=== PATIENT | female | born 1980 | race African-American/Black ===

== ENCOUNTER 2019-11-28 18:19 | Emergency (ER) | payer OTHER, SELFPAY ==
--- NOTE | ~2019-11-28 | XR_ITS ---
EXAMINATION: XR knee RT 3V EXAM DATE: 11/28/2019 18:47 INDICATION: No known recent injury provided at this time. Pain of the right knee. TECHNIQUE: Three projections of the right knee. There is no prior study for comparison. FINDINGS: No evidence osteochondral defect or joint body in the right knee joint. There are no acut e fractures or dislocations identified. There is no subcutaneous gas. There is mild to moderate siz ed joint effusion. There are no radiopaque foreign bodies. There is mild medial tibiofemoral matthew rtment primary osteoarthritis. IMPRESSION: 1. Mild osteoarthritis. 2. Mild to moderate joint effusion. Reviewed, dictated and finalized at location A. NAUTICAL ENGINEERING TECHNOLOGIST
[2019-11-28 18:31] VITALS: BP 138/62; PULSE 78; RESP 19; TEMP 36.2; O2SAT 100
[2019-11-28 21:12] LABS: Basophils Percent Auto 0.4 % (0.2-1.2); Eosinophils Absolute Auto 0.3 K/mm3 (0-0.3); Eosinophils Percent Auto 3.6 % (0-4.4); Hematocrit 38.1 % (37.0-47.0); Hemoglobin 12.5 g/dL (12.0-15.0); Immature Granulocyte Absolute 0.03 K/mm3 (0.00-0.031); Immature Granulocyte Percent A 0.4 % (0-0.5); Lymphocytes Percent Auto 39.8 % (18.3-44.2); Mean Corpuscular HGB Conc 32.8 g/dl (32-36); Mean Corpuscular Hemoglobin 31.3 pg (26-34); Mean Corpuscular Volume 95.3 fl (80-100); Mean Platelet Volume 9.8 fl (7.4-10.4); Monocytes Absolute Auto 0.6 K/mm3 (0.1-0.6); Monocytes Percent Auto 6.8 % (2.6-8.5); Neutrophils Absolute Auto 3.9 K/mm3 (1.3-6.7); Platelet Count Result 282 k/mm3 (150-375)
[2019-11-28 21:24] LABS: Blood Urea Nitrogen 10 mg/dL (7-17); Calcium 8.9 mg/dL (8.4-10.2); Carbon Dioxide 26 mmol/L (22-30); Chloride 103 mmol/L (98-107); Estimated Glomerular Filt Rate > 60; Glucose 115 mg/dL (65-105); Potassium 3.6 mmol/L (3.4-5.0); Prothrombin Time 12.4 Seconds (11.1-14.7); Sodium 138 mmol/L (137-145)
[2019-11-28 21:25] LABS: Partial Thromboplastin Time 28.4 SECONDS (22.3-36.8)
[2019-11-28 21:28] LABS: D Dimer 0.38 ug/mL (<0.48)
--- NOTE | 2019-11-28 22:00 | ED.EXTPRO ---
HPI - Extremity Problem General Chief complaint: Extremity Problem,Nontraumatic Stated complaint: R leg pain Time Seen by Provider: 11/28/19 20:34 Source: patient Mode of arrival: ambulatory Limitations: no limitations History of Present Illness HPI Narrative: A 39 y/o female, with a PMHx of arthritis, presents to the ED with c/o RLE pain for 3 weeks. Patient states she has known right knee osteoarthritis, and she has been having swelling to right knee up into her thigh. Pt states that she recently started to experience shooting pain that starts in her knee up to her thigh and she has pain in the back of her leg that is worse when stretching it out. Pt feels like she pulled her hamstring and thinks that she may have overextened her muscles when stretching. Pt notes that she has gained 15 pounds since the beginning of the year. Pt has been taking Ibuprofen and muscle relaxers for her arthritis. Pt has not seen her PCP, Dr. Castillo, in 4 years because ?she keeps cancelling my appointments. She reports smoking and a PMHx of a HTN, , and tubal ligation, but denies CP, SOB, numbness/tingling, and denies PMHx of blood clots. Onset (ago): week(s) (3) Location: right and lower extremity Related Data Allergies Allergy/AdvReac Type Severity Reaction Status Date / Time No Known Allergies Allergy Unverified 05/20/17 11:14 Review of Systems Review of Systems: All systems reviewed & are unremarkable except as noted in HPI and below Constitutional: Comments: Reports: weight gain Cardiovascular: Cardiovascular: Denies chest pain Respiratory: Respiratory: Denies dyspnea Musculoskeletal: Comments: Reports: RLE pain and edema Neurologic: Denies numbness Comments: Denies: tingling PMFSH Past Medical History Medical History (Updated 11/29/19 @ 00:00 by Benjamin Lopez) Arthritis Asthma Diabetes HTN (hypertension) Surgical History Surgical History (Updated 11/28/19 @ 22:08 by Johanna Hall) H/O tubal ligation Social History Social History (Updated 11/28/19 @ 22:08 by Johanna Hall) Smoking status: Current every day smoker Gender identity (if verbalized by the patient): Female Comments PCP: Dr. Castillo Exam Narrative: Exam Narrative: GENERAL: Well-appearing, well-nourished, and in no acute distress. HEAD: Normocephalic, atraumatic EYES: PERRLA and EOMI, conjunctiva clear without discharge THROAT:Mucous membranes moist, NECK: Supple, without lymphadenopathy or mass RESPIRATORY: No respiratory distress, Airway patent, Respirations non-labored, Clear to auscultation without rales, rhonchi or wheeze HEART: Regular rate and rhythm. No murmur heard. Normal peripheral pulses. ABDOMEN: Soft, nontender, nondistended, normal active bowel sounds. No masses. No rebound or guarding, No organomegaly. SKIN: Warm, dry, normal color without rash NEURO: Alert and oriented x3. CN 2-12 grossly intact. No focal deficits. PSYCH: Normal mood and affect. Extrem: General: full ROM Right upper extremity: edema (bilateral lower extremity ankle edema) Right lower extremity: knee Details: swelling (right knee swelling anteriorly and suprapatella, no erythema or increased warmth) Psych: Appearance: grossly normal Mental Status: mental status grossly normal Affect: normal affect Thought content: Yes Normal thought content present Course Course Emergency Course: Patient presented with right knee swelling for three weeks. She has been found to have right knee effusion as cause of her pain and swelling. She has wells score of -1 with negative d dimer so no doppler needed to rule out DVt. I have discussed this patient. I offered arthrocentesis to pull fluid for therapy. Patient has declined Vital Signs Vital signs: Vital Signs Temperature 97.1 F L 11/28/19 18:31 Pulse Rate 78 11/28/19 18:31 Respiratory Rate 19 11/28/19 18:31 Blood Pressure 138/62 11/28/19 18:31 Pulse Oximetry 100 11/28/19 18:31 Temperature 97.
== END 2019-11-28 22:09 | disposition home or self-care (01) ==
PROVIDERS: Emergency Provider General Practice
DX: M19.90 Unspecified osteoarthritis, unspecified site (principal); J45.909 Unspecified asthma, uncomplicated; E11.9 Type 2 diabetes mellitus without complications; I10 Essential (primary) hypertension; F17.200 Nicotine dependence, unspecified, uncomplicated; M25.461 Effusion, right knee; M17.11 Unilateral primary osteoarthritis, right knee
CPT/HCPCS: 36415; 73562; 80048; 85025; 85380; 85610; 85730; 99283

== ENCOUNTER 2024-02-07 11:59 | Outpatient (CLI) | payer OTHER, SELFPAY ==
[2024-02-07 12:45] LABS: Hematocrit 41.2 % (37.0-47.0); Hemoglobin 12.8 g/dL (12.0-15.0); Mean Corpuscular HGB Conc 31.1 g/dl (32-36); Mean Corpuscular Hemoglobin 29.6 pg (26-34); Mean Corpuscular Volume 95.4 fl (80-100); Mean Platelet Volume 10.1 fl (7.4-10.4); Platelet Count Result 385 k/mm3 (150-375); Red Blood Count 4.32 M/mm3 (4.2-5.4); Red Cell Distribution Width 13.6 % (11.5-14.5); White Blood Count 7.3 K/mm3 (4.5-10.0)
[2024-02-07 13:11] LABS: Hemoglobin A1C 5.5 % (<5.7)
[2024-02-07 13:43] LABS: HIV 1/2 Ab P24 Ag Result Negative (Negative)
[2024-02-07 13:53] LABS: Hepatitis B Surface Antigen Negative (Negative)
[2024-02-07 14:10] LABS: Hepatitis C Virus Antibody Negative (Negative)
[2024-02-07 15:48] LABS: Rapid Plasma Reagin Non-Reactive (NonReactive)
== END 2024-02-07 12:00 | disposition home or self-care (01) ==
LOC: ANHLAB 12:01
PROVIDERS: Visit Provider Obstetrics & Gynecology
DX: N93.9 Abnormal uterine and vaginal bleeding, unspecified (principal); R53.83 Other fatigue; Z20.2 Contact with and (suspected) exposure to infections with a predominantly sexual mode of transmission
CPT/HCPCS: 36415; 83036; 85027; 86592; 86703; 86803; 87340; G0432

== ENCOUNTER 2024-02-14 07:36 | Outpatient (CLI) | payer OTHER, SELFPAY ==
--- NOTE | ~2024-02-14 | MM_ITS ---
EXAMINATION: MM screening son BI w ha HISTORY: Screening TECHNIQUE: Craniocaudal and mediolateral oblique 3-D tomosynthesis images were obtained and synthetic 2-D images were generated. CAD analysis was submitted and interpreted. COMPARISON: No prior mammogram is available for comparison at this institution. BREAST PARENCHYMAL COMPOSITION: There are scattered areas of fibroglandular density. FINDINGS: There is no evidence of suspicious mass, calcification, or architectural distortion to sugg est malignancy in either breast. There has been no suspicious interval change. IMPRESSION: 1. No mammographic evidence of malignancy. 2. Recommend routine screening mammography in one year. BI-RADS Category 1: Negative Reviewed, dictated and finalized at location A.
== END 2024-02-14 07:37 | disposition home or self-care (01) ==
LOC: ANHIMG 07:42
PROVIDERS: Visit Provider Obstetrics & Gynecology
DX: Z12.31 Encounter for screening mammogram for malignant neoplasm of breast (principal)
CPT/HCPCS: 77063; 77067

== ENCOUNTER 2024-02-24 07:26 | Outpatient (CLI) | payer OTHER, SELFPAY ==
--- NOTE | ~2024-02-24 | US_ITS ---
EXAMINATION: US pelvic complete w TV DATE: 02/24/2024 08:36 INDICATION: Benign neoplasm of connective and other soft tissue. TECHNIQUE: Multiple transabdominal and transvaginal sonographic images of the pelvis were obtained. COMPARISON: None. FINDINGS: TRANSABDOMINAL ULTRASOUND: The uterus measures 10.4 x 6.1 x 7.3 cm. There is no free fluid in the pelvis. TRANSVAGINAL ULTRASOUND: The endometrial complex measures 4 mm in thickness. There is a 3.6 cm submucosal fibroid. There is a 1.6 cm subserosal fibroid. The right ovary measures 4.2 x 2.3 x 2.5 cm. The left ovary measures 3.1 x 1.7 x 2.6 cm. There is normal vascular flow in the ovaries. IMPRESSION: 1. Uterine fibroids. Reviewed, dictated and finalized at location E. IMPRESSION: 1. Uterine fibroids.
== END 2024-02-24 07:27 | disposition home or self-care (01) ==
PROVIDERS: Visit Provider Obstetrics & Gynecology
DX: D25.0 Submucous leiomyoma of uterus (principal); D25.2 Subserosal leiomyoma of uterus
CPT/HCPCS: 76830; 76856

== ENCOUNTER 2024-05-28 09:27 | Outpatient (CLI) | payer OTHER, SELFPAY ==
--- NOTE | 2024-05-28 09:50 | ECG_ITS ---
Test Date: 2024-05-28 09:58:00 Measurements Intervals [place] Rate: 85 P: 65 NC: 194 QRS: 45 QRSD: 73 T: 52 QT: 353 QTc: 421 Interpretive Statements SINUS RHYTHM POSSIBLE RIGHT ATRIAL ENLARGEMENT POSSIBLE LEFT ATRIAL ENLARGEMENT BORDERLINE ECG No previous ECG available for comparison Electronically Signed On 05-28-2024 10:41:23 CDT by Nicolás Chaudhari D.O.
== END 2024-05-28 09:28 | disposition home or self-care (01) ==
PROVIDERS: Visit Provider Obstetrics & Gynecology
DX: Z01.818 Encounter for other preprocedural examination (principal); F17.210 Nicotine dependence, cigarettes, uncomplicated; N92.6 Irregular menstruation, unspecified
CPT/HCPCS: 36415; 86850; 86900; 86901; 93005

== ENCOUNTER 2024-05-31 00:27 | Day surgery (SDC) | payer OTHER, SELFPAY ==
--- NOTE | 2024-05-24 15:43 | SUR.PREOP ---
Report to the Outpatient Waiting Room, entrance under the green pavilion located off [facility], at time ___0600____ on date ___05/31/24____. Planned Procedure Time: ____729____.? Time changes happen often and if your time is changed the preop area will call you the afternoon before. - You and your visitor will be asked to self-screen and do not enter if you have any COVID symptoms. Please call surgeon if you need to reschedule. - A mask is optional within the hospital at this time. Patients may have clear liquids (water, carbonated beverages, clear teas, apple juice) until 3 hours prior to surgery with a maximum of 20 ounces. (NOTHING AFTER 0430) - No food from midnight until time of surgery and no smoking - Infants may have breast milk until 4 hours before surgery, infant formula 6 hours prior to surgery. - Children will be allowed to drink immediately following surgery.? If applicable, please bring a bottle or sippy cup to assist with drinking. Juice, water, soda, and popsicles are readily available.? For infants on formula, please bring formula the day of surgery.? Pacifiers are allowed. Take only the following medications with a SIP of water on the morning of surgery: ___ANY ANTIBIOTIC THAT YOU ARE STILL ON, BACLOFEN, TYLENOL, & BRING YOUR ALBUTEROL INHALER WITH YOU THE MORNING OF SURGERY___ DO NOT STOP ANY OF YOUR OTHER PRESCRIPTION MEDICATIONS PRIOR TO SURGERY EXCEPT THE FOLLOWING Medications to discontinue per physician INSTRUCTED TO STOP TAKING IBUPROFEN 05/16/[address] LOMAS Please no make-up, nail taiwanese, hairspray, perfume, deodorant, or body powder the day of surgery.? No jewelry (including any body piercings) or valuables the day of surgery, leave them at home.? Please take a shower or bath the night before, or the morning of, surgery with an antibacterial soap.? Wear comfortable, loose fitting clothing.? Children are encouraged to wear pajamas. - Jewelry must be removed prior to entering the operating room.? Rings and piercings that are not removed may be cut off. - The hospital will not accept responsibility for valuables.? - Please leave all valuables, including medications, at home the day of surgery. If you are going home after surgery, a licensed cpr ambulance driver must drive you home.? - NO public transportation without another adult if you receive anesthesia. - We recommend that an adult stay with you for 24 hours following discharge. - We also recommend that you do not drive, make important decision, drink alcoholic beverages, or take any drugs that were not prescribed by your health care provider for at least 24 hours after your discharge time. For Pediatric surgeries, we recommend two adults accompany the child home. Follow any additional instructions given to you from your surgeon. Telephone instructions given to BLAS DEAR and asked if any additional questions and then verbalized understanding. Patient advised to call surgeon office or pre surgery nurse liaison [phone] if any additional questions.
[2024-05-24 15:57] VITALS: BMI 37.0
--- NOTE | 2024-05-30 11:02 | WPDANESEPPF ---
Anes - Initial Pre Proc Eval Procedure: Operation Date: 05/31/24 07:30 Proposed Procedures p Robotic Assisted Vaginal Hysterectomy with Bilateral Salingectomy - Sonny Beltran MD Date/Time: 05/30/24 11:02 Surgeon: Sonny Beltran MD Pre Op Diagnosis: Menorrhagia, Fibroids Patient Data Age: 44 Gender: F Height: 1.65 m Weight: 101 kg Allergies Allergy/AdvReac Type Severity Reaction Status Date / Time No Known Allergies Allergy Unverified 05/24/24 15:29 Home Medications Medication Instructions Recorded Confirmed Type albuterol sulfate 90 mcg/actuation 1 inh inhalation Q4H 02/07/24 05/24/24 History aerosol inhaler baclofen 10 mg tablet 10 mg PO DAILY 02/07/24 05/24/24 History ibuprofen 800 mg tablet 800 mg PO TID 02/07/24 05/24/24 History doxycycline hyclate 100 mg capsule 100 mg PO Q12H #14 caps 03/05/24 05/24/24 Rx metronidazole 500 mg tablet 500 mg PO Q12H #14 tabs 03/05/24 05/24/24 Rx norethindrone acetate 5 mg tablet 5 mg PO DAILY #30 tabs 03/05/24 05/24/24 Rx acetaminophen 500 mg tablet 1,000 mg PO Q6-8H PRN Pain 05/24/24 05/24/24 History Patient hx anesthesia problems: none Family hx anesthesia problems: none Results Review: All pre-operative results and documents have been reviewed as part of the pre-operative evaluation. [facility] Past Medical History Medical History (Updated 05/31/24 @ 07:07 by Jr Pineda DO) Arthritis Asthma Diabetes denies HTN (hypertension) denies Surgical History Surgical History H/O tubal ligation Social History Social History Smoking packs per day: 1 Smoking cigarettes per day: 20.0 Years smoked: 23 Smoking pack-years: 23.00 Smoking status: Current every day smoker Tobacco type: cigarettes Living arrangements: with family Gender identity (if verbalized by the patient): Female Spiritual care concerns: No Anes - Eval Final PreProcedure Day of Procedure 05/30/24 11:02 Patient weight: obese Heart: regular rate and rhythm Lungs: clear to auscultation Airway: Mallampati scale class II Neurological: alert and oriented Last oral intake: >/= 8 hours ASA classification: III Emergent: no Anesthetic plan: proceed Anesthesia type and monitoring: general ETT and standard monitoring Results Review: All pre-operative results and documents have been reviewed as part of the pre-operative evaluation. Informed Consent: The patient's anesthetic plan and its attendant risks and benefits were discussed with the patient/family/POA. Questions were solicited and answers provided to the satisfaction of the patient/family/POA.
[2024-05-31] VITALS (14 sets, daily range): BP systolic 103–139; BP diastolic 68–99; PULSE 73–105; RESP 15–27; TEMP 36.1–37.2; O2SAT 93–100
[2024-05-31] MEDS: KETOROLAC 15 MG/ML VIAL (*BKC) IV PUSH (07:00)
[2024-05-31] MEDS: LACTATED RINGERS 1,000 ML 30 ML IV CONT ×2 (07:00→09:42)
[2024-05-31] MEDS: ACETAMINOPHEN 500 MG TABLET 1000 MG PO (07:00)
--- NOTE | 2024-05-31 07:33 | WPDHPUPDATE1 ---
History and Physical Update Update Date/Time: 05/31/24 07:33 History and Physical has been reviewed, including an updated exam of the patient. There are NO changes in the patient's condition. Risks, benefits, and alternatives have been discussed and questions answered. Patient agrees to proceed with procedure.
[2024-05-31] MEDS: ceFAZolin 2 GM/D5W 50 ML 2 GM/50 ML BAG IVPB (07:40)
[2024-05-31] MEDS: BUPivacaine HCL 0.5% 10 ML AMP 20 ML INFILTRATE (08:28)
--- NOTE | 2024-05-31 09:32 | PM.OP ---
Procedure Note - Brief Procedure Note - Brief Date of procedure: 05/31/24 Menorrhagia, Fibroids Post-op diagnosis: Same (3. right dermoid cyst) Procedure performed: Robotic assisted laparoscopic vaginal hysterectomy with bilateral salpingectomy and removal of right ovary with dermoid cyst Surgeon: Sonny Beltran MD Anesthesia: GETA Estimated blood loss (mL): 20 IV fluids (mL): 1,200 Drains: No Packing: No Pathology: Yes (uterus with ceriv and fallopian tube segments and right ovary cyst w hair on outside) Complications: No immediate complications Condition: Stable Disposition: PACU
[2024-05-31] MEDS: fentaNYL CITRATE INJ (*CRX) 100 MCG/2 ML VIAL 25 MCG IV PUSH ×2 (10:52→11:05)
--- NOTE | 2024-05-31 11:02 | W.PM.PROC2 ---
Procedure Note - Detailed Date of Procedure 05/31/24 Pre-op Diagnosis Menorrhagia, Fibroids Post-op Diagnosis Same (3. Right dermoid cyst) Procedure Performed robotic assisted laparoscopic vaginal hysterectomy with bilateral salpingectomy and left oophorectomy with removal of dermoid. Surgeon Sonny Beltran MD Day Treatment Clinician/Art Therapist Ji Anesthesia General Indications Heavy bleeding and fibroid uterus she desires definitive treatment. Findings Fibroid uterus intramural and subserosal. Normal left ovary normal-appearing segments of fallopian tubes the right ovary had an approximately 3 cm cyst and there was hair on the outside of the cyst consistent with dermoid. Description of Procedure After informed consent was obtained she was taken to the operating room and general endotracheal anesthesia was administered. She was placed in low lithotomy position. An exam under anesthesia was performed. Uterus mildly enlarged retroverted, no adnexal masses palpated. She was and prepped and draped in sterile fashion. Hernandez catheter placed in bladder. Attention was turned to the vagina speculum was inserted. Single-tooth tenaculum placed on anterior lip of the cervix the uterus sounded to 9cm. The cervix was dilated to a 8 Ramesh dilator. A size 8 uterine manipulator was inserted and secured. A size 3.0 colp cup was secured in the vagina. Then attention was turned to the abdomen with new sterile gloves. .5% marcaine injected subcutaneously. An incision was made horizontal 2 cm above the umbilicus. A Veress needle was inserted. Confirmation into the abdomen obtained with normal free flow of fluid and normal peritoneal pressures. A Pneumoperitoneum of 15 mm per mercury was obtained. No abdominal or pelvic adhesions noted. A small incision was made approximately 6 cm lateral to the port on the left side of the port. A size 8mm robotic port was inserted under laparoscopic visualization into the abdomen on the left side. Attention was then turned to the right side of the abdomen and Marcaine was used subcutaneously and incision was made an 8 mm robotic port was inserted under laparoscopic visualization and superior and medial to this Marcaine was injected subcutaneously and an visitor service assistant port was inserted under laparoscopic visualization. She was placed in steep Trendelenburg position. The robotic arms were attached. Attention was turned to the right round ligament which was ligated with the vessel sealer the anterior leaf of the broad ligament was dissected anteriorly. The right side of the bladder was dissected from the lower uterine segment and upper cervix. The right fallopian tube and ovarian ligament was ligated with the vessel sealer. The a posterior leaf of the broad ligament was further dissected. The ascending uterine vessels on the right were cauterized. The uterine vessels were ligated. Attention was turned to the left round ligament which was ligated and the anterior leaf of the broad ligament was dissected anteriorly. The rest of the vesicouterine peritoneum was dissected off of the uterus 2 below where the colp cup was palpated. Once the bladder was dissected below the colp cup then the posterior leaf of the broad ligament was further dissected. the left fallopian tube was ligated from the broad ligament. The ovarian ligament was ligated. The ascending uterine vessels were ligated with the vessel sealer. The u terine arteries were ligated. The cardinal ligaments were ligated. This was done on both sides. An incision was made anterior colpotomy incision was made and this was carried around until the cervix was removed from the vagina. The uterus and cervix were removed through the vagina. there was noted to be hair at the exterior of the right ovarian cyst. This was consistent with a dermoid cyst and therefore the right infundibulopelvic ligament was ligated and the right ovary was removed. The ovary was grabbed through the vaginal opening.
--- NOTE | 2024-05-31 11:46 | PM.DS ---
DS: Admitting Diagnosis Discharge Date June 01, 2024 Admitting Diagnosis 1. Fibroid uterus 2. Menorrhagia 3. Ovarian cyst DS: Discharge Diagnosis Discharge Diagnosis (1) Ovarian cyst: Code(s): N83.209 - Unspecified ovarian cyst, unspecified side Status: Acute (2) Fibroid uterus: Code(s): D25.9 - Leiomyoma of uterus, unspecified Status: Acute (3) Dysmenorrhea: Code(s): N94.6 - Dysmenorrhea, unspecified Status: Acute (4) Menorrhagia: Code(s): N92.0 - Excessive and frequent menstruation with regular cycle Status: Acute DS: Summary Hospital Course Reason for hospitalization: hysterectomy Hospital Course: she was admitted on 05/31/2024 for planned robotic assisted hysterectomy with the with bilateral salpingectomy. She also had a right oophorectomy due to right ovarian cyst. She did well during surgery postoperatively she did well. She was discharged home on postop day 1 she had adequate pain control was ambulating well tolerating regular diet. Time Spent with Patient Time attestation: Total time spent providing and/or coordinating discharge services: Exam Const: General: cooperative Orientation/consciousness: oriented to person, oriented to place and oriented to time HENMT: Face/Nose/Sinus: Normal external nose present Eyes: General: appearance normal, both eyes and all related structures Resp: Effort & Inspection: normal respiratory effort GI: Inspection: normal to inspection Other: Incisions intact. Skin: General skin exam: normal color Neuro: General: oriented to person, oriented to place and oriented to time Extrem: General: normal to inspection and no calf tenderness Psych: Appearance: grossly normal Mental Status: mental status grossly normal DS: Data Data Completed and Pending Pending studies at discharge: Pending at discharge 05/31/24 09:01 Surgical [PTH] Routine Discharge Plan Discharge Patient Disposition: Home, Self-Care Patient Instructions: Laparoscopic Hysterectomy (DC) Stand Alone Forms: General Discharge Instructions Follow-up/Referrals: Sonny Beltran MD [Physician] - Keep Reg. Scheduled Appt. Discharge Medications: New hydrocodone-acetaminophen 5-325 mg Tablet 1 tablet PO Q3H PRN (Reason: Pain Rated 5 Or Less) Qty: 25 0RF Held baclofen 10 mg tablet 10 mg PO DAILY Hold Instructions: Resume on 06/03/24. albuterol sulfate 90 mcg/actuation HFA aerosol inhaler 1 inh inhalation Q4H Hold Instructions: Resume on 06/01/24. acetaminophen 500 mg Tablet 1,000 mg PO Q6-8H PRN (Reason: Pain) Hold Instructions: Resume on 06/03/24. Discontinued doxycycline hyclate 100 mg capsule 100 mg PO Q12H Qty: 14 0RF metronidazole 500 mg tablet 500 mg PO Q12H Qty: 14 0RF norethindrone acetate 5 mg tablet 5 mg PO DAILY Qty: 30 0RF ibuprofen 800 mg tablet 800 mg PO TID
[2024-05-31] MEDS: DEXTROSE 5%/0.45% SOD CHL 1,000 ML 125 ML IV CONT (11:57)
[2024-05-31] MEDS: KETOROLAC 30 MG/ML VIAL (*BKC) IV PUSH (11:59)
--- NOTE | 2024-05-31 12:12 | PC.NURSE ---
This patient, Cesar Munoz Dear, was received from PACU on 05/31/24 at 1130. Patient/family oriented to unit policies and routines
--- NOTE | 2024-05-31 16:25 | PCRCNOTE ---
Window of time for administration has passed. See next scheduled administration.
[2024-05-31] MEDS: HYDROcodone/acetaminophen (*CRX) 5-325 MG TABLET 1 TAB PO ×2 (17:16→20:00)
[2024-05-31] MEDS: SIMETHICONE 80 MG TAB.CHEW PO (17:17)
[2024-05-31] MEDS: SENNA/DOCUSATE SODIUM TABLET 2 TAB PO (20:00)
[2024-06-01 04:40] VITALS: BP 109/67; PULSE 96; RESP 18; TEMP 37.1; O2SAT 98
[2024-06-01] MEDS: HYDROcodone/acetaminophen (*CRX) 5-325 MG TABLET 1 TAB PO ×2 (04:42→08:44)
--- NOTE | 2024-06-01 08:13 | WPDANESPN ---
Anes - Prog Note Post-Op Date/Time: 06/01/24 08:13 Cardiovascular status: normal Respiratory status: normal Airway patency: baseline Mental status: baseline Post-Op hydration status: normal Vital Signs: Last Vital Signs Temp 37.1 C 06/01/24 04:40 Pulse 96 06/01/24 04:40 Resp 18 06/01/24 04:40 BP 109/67 06/01/24 04:40 Pulse Ox 98 06/01/24 04:40 O2 Del Method Room Air 06/01/24 04:40 O2 Flow Rate 2 05/31/24 11:15 Pain Score (VAS): 3 I/O: Intake & Output 05/31/24 06/01/24 06/01/24 23:59 07:59 15:59 Intake Total 1340 550 Output Total 700 500 Balance 640 50 Post-procedural complaints: none Patient Feedback: Patient satisfied with anesthetic care.
[2024-06-01 08:30] VITALS: BP 121/79; PULSE 81; RESP 20; TEMP 36.8; O2SAT 100
[2024-06-01] MEDS: SIMETHICONE 80 MG TAB.CHEW PO (08:43)
[2024-06-01] MEDS: IBUPROFEN 600 MG TABLET PO (08:45)
== END 2024-06-01 11:20 | disposition home or self-care (01) ==
LOC: ANHSURGERY 11:48 → ANHOB2 19:36
PROVIDERS: Visit Provider Obstetrics & Gynecology
PROC: (CPT 58554; principal; 2024-05-31 07:30)
DX: N92.0 Excessive and frequent menstruation with regular cycle (principal); D27.0 Benign neoplasm of right ovary; N80.03 Adenomyosis of the uterus; N83.8 Other noninflammatory disorders of ovary, fallopian tube and broad ligament; N94.6 Dysmenorrhea, unspecified; J45.909 Unspecified asthma, uncomplicated; E11.9 Type 2 diabetes mellitus without complications; I10 Essential (primary) hypertension; F17.210 Nicotine dependence, cigarettes, uncomplicated; E66.9 Obesity, unspecified; Z68.36 Body mass index [BMI] 36.0-36.9, adult; Z79.51 Long term (current) use of inhaled steroids
CPT/HCPCS: 58554; S2900; 88307; 99199; A9270; J0330; J0690; J1100; J1885; J2250; J2405; J2704; J2765; J3010; J7030; J7120

== ENCOUNTER 2024-12-02 16:15 | Emergency (ER) | payer OTHER, SELFPAY ==
--- NOTE | ~2024-12-02 | CT_ITS ---
EXAMINATION: CT facial bones w con DATE: 12/02/2024 18:37 INDICATION: right facial swelling . TECHNIQUE: Computed tomography (CT) of the facial bones and maxillofacial region was performed withou t intravenous contrast. Automated exposure control and iterative reconstruction technique were employ ed. The dose-length product was 633.37 mGy-cm. COMPARISON: None. FINDINGS: Soft Tissues: No significant superficial soft tissue swelling. No abnormal enhancement. Facial bones: No acute fracture. No lytic or blastic process. Eyes: The globes are intact. The soft tissue planes of the orbits are maintained. Paranasal Sinuses: The visualized aerated spaces are clear. Foreign Bodies: No radiopaque foreign bodies. Other Findings: None. IMPRESSION: No evidence of acute facial bone fracture. No abnormal enhancing lesions detected. No CT finding to e xplain right facial swelling. Reviewed, dictated and finalized at location K. IMPRESSION: No evidence of acute facial bone fracture. No abnormal enhancing lesions detect ed. No CT finding to explain right facial swelling.
[2024-12-02 16:22] VITALS: BP 140/87; PULSE 86; RESP 18; TEMP 36.4; O2SAT 99
--- NOTE | 2024-12-02 17:33 | ED.DENTAL ---
HPI - Dental/Oral General Chief complaint: Dental/Oral <Sandeep Arauzver GLADYS, DO - Last Filed: 12/02/24 19:08> Stated complaint: Swelling/pain right side of face, unable to open m <Sandeep Arauzver III, DO - Last Filed: 12/02/24 19:08> Time Seen by Provider: 12/02/24 17:19 <Sandeep Arauzver III, DO - Last Filed: 12/02/24 19:08> History of Present Illness HPI Narrative: Pt presents with facial swelling to right face since 0300 this morning. Pt says pain is in front of her right ear and right face and pt not able to fully open mouth. <Sandeep Arauzver GLADYS, DO - Last Filed: 12/02/24 19:08> Related Data Home medications: Home Medications ?Medication ?Instructions ?Recorded ?Confirmed ?Last Taken ?Type albuterol sulfate 90 mcg/actuation 1 inh inhalation Q4H 02/07/24 08/28/24 Unknown History aerosol inhaler baclofen 10 mg tablet 10 mg PO DAILY 02/07/24 08/28/24 Unknown History <Sandeep Arauzver III, DO - Last Filed: 12/02/24 19:08> Allergies/adverse reactions: Allergies Allergy/AdvReac Type Severity Reaction Status Date / Time No Known Allergies Allergy Verified 12/02/24 16:16 <Sandeep Arauzver GLADYS, DO - Last Filed: 12/02/24 19:08> Review of Systems Review of Systems: All systems reviewed & are unremarkable except as noted in HPI and below <Sandeep Arauzver III, DO - Last Filed: 12/02/24 19:08> [facility] Past Medical History Medical History: Medical History Arthritis Asthma Diabetes denies HTN (hypertension) denies <Sandeep Elkin Hanson III, DO - Last Filed: 12/02/24 19:08> Surgical History Surgical History: Surgical History H/O tubal ligation H/O: hysterectomy <Sandeep Elkin Margie III, DO - Last Filed: 12/02/24 19:08> Social History Social History: Social History Smoking packs per day: 1 Smoking cigarettes per day: 20.0 Years smoked: 23 Smoking pack-years: 23.00 Smoking status: Current every day smoker Tobacco type: cigarettes Living arrangements: with family Gender identity (if verbalized by the patient): Female Spiritual care concerns: No <Sandeep Elkin Hanson III, DO - Last Filed: 12/02/24 19:08> Exam Const: General: healthy appearing and no acute distress <Sandeep Elkin Hanson III, DO - Last Filed: 12/02/24 19:08> Nutritional Appearance: well nourished <Sandeep Elkin Hanson III, DO - Last Filed: 12/02/24 19:08> Orientation/consciousness: patient oriented x3 <Sandeep Elkin Hanson III, DO - Last Filed: 12/02/24 19:08> Limitations: no limitations <Sandeep Elkin Hanson III, DO - Last Filed: 12/02/24 19:08> HENMT: Ears: external ears normal and TM's normal bilaterally <Sandeep Elkin Hanson III, DO - Last Filed: 12/02/24 19:08> Face and sinus: sinus tenderness (tender and swollen right face especially in front of right ear. ) <Sandeep Elkin Hanson III, DO - Last Filed: 12/02/24 19:08> Teeth and gingiva: abnormal tooth and associated gingiva <Sandeep Elkin Hanson III, DO - Last Filed: 12/02/24 19:08> Other: unable to fully open mouth <Sandeep Elkin Hanson III, DO - Last Filed: 12/02/24 19:08> Neck: Neck: normal visual inspection, no lymphadenopathy and no meningeal signs <Sandeep Elkin Hanson III, DO - Last Filed: 12/02/24 19:08> Resp: Effort & Inspection: normal respiratory effort <Sandeep Elkin Hanson III, DO - Last Filed: 12/02/24 19:08> Auscultation: clear to auscultation bilaterally <Sandeep Elkin Hanson III, DO - Last Filed: 12/02/24 19:08> Cardio: Rate: regular rate <Sandeep Elkin Hanson III, DO - Last Filed: 12/02/24 19:08> Rhythm: regular rhythm <Sandeep Elkin Hanson III, DO - Last Filed: 12/02/24 19:08> Course Vital Signs Vital signs: Vital Signs Temperature 97.6 F 12/02/24 16:22 Pulse Rate 86 12/02/24 16:22 Respiratory Rate 18 12/02/24 16:22 Blood Pressure 140/87 12/02/24 16:22 Pulse Oximetry 99 12/02/24 16:22 Temperature 97.6 F 12/02/24 16:22 Pulse Rate 86 12/02/24 16:22 Respiratory Rate 18 12/02/24 16:22 Blood Pressure 140/87 12/02/24 16:22 Pulse Oximetry 99 12/02/24 16:22 <Sandeep Elkin Hanson III, DO - Last Filed: 12/02/24 19:08> Vital Signs Temperature 97.6 F 12/02/24 16:22 Pulse Rate 86 12/02/24 16:22 Respiratory Rate 18 12/02/24 16:22 Blood Pressure 140/87 12/02/24 16:22 Pulse Oximetry 99 12/02/24 16:22 Temperature 97.6 F 12/02/24 16:22 Pulse Rate 86 12/02/24 16:22 Respiratory Rate 18 12/02/24 16:22 Blood Pressure 140/87 12/02/24 16:22 Pulse Oximetry 99 12/02/24 16:22 <Sunny Espinoza MD - Last Filed: 12/02/24 20:00> MDM - Dental/Oral MDM Narrative Medical decision making narrative: Pt presents with onset facial swelling and pain since 299. Pt not able to open mouth fully. will get labs and CT facial bones with contrast. will turn over to Dr Espinoza at [address] <Sandeep Elkin Hanson III, DO - Last Filed: 12/02/24 19:08> Pt presents with onset facial swelling and pain since 299 to. Pt not able to open mouth fully. will get labs and CT facial bones with contrast. will turn over to Dr Espinoza at [address]. Patient was signed out to me pending CT facial bones with IV contrast this CT scan was obtained the cement was interpreted by me revealing no acute findings. Cemented contacted the radiologist who read the report as there was no mention of the mastoid regions. I spoke with Dr. Jeong at 1950 and he informed me that he is able to see both of the patient's mastoids and in her ears and they are all clear. Patient was administered oral Sedgwick at this time 5/325 mg for pain and her 1st dose of antibiotic Augmentin emergency department. She was informed that she will be started on Augmentin to take for the next week until she follows up with a dentist within the next 2-5 days and patient is agreeable with this plan. Provided strict return precautions instructions written to the emergency department for new or worsening symptoms develop. Patient was discharged in stable condition. <Sunny Espinoza MD - Last Filed: 12/02/24 20:00> Lab Data Result diagrams: 12/02/24 17:42 12/02/24 17:42 <Sandeep Hanson III, DO - Last Filed: 12/02/24 19:08> Labs: Lab Results 12/02/24 Range/Units 17:42 WBC 8.1 (4.5-10.0) K/mm3 RBC 4.71 (4.2-5.4) M/mm3 Hgb 14.5 (12.0-15.0) g/dL Hct 44.1 (37.0-47.0) % MCV 93.6 (80-100) fl MCH 30.8 (26-34) pg MCHC 32.9 (32-36) g/dl RDW 13.2 (11.5-14.5) % Plt Count 304 (150-375) k/mm3 MPV 9.7 (7.4-10.4) fl Immature Gran % (Auto) 0.2 (0-0.5) % Neut % (Auto) 56.3 (45.5-73.1) % Lymph % (Auto) 30.3 (18.3-44.2) % [place] % (Auto) 10.9 H (2.6-8.5) % Eos % (Auto) 1.6 (0-4.4) % Baso % (Auto) 0.7 (0.2-1.2) % Lymph # (Auto) 2.44 (0.9-3.2) K/mm3 [place] # (Auto) 0.9 H (0.1-0.6) K/mm3 Eos # (Auto) 0.1 (0-0.3) K/mm3 Baso # (Auto) 0.1 (0.0-0.1) K/mm3 Abs Immat Gran (auto) 0.02 (0.00-0.031) K/mm3 Absolute Neuts (auto) 4.5 (1.3-6.7) K/mm3 Absolute Nucleated RBC 0.000 (0.0-0.012) K/mm3 Nucleated RBC % 0.0 (0.0-0.2) % Sodium 135 L (137-145) mmol/L Potassium 4.0 (3.4-5.0) mmol/L Chloride 102 (98-107) mmol/L Carbon Dioxide 26 (22-30) mmol/L Anion Gap 7 (4-12) mmol/L BUN 10 (7-17) mg/dL Creatinine 0.67 L (0.7-1.0) mg/dL Estim Creat Clear Calc 107 ml/min Estimated GFR > 60 (59 - ) Glucose 88 (65-110) mg/dL Calcium 9.5 (8.4-10.2) mg/dL Total Bilirubin 0.7 (0.2-1.3) mg/dL AST 22 (14-36) U/L ALT 18 (6-35) U/L Alkaline Phosphatase 78 (38-126) U/L Total Protein 8.0 (6.3-8.2) g/dL Albumin 4.2 (3.5-5.1) g/dL <Sandeep Hanson III, DO - Last Filed: 12/02/24 19:08> Lab Results 12/02/24 Range/Units 17:42 WBC 8.1 (4.5-10.0) K/mm3 RBC 4.71 (4.2-5.4) M/mm3 Hgb 14.5 (12.0-15.0) g/dL Hct 44.1 (37.0-47.0) % MCV 93.6 (80-100) fl MCH 30.8 (26-34) pg MCHC 32.9 (32-36) g/dl RDW 13.2 (11.5-14.5) % Plt Count 304 (150-375) k/mm3 MPV 9.7 (7.4-10.4) fl Immature Gran % (Auto) 0.2 (0-0.5) % Neut % (Auto) 56.3 (45.5-73.1) % Lymph % (Auto) 30.3 (18.3-44.2) % [place] % (Auto) 10.9 H (2.6-8.5) % Eos % (Auto) 1.6 (0-4.4) % Baso % (Auto) 0.7 (0.2-1.2) % Lymph # (Auto) 2.44 (0.9-3.2) K/mm3 [place] # (Auto) 0.9 H (0.1-0.6) K/mm3 Eos # (Auto) 0.1 (0-0.3) K/mm3 Baso # (Auto) 0.1 (0.0-0.1) K/mm3 Abs Immat Gran (auto) 0.02 (0.00-0.031) K/mm3 Absolute Neuts (auto) 4.5 (1.3-6.7) K/mm3 Absolute Nucleated RBC 0.000 (0.0-0.012) K/mm3 Nucleated RBC % 0.0 (0.0-0.2) % Sodium 135 L (137-145) mmol/L Potassium 4.0 (3.4-5.0) mmol/L Chloride 102 (98-107) mmol/L Carbon Dioxide 26 (22-30) mmol/L Anion Gap 7 (4-12) mmol/L BUN 10 (7-17) mg/dL Creatinine 0.67 L (0.7-1.0) mg/dL Estim Creat Clear Calc 107 ml/min Estimated GFR > 60 (59 - ) Glucose 88 (65-110) mg/dL Calcium 9.5 (8.4-10.2) mg/dL Total Bilirubin 0.7 (0.2-1.3) mg/dL AST 22 (14-36) U/L ALT 18 (6-35) U/L Alkaline Phosphatase 78 (38-126) U/L Total Protein 8.0 (6.3-8.2) g/dL Albumin 4.2 (3.5-5.1) g/dL <Sunny Espinoza MD - Last Filed: 12/02/24 20:00> Discharge Plan Discharge Clinical Impression: Pain, dental, Dental caries <Sandeep Arauzver GLADYS, DO - Last Filed: 12/02/24 19:08> Patient Disposition: Home, Self-Care <Sandeep Arauzver GLADYS, DO - Last Filed: 12/02/24 19:08> Condition: Improved <Sandeep Arauzver GLADYS, DO - Last Filed: 12/02/24 19:08> Instructions: Antibiotic Form, Temporomandibular Disorder (ED), Toothache (ED) <Sandeep Arauzver GLADYS, DO - Last Filed: 12/02/24 19:08> Additional Instructions: Please follow-up with one of the dentists provided with that today within the next 5 days. Take the prescribed antibiotic as instructed. Emergency department if any new or worsening symptoms develop. 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
[2024-12-02 17:51] LABS: Basophils Absolute Auto 0.1 K/mm3 (0.0-0.1); Basophils Percent Auto 0.7 % (0.2-1.2); Eosinophils Absolute Auto 0.1 K/mm3 (0-0.3); Eosinophils Percent Auto 1.6 % (0-4.4); Hematocrit 44.1 % (37.0-47.0); Hemoglobin 14.5 g/dL (12.0-15.0); Immature Granulocyte Absolute 0.02 K/mm3 (0.00-0.031); Immature Granulocyte Percent A 0.2 % (0-0.5); Lymphocytes Absolute Auto 2.44 K/mm3 (0.9-3.2); Lymphocytes Percent Auto 30.3 % (18.3-44.2); Mean Corpuscular HGB Conc 32.9 g/dl (32-36); Mean Corpuscular Hemoglobin 30.8 pg (26-34); Mean Corpuscular Volume 93.6 fl (80-100); Mean Platelet Volume 9.7 fl (7.4-10.4); Monocytes Absolute Auto 0.9 K/mm3 (0.1-0.6); Monocytes Percent Auto 10.9 % (2.6-8.5); Neutrophils Absolute Auto 4.5 K/mm3 (1.3-6.7); Neutrophils Percent Auto 56.3 % (45.5-73.1); Platelet Count Result 304 k/mm3 (150-375); Red Blood Count 4.71 M/mm3 (4.2-5.4); Red Cell Distribution Width 13.2 % (11.5-14.5); White Blood Count 8.1 K/mm3 (4.5-10.0)
[2024-12-02 18:03] LABS: Alanine Aminotransferase 18 U/L (6-35); Albumin Level 4.2 g/dL (3.5-5.1); Alkaline Phosphatase 78 U/L (38-126); Anion Gap 7 mmol/L (4-12); Aspartate Amino Transferase 22 U/L (14-36); Bilirubin,Total 0.7 mg/dL (0.2-1.3); Blood Urea Nitrogen 10 mg/dL (7-17); Calcium 9.5 mg/dL (8.4-10.2); Carbon Dioxide 26 mmol/L (22-30); Chloride 102 mmol/L (98-107); Estimated CRCL calculation 107 ml/min; Estimated Glomerular Filt Rate > 60; Glucose 88 mg/dL (65-110); Sodium 135 mmol/L (137-145)
[2024-12-02] MEDS: KETOROLAC 15 MG/ML VIAL (*BKC) IV PUSH (18:25)
--- OUTSIDE RECORDS SUMMARY | 2024-12-02 18:49 | XMS_ITS | Clinical Summary ---
Author Organization [facility] Address [address] [place], [place] [id number] Care Team Providers Care Resident Assistant Cna Name Role Phone Unavailable Primary Care Provider Unavailabl e Social History Tobacco Use Types Packs/Day Years Used Date Smoking Tobacco: Never Assessed Comments Unknown Sex and Gender Information Value Date Recorded Sex Assigned at Not on file Legal Sex Female 5:19 PM CDT Gender Identity Not on file Sexual Orientation Not on file Plan of Treatment Health Maintenance Due Date Last Done Comments Cervical Cancer Screening Pa p Smear (Age 30 to 64) Every 3 Years 1981 Annual Physical 1984 Hepatitis C 1999 DTaP, Tdap and Td Vaccines ( 1 - Tdap) 2000 Hepatitis B Vaccines (1 of 3 - 19+ 3-dose series) 2000 Cervical Cancer Screening Pa p with HPV Testing (Age 30 to 64) Every 5 Years 2011 Cervical Cancer Screening with HPV 2011 Mammogram Screening 2021 COVID-19 Vaccine (2023-2 5 season) 2024 Influenza Adult (#1) 2024 HPV Vaccines Aged Out No longer eligi ble based on patient's age to complete this topic Meningococcal B Vaccine Aged Out No l onger eligible based on patient's age to complete this topic Meningococcal Vaccine Aged Out No carolina conor eligible based on patient's age to complete this topic Pneumococcal Vaccine: Pediat rics (0 to 5 Years) and At-Risk Patients (6 to 64 Years) Aged Out No longer eligible b ased on patient's age to complete this topic RSV Immunizations Under 20 Months Aged Out No longer eligible based on patient's age to complete this topic
--- OUTSIDE RECORDS SUMMARY | 2024-12-02 18:49 | XMS_ITS | Clinical Summary ---
Author Organization [facility] Address [address] [place] [address] Care Team Providers Care Installation Specialist Name Role Phone Johanna Hernandez Primary Care Provider Allergies No known active allergies Medications albuterol HFA (PROVENTIL HFA,VENTOLIN HFA,PROAIR HFA) 90 mcg/actuation inhaler 1 puff Active baclofen (LIORESAL) 10 mg tablet Take 1 tablet by mouth daily Active Symbicort 160-4.5 mcg/actuation inhaler 2 puffs 07/27/2020 Active ibuprofen (ADVIL,MOTRIN) 800 mg tablet Take 1 tablet by mouth daily Active cyclobenzaprine (FLEXERIL) 10 mg tablet Take 1 tablet (10 mg total) by mouth 2 (two) times a day as needed for muscle spasms 20 tablet 05/19/2023 Active naproxen (NAPROSYN) 500 mg tablet Take 1 tablet (500 mg total) by mouth 2 (two) times a day as needed for pain Take with food 20 tablet 05/19/2023 Active Active Problems Problem Noted Date Diagnosed Date Tobacco abuse 09/08/2020 Chest pain 09/08/2020 Obesity (BMI 35.0-39.9 without comorbidity) 08/25 Social History Tobacco Use Types Packs/Day Years Used Date Smoking Tobacco: Every Day Cigarettes Smokeless Tobacco: Never Alcohol Use Standard Drinks/Week Comments Yes 0 (1 standard drink = 0.6 oz pur e alcohol) rarely Personal Safety Answer Date Recorded Getting School Help Needed Not on file 06/15 Comments No Sex and Gender Information Value Date Recorded Sex Assigned at Not on file 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 Gender Identity Not on file Sexual Orientation Not on file Obstetrics History Last Filed Vital Signs Vital Sign Reading Time Taken Comments Blood Pressure 142/73 05/19/2023 8:36 PM CDT Pulse 93 05/19/2023 8:36 PM CDT Temperature 36.3 C (97.3 F) 05/19/2023 8:36 PM CDT Respiratory Rate 20 05/19/2023 8:36 PM CDT Oxygen Saturation 100% 05/19/2023 8:36 PM CDT Inhaled Oxygen Concentration - - Weight 101.5 kg (223 lb 12.3 oz) 05/19/2023 8:36 PM CDT Height 165.1 cm (5' 5 ) 05/19/2023 8:36 PM CDT Body Mass Index 37.24 05/19/2023 8:36 PM CDT Plan of Treatment Health Maintenance Due Date Last Done Comments Breast Cancer Screening-Mammogram 1981 Cervical Cancer Screening 1981 Depression Screening 1981 Hepatitis C Screening 1981 DTaP/Tdap/Td Vaccine (1 - Tdap) 1992 Varicella Vaccines (1 of 2 - 13+ 2-dose series) 1994 Hepatitis B Screening 1999 Regular Well Visit/Exam 18-64 1999 Pneumococcal vaccine <65 (1 of 2 - PCV) 2000 Covid-19 Vaccine (4 - 2023-2 5 season) 2024 10/19/2021, 01/27/2021, 12/30/2020 Influenza Vaccine (#1) 2024 HPV Vaccines Aged Out No longer eligi ble based on patient's age to complete this topic Insurance [facility] Care Teams Installation Specialist Relationship Specialty Start Date End Date Johanna Hernandez PA PCP - General Product Specialist 05/19/23
--- OUTSIDE RECORDS SUMMARY | 2024-12-02 18:49 | XMS_ITS | Data Portability ---
Author Organization [facility] Address [address] [place] [address] Care Team Providers Care Manager Delivery Name Role Phone ABELINO GAMBLE Primary Care Provider HANNY Bran Primary Care Provider [phone] Assessment No assessment recorded. Plan of Treatment Reminders Order Date Submit Date Provider Last Modified By Organization Details Last Modified Time Details Appointments None recorded. Lab lipid panel, serum 2024 025 [facility], [address] [email or web address] [address], [place], [address], 5 08:28:11 CMP, serum or plasma 2024 025 [facility], [address] [facility], [address], [place], [address], 5 08:28:12 HbA1c (hemoglobi n A1c), blood 2024 025 [facility], [address] [email or web address] [address], [address], [place], [address], 5 06:37:32 vitamin D, 25-hydroxy , total, serum 2024 025 [facility], [address] [email or web address] [address], [address], [place], [address], 5 06:37:34 TSH, ultra-sens itive, serum 2024 025 CLAUDIA [facility], [address], [address], [place], [address], 5 06:37:30 HIV 1 + 2, meaningful use set 2024 025 CLAUDIA [facility], [address], [address], [place], [address], 5 06:37:36 chlamydia trachomati s + neisseria gonorrhoea e + trichomona s vaginalis rRNA panel, PETRONA+probe 2024 025 CLAUDIA JUDD, [address], [address], [place], [address], 5 06:37:28 RPR (rapid plasma reagin), serum 2024 025 CLAUDIA [facility], [address], [address], [place], [address], 5 06:37:33 iron + total iron-edgar ng capacity (TIBC), serum 2024 025 CLAUDIA [facility], [address], [address], [place], [address], 5 06:37:31 CBC w/ auto diff 2024 025 CLAUDIA JUD[facility], [address], [address], [place], [address], 5 08:28:14 iron + total iron-edgar ng capacity (TIBC), serum 2023 024 CLAUDIA JUDD, [address], [address], [place], [address], 4 10:14:09 CBC w/ auto diff 2023 024 CLAUDIA [facility]D, [address], [address], [place], [address], 4 07:13:54 vitamin D, 25-hydroxy , total, serum 2022 023 [facility]IA [facility], [address], [address], [place], [address], 3 08:27:04 iron + total iron-edgar ng capacity (TIBC), serum 2022 023 CLAUDIA JUDD, [address], [address], [place], [address], 3 08:27:03 CBC w/ auto diff 2022 023 CLAUDIA JUDD, [address], [address], [place], [address], 3 06:18:14 HbA1c (hemoglobi n A1c), blood 2022 023 CLAUDIA JUDD, [address], [address], [place], [address], 3 07:17:45 BMP, serum or plasma 2022 023 CLAUDIA JUDD, [address], [address], [place], [address], 3 06:18:47 lipid panel, serum 2022 023 CLAUDIA JUDD, [address], [address], [place], [address], 3 06:18:46 vitamin D, 25-hydroxy , total, serum 2022 023 [facility], [address] [place] [address], [address], [place], [address], 3 07:17:45 iron + total iron-edgar ng capacity (TIBC), serum 2022 023 [facility], [address] [place] [address], [address], [place], [address], 3 07:17:44 CBC w/ auto diff 2022 023 CLAUDIA L[facility], [address] [facility], [address], [place], [address], 3 06:18:48 Referral weight management referral 2024 025 [facility], [address] [place], [address], 5 12:42:58 Procedures colonoscop y procedure (PROC) - Is patient on blood thinners?: NPacemaker or defibrilla tor?: NPrep (Colonosco py Procedure) : PEG 3350, Go Lytely, Colyte or Gavalyte G, depending on insurance coverageIf patient has had coronary / vascular stent, provide date: NoIf patient has had heart attack or stroke, provide date: NoHas patient ever had problems with anesthesia or sedation?: NoHas patient had problems with opening mouth or breathing tubes?: NoDoes patient use a wheelchair ?: N 2022 023 [facility] [address] [place], [address], 3 10:35:25 Surgeries None recorded. Imaging None recorded. Medication Orders albuterol sulfate HFA 90 mcg/actuat ion aerosol inhaler 2024 025 [facility]61202, [address] [place] [address], [id number], 5 11:25:26 Symbicort 160 mcg-4.5 mcg/actuat ion HFA aerosol inhaler 2024 025 [facility] #40377, [address] [place] [address], [id number], 5 11:25:27 baclofen 10 mg tablet 2024 025 [facility] #09082, [address] [place] [address], [id number], 5 11:25:27 ibuprofen 800 mg tablet 2024 025 [facility] #89256, [address] [place] [address], [id number], 5 11:25:27 ferrous sulfate 325 mg (65 mg iron) tablet 2024 025 [facility] #79942, [address] [place] [address], [id number], 5 11:25:26 ibuprofen 800 mg tablet 2022 023 [facility] #29459, [address] [place] [address], [id number], 3 12:24:24 ibuprofen 800 mg tablet 2022 023 [facility] #39700, [address] [place] [address], [id number], 3 10:52:11 Dulcolax (bisacodyl ) 5 mg tablet,del ayed release 2022 023 [email or web address] [facility] #15036, [address], [place], [id number], 11:20:00 Miralax 17 gram/dose oral powder 2022 023 CLAUDIA [facility] #82429, [address], [place], [id number], 09:33:05 Patient TargetsNo targets recorded. Patient Instructions Encounter Date Encounter Id Patient Instructions Last Modified By Organization Details Last Modified Time 07/03/2023 [id number] RL About Your Colonoscopy 1 Day Prep [email or web address] Not available 07/03/2023 09:33:00 07/12/2023 [id number] A healthy lifestyle: care instructions Not available 07/12/2023 10:51:58 07/21/2023 [id number] A healthy lifestyle: care instructions Not available 07/21/2023 12:24:13 10/13/2023 [id number] A healthy lifestyle: care instructions Not available 10/13/2023 11:45:15 10/03/2024 [id number] Quitting Tobacco : Care Instructions Not available 10/03/2024 11:25:10 A healthy lifestyle: care instructions Not available 10/03/2024 11:25:10 Reason for Referral Weight Management Referral f or Body mass index 30+ - obesity Referring Physician: Hanny Hernandez, Family Medicine, Encounter Date: 10/03/2024 Results Created Date Observation Date Name Description Value Unit Range Abnormal Flag Note LastModifiedBy Organization Detail LastModifiedTime 06/07/2006/07/2023 LIPID PANEL cholesterol, total 167 mg/dL 100-19 9 Not Available [facility] [address] [place], [address], 06/08/2023 06:19:53 06/07/20 23 06/07/2023 LIPID PANEL triglyceride s 56 mg/dL 0-149 Not Available [facility] [address] [place], [address], 06/08/2023 06:19:53 06/07/20 23 06/07/2023 LIPID PANEL HDL cholesterol 59 mg/dL 40-999 Not Available [facility] [address] [place], [address], 06/08/2023 06:19:53 06/07/20 23 06/07/2023 LIPID PANEL VLDL cholesterol josie 11 mg/dL 5-40 Not Available [facility] [address] [place], [address], 06/08/2023 06:19:53 06/07/20 23 06/07/2023 LIPID PANEL LDL chol calc (nih) 105 mg/dL 0-99 above high normal Not Available [facility] [address] [place] [address], [address], 06/08/2023 06:19:53 06/07/20 23 06/07/2023 COMP. METAB OLIC PANEL (14) glucose 71 mg/dL 70-99 Not Available [facility] [address] [place], [address], 06/08/2023 06:19:54 06/07/20 23 06/07/2023 COMP. METAB OLIC PANEL (14) BUN 9 mg/dL 6-24 Not Available [facility] [address] [place], [address], 06/08/2023 06:19:54 06/07/20 23 06/07/2023 COMP. METAB OLIC PANEL (14) creatinine 0.66 mg/dL 0.76-1 .27 below low normal Not Available [facility] [address] [place] [address], [address], 06/08/2023 06:19:54 06/07/20 23 06/07/2023 COMP. METAB OLIC PANEL (14) BUN/creatini ne ratio 14 9-23 Not Available [facility] [address] [place] [address], [address], 06/08/2023 06:19:54 06/07/20 23 06/07/2023 COMP. METAB OLIC PANEL (14) sodium 140 mmol/ L 134-14 4 Not Available [facility] [address] [place] [address], [address], 06/08/2023 06:19:54 06/07/20 23 06/07/2023 COMP. METAB OLIC PANEL (14) potassium 4.7 mmol/ L 3.5-5. 2 Not Available [facility] [address] [place] [address], [address], 06/08/2023 06:19:54 06/07/20 23 06/07/2023 COMP. METAB OLIC PANEL (14) chloride 103 mmol/ L 96-106 Not Available [facility] [address] [place] [address], [address], 06/08/2023 06:19:54 06/07/20 23 06/07/2023 COMP. METAB OLIC PANEL (14) carbon dioxide, total 24 mmol/ L 20-29 Not Available [facility] [address] [place] [address], [address], 06/08/2023 06:19:54 06/07/20 23 06/07/2023 COMP. METAB OLIC PANEL (14) calcium 9.4 mg/dL 8.7-10 .2 Not Available [facility] [address] [place] [address], [address], 06/08/2023 06:19:54 06/07/20 23 06/07/2023 COMP. METAB OLIC PANEL (14) protein, total 7.7 g/dL 6.0-8. 5 Not Available [facility] [address] [place] [address], [address], 06/08/2023 06:19:54 06/07/20 23 06/07/2023 COMP. METAB OLIC PANEL (14) albumin 4.2 g/dL 3.9-4. 9 Not Available [facility] [address] [place], [address], 06/08/2023 06:19:54 06/07/20 23 06/07/2023 COMP. METAB OLIC PANEL (14) globulin, total 3.5 g/dL 1.5-4. 5 Not Available [facility] [address] [place], [address], 06/08/2023 06:19:54 06/07/20 23 06/07/2023 COMP. METAB OLIC PANEL (14) A/G ratio 1.0 1.2-2. 2 below low normal Not Available [facility] [address] [place], [address], 06/08/2023 06:19:54 06/07/20 23 06/07/2023 COMP. METAB OLIC PANEL (14) bilirubin, total 0.3 mg/dL 0.0-1. 2 Not Available [facility] [address] [place], [address], 06/08/2023 06:19:54 06/07/20 23 06/07/2023 COMP. METAB OLIC PANEL (14) alkaline phosphatase 77 IU/L 44-121 Not Available [facility] [address] [place], [address], 06/08/2023 06:19:54 06/07/20 23 06/07/2023 COMP. METAB OLIC PANEL (14) AST (SGOT) 17 IU/L 0-40 Not Available [facility] [address] [place], [address], 06/08/2023 06:19:54 06/07/20 23 06/07/2023 COMP. METAB OLIC PANEL (14) ALT (SGPT) 14 IU/L 0-32 Not Available [facility] [address] [place] [address], [address], 06/08/2023 06:19:54 06/07/2006/07/2023 CBC WITH DIFFE RENTI AL/PL ATELE T WBC 5.6 x10e3 /uL 3.4-10 .8 Not Available [facility] [address] [place], [address], 06/08/2023 06:19:55 06/07/2006/07/2023 CBC WITH DIFFE RENTI AL/PL ATELE T RBC 4.28 x10e6 /uL 3.77-5 .28 Not Available [facility] [address] [place], [address], 06/08/2023 06:19:55 06/07/2006/07/2023 CBC WITH DIFFE RENTI AL/PL ATELE T hemoglobin 11.8 g/dL 11.1-1 5.9 Not Available [facility] [address] [place], [address], 06/08/2023 06:19:55 06/07/2006/07/2023 CBC WITH DIFFE RENTI AL/PL ATELE T hematocrit 38.5 % 34.0-4 6.6 Not Available [facility] [address] [place], [address], 06/08/2023 06:19:55 06/07/2006/07/2023 CBC WITH DIFFE RENTI AL/PL ATELE T MCV 90 fL 79-97 Not Available [facility] [address] [place], [address], 06/08/2023 06:19:55 06/07/2006/07/2023 CBC WITH DIFFE RENTI AL/PL ATELE T MCH 27.6 pg 26.6-3 3.0 Not Available [facility] [address] [place], [address], 06/08/2023 06:19:55 06/07/2006/07/2023 CBC WITH DIFFE RENTI AL/PL ATELE T MCHC 30.6 g/dL 31.5-3 5.7 below low normal Not Available [facility] [address] [place], [address], 06/08/2023 06:19:55 06/07/2006/07/2023 CBC WITH DIFFE RENTI AL/PL ATELE T RDW 14.6 % 11.5-1 4.5 above high normal Not Available [facility] [address] [place], [address], 06/08/2023 06:19:55 06/07/2006/07/2023 CBC WITH DIFFE RENTI AL/PL ATELE T platelets 373 x10e3 /uL 150-45 0 Not Available [facility] [address] [place], [address], 06/08/2023 06:19:55 06/07/2006/07/2023 CBC WITH DIFFE RENTI AL/PL ATELE T neutrophils 57 % notest b. Not Available [facility] [address] [place], [address], 06/08/2023 06:19:55 06/07/2006/07/2023 CBC WITH DIFFE RENTI AL/PL ATELE T lymphs 29 % notest b. Not Available [facility] [address] [place], [address], 06/08/2023 06:19:55 06/07/2006/07/2023 CBC WITH DIFFE RENTI AL/PL ATELE T monocytes 11 % notest b. Not Available [facility] [address] [place], [address], 06/08/2023 06:19:55 06/07/2006/07/2023 CBC WITH DIFFE RENTI AL/PL ATELE T eos 1 % notest b. Not Available [facility] [address] [place], [address], 06/08/2023 06:19:55 06/07/2006/07/2023 CBC WITH DIFFE RENTI AL/PL ATELE T basos 1 % notest b. Not Available [facility] [address] [place] [address], [address], 06/08/2023 06:19:55 06/07/2006/07/2023 CBC WITH DIFFE RENTI AL/PL ATELE T neutrophils (absolute) 3.2 x10e3 /uL 1.4-7. 0 Not Available [facility] [address] [place] [address], [address], 06/08/2023 06:19:55 06/07/2006/07/2023 CBC WITH DIFFE RENTI AL/PL ATELE T lymphs (absolute) 1.6 x10e3 /uL 0.7-3. 1 Not Available [facility] [address] [place] [address], [address], 06/08/2023 06:19:55 06/07/2006/07/2023 CBC WITH DIFFE RENTI AL/PL ATELE T monocytes(ab solute) 0.6 x10e3 /uL 0.1-0. 9 Not Available [facility] [address] [place] [address], [address], 06/08/2023 06:19:55 06/07/2006/07/2023 CBC WITH DIFFE RENTI AL/PL ATELE T eos (absolute) 0.1 x10e3 /uL 0.0-0. 4 Not Available [facility] [address] [place] [address], [address], 06/08/2023 06:19:55 06/07/2006/07/2023 CBC WITH DIFFE RENTI AL/PL ATELE T baso (absolute) 0.0 x10e3 /uL 0.0-0. 2 Not Available [facility] [address] [place], [address], 06/08/2023 06:19:55 06/07/2006/07/2023 CBC WITH DIFFE RENTI AL/PL ATELE T immature granulocytes 0.4 % notest b. Not Available [facility] [address] [place], [address], 06/08/2023 06:19:55 06/07/2006/07/2023 CBC WITH DIFFE RENTI AL/PL ATELE T immature grans (abs) 0.0 x10e3 /uL 0.0-0. 1 Not Available [facility] [address] [place], [address], 06/08/2023 06:19:55 06/07/2006/07/2023 CBC WITH DIFFE RENTI AL/PL ATELE T NRBC 0 % 0-0 Not Available [facility] [address] [place], [address], 06/08/2023 06:19:55 06/07/2006/08/2023 TSH RFX ON ABNOR MAL TO FREE T4 TSH 1.030 uIU/m L 0.450- 4.500 Not Available [facility] ([facility]) [address] [place], [address], 06/08/2023 07:14:53 06/07/2006/08/2023 IRON AND TIBC iron bind.cap.(TI BC) 446 ug/dL 250-45 0 Not Available [facility] ([facility]) [address] [place], [address], 06/08/2023 07:14:54 06/07/2006/08/2023 IRON AND TIBC UIBC 419 ug/dL 131-42 5 Not Available [facility] ([facility]) [address] [place], [address], 06/08/2023 07:14:54 09/13/20 23 06/08/2023 IRON AND TIBC iron 27 ug/dL 27-159 Not Available [facility] ([facility]) [address], [place], [address], 06/08/2023 07:14:54 06/07/20 23 06/08/2023 IRON AND TIBC iron saturation 6 % 15-55 alert low Not Available [facility] ([facility]) [address], [place], [address], 06/08/2023 07:14:54 06/07/2006/08/2023 HEMOG LOBIN A1C hemoglobin A1C 5.8 % 4.8-5. 6 above high normal Predi abete s: 5.7 - 6.4 Diabe katja: >6.4 Glyce frederic contr ol for adult s with diabe katja: <7.0 Not Available [facility] ([facility]) [address], [place], [address], 06/08/2023 07:14:55 06/07/2006/08/2023 VITAM IN D, 25-HY DROXY vitamin D, 25-hydroxy 20.7 NG/mL 30.0-1 00.0 below low normal Vitam in D defic iency has been defin ed by the Insti tute of Medic ine and an Endoc rine Socie ty pract ice guide line as a level of serum 25-OH vitam in D less than 20 ng/mL (1,2) . The Endoc rine Socie ty went on to furth er defin e vitam in D insuf ficie ncy as a level betwe en 21 and 29 ng/mL (2). 1. IOM (Inst itute of Medic ine). 2009. Dieta ry refer ence terrance es for calci um and D. Rian haynes [place]: The [facility] Press . 2. Julio Cesar hendrix MF, Bingogo ey [place], Bisch off-F errar i ZARATE, et al. Evalu ation , treat ment, and preve ntion of vitam in D defic iency : an Endoc rine Socie ty clini josie pract ice guide line. JCEM. 2010; 96(7) :1911 -30. Not Available [facility] ([facility]) [address], [place], [address], 06/08/2023 07:14:55 07/12/2007/12/2023 LIPID PANEL cholesterol, total 125 mg/dL 100-19 9 Not Available [facility] [address] [place] [address], [address], 07/13/2023 06:18:46 07/12/2007/12/2023 LIPID PANEL triglyceride s 43 mg/dL 0-149 Not Available [facility] [address] [place] [address], [address], 07/13/2023 06:18:46 07/12/2007/12/2023 LIPID PANEL HDL cholesterol 44 mg/dL 40-999 Not Available [facility] [address] [place], [address], 07/13/2023 06:18:46 07/12/2007/12/2023 LIPID PANEL VLDL cholesterol josie 9 mg/dL 5-40 Not Available [facility] [address] [place], [address], 07/13/2023 06:18:46 07/12/2007/12/2023 LIPID PANEL LDL chol calc ([facility]) 76 mg/dL 0-99 Not Available [facility] [address] [place], [address], 07/13/2023 06:18:46 07/12/2007/12/2023 BASIC METAB OLIC PANEL (8) glucose 90 mg/dL 70-99 Not Available [facility] [address] [place], [address], 07/13/2023 06:18:47 07/12/2007/12/2023 BASIC METAB OLIC PANEL (8) BUN 10 mg/dL 6-24 Not Available [facility] [address] [place], [address], 07/13/2023 06:18:47 07/12/2007/12/2023 BASIC METAB OLIC PANEL (8) creatinine 0.68 mg/dL 0.76-1 .27 below low normal Not Available [facility] [address] [place], [address], 07/13/2023 06:18:47 07/12/2007/12/2023 BASIC METAB OLIC PANEL (8) BUN/creatini ne ratio 15 9-23 Not Available [facility] [address] [place], [address], 07/13/2023 06:18:47 07/12/2007/12/2023 BASIC METAB OLIC PANEL (8) sodium 137 mmol/ L 134-14 4 Not Available [facility] [address] [place], [address], 07/13/2023 06:18:47 07/12/2007/12/2023 BASIC METAB OLIC PANEL (8) potassium 4.9 mmol/ L 3.5-5. 2 Not Available [facility] [address] [place], [address], 07/13/2023 06:18:47 07/12/2007/12/2023 BASIC METAB OLIC PANEL (8) chloride 106 mmol/ L 96-106 Not Available [facility] [address] [place], [address], 07/13/2023 06:18:47 07/12/2007/12/2023 BASIC METAB OLIC PANEL (8) carbon dioxide, total 25 mmol/ L 20-29 Not Available [facility] [address] [place], [address], 07/13/2023 06:18:47 07/12/2007/12/2023 BASIC METAB OLIC PANEL (8) calcium 9.0 mg/dL 8.7-10 .2 Not Available [facility] [address] [place], [address], 07/13/2023 06:18:47 07/12/2007/12/2023 CBC WITH DIFFE RENTI AL/PL ATELE T WBC 7.7 x10e3 /uL 3.4-10 .8 Not Available [facility] [address] [place], [address], 07/13/2023 06:18:48 07/12/2007/12/2023 CBC WITH DIFFE RENTI AL/PL ATELE T RBC 4.49 x10e6 /uL 3.77-5 .28 Not Available [facility] [address] [place], [address], 07/13/2023 06:18:48 07/12/2007/12/2023 CBC WITH DIFFE RENTI AL/PL ATELE T hemoglobin 12.7 g/dL 11.1-1 5.9 Not Available [facility] [address] [place], [address], 07/13/2023 06:18:48 07/12/2007/12/2023 CBC WITH DIFFE RENTI AL/PL ATELE T hematocrit 41.0 % 34.0-4 6.6 Not Available [facility] [address] [place], [address], 07/13/2023 06:18:48 07/12/2007/12/2023 CBC WITH DIFFE RENTI AL/PL ATELE T MCV 91 fL 79-97 Not Available [facility] [address] [place], [address], 07/13/2023 06:18:48 07/12/2007/12/2023 CBC WITH DIFFE RENTI AL/PL ATELE T MCH 28.3 pg 26.6-3 3.0 Not Available [facility] [address] [place], [address], 07/13/2023 06:18:48 07/12/2007/12/2023 CBC WITH DIFFE RENTI AL/PL ATELE T MCHC 31.0 g/dL 31.5-3 5.7 below low normal Not Available [facility] [address] [place], [address], 07/13/2023 06:18:48 07/12/2007/12/2023 CBC WITH DIFFE RENTI AL/PL ATELE T RDW 16.7 % 11.5-1 4.5 above high normal Not Available [facility] [address] [place], [address], 07/13/2023 06:18:48 07/12/2007/12/2023 CBC WITH DIFFE RENTI AL/PL ATELE T platelets 298 x10e3 /uL 150-45 0 Not Available [facility] [address] [place], [address], 07/13/2023 06:18:48 07/12/20 23 07/12/2023 CBC WITH DIFFE RENTI AL/PL ATELE T neutrophils 53 % notest b. Not Available [facility] [address] [place], [address], 07/13/2023 06:18:48 07/12/2007/12/2023 CBC WITH DIFFE RENTI AL/PL ATELE T lymphs 34 % notest b. Not Available [facility] [address] [place], [address], 07/13/2023 06:18:48 07/12/2007/12/2023 CBC WITH DIFFE RENTI AL/PL ATELE T monocytes 10 % notest b. Not Available [facility] [address] [place], [address], 07/13/2023 06:18:48 07/12/20 23 07/12/2023 CBC WITH DIFFE RENTI AL/PL ATELE T eos 2 % notest b. Not Available [facility] [address] [place], [address], 07/13/2023 06:18:48 07/12/2007/12/2023 CBC WITH DIFFE RENTI AL/PL ATELE T basos 1 % notest b. Not Available [facility] [address] [place], [address], 07/13/2023 06:18:48 07/12/2007/12/2023 CBC WITH DIFFE RENTI AL/PL ATELE T neutrophils (absolute) 4.0 x10e3 /uL 1.4-7. 0 Not Available [facility] [address] [place], [address], 07/13/2023 06:18:48 07/12/2007/12/2023 CBC WITH DIFFE RENTI AL/PL ATELE T lymphs (absolute) 2.6 x10e3 /uL 0.7-3. 1 Not Available [facility] [address] [place], [address], 07/13/2023 06:18:48 07/12/2007/12/2023 CBC WITH DIFFE RENTI AL/PL ATELE T monocytes(ab solute) 0.8 x10e3 /uL 0.1-0. 9 Not Available [facility] [address] [place], [address], 07/13/2023 06:18:48 07/12/2007/12/2023 CBC WITH DIFFE RENTI AL/PL ATELE T eos (absolute) 0.1 x10e3 /uL 0.0-0. 4 Not Available [facility] [address] [place], [address], 07/13/2023 06:18:48 07/12/2007/12/2023 CBC WITH DIFFE RENTI AL/PL ATELE T baso (absolute) 0.1 x10e3 /uL 0.0-0. 2 Not Available [facility] [address] [place], [address], 07/13/2023 06:18:48 07/12/2007/12/2023 CBC WITH DIFFE RENTI AL/PL ATELE T immature granulocytes 0.3 % notest b. Not Available [facility] [address] [place], [address], 07/13/2023 06:18:48 07/12/2007/12/2023 CBC WITH DIFFE RENTI AL/PL ATELE T immature grans (abs) 0.0 x10e3 /uL 0.0-0. 1 Not Available [facility] [address] [place], [address], 07/13/2023 06:18:48 07/12/2007/12/2023 CBC WITH DIFFE RENTI AL/PL ATELE T NRBC 0 % 0-0 Not Available [facility] [address] [place], [address], 07/13/2023 06:18:48 07/12/2007/13/2023 IRON AND TIBC iron bind.cap.(TI BC) 333 ug/dL 250-45 0 Not Available [facility] ([facility]) [address], [place], [address], 07/13/2023 07:17:44 07/12/2007/13/2023 IRON AND TIBC UIBC 143 ug/dL 131-42 5 Not Available [facility] ([facility]) [address], [place], [address], 07/13/2023 07:17:44 07/12/2007/13/2023 IRON AND TIBC iron 190 ug/dL 27-159 above high normal Not Available [facility] ([facility]) [address], [place], [address], 07/13/2023 07:17:44 07/12/2007/13/2023 IRON AND TIBC iron saturation 57 % 15-55 above high normal Not Available [facility] ([facility]) [address], [place], [address], 07/13/2023 07:17:44 07/12/2007/13/2023 HEMOG LOBIN A1C hemoglobin A1C 5.6 % 4.8-5. 6 Predi abete s: 5.7 - 6.4 Diabe katja: >6.4 Glyce frederic contr ol for adult s with diabe katja: <7.0 Not Available [facility] ([facility]) [address], [place], [address], 07/13/2023 07:17:45 07/12/2007/13/2023 VITAM IN D, 25-HY DROXY vitamin D, 25-hydroxy 39.5 NG/mL 30.0-1 00.0 Vitam in D defic iency has been defin ed by the Insti tute of Medic ine and an Endoc rine Socie ty pract ice guide line as a level of serum 25-OH vitam in D less than 20 ng/mL (1,2) . The Endoc rine Socie ty went on to [facility] er defin e vitam in D insuf ficie ncy as a level betwe en 21 and 29 ng/mL (2). 1. IOM (Inst itute of Medic ine). 2010. Dieta ry refer ence intak es for calci um and D. Rian haynes [place]: The [facility] . 2. Julio Cesar hendrix MF, Joselin almaraz NC, Abby off-F crista i ZARATE, et al. Evalu ation , treat ment, and preve ntion of vitam in D defic iency : an Endoc rine Socie ty clini josie pract ice guide line. JCEM. 2010; 96(7) :1911 -30. Not Available [facility] ([facility]) [address], [place], [address], 07/13/2023 07:17:45 08/09/2008/10/2023 CBC WITH DIFFE RENTI AL/PL ATELE T WBC 7.9 x10e3 /uL 3.4-10 .8 Not Available [facility] ([facility]) [address], [place], [address], 08/10/2023 06:18:14 08/09/20 23 08/10/2023 CBC WITH DIFFE RENTI AL/PL ATELE T RBC 3.97 x10e6 /uL 3.77-5 .28 Not Available [facility] ([facility]) [address], [place], [address], 08/10/2023 06:18:14 08/09/2008/10/2023 CBC WITH DIFFE RENTI AL/PL ATELE T hemoglobin 11.4 g/dL 11.1-1 5.9 Not Available [facility] ([facility]) [address], [place], [address], 08/10/2023 06:18:14 08/09/2008/10/2023 CBC WITH DIFFE RENTI AL/PL ATELE T hematocrit 36.1 % 34.0-4 6.6 Not Available [facility] ([facility]) [address] [place], [address], 08/10/2023 06:18:14 08/09/2008/10/2023 CBC WITH DIFFE RENTI AL/PL ATELE T MCV 91 fL 79-97 Not Available [facility] ([facility]) [address] [place], [address], 08/10/2023 06:18:14 08/09/20 23 08/10/2023 CBC WITH DIFFE RENTI AL/PL ATELE T MCH 28.7 pg 26.6-3 3.0 Not Available [facility] ([facility]) [address], [place], [address], 08/10/2023 06:18:14 08/09/20 23 08/10/2023 CBC WITH DIFFE RENTI AL/PL ATELE T MCHC 31.6 g/dL 31.5-3 5.7 Not Available [facility] ([facility]) [address], [place], [address], 08/10/2023 06:18:14 08/09/20 23 08/10/2023 CBC WITH DIFFE RENTI AL/PL ATELE T RDW 14.7 % 11.7-1 5.4 Not Available [facility] ([facility]) [address], [place], [address], 08/10/2023 06:18:14 08/09/20 23 08/10/2023 CBC WITH DIFFE RENTI AL/PL ATELE T platelets 314 x10e3 /uL 150-45 0 Not Available [facility] ([facility]) [address], [place], [address], 08/10/2023 06:18:14 08/09/20 23 08/10/2023 CBC WITH DIFFE RENTI AL/PL ATELE T neutrophils 53 % notest ab. Not Available [facility] ([facility]) [address], [place], [address], 08/10/2023 06:18:14 08/09/20 23 08/10/2023 CBC WITH DIFFE RENTI AL/PL ATELE T lymphs 33 % notest ab. Not Available [facility] ([facility]) [address] [place], [address], 08/10/2023 06:18:14 08/09/20 23 08/10/2023 CBC WITH DIFFE RENTI AL/PL ATELE T monocytes 10 % notest ab. Not Available [facility] ([facility]) [address], [place], [address], 08/10/2023 06:18:14 08/09/20 23 08/10/2023 CBC WITH DIFFE RENTI AL/PL ATELE T eos 3 % notest ab. Not Available [facility] ([facility]) [address], [place], [address], 08/10/2023 06:18:14 08/09/20 23 08/10/2023 CBC WITH DIFFE RENTI AL/PL ATELE T basos 1 % notest ab. Not Available [facility] ([facility]) [address], [place], [address], 08/10/2023 06:18:14 08/09/20 23 08/10/2023 CBC WITH DIFFE RENTI AL/PL ATELE T neutrophils (absolute) 4.2 x10e3 /uL 1.4-7. 0 Not Available [facility] ([facility]) [address], [place], [address], 08/10/2023 06:18:14 08/09/20 23 08/10/2023 CBC WITH DIFFE RENTI AL/PL ATELE T lymphs (absolute) 2.6 x10e3 /uL 0.7-3. 1 Not Available [facility] ([facility]) [address], [place], [address], 08/10/2023 06:18:14 08/09/20 23 08/10/2023 CBC WITH DIFFE RENTI AL/PL ATELE T monocytes(ab solute) 0.8 x10e3 /uL 0.1-0. 9 Not Available [facility] ([facility]) [address], [place], [address], 08/10/2023 06:18:14 08/09/20 23 08/10/2023 CBC WITH DIFFE RENTI AL/PL ATELE T eos (absolute) 0.3 x10e3 /uL 0.0-0. 4 Not Available [facility] ([facility]) [address], [place], [address], 08/10/2023 06:18:14 08/09/20 23 08/10/2023 CBC WITH DIFFE RENTI AL/PL ATELE T baso (absolute) 0.0 x10e3 /uL 0.0-0. 2 Not Available [facility] ([facility]) [address], [place], [address], 08/10/2023 06:18:14 08/09/20 23 08/10/2023 CBC WITH DIFFE RENTI AL/PL ATELE T immature granulocytes 0 % notest ab. Not Available [facility] ([facility]) [address], [place], [address], 08/10/2023 06:18:14 08/09/20 23 08/10/2023 CBC WITH DIFFE RENTI AL/PL ATELE T immature grans (abs) 0.0 x10e3 /uL 0.0-0. 1 Not Available [facility] ([facility]) [address] [place], [address], 08/10/2023 06:18:14 08/09/20 23 08/10/2023 IRON AND TIBC iron bind.cap.(TI BC) 335 ug/dL 250-45 0 Not Available [facility] ([facility]) [address] [place], [address], 08/10/2023 08:27:03 08/09/20 23 08/10/2023 IRON AND TIBC UIBC 291 ug/dL 131-42 5 Not Available [facility] ([facility]) [address] [place], [address], 08/10/2023 08:27:03 08/09/20 23 08/10/2023 IRON AND TIBC iron 44 ug/dL 27-159 Not Available [facility] ([facility]) [address] [place], [address], 08/10/2023 08:27:03 08/09/20 23 08/10/2023 IRON AND TIBC iron saturation 13 % 15-55 below low normal Not Available [facility] ([facility]) [address], [place], [address], 08/10/2023 08:27:03 08/09/20 23 08/10/2023 VITAM IN D, 25-HY DROXY vitamin D, 25-hydroxy 38.3 NG/mL 30.0-1 00.0 Vitam in D defic iency has been defin ed by the Insti tute of Medic ine and an Endoc rine Socie ty pract ice guide line as a level of serum 25-OH vitam in D less than 20 ng/mL (1,2) . The Endoc rine Socie ty went on to furth er defin e vitam in D insuf ficie ncy as a level betwe en 21 and 29 ng/mL (2). 1. IOM (Inst itute of Medic ine). 2010. Dieta ry refer ence intak es for calci um and D. Rian haynes [place]: The [facility] . 2. Julio Cesar hendrix MF, Joselin almaraz [place], Abby off-F errar i ZARATE, et al. Evalu ation , treat ment, and preve ntion of vitam in D defic iency : an Endoc rine Socie ty clini josie pract ice guide line. JCEM. 2010; 96(7) :1911 -30. Not Available [facility] ([facility]) [address], [place], [address], 08/10/2023 08:27:04 11/21/19 24 11/22/2023 CBC WITH DIFFE RENTI AL/PL ATELE T WBC 6.5 x10e3 /uL 3.4-10 .8 Not Available [facility] ([facility]) [address], [place], [address], 11/22/2023 07:13:54 11/21/19 24 11/22/2023 CBC WITH DIFFE RENTI AL/PL ATELE T RBC 4.26 x10e6 /uL 3.77-5 .28 Not Available [facility] ([facility]) [address], [place], [address], 11/22/2023 07:13:54 11/21/19 24 11/22/2023 CBC WITH DIFFE RENTI AL/PL ATELE T hemoglobin 12.8 g/dL 11.1-1 5.9 Not Available [facility] ([facility]) [address] [place], [address], 11/22/2023 07:13:54 11/21/19 24 11/22/2023 CBC WITH DIFFE RENTI AL/PL ATELE T hematocrit 40.1 % 34.0-4 6.6 Not Available [facility] ([facility]) [address] [place], [address], 11/22/2023 07:13:54 11/21/19 24 11/22/2023 CBC WITH DIFFE RENTI AL/PL ATELE T MCV 94 fL 79-97 Not Available [facility] ([facility]) [address] [place], [address], 11/22/2023 07:13:54 11/21/19 24 11/22/2023 CBC WITH DIFFE RENTI AL/PL ATELE T MCH 30.0 pg 26.6-3 3.0 Not Available [facility] ([facility]) [address] [place], [address], 11/22/2023 07:13:54 11/21/19 24 11/22/2023 CBC WITH DIFFE RENTI AL/PL ATELE T MCHC 31.9 g/dL 31.5-3 5.7 Not Available [facility] ([facility]) [address] [place], [address], 11/22/2023 07:13:54 11/21/1918 1111/22/2023 CBC WITH DIFFE RENTI AL/PL ATELE T RDW 13.1 % 11.7-1 5.4 Not Available [facility] ([facility]) [address], [place], [address], 11/22/2023 07:13:54 11/21/19 24 11/22/2023 CBC WITH DIFFE RENTI AL/PL ATELE T platelets 335 x10e3 /uL 150-45 0 Not Available [facility] ([facility]) [address], [place], [address], 11/22/2023 07:13:54 11/21/19 24 11/22/2023 CBC WITH DIFFE RENTI AL/PL ATELE T neutrophils 60 % notest ab. Not Available [facility] ([facility]) [address], [place], [address], 11/22/2023 07:13:54 11/21/19 24 11/22/2023 CBC WITH DIFFE RENTI AL/PL ATELE T lymphs 24 % notest ab. Not Available [facility] ([facility]) [address], [place], [address], 11/22/2023 07:13:54 11/21/19 24 11/22/2023 CBC WITH DIFFE RENTI AL/PL ATELE T monocytes 11 % notest ab. Not Available [facility] ([facility]) [address], [place], [address], 11/22/2023 07:13:54 11/21/19 24 11/22/2023 CBC WITH DIFFE RENTI AL/PL ATELE T eos 4 % notest ab. Not Available [facility] ([facility]) [address], [place], [address], 11/22/2023 07:13:54 11/21/19 24 11/22/2023 CBC WITH DIFFE RENTI AL/PL ATELE T basos 1 % notest ab. Not Available [facility] ([facility]) [address], [place], [address], 11/22/2023 07:13:54 11/21/19 24 11/22/2023 CBC WITH DIFFE RENTI AL/PL ATELE T neutrophils (absolute) 3.9 x10e3 /uL 1.4-7. 0 Not Available [facility] ([facility]) [address], [place], [address], 11/22/2023 07:13:54 11/21/19 24 11/22/2023 CBC WITH DIFFE RENTI AL/PL ATELE T lymphs (absolute) 1.6 x10e3 /uL 0.7-3. 1 Not Available [facility] ([facility]) [address], [place], [address], 11/22/2023 07:13:54 11/21/19 24 11/22/2023 CBC WITH DIFFE RENTI AL/PL ATELE T monocytes(ab solute) 0.7 x10e3 /uL 0.1-0. 9 Not Available [facility] ([facility]) [address], [place], [address], 11/22/2023 07:13:54 11/21/19 24 11/22/2023 CBC WITH DIFFE RENTI AL/PL ATELE T eos (absolute) 0.2 x10e3 /uL 0.0-0. 4 Not Available [facility] ([facility]) [address], [place], [address], 11/22/2023 07:13:54 11/21/19 24 11/22/2023 CBC WITH DIFFE RENTI AL/PL ATELE T baso (absolute) 0.0 x10e3 /uL 0.0-0. 2 Not Available [facility] ([facility]) [address] [place], [address], 11/22/2023 07:13:54 11/21/19 24 11/22/2023 CBC WITH DIFFE RENTI AL/PL ATELE T immature granulocytes 0 % notest ab. Not Available [facility] ([facility]) [address] [place], [address], 11/22/2023 07:13:54 11/21/19 24 11/22/2023 CBC WITH DIFFE RENTI AL/PL ATELE T immature grans (abs) 0.0 x10e3 /uL 0.0-0. 1 Not Available [facility] ([facility]) [address], [place], [address], 11/22/2023 07:13:54 11/21/19 24 11/22/2023 IRON AND TIBC iron bind.cap.(TI BC) 360 ug/dL 250-45 0 Not Available [facility] ([facility]) [address] [place], [address], 11/22/2023 10:14:09 11/21/19 24 11/22/2023 IRON AND TIBC UIBC 321 ug/dL 131-42 5 Not Available [facility] ([facility]) [address] [place], [address], 11/22/2023 10:14:09 11/21/19 24 11/22/2023 IRON AND TIBC iron 39 ug/dL 27-159 Not Available [facility] ([facility]) [address] [place], [address], 11/22/2023 10:14:09 11/21/19 24 11/22/2023 IRON AND TIBC iron saturation 11 % 15-55 below low normal Not Available [facility] ([facility]) [address] [place], [address], 11/22/2023 10:14:09 10/24/19 25 10/25/2024 LIPID PANEL cholesterol, total 157 mg/dL 100-19 9 Not Available [facility] ([facility]) [address] [place], [address], 10/25/2024 08:28:11 10/24/19 25 10/25/2024 LIPID PANEL triglyceride s 61 mg/dL 0-149 Not Available [facility] ([facility]) [address] [place], [address], 10/25/2024 08:28:11 10/24/19 25 10/25/2024 LIPID PANEL HDL cholesterol 48 mg/dL >39 Not Available [facility] ([facility]) [address] [place], [address], 10/25/2024 08:28:11 10/24/19 25 10/25/2024 LIPID PANEL VLDL cholesterol josie 12 mg/dL 5-40 Not Available [facility] ([facility]) [address] [place], [address], 10/25/2024 08:28:11 10/24/19 25 10/25/2024 LIPID PANEL LDL chol calc ([facility]) 97 mg/dL 0-99 Not Available [facility] ([facility]) [address] [place], [address], 10/25/2024 08:28:11 10/24/19 25 10/25/2024 COMP. METAB OLIC PANEL (14) glucose 101 mg/dL 70-99 above high normal Not Available [facility] ([facility]) [address] [place], [address], 10/25/2024 08:28:12 10/24/19 25 10/25/2024 COMP. METAB OLIC PANEL (14) BUN 7 mg/dL 6-24 Not Available [facility] ([facility]) [address] [place], [address], 10/25/2024 08:28:12 10/24/19 25 10/25/2024 COMP. METAB OLIC PANEL (14) creatinine 0.75 mg/dL 0.57-1 .00 Not Available [facility] ([facility]) [address], [place], [address], 10/25/2024 08:28:12 10/24/19 25 10/25/2024 COMP. METAB OLIC PANEL (14) eGFR 101 mL/mi n/1.7 3 >59 Not Available [facility] ([facility]) [address], [place], [address], 10/25/2024 08:28:12 10/24/19 25 10/25/2024 COMP. METAB OLIC PANEL (14) BUN/creatini ne ratio 9 9-23 Not Available [facility] ([facility]) [address], [place], [address], 10/25/2024 08:28:12 10/24/19 25 10/25/2024 COMP. METAB OLIC PANEL (14) sodium 139 mmol/ L 134-14 4 Not Available [facility] ([facility]) [address], [place], [address], 10/25/2024 08:28:12 10/24/19 25 10/25/2024 COMP. METAB OLIC PANEL (14) potassium 4.1 mmol/ L 3.5-5. 2 Not Available [facility] ([facility]) [address] [place], [address], 10/25/2024 08:28:12 10/24/19 25 10/25/2024 COMP. METAB OLIC PANEL (14) chloride 105 mmol/ L 96-106 Not Available [facility] ([facility]) [address] [place], [address], 10/25/2024 08:28:12 10/24/19 25 10/25/2024 COMP. METAB OLIC PANEL (14) carbon dioxide, total 24 mmol/ L 20-29 Not Available [facility] ([facility]) [address] [place], [address], 10/25/2024 08:28:12 10/24/19 25 10/25/2024 COMP. METAB OLIC PANEL (14) calcium 9.1 mg/dL 8.7-10 .2 Not Available [facility] ([facility]) [address], [place], [address], 10/25/2024 08:28:12 10/24/19 25 10/25/2024 COMP. METAB OLIC PANEL (14) protein, total 6.0 g/dL 6.0-8. 5 Not Available [facility] ([facility]) [address] [place], [address], 10/25/2024 08:28:12 10/24/19 25 10/25/2024 COMP. METAB OLIC PANEL (14) albumin 3.6 g/dL 3.9-4. 9 below low normal Not Available [facility] ([facility]) [address] [place], [address], 10/25/2024 08:28:12 10/24/19 25 10/25/2024 COMP. METAB OLIC PANEL (14) globulin, total 2.4 g/dL 1.5-4. 5 Not Available [facility] ([facility]) [address] [place], [address], 10/25/2024 08:28:12 10/24/19 25 10/25/2024 COMP. METAB OLIC PANEL (14) bilirubin, total 0.3 mg/dL 0.0-1. 2 Not Available [facility] ([facility]) [address] [place], [address], 10/25/2024 08:28:12 10/24/19 25 10/25/2024 COMP. METAB OLIC PANEL (14) alkaline phosphatase 69 IU/L 44-121 Not Available [facility] ([facility]) [address] [place], [address], 10/25/2024 08:28:12 10/24/19 25 10/25/2024 COMP. METAB OLIC PANEL (14) AST (SGOT) 16 IU/L 0-40 Not Available [facility] ([facility]) [address] [place], [address], 10/25/2024 08:28:12 10/24/19 25 10/25/2024 COMP. METAB OLIC PANEL (14) ALT (SGPT) 13 IU/L 0-32 Not Available [facility] ([facility]) [address] [place], [address], 10/25/2024 08:28:12 10/24/19 25 10/25/2024 CBC WITH DIFFE RENTI AL/PL ATELE T WBC 8.5 x10e3 /uL 3.4-10 .8 Not Available [facility] ([facility]) [address] [place], [address], 10/25/2024 08:28:13 10/24/19 25 10/25/2024 CBC WITH DIFFE RENTI AL/PL ATELE T RBC 4.48 x10e6 /uL 3.77-5 .28 Not Available [facility] ([facility]) [address] [place], [address], 10/25/2024 08:28:13 10/24/19 25 10/25/2024 CBC WITH DIFFE RENTI AL/PL ATELE T hemoglobin 13.7 g/dL 11.1-1 5.9 Not Available [facility] ([facility]) [address] [place], [address], 10/25/2024 08:28:13 10/24/19 25 10/25/2024 CBC WITH DIFFE RENTI AL/PL ATELE T hematocrit 41.8 % 34.0-4 6.6 Not Available [facility] ([facility]) [address] [place], [address], 10/25/2024 08:28:13 10/24/19 25 10/25/2024 CBC WITH DIFFE RENTI AL/PL ATELE T MCV 93 fL 79-97 Not Available [facility] ([facility]) [address], [place], [address], 10/25/2024 08:28:13 10/24/19 25 10/25/2024 CBC WITH DIFFE RENTI AL/PL ATELE T MCH 30.6 pg 26.6-3 3.0 Not Available [facility] ([facility]) [address], [place], [address], 10/25/2024 08:28:13 10/24/19 25 10/25/2024 CBC WITH DIFFE RENTI AL/PL ATELE T MCHC 32.8 g/dL 31.5-3 5.7 Not Available [facility] ([facility]) [address], [place], [address], 10/25/2024 08:28:13 10/24/19 25 10/25/2024 CBC WITH DIFFE RENTI AL/PL ATELE T RDW 12.7 % 11.7-1 5.4 Not Available [facility] ([facility]) [address], [place], [address], 10/25/2024 08:28:13 10/24/19 25 10/25/2024 CBC WITH DIFFE RENTI AL/PL ATELE T platelets 331 x10e3 /uL 150-45 0 Not Available [facility] ([facility]) [address], [place], [address], 10/25/2024 08:28:13 10/24/19 25 10/25/2024 CBC WITH DIFFE RENTI AL/PL ATELE T neutrophils 54 % notest ab. Not Available [facility] ([facility]) [address], [place], [address], 10/25/2024 08:28:13 10/24/19 25 10/25/2024 CBC WITH DIFFE RENTI AL/PL ATELE T lymphs 34 % notest ab. Not Available [facility] ([facility]) [address], [place], [address], 10/25/2024 08:28:13 10/24/19 25 10/25/2024 CBC WITH DIFFE RENTI AL/PL ATELE T monocytes 10 % notest ab. Not Available [facility] ([facility]) [address], [place], [address], 10/25/2024 08:28:13 10/24/19 25 10/25/2024 CBC WITH DIFFE RENTI AL/PL ATELE T eos 1 % notest ab. Not Available [facility] ([facility]) [address], [place], [address], 10/25/2024 08:28:13 10/24/1910/25/2024 CBC WITH DIFFE RENTI AL/PL ATELE T basos 1 % notest ab. Not Available [facility] ([facility]) [address], [place], [address], 10/25/2024 08:28:13 10/24/19 25 10/25/2024 CBC WITH DIFFE RENTI AL/PL ATELE T neutrophils (absolute) 4.6 x10e3 /uL 1.4-7. 0 Not Available [facility] ([facility]) [address], [place], [address], 10/25/2024 08:28:13 10/24/19 25 10/25/2024 CBC WITH DIFFE RENTI AL/PL ATELE T lymphs (absolute) 2.9 x10e3 /uL 0.7-3. 1 Not Available [facility] ([facility]) [address], [place], [address], 10/25/2024 08:28:13 10/24/19 25 10/25/2024 CBC WITH DIFFE RENTI AL/PL ATELE T monocytes(ab solute) 0.9 x10e3 /uL 0.1-0. 9 Not Available [facility] ([facility]) [address], [place], [address], 10/25/2024 08:28:13 10/24/19 25 10/25/2024 CBC WITH DIFFE RENTI AL/PL ATELE T eos (absolute) 0.1 x10e3 /uL 0.0-0. 4 Not Available [facility] ([facility]) [address], [place], [address], 10/25/2024 08:28:13 10/24/19 25 10/25/2024 CBC WITH DIFFE RENTI AL/PL ATELE T baso (absolute) 0.0 x10e3 /uL 0.0-0. 2 Not Available [facility] ([facility]) [address], [place], [address], 10/25/2024 08:28:13 10/24/19 25 10/25/2024 CBC WITH DIFFE RENTI AL/PL ATELE T immature granulocytes 0 % notest ab. Not Available [facility] ([facility]) [address], [place], [address], 10/25/2024 08:28:13 10/24/19 25 10/25/2024 CBC WITH DIFFE RENTI AL/PL ATELE T immature grans (abs) 0.0 x10e3 /uL 0.0-0. 1 Not Available [facility] ([facility]) [address], [place], [address], 10/25/2024 08:28:13 10/24/19 25 10/26/2024 CT, NG, TRICH VAG BY PETRONA chlamydia by PETRONA NEGATI VE negati ve Not Available [facility] ([facility]) [address], [place], [address], 10/26/2024 06:37:28 10/24/19 25 10/26/2024 CT, NG, TRICH VAG BY PETRONA gonococcus by PETRONA NEGATI VE negati ve Not Available [facility] ([facility]) [address] [place], [address], 10/26/2024 06:37:28 10/24/19 25 10/26/2024 CT, NG, TRICH VAG BY PETRONA trich vag by PETRONA NEGATI VE negati ve Not Available [facility] ([facility]) [address] [place], [address], 10/26/2024 06:37:28 10/24/19 25 10/25/2024 TSH RFX ON ABNOR MAL TO FREE T4 TSH 1.670 uIU/m L 0.450- 4.500 Not Available [facility] ([facility]) [address] [place], [address], 10/26/2024 06:37:30 10/24/19 25 10/25/2024 IRON AND TIBC iron bind.cap.(TI BC) 339 ug/dL 250-45 0 Not Available [facility] ([facility]) [address] [place], [address], 10/26/2024 06:37:31 10/24/19 25 10/25/2024 IRON AND TIBC UIBC 289 ug/dL 131-42 5 Not Available [facility] ([facility]) [address] [place], [address], 10/26/2024 06:37:31 10/24/19 25 10/25/2024 IRON AND TIBC iron 50 ug/dL 27-159 Not Available [facility] ([facility]) [address] [place], [address], 10/26/2024 06:37:31 10/24/19 25 10/25/2024 IRON AND TIBC iron saturation 15 % 15-55 Not Available [facility] ([facility]) [address] [place], [address], 10/26/2024 06:37:31 10/24/19 25 10/25/2024 HEMOG LOBIN A1C hemoglobin A1C 6.1 % 4.8-5. 6 above high normal Predi abete s: 5.7 - 6.4 Diabe katja: >6.4 Glyce frederic contr ol for adult s with diabe katja: <7.0 Not Available [facility] ([facility]) [address], [place], [address], 10/26/2024 06:37:32 10/24/19 25 10/25/2024 RPR, RFX QN RPR/C ONFIR M TP RPR NON REACTI VE nonrea ctive Not Available [facility] ([facility]) [address], [place], [address], 10/26/2024 06:37:33 10/24/19 25 10/25/2024 VITAM IN D, 25-HY DROXY vitamin D, 25-hydroxy 17.5 NG/mL 30.0-1 00.0 below low normal Vitam in D defic iency has been defin ed by the [facility] and [facility] pract ice guide line as a level of serum 25-OH vitam in D less than 20 ng/mL (1,2) . The Endoc rine Socie ty went on to [facility] er defin e vitam in D insuf ficie ncy as a level betwe en 21 and 29 ng/mL (2). 1. IOM (Inst itute of Medic ine). 2009. Dieta ry refer ence intak es for calci um and D. Rian haynes [place]: The [facility]io nal [facility] . 2. Julio Cesar hendrix [place], Joselin almaraz [place], Abby off-F crista i ZARATE, et al. Evalu ation , treat ment, and preve ntion of vitam in D defic iency : an Endoc rine Socie ty clini josie pract ice guide line. JCEM. 2010; 96(7) :1911 -30. Not Available [facility] ([facility]) [address], [place], [address], 10/26/2024 06:37:34 10/24/19 25 10/25/2024 HIV AB/P2 4 AG WITH REFLE X HIV Ab/P24 Ag screen NON REACTI VE nonrea ctive HIV-1 /HIV- 2 antib odies and HIV-1 p24 antig en were NOT detec memo. There is no labor atory evide nce of HIV infec tion. HIV Negat paige Not Available [facility] ([facility]) [address], [place], [address], 10/26/2024 06:37:35 06/06/2006/01/2023 [facility] [address] [place] [address] Ultras ound Report Proced ure(s) : US pelvic comple te Patien t: Prasanna Hidalgo handra Date of Servic e: : 1979 MR#: [id number] Age/Se x: 43 / F Acct:T [id number] ADM Date:[address]: Juan Alberto Domínguez Orderi ng Physic xochitl: Juan Alberto Domínguez Access ion Number (s): [id number] cc: Juan Alberto Domínguez ; Hanny Hernandez EXAMIN ATION: PELVIC ULTRAS OUND ACCESS ION: [id number], [id number] EXAM DATE: 06/01/20 23 12:44 PM REASON FOR EXAM: Vagina l bleedi ng, pelvic pain, leiomy douglas COMPAR ROSALINA: None TECHNI QUE: Sonogr aphic graysc sarina imagin g of the pelvis in multip le projec tions. Dopple r used to assess vascul ature. FINDIN GS: Uterus : 6.7 x 6.6 x 10.2 cm. Endome trial stripe 10 mm thickn ess. Anteri or intram ural fibroi ds measur e 1.7 x 1.1 cm and 1.8 x 1.2 cm. Pickle Pumper ior intram ural fibroi d measur es 3.9 x 3.5 cm. Right ovary: 4.9 x 3.2 x 3.0 cm. Normal flow and morpho logy. Left ovary: 3.7 x 2.1 x 1.9 cm. Normal flow and morpho logy. 008 US/US pelvic comple te IMPRES MARY: 1. Multip le intram ural fibroi ds. No suspic ious lesion . 2. Ovarie s unrema rkable . No suspic ious adnexa l collec tion or signif icant free fluid. Electr onical ly Signed By: Yusuf James MD on 06/01/20 3:13 PM Dictat ed By: Yusuf James M.D. Signed By: [id number] DD/DT: 1502 TD/TT: Transc riptio nist: [email or web address] [facility] ([facility]) [address] [place], [address], 06/08/2023 09:52:29 06/07/2006/01/2023 US, pelvi s, compl ete No observ ation record ed. [facility] [address] [place], [address], 06/07/2023 15:13:26 07/17/2007/17/2023 MAMMO , scree declan, tomos ynthe sis, bilat eral [facility] [address] [facility] [place] [address] Mammog vlad Report Proced ure(s) : MM tomosy nthesi s screen ing BI Patien t: Prasanna Hidalgo handra Date of Servic e: : 1979 MR#: [id number] Age/Se x: 43 / F Acct:T [id number] ADM Date:1 3 Result s: 2 Benign Findin gs Follow Up: 1 Year Follow -up Densit y: [address]: Hanny Hernandez Orderi ng Physic xochitl: Hanny Hernandez Access ion Number (s): [id number] cc: Hanny Hernandez Examin ation: Digita l bilate ral screen ing breast 3D tomogr aphy Access ion: [id number] Exam Date/T apolinar: 2022 10:42 AM Reason For Exam: No curren t compla ints Compar rosalina: 021 Techni que: 3D tomogr aphic views both breast s. Tissue densit y: The breast tissue contai ns scatte red fibrog landul ar densit ies. Findin gs:No suspic ious microc alcifi cation , alesia ectura l distor tion, or mass. No signif icant interv al change . ===== 004 MM/MM tomosy nthesi s screen ing BI IMPRES MARY: ===== 1. Benign mammog kavon. Assess ment: ACR BI-RAD S Catego ry 2 - Benign . Recomm endati on: 1: Routin e screen ing mammog kavon bilate ral . Commen ts: Electr onical ly Signed By: Yusuf James MD on 2022 2:28 PM Dictat ed By: Yusuf James M.D. Signed By: 1427 DD/DT: 1426 TD/TT: Transc riptio nist: [email or web address] [facility] (Rad) [address] [place], [address], 11/03/2023 12:09:31 Result Notes None recorded. Problems Name Problem SNOMED Code Status Onset Date Resolution Date Notes Provider Name and Address Organization Details Recorded Time Lightheaded ness 310121808 Active 2021 Hanny Hernandez PA-C Attn: Blanca alcazar,[address] [facility], [place], [address], [facility] 16:30:41 Neuropathy 879435217 Active 2021 Hanny Hernandez PA-C Attn: Blanca g,[address] [facility], [place], [address], [facility] 16:32:31 Chest discomfort 158775953 Active 2021 Hanny Hernandez PA-C Attn: Accountin g,[address] [facility], [place], [place], [address] [place] [address] 2, [place] [facility] 2 16:35:11 Pain of bilateral knee joints 0558080978947 04 Active 2021 Hanny Hernandez PA-C Attn: Accountin g,[address] [facility], [place], [place], [address] [place] [address] 2, [place] [facility] 2 16:44:09 Constipatio n 64940005 Active 2021 Hanny Hernandez PA-C Attn: Accountin g,[address] [facility], [place], [place], [address] [place] [address] 2, [place] - [facility] 2 16:47:50 Anxiety 39713335 Active 2021 Hanny Hernandez PA-C Attn: Accountin g,[address] [facility], [place], [place], [address] [place] [address] 2, [place] [facility] 2 16:49:18 Posterior rhinorrhea 26210263 Active 2021 Hanny Hernandez PA-C Attn: Accountin g,[address] [facility], [place], [place], [address] [place] [address] 2, [place] [facility] 2 16:59:09 Iron deficiency anemia 41643359 Active 2022 Hanny Hernandez PA-C Attn: Accountin g,[address] [facility], [place], [place], [address] [place] [address] 2, [place] [facility] 3 12:04:09 Hyperglycem ia 48224584 Active 2022 Hanny Hernandez PA-C Attn: Accountin g,[address] [place], [place], [address] [place] [address] 2, [place] [facility] 3 12:08:13 Vitamin D deficiency 77036009 Active 2022 Hanny Hernandez PA-C Attn: Accountin g,[address] [place], [place], [address] [place] [address] 2, [place] [facility] 3 12:08:16 Loss of hair 299348236 Active 2022 Hanny Hernandez PA-C Attn: Accountin g,[address] [facility], [place], [address], [place] [facility] 3 12:08:18 Chronic rhinitis 30303654 Active 2022 Hanny Hernandez PA-C Attn: Accountin g,[address] [facility], [place], [address], [place] [facility] 3 12:08:20 Skin lesion 29332152 Active Radha Miranda [place], [place] [facility] 5 16:51:48 Bacterial vaginosis 511519261 Active Corey Millan MD Attn: Accountin g,[address] [facility], [place], [address], [place] [facility] 6 11:57:42 Screening finding 172060110 Active Nay [place] [facility] 11:03:32 Asthma 262168863 Active [place] [facility] 11:03:32 Smoker 01682026 Active [place] [facility] 11:03:32 Rhinitis 13711677 Active [place]ay [place] [facility] 11:03:32 Obesity 509119894 Active [place] [facility] 11:03:32 Numbness 19321069 Active [place] [facility] 11:03:32 Joint crepitus 5571822 Active [place] [facility] 11:03:32 Backache 391579612 Active [place] [facility] 11:03:32 Multiple bruising 692879889 Active Radha [place] [facility] 11:37:26 Vaginitis 26588342 Active Radha [place] [facility] 14:41:11 Infection by Trichomonas 86953176 Active Radha Miranda null, [facility] 6 10:23:53 Vaginal discharge 410444126 Active Radha Miranda null, [facility] 5 16:51:48 Problem Notes None recorded. Procedures Surgical History Date Name Laterality Status Provider Name and Address Organization Details Recorded Time Date of Last Pap Smear completed Rohit Gamino MA [facility] 01/14/2016 15:49:17 Tubal Ligation completed Kaylan Blas MA [facility] 08/10/2018 11:01:39 Imaging Results Imaging Date Name Status LastModified by Organiz ation Details LastModified Time 06/01/2023 pelcm completed [email or web address] [facility] ([facility]) [address] [place], [address], 06/08/2023 09:52:29 06/01/2023 US, pelvis, complete completed eclardy [facility] Him Department [address] [place], [address], 06/07/2023 15:13:26 07/17/2023 MAMMO, screening, tomosynthesis, bilateral completed [email or web address] [facility] ([facility]) [address] [place], [address], 11/03/2023 12:09:31 Procedure Notes None recorded. Medical Equipment None Reported. Allergies No known drug allergies Medications Name Sig Start Date Stop Date Status Note LastModified by Organization Details LastModified Time cyclobenz aprine 10 mg tablet active Not Available Not Available No t Available amoxicill in 500 mg capsule 08/24 completed Not Available Not Available Not Available Mapap Extra Strength 500 mg tablet 08/10 completed Not Available Not Available Not Available bupropion HCl SR 150 mg tablet,12 hr sustained -release TAKE 1 TABLET BY MOUTH TWICE DAILY WITH MEALS 05/15 completed Not Available Not Available Not Available doxycycli ne hyclate 100 mg capsule TAKE 1 CAPSULE BY MOUTH EVERY 12 HOURS 10/03 completed Not Available Not Available Not Available clindamyc in HCl 300 mg capsule TAKE ONE CAPSULE BY MOUTH EVERY 8 HOURS FOR 10 DAYS 05/15 completed Not Available Not Available Not Available cetirizin e 10 mg tablet TAKE 1 TABLET BY MOUTH EVERY DAY 05/15 completed Not Available Not Available Not Available ibuprofen 800 mg tablet Three x a day prn pain 2024 active Not Available Not Available Not Avai lable fluconazo le 150 mg tablet TAKE 1 TABLET BY MOUTH NEEDED FOR 1 DAY 10/26 completed Not Available Not Available Not Available hydrocodo ne 5 mg-acetam inophen 325 mg tablet TAKE 1 TABLET BY MOUTH EVERY 3 HOURS NEEDED FOR PAIN RATED 5 OR LESS active Not Available Not Available No t Available metronida zole 0.75 % (37.5 mg/5 gram) vaginal gel INSERT ONE APPLICAT ORFUL VAGINALL Y AT BEDTIME FOR 5 DAYS 10/26 completed Not Available Not Available Not Available Tubersol 5 tub. unit/0.1 mL intraderm al injection solution Inject 0.1 mL by intrader mal route. 08/12 completed Not Available Not Available Not Available ceftriaxo ne 250 mg solution for injection Take 250 mg by injectio n route for 1 day. 08/24 completed Tolerate d well. No adverse reaction s after 15 minute observat ion. Not Available Not Available Not Available metronida zole 500 mg tablet TAKE 1 TABLET BY MOUTH EVERY 12 HOURS active Not Available Not Available No t Available sulfameth oxazole 800 mg-trimet hoprim 160 mg tablet Take 1 tablet twice a day by oral route. 08/24 completed Not Available Not Available Not Available tramadol 50 mg tablet active Not Available Not Available Not Available prednisol one acetate 1 % eye drops,zan pension SHAKE LIQUID AND INSTILL 1 DROP IN BOTH EYES TWICE DAILY 10/26 completed Not Available Not Available Not Available phenazopy ridine 100 mg tablet TAKE 1 TABLET BY MOUTH THREE TIMES DAILY FOR 2 DAYS 05/15 completed Not Available Not Available Not Available baclofen 10 mg tablet TAKE 1 TABLET BY MOUTH THREE TIMES DAILY NEEDED 2024 active Not Available Not Available Not Avai lable doxycycli ne monohydra te 100 mg capsule Take 1 capsule twice a day by oral route. 08/24 completed Not Available Not Available Not Available cephalexi n 500 mg capsule 08/24 completed Not Available Not Available Not Available ferrous sulfate 325 mg (65 mg iron) tablet Take 1 tablet every day by oral route with meals. 2024 active Not Available Not Available Not Avai lable Qvar 40 mcg/actua tion Metered Aerosol oral inhaler Inhale 2 puffs twice a day by inhalati on route. 08/24 completed Not Available Not Available Not Available gabapenti n 300 mg capsule TAKE 1 CAPSULE BY MOUTH TWICE DAILY 05/15 completed Not Available Not Available Not Available monteluka st 10 mg tablet TAKE 1 TABLET BY MOUTH EVERY DAY AT BEDTIME 10/26 completed Not Available Not Available Not Available bisacodyl 5 mg tablet,de layed release At 2:00 PM the day before the colonosc opy, take all 4 tablets of Dulcolax by mouth at one time with 8 ounces of water 10/03 completed Not Available Not Available Not Available ergocalci ferol (vitamin D2) 1,250 mcg (50,000 unit) capsule TAKE 1 CAPSULE BY MOUTH EVERY WEEK active Not Available Not Available No t Available polyethyl flor glycol 3350 17 gram/dose oral powder MIX CONTENTS WITH 64 OUNCES YELLOW/G REEN GATORADE THEN TAKE BY MOUTH DIRECTED STARTING AT 5PM THE NIGHT BEFORE COLONOSC OPY active Not Available Not Available No t Available estradiol 0.01% (0.1 mg/gram) vaginal cream USE 1 GRAM VAGINALL Y 3 TIMES A WEEK active Not Available Not Available No t Available albuterol sulfate HFA 90 mcg/actua tion aerosol inhaler Inhale 2 puffs every 4-6 hours by inhalati on route as needed. 2024 active Not Available Not Available Not Avai lable fluticaso ne propionat e 50 mcg/actua tion nasal spray,zan pension SHAKE LIQUID AND USE 2 SPRAYS IN EACH NOSTRIL EVERY DAY active Not Available Not Available No t Available doxycycli ne hyclate 100 mg tablet Take 1 tablet twice a day by oral route for 14 days. 08/24 completed Not Available Not Available Not Available loratadin e 10 mg tablet TAKE 1 TABLET BY MOUTH EVERY DAY NEEDED 08/12 completed Not Available Not Available Not Available naproxen 500 mg tablet Take 1 tablet twice a day by oral route as needed. 12/28 completed Not Available Not Available Not Available diazepam 5 mg tablet TAKE ONE TABLET BY MOUTH 30 MINUTES PRIOR TO MIRENA INSERTIO N active Not Available Not Available No t Available amoxicill in 875 mg-potass ium clavulana te 125 mg tablet 08/10 completed Not Available Not Available Not Available tobramyci n 0.3 %-dexamet hasone 0.1 % eye drops,zan pension INSTILL 1 DROP INTO RIGHT EYE FOUR TIMES DAILY FOR 5 DAYS 10/26 completed Not Available Not Available Not Available azithromy james 500 mg tablet Take 2 tablets as needed by oral route for 1 day. 08/24 completed Not Available Not Available Not Available nitrofura ntoin monohydra te/macroc rystals 100 mg capsule TAKE 1 CAPSULE BY MOUTH TWICE DAILY FOR 5 DAYS 05/15 completed Not Available Not Available Not Available Symbicort 160 mcg-4.5 mcg/actua tion HFA aerosol inhaler Inhale 2 puffs twice a day by inhalati on route. 2024 active Not Available Not Available Not Avai lable budesonid e-formote rol HFA 80 mcg-4.5 mcg/actua tion aerosol inhaler 05/15 completed Not Available Not Available Not Available diclofena c 1 % topical gel 10/26 completed Not Available Not Available Not Available ProChambe r active Not Available Not Available Not Available Chantix Starting Month Box 0.5 mg (11)-1 mg (42) tablets in dose pack TAKE DIRECTED 10/26 completed Not Available Not Available Not Available Aerochamb er Plus Flow-Vu,L arge Mask 10/26 completed Not Available Not Available Not Available Aerospan 80 mcg/actua tion HFA aerosol inhaler Inhale 2 puffs twice a day by inhalati on route. 12/23 completed Not Available Not Available Not Available ID NOW COVID-19 Test Kit TEST DIRECTED TODAY 10/26 completed Not Available Not Available Not Available COVID-19 test specimen collectio n TEST DIRECTED TODAY 10/26 completed Not Available Not Available Not Available Vitals Date Recorded Body height Body mass index (BMI) Body weight Body temperature Heart rate Systolic blood pressure Diastolic blood pressure Provider Name and Address Organization Details Last Updated DateTime 3 167.64 cm 35.8 kg/m2 157664. 15 g 97.6 [degF] 88 /min 115 mm[Hg] 60 mm[Hg] Caroline Curran [facility] 3 09:31:03 Date Recorded Body height Body mass index (BMI) Body weight Oxygen saturation Oxygen saturation in Arterial blood by Pulse oximetry Heart rate Body temperature Systolic blood pressure Diastolic blood pressure Provider Name and Address Organization Details Last Updated DateTime 3 167.64 cm 36 kg/m2 411218. 15 g 98 % 98 % 76 /min 97.3 [degF] 121 mm[Hg] 73 mm[Hg] Sobia Hudson MA [facility] 3 10:23:54 Date Recorded Body height Provider Name an d Address Organization Details Last Updated DateTime 10/13/2023 167.64 cm Cindy Sims MA [facility] 10/13 10:22:59 Date Recorded Body height Body mass index (BMI) Body weight Oxygen saturation Oxygen saturation in Arterial blood by Pulse oximetry Heart rate Respiratory rate Body temperature Systolic blood pressure Diastolic blood pressure Provider Name and Address Organization Details Last Updated DateTime 5 167.64 cm 35.8 kg/m2 746524. 51 g 98 % 98 % 74 /min 18 /min 98 [degF] 124 mm[Hg] 74 mm[Hg] Cindy Sims MA [facility] 5 10:18:08 Social History Question Answer Notes LastModified by Organizat ion Details LastModified Time Tobacco Smoking Status Current Every Day Smoker Isidra Samuel MA null, [place] - [facility] 07/20/2015 09:49:22 Do You Have An Advance Directive? No Information n ot available 12/23/2021 What Is Your Level Of Alcohol Consumption? None Information not available 08/10/2018 What Is Your Level Of Caffeine Consumption? Heavy Information not available 08/10/2018 Can Child Swim? Yes Informati on not available 08/10/2018 How Much Tobacco Do You Chew? None Information not available 08/10/2018 In The 14 Days Before Symptom Onset, Have You Had Close Contact With A Laboratory-confirm ed COVID-19 While That Case Was Ill? No Information n ot available 04/28/2022 In The 14 Days Before Symptom Onset, Have You Had Close Contact With A Person Who Is Under Investigation For COVID-19 While That Person Was Ill? No Information not available 04/28/2022 Have You Been To An Area Known To Be High Risk For COVID-19? No Information not available 04/28/2022 Are You Currently Employed? Yes Information not available 08/10/2018 What Type Of Diet Are You Following? REGULAR Information n ot available 08/10/2018 Which Illicit Or Recreational Drugs Have You Used? No Information not available 08/10/2018 Education 2 Year College Information not available 08/10/2018 What Is The Highest Grade Or Level Of School You Have Completed Or The Highest Degree You Have Received? 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 No Information not available 08/10/2018 Hard Of Hearing Or Deaf In One Or Both Ears? No Information not available 08/10/2018 Legally Blind In One Or Both Eyes? No Information no t available 08/10/2018 Live Alone Or With Others? With Others Information not available 08/10/2018 Do You Have A Medical Power Of Admiralty Lawyer? No Information not available 12/23/2021 What Was The Date Of Your Most Recent Tobacco Screening? 10/03/2024 Information not available 10/03/2024 How Many Children Do You Have? 3 Information not available 08/10/2018 Do You Use Protection During Sex? Always Information not available 08/10/2018 Seat Belts Used Routinely Yes Information not available 08/10/2018 Are You Sexually Active? No Information not available 08/10/2018 Smoke Alarm In Home Yes Information not available 08/10/2018 At What Age Did You Start Smoking Tobacco? 24 Information not available 08/10/2018 Are You Passively Exposed To Smoke? Yes Information no t available 08/10/2018 How Much Tobacco Do You Smoke? 1 PPD [email or web address] Information not available 09/27/2019 General Stress Level Low Information not available 08/10/2018 Do You Use Sunscreen Routinely? Yes Information not available 08/10/2018 Has Tobacco Cessation Counseling Been Provided? Yes Information not available 10/03/2024 On What Date Was Tobacco Cessation Counseling Provided? 10/03/2024 Information not available 10/03/2024 How Many Years Have You Smoked Tobacco? 15 [email or web address] Information not available 07/20/2015 Sex: Female Functional Status Question Answer Note LastModified by Organizat ion Details LastModified Time Are you able to care for yourself? Yes Information not available 08/10/2018 What is your exercise level? Occasional Information not available 08/10/2018 Mental Status None recorded. Family History Relationship Description Onset Age of this Age Resolved Age Notes LastModified by Organization Details LastModified Time Mother Hypertensive disorder [email or web address] Not available 2014 09:49:22 Father Diabetes mellitus [email or web address] Not available 2014 09:49:22 Maternal Grandmother Hypertensive disorder [email or web address] Not available 2014 09:49:22 Maternal Grandmother Diabetes mellitus [email or web address] Not available 2014 09:49:22 Maternal Grandmother Hypercholest erolemia tbraggs Not available 2014 09:49:22 Medical History Condition Response Heart Problems N Other N Breast Cancer N Thyroid Problems N Kidney or Bladder Problems N GI Problems N Lung Disease N Depression N Acne N Eating Disorder N Breast Problem N Anemia N Anesthesia Complications N Headaches/Migraines N Anxiety Disorder N Diabetes N Ovarian Cancer N Blood Transfusions N Arthritis N Polyps N Infertility N Acid Reflux (GERD) N Cancer N Stroke N Abuse/Domestic Violence N Asthma Y Endometriosis N High Cholesterol N Hepatitis N Heart Disease N Fibromyalgia N Pre-Eclampsia N Hypertension N Osteoporosis N Kidney Disease N Gynecological History Statement/Question Response Flow Heavy On BCP's at Conception? N STIs/STDs N HPV Vaccine N Duration of Flow (days) 7 Most Recent Mammogram Age at Menarche 12 Current Control Method Tubal Ligat ion Age at First Child 13 If Post Menopausal, Age at Menopause Frequency of Cycle (Q days) 29 Sexually Active? Y Menses Monthly Y Date of Last Pap Smear 07/20/2015 Sexual Problems? N LMP Approximate Desired Control Method Sterilizati on Obstetrics History GPAL:G 5 P 3 0 2 3 Type Value Multiple Births 0 Full Term 3 Induced 1 Spontaneous 1 Premature 0 Living 3 Ectopics 0 Total 5 Past Encounters Encounter ID Performer Location Encounter Start Date Encounter Closed Date Diagnosis/Indication Diagnosis SNOMED-CT Code Diagnosis ICD10 Code Diagnosis Note [id number] [facility] ([facility]) [address] [place] [address] 10/17/2014 14:07:20 10/17/2014 15:12:46 Vaginal discharge 913565864 [id number] [facility] ([facility]) [address] [place] [address] 01/09/2015 16:03:39 01/09/2015 17:40:43 Vaginal discharge 185777887 Skin lesion 93437990 Bacterial vaginosis 147195520 [id number] [facility] ([facility]) [address] [place] [address] 07/06/2015 09:34:09 07/06/2015 13:48:34 Bacterial vaginosis 671574797 N76.0 High risk sexual behavior 945717613 Z72.51 [id number] [facility] ([facility]) [address] [place] [address] 07/20/2015 09:37:32 07/20/2015 10:25:52 Gynecologic examination 00775386 Z01.419 High risk sexual behavior 915194445 Z72.51 [id number] [facility] (Adult/Fa m Med) [address] [place] [address] 08/03/2015 09:35:39 08/03/2015 15:46:01 Screening finding 734500230 Z13.9 Asthma 261017542 J45.90 9 Smoker 65476567 F17.200 Rhinitis 86508129 J31.0 Obesity 153340261 E66.9 Numbness 87252946 R20.0 Joint crepitus 5485437 M 24.80 Backache 053695748 M54.9 [id number] [facility] ([facility]) [address] [place] [address] 01/15/2016 09:52:52 01/15/2016 11:53:58 High risk sexual behavior 506148474 Z72.51 Multiple bruising 381274 006 T14.8 Vaginitis 07368180 N76.0 [id number] [facility] ([facility]) [address] [place] [address] 01/21/2016 09:46:44 01/21/2016 10:24:50 Infection by Trichomonas 71525475 A59.9 [id number] [facility] ([facility]) [address] [place] [address] 02/25/2016 13:32:07 02/25/2016 16:16:18 Vaginitis 74325281 N76.0 [id number] Corey Millan MD [facility] ([facility]) [address] [place] [address] 04/21/2016 11:31:44 04/21/2016 14:05:50 Bacterial vaginosis 270913170 N76.0 [id number] [facility] (Adult/Fa m Med) [address] [place] [address] 08/03/2016 11:01:26 08/08/2016 10:40:50 Joint crepitus 7032773 M24.80 Knee pain 14103384 M25.5 61 [id number] [facility] (Adult/Fa m Med) [address] [place] [address] 09/02/2016 10:34:04 09/02/2016 17:43:24 Osteoarthritis of knee 793041639 M17.11 Asthma 295148026 J45.90 9 Joint crepitus 6005461 M 24.961 [id number] [facility] [facility] ([facility]) [address] [place] [address] 10/18/2016 13:59:35 10/18/2016 16:08:11 High risk sexual behavior 118404448 Z72.51 Female pel steve inflammatory disease 417304278 N73.9 [id number] Radha Miranda [facility] ([facility]) [address] [place] [address] 10/21/2016 10:09:03 10/21/2016 13:25:02 Acute pelvic inflammatory disease 304000033 N73.9 [id number] Radha Miranda [facility] ([facility]) [address] [place] [address] 11/03/2016 10:25:56 11/03/2016 13:32:55 [id number] [facility] (Adult/Fa m Med) [address] [place] [address] 04/27/2017 10:02:10 04/28/2017 10:18:52 Asthma 583633135 J45.909 Backache 328496257 M54.9 Joint crepitus 6449192 M 24.811 Obesity 202139442 E66.9 Numbness 56558252 R20.0 Rhinitis 15744366 J00 Smoker 43635583 F17.200 Atypical chest pain 1025 15987 R07.89 [id number] [facility] (Adult/Fa m Med) [address] [place] [address] 05/23/2017 09:47:26 06/02/2017 13:33:23 Chronic back pain 701721818 M54.9 Osteoarthr itis of knee 617950560 M17.11 R>L Smoker 72511691 F17.200 Asthma 214197541 J45.90 9 Backache 110724183 M54.9 [id number] Radha Miranda [facility] ([facility] [employer] [facility]) [address] [place] [address] 05/25/2017 15:58:03 05/30/2017 16:02:21 Bacterial vaginosis 519435627 N76.0 [id number] Radha Miranda [facility] ([facility] [employer] [facility]) [address] [place] [address] 08/11/2017 09:34:33 08/11/2017 14:34:20 High risk sexual behavior 844338731 Z72.51 [id number] Nay Castillo [facility] (Adult/Fa m Med) [address] [place] [address] 08/24/2017 09:57:53 08/30/2017 15:29:58 Asthma 581759974 J45.909 Backache 813999031 M54.9 Rhinitis 41818404 J00 [id number] ABELINO Gamble NP [facility] [address] [place] [address] 08/10/2018 10:46:03 08/10/2018 12:09:38 Backache 152369771 M54.9 -Renew ibuprofen and baclofen Asthma 434681607 J45.90 9 -Renew singulair- Renew Aerochambe r Paresthesi a of upper limb 46944422 R20.2 -Obtain labs Body mass index 30+ - obesity 473444500 Z68.33 -Obtain labs Near syncope 620904006 R 55 -Will obtain labs-Recen t vision exam normal -Consider holter monitor if labs normal [id number] Nik Gallagher MD [address] [address] 09/27/2019 18:30:31 09/30/2019 11:54:07 Tuberculosis screening 591177442 Z11.7 [id number] Radha Miranda [facility] ([facility] [facility]) [address] [place] [address] 03/16/2020 10:19:07 03/16/2020 12:30:26 Gynecologic examination 26352030 Z01.419 Venereal d isease screening 780708124 Z11.3 Knee pain 90952376 M25.5 69 [id number] Radha Miranda [facility] ([facility] [facility]) [address] [place] [address] 04/08/2020 15:16:14 04/08/2020 16:25:07 Venereal disease screening 885697206 Z11.3 [id number] Radha Miranda [facility] ([facility] [employer] [facility]) [address] [place] [address] 08/12/2020 15:26:39 08/12/2020 17:47:52 Venereal disease screening 512627459 Z11.3 Obesity 462385642 E66.9 Chest pain 23950555 R07. 9 Photosensitivity 4439503 6 L56.8 Backache 521919315 M54.9 Arthritis 1980985 M19.90 [id number] Lolita Gu MD [facility] [address] [place] [address] 09/01/2020 15:50:13 09/02/2020 16:20:51 Photophobia 355648512 H53.149 Bilateral vitreous floaters 5956640609 48915 H43.190 [id number] Radha Portillos [facility] ([facility]) [address] [place] [address] 12/08/2020 16:05:08 12/09/2020 16:50:04 Venereal disease screening 807746586 Z11.3 [id number] Radha Portillos [facility] ([facility] [employer]) [address] [place] [address] 01/15/2021 14:54:13 01/18/2021 12:07:29 Nicotine dependence 69128707 F17.200 Venereal d isease screening 469709858 Z11.3 Vaginitis 97027542 N76.0 [id number] Sami colvin [facility] ([facility] [employer] [facility]) [address] [place] [address] 06/21/2021 13:42:49 06/24/2021 14:27:26 Chest pain 03124373 R07.9 Suspect Costochond ritis. MSK pain acutely TTP over sterno-cos maged margin and along clavicle. Bilateral pectoralis major strain also possible. 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 Discussed NSIADS, avoiding aggravatin g activities , and use of either heat or ice for symptom relief. Education on stretches provided. Screening mammography 24 289280 Z12.31 [id number] Radha Miranda [facility] ([facility] [facility]) [address] [place] [address] 08/17/2021 09:27:33 08/17/2021 12:58:51 Obesity 947180293 E66.9 High risk sexual behavior 880282123 Z72.51 [id number] [facility] [address] [place] [address] 10/26/2021 15:45:12 10/27/2021 10:11:07 Lightheadedness 559381412 R42 several year historyeve ry day smoker Adult heal th examination 339124474 Z00.00 routine labs Chest discomfort 7343582 09 R07.89 several monthsinte rmittentcu rrently stablewill order ekg and cxrtobacco cessation Neuropathy 321865232 G62 .9 several month history of hands and feet Blurring o f visual image 251611576 H53.8 referral to opthalmolo gist Tobacco user 289598568 Z 72.0 smoking cessation Pain of bi lateral knee joints 7220588759 37853 M25.561 Constipation 93122423 K5 9.00 Anxiety 63659897 F41.9 Obesity 054283775 E66.9 Posterior rhinorrhea 758 62747 R09.82 [id number] Faizan Alvarado MD [facility] [address] [address] 12/23/2021 09:38:02 12/24/2021 12:25:40 Pain of bilateral knee joints 0151770158 06494 M25.561 M25.562 Osteoarthr itis of knee 305657407 M17.11 M17.12 ?cortisone Chondromal acia of bilateral patellas 7109729113 6499426 M22.41 M22.42 Obesity 213726401 E66.9 [id number] [facility] [address] [place] [address] 12/22/2021 15:25:00 12/24/2021 17:33:53 Iron deficiency anemia 03673638 D50.9 reviewed low iron,will start patient on daily supplement repeat iron in 1month Lightheadedness 74551708 8 R42 improved since last visitwill monitorrev iewed us Chest discomfort 9876701 09 R07.89 resolved Neuropathy 215771556 G62 .9 several month history of hands and feetreview ed low iron, will start on iron supplement reviewed elevated hgba1c, diet and exercise [id number] Hanny Hernandez PA-C [facility] (Peds) [address] [place] [address] 01/28/2022 09:54:07 02/10/2022 10:36:00 Iron deficiency anemia 64735459 D50.9 reviewed normal iron, will stop iron for now, repeat iron in 1month Neuropathy 512454226 G62 .9 resolvedwi ll monitor [id number] Hanny Hernandez PA-C [facility] (Peds) [address] [place] [address] 03/10/2022 10:23:55 03/10/2022 12:10:08 Iron deficiency anemia 87864528 D50.9 reviewed normal iron, will stop iron for now, repeat iron in 1month Neuropathy 090744924 G62 .9 resolvedwi ll monitor [id number] Faizan Alvarado MD [facility] [address] [place] [address] 04/28/2022 10:21:18 04/28/2022 12:30:02 Pain of bilateral knee joints 2781506817 66743 M25.561 M25.562 Osteoarthr itis of knee 141116048 M17.11 M17.12 ?cortisone Chondromal acia of bilateral patellas 7043145615 0791380 M22.41 M22.42 Obesity 291779548 E66.9 [id number] Hanny Hernandez PA-C [facility] (Adult Med) [address] [place] [address] 05/03/2022 11:36:07 05/04/2022 07:52:10 Iron deficiency anemia 51656961 D50.9 reviewed normal iron, will stop iron for nowcontinu e iron rich foods Neuropathy 631899036 G62 .9 resolvedwi ll monitor [id number] Jake James MD [facility] [address] [place] [address] 02/28/2023 10:55:43 03/06/2023 15:16:42 Chronic rhinitis 14505180 J31.0 over-the-c ounter antihistam jorge Asymmetric al sensorineural hearing loss 613075529 H90.5 follow-up after audiogram [id number] JUAN ALBERTO DOMÍNGUEZ DO [facility] ([facility] [facility]) [address] [place] [address] 05/15/2023 09:51:28 05/22/2023 12:03:14 Screening mammography 35116646 Z12.31 Last mammogram 06/2021 WNL. No red flag s/s. [facility] ion care management 914751768 Z30.9 Pt would like control. Periods currently regular every 30 days with 7 days of moderate bleeding. No passing of clots or cramping. Discussed the different options for control and each options efficacy, risks, benefits, and side effects. Pt decided mirena is best for her.- Pt very nervous about procedure for mirena insertion. Will send prescripti on for valium and pt instructed to have someone drive her to and from appointmen t- Take ibuprofen and valium prior to coming to appointmen t- Follow up for mirena insertion scheduled for 2 weeks Smoker 98748169 F17.200 Obesity 066120344 E66.9 [id number] Hanny Hernandez PA-C [facility] (Peds) [address] [place] [address] 06/07/2023 09:44:56 06/08/2023 12:05:40 Body mass index 30+ - obesity 580027774 Z68.30 Obesity 128790849 E66.9 Adult heal th examination 444284255 Z00.00 routine labs Asthma 986009699 J45.90 9 refill allbuterol and symbicort Chronic rhinitis 5260251 6 J31.0 refill flonase Screening for malignant neoplasm of colon 034242210 Z12.11 Loss of hair 656912290 L 65.9 labs orderedref erral to derm [id number] Hanny Hernandez PA-C [facility] (Peds) [address] [place] [address] 06/14/2023 11:26:32 06/21/2023 15:06:21 Body mass index 30+ - obesity 806859763 Z68.30 Obesity 306156486 E66.9 Asthma 871940946 J45.90 9 refill allbuterol and symbicort Chronic rhinitis 3294415 6 J31.0 refill flonase Loss of hair 924143288 L 65.9 referral already placed for dermwill send iron and vitamin dfollow up in 1month or sooner if problems arise Iron defic iency anemia 44860904 D50.9 reviewed low ironwill restart iron supplement repeat in 1month Vitamin D deficiency 347 95381 E55.9 vit d sent to pharmacy Hyperglycemia 83685614 R 73.9 diet and exercisere peat labs in 3months [id number] ALEXANDER PALACIO [facility] [address] [place] [address] 07/03/2023 09:14:30 07/04/2023 07:26:29 Screening for malignant neoplasm of colon 551901760 Z12.11 First colonoscop y. No FH of colon cancer.CBC and CMP in chart 06/07/23 [id number] Hanny Hernandez PA-C [facility] (Peds) [address] [place] [address] 07/12/2023 09:48:19 07/19/2023 12:32:54 Body mass index 30+ - obesity 110966105 Z68.30 Obesity 334712385 E66.9 Asthma 890848608 J45.90 9 refill allbuterol and symbicort Chronic rhinitis 2408075 6 J31.0 refill flonase Loss of hair 659574538 L 65.9 referral already placed for dermwill send iron and vitamin dfollow up in 1month or sooner if problems arise Iron defic iency anemia 97309612 D50.9 reviewed low ironwill restart iron supplement repeat in 1month Vitamin D deficiency 347 03824 E55.9 vit d sent to pharmacy Hyperglycemia 22713987 R 73.9 diet and exercisere peat labs in 3months Osteoarthr itis of knee 732923550 M17.9 [id number] Hanny Hernandez PA-C [facility] (Peds) [address] [place] [address] 07/21/2023 10:20:23 07/25/2023 10:29:10 Asthma 024005469 J45.909 refill allbuterol and symbicort Body mass index 30+ - obesity 077046381 Z68.30 Obesity 273383059 E66.9 Chronic rhinitis 9115441 6 J31.0 refill flonase Loss of hair 085008727 L 65.9 referral already placed for derm Iron defic iency anemia 43255779 D50.9 reviewed high irond/c supplement repeat labs in 1month Vitamin D deficiency 347 82280 E55.9 Osteoarthr itis of knee 064602589 M17.9 [id number] Hanny Hernandez PA-C [facility] (Peds) [address] [place] [address] 10/13/2023 10:20:16 10/17/2023 13:26:30 Body mass index 30+ - obesity 510355979 Z68.30 Obesity 795595579 E66.9 Asthma 078826702 J45.90 9 refill allbuterol and symbicort Chronic rhinitis 5673691 6 J31.0 refill flonase Loss of hair 303373709 L 65.9 referral already placed for derm Iron defic iency anemia 04502369 D50.9 reviewed high irond/c supplement repeat labs in 1month [id number] Hanyn Hernandez PA-C [facility] (Adult Med) [address] [place] [address] 10/03/2024 09:59:02 10/07/2024 08:50:50 Iron deficiency anemia 76505581 D50.9 patient not taking any ironwill order labsfollow up in 1 week Body mass index 30+ - obesity 395769763 Z68.30 referral to weight management patient does not want to be on glp1s or metformin Obesity 847230559 E66.9 Smoker 51515963 F17.200 Asthma 148139728 J45.90 9 refill allbuterol and symbicort Adult heal th examination 465406157 Z00.00 routine labs Backache 238955630 M54.9 chronic back painwill order ibuprofen and baclofen which has helpedwill discuss pt at follow updiscusse d weight loss Health Concerns Section Related Observation LastModified by Organization Detai ls LastModified Time None Recorded Concern Status LastModified by Organization Details LastModified Time None Recorded Advance Directives Directive N: Payers Encounter Date Sequence Insurance Name Policy Number Policy Alexandra Covered Member ID Alexandra Member ID Guarantor Name 07/03/2023 1 [facility] ON OR AFTER 03/25/21 (MEDICAID REPLACEMENT - HMO) Cesar Dear [id number] Cesar Alvarado Dear 07/12/2023 1 [facility] ON OR AFTER 03/25/21 (MEDICAID REPLACEMENT - HMO) Cesar Dear [id number] Cesar Alvarado Dear 07/21/2023 1 [facility] ON OR AFTER 03/25/21 (MEDICAID REPLACEMENT - HMO) Cesar Dear [id number] Cesar Alvarado Dear 10/13/2023 1 [facility] ON OR AFTER 03/25/21 (MEDICAID REPLACEMENT - HMO) Cesar Dear [id number] Cesar Alvarado Dear 10/03/2024 1 [facility] ON OR AFTER 03/25/21 (MEDICAID REPLACEMENT - HMO) Cesar Dear [id number] Cesar Alvarado Dear Notes Date Note Type Note Provider Name and Address Organization Details Recorded Time 07/03/2023 text/html Patient with PMH x of anxiety, asthma, chronic rhinitis, constipation, hyperglycemia, iron deficiency anemia, hair loss, neuropathy, obesity, and Vit D deficiency presents today for screening colonoscopy. No prior colonoscopy. No FH of colon cancer. Mom and brother have had multiple colonoscopies. No FH of other cancers. Patient smokes 1 PPD and does not drink alcohol. Past surgical history includes tubal ligation and right foot surgery. ALEXANDER PALACIO [address], [place], [address], [facility] 07/03/2023 09:41:39 07/12/2023 text/html KneeReported bypatient.Quality:ach ing; throbbing Severity:mild Timing:gradual Context:overuse Alleviating Factors:rest; elevation; NSAIDs Associated Symptoms:no weakness; no numbness; no tingling; no redness; no warmth; no ecchymosis; no catching/locking; no buckling; no grinding; no instability; no radiation down leg; no drainage; no fever; no chills; no weight loss; no change in bowel/bladder habits;swelling;poppi ng/clicking follow up fron last visit Hanny Hernandez PA-C Attn: [address] [place], [address], [facility] 07/12/2023 13:06:33 07/21/2023 text/html KneeReported bypatient.Quality:ach ing; throbbing Severity:mild Timing:gradual Context:overuse Alleviating Factors:rest; elevation; NSAIDs Associated Symptoms:no weakness; no numbness; no tingling; no redness; no warmth; no ecchymosis; no catching/locking; no buckling; no grinding; no instability; no radiation down leg; no drainage; no fever; no chills; no weight loss; no change in bowel/bladder habits;swelling;poppi ng/clicking follow up fron last visit Hanny Hernandez PA-C Attn: Accounting[address] [place], [address], [facility] 07/21/2023 12:24:47 10/13/2023 text/html follow up fron l ast visitnot taking iron Hanny Hernandez PA-C Attn: [address] [place], [address], [facility] 10/13/2023 11:47:19 10/03/2024 text/html AnemiaReported bypatient.Timing:bett er Associated Symptoms:no shortness of breath; no chest pain; no abdominal pain; no nausea; no vomiting; no melena; no blood in stool; no weakness; no fatigue; no palpitations; no excessive sweating; normal nails; tolerant of cold; no nonfood cravings; no behavior problems; no symptoms of peripheral neuropathy; normal balance; no jaundice; no pallor; no weight lossNotes:not taking ironAsthma F/UReported bypatient.Severity:ab le to sleep during episode; does not interfere with daily activities Context:improving Associated Symptoms:no fever; no fatigue; no irritability; no cough; normal appetite; no changes in productivity; no shortness of breathBack PainReported bypatient.Location:pa in is not radiating Quality:sharp;tinglin g Severity:same Duration:chronic Onset/Timing:recurren t episode Context:overuse Alleviating Factors:rest; relieved by changing position Aggravating Factors:movement/posi tioning;twisting;flex ing back;extending back Associated Symptoms:no fever; no weak limbs; no numbness of the legs/feet; no tingling; no incontinence; no shortness of breathMedicare Annual Wellness VisitReported bypatient.Diet and Nutrition:healthy diet Fracture Risk:no history of fractures; no recent explained fracture; no sudden unexplained fractures; no previous musculoskeletal injuries Physical Activity:exercises on a regular basis; recent increase in physical activity; good physical condition Depression Risk:never feels sad, empty, or tearful; no loss of interest in activities; no significant changes in weight; no sleep disturbances or insomnia; no agitation; no loss of energy; no feelings of worthlessness or guilt; no thoughts of suicide; no history of depression; no history of mood disorders Orientation:no disorientation to time; no disorientation to date; no disorientation to place Concentration and Memory:no decreased concentrating ability; no memory lapses or loss; does not forget words Speech/Motor difficulties:no speech difficulties; no difficulty expressing formulated concepts; no difficulty with fine manipulative tasks; no difficulty writing/copying; no slowed reaction time; does not knock things over when trying to pick them up Hearing:no loss of hearing Vision:no vision problems Activities of Daily Living:able to bathe with limited or no assistance; able to contol urination and bowels; able to dress with limited or no assistance; able to feed self with limited or no assistance; able to get out of chair or bed with limited or no assistance; able to groom with limited or no assistance; able to toilet with limited or no assistance Instrumental Activities of Daily Living:able to do house work with limited or no assistance; able to grocery shop with limited or no assistance; able to manage medications with limited or no assistance; able to manage money with limited or no assistance; able to prepare meals with limited or no assistance; able to use the phone with limited or no assistance Falls Risk Assessment:no frequent falls while walking; no fall in the past year; no fall since last visit; no dizziness/vertigo Home Safety:no unsafe walt hazzards; no unsafe stairs; no unsafe gas appliances; working smoke/CO detectors; wears protective head gear for biking/high velocity; use of seatbelts; practicing 'safer sex'; no vision or hearing loss while driving; no fire arms; has hand bars in the bathroom/shower; good lighting in the home Hanny Hernandez PA-C Attn: [address]ing[address] [place], [address], [facility] 10/03/2024 11:25:42 OBGyn Episode No OBEpisode recorded.
--- OUTSIDE RECORDS SUMMARY | 2024-12-02 18:49 | XMS_ITS | Referral Summary ---
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
--- OUTSIDE RECORDS SUMMARY | 2024-12-02 19:23 | XMS_ITS | Clinical Summary ---
Author Organization 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
--- OUTSIDE RECORDS SUMMARY | 2024-12-02 19:23 | XMS_ITS | Clinical Summary ---
Author Organization [facility] Address [address] [place], [place] [id number] Care Team Providers Care Senior It Auditor Name Role Phone Unavailable Primary Care Provider [...]
--- OUTSIDE RECORDS SUMMARY | 2024-12-02 19:23 | XMS_ITS | Referral Summary ---
Author Organization [facility] at 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
[2024-12-02] MEDS: AMOXICILLIN/CLAVULANATE K 875-125 MG TAB 1 TABLET PO (20:01)
[2024-12-02] MEDS: HYDROcodone/acetaminophen (*CRX) 5-325 MG TABLET 1 TAB PO (20:01)
[2024-12-02 20:11] VITALS: BP 148/72; PULSE 83; RESP 16; O2SAT 100
== END 2024-12-02 20:12 | disposition home or self-care (01) ==
PROVIDERS: Emergency Medicine; Emergency Provider Emergency Medicine
DX: K02.9 Dental caries, unspecified (principal); J45.909 Unspecified asthma, uncomplicated; M19.90 Unspecified osteoarthritis, unspecified site; Z90.710 Acquired absence of both cervix and uterus; F17.210 Nicotine dependence, cigarettes, uncomplicated
CPT/HCPCS: 36415; 70487; 80053; 85025; 96374; 99284; A9270; J1885; Q9967

== ENCOUNTER 2025-02-03 21:09 | Emergency (ER) | payer OTHER, SELFPAY ==
[2025-02-03] VITALS (10 sets, daily range): BP systolic 138; BP diastolic 86; PULSE 80–97; RESP 13–28; TEMP 36.5; O2SAT 97–99
--- NOTE | ~2025-02-03 | CT_ITS ---
EXAMINATION: CT abdomen pelvis w con DATE: 02/03/2025 22:35 INDICATION: Diffuse abdominal pain/bloating TECHNIQUE: Computed tomography (CT) of the abdomen and pelvis was performed with 100 mL Omnipaque-350 intravenous contrast. Automated exposure control and iterative reconstruction technique were employe d. The dose-length product was 1208.68 mGy-cm. COMPARISON: None. FINDINGS: Lower thorax: Bibasilar scar/atelectasis. Small uncomplicated fat-containing right posterior diaphrag matic hernia. Liver: Normal. Biliary/Gallbladder: Gallbladder is normal. No bile duct dilation. Pancreas: Prominent pancreatic head and uncinate process, with mild surrounding inflammatory change/f luid Spleen: Normal. Adrenals:No mass. Kidneys: No suspicious mass, obstructing stone, or hydronephrosis. Subcentimeter left renal hypodensi ties, too small to characterize but most likely represent cysts. GI tract: Mild distal esophageal and gastric wall edema. No small or large bowel dilation. Normal sabrina endix. Diverticulosis without diverticulitis. Mesentery/Peritoneum: No ascites, mass, or free air. Retroperitoneum: No mass. Mild atherosclerotic calcifications of intra-abdominal arterial vessels. Pelvis: Normal urinary bladder. Surgically absent uterus. Bilateral ovaries not confidently identifie d. Soft Tissues: Soft tissues and body wall unremarkable. Bones: No acute osseous finding. IMPRESSION: Esophagitis/gastritis. CT findings suggestive of acute interstitial proctitis involving the pancreatic head and uncinate pro cess, correlate with pancreatic labs. Reviewed, dictated and finalized at location K. IMPRESSION: Esophagitis/gastritis. CT findings suggestive of acute interstitial proctitis involving the pancreatic head and uncinate process, correlate with pancreatic labs.
--- NOTE | ~2025-02-03 | XR_ITS ---
EXAMINATION: XR chest 1V portable Exam Date/Time: 02/03/2025 21:40 CDT HISTORY: epigastric pain Comparison: 05/15/2018. RESULT: Lines, tubes, and devices: None. Lungs and pleura: Somewhat streaky bibasilar subsegmental opacities. Minimal right costophrenic angl e blunting. Cardiomediastinal silhouette: Stable. Other: No acute osseous or upper abdominal finding. IMPRESSION: Subsegmental bibasilar atelectasis/consolidation. Possible trace right pleural effusion. Reviewed, dictated and finalized at location K.
--- OUTSIDE RECORDS SUMMARY | 2025-02-03 21:12 | XMS_ITS | Referral Summary ---
Author Organization [facility] (formerly [facility]) at the [facility] Office Center Address [address] [place] [address] Care Team Providers Care Manager Studio Name Role Phone Johanna Hernandez Primary Care Provider [phone] Encounters Date Type Department Care Team Description 01/30/2025 7:10 AM CDT - 01/30/2025 11:59 PM CDT Hospital Encounter [facility] Ul[facility]ound [address] [place] [id number] Epigastric pain Discharge Disposition: Discharge to home or self care 01/30/2025 12:40 PM CDT Lab [facility] [address] [place] [id number] 01/29/2025 4:01 PM CDT - 01/29/2025 8:44 PM CDT Emergency [facility] Emergency Department [address] [place] [id number] Gabbie Calles MD Epigastric pain (Primary Dx) Discharge Disposition: Discharge to home or self care from Last 3 Months Allergies No known active allergies Medications albuterol HFA (PROVENTIL HFA,VENTOLIN HFA,PROAIR HFA) 90 mcg/actuation inhaler 1 puff Active baclofen (LIORESAL) 10 mg tablet Take 1 tablet by mouth daily Active Symbicort 160-4.5 mcg/actuation inhaler 2 puffs 07/27/20 20 Active ibuprofen (ADVIL,MOTRIN) 800 mg tablet Take 1 tablet by mouth daily Active cyclobenzaprine (FLEXERIL) 10 mg tablet Take 1 tablet (10 mg total) by mouth 2 (two) times a day as needed for muscle spasms 20 tablet 05/19/20 23 Active naproxen (NAPROSYN) 500 mg tablet Take 1 tablet (500 mg total) by mouth 2 (two) times a day as needed for pain Take with food 20 tablet 05/19/20 23 Active famotidine (PEPCID) 40 mg tablet Take 1 tablet (40 mg total) by mouth nightly P.o. Q.h.s. for 2 weeks then before bed p.r.n. heartburn or indigestion 30 tablet 01/30/20 25 Active ondansetron ODT (ZOFRAN-ODT) 4 mg disintegrating tablet Take 1 tablet (4 mg total) by mouth every 8 (eight) hours as needed for nausea or vomiting 20 tablet 01/30/20 25 Active Active Problems Problem Noted Date Diagnosed Date Tobacco abuse 09/08/2020 Chest pain 09/08/2020 Obesity (BMI 35.0-39.9 without comorbidity) 08/25 Social History Tobacco Use Types Packs/Day Years Used Date Smoking Tobacco: Every Day Cigarettes Smokeless Tobacco: Never Alcohol Use Standard Drinks/Week Comments Yes 0 (1 standard drink = 0.6 oz pur e alcohol) rarely Personal Safety Answer Date Recorded Have you ever been in or are you currently in a harmful physical or emotional relationship or is someone making you feel afraid or unsafe? 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 Gender Identity Female 02/03/2025 8:25 AM CDT Sexual Orientation Straight 02/03/2025 8: 25 AM CDT Last Filed Vital Signs Vital Sign Reading Time Taken Comments Blood Pressure 122/86 01/29/2025 8:41 PM CDT Pulse 85 01/29/2025 8:41 PM CDT Temperature 36.9 C (98.5 F) 01/29/2025 8:41 PM CDT Respiratory Rate 16 01/29/2025 8:41 PM CDT Oxygen Saturation 99% 01/29/2025 8:41 PM CDT Inhaled Oxygen Concentration - - Weight 101.7 kg (224 lb 3.3 oz) 01/29/2025 3:21 PM CDT Height 165.1 cm (5' 5 ) 05/19/2023 8:36 PM CDT Body Mass Index 37.31 05/19/2023 8:36 PM CDT Plan of Treatment Not on file Procedures Procedure Name Priority Date/Time Associated Diagnosis Comments US RUQ Schedule ASHANTI, Read ASHANTI (Appt Today, Awaiting Results) 01/30/2025 1:17 PM CDT Epigastric pain CT ABDOMEN PELVIS W CONTRAST ED 01/29/2025 6:59 PM CDT CRP (ACUTE PHASE) STAT 01/29/2025 4:4 2 PM CDT EGFR STAT 01/29/2025 4:42 PM CDT TROPONIN T HIGH-SENSITIVITY SERIES (BASELINE, 2HR, 4HR, 6HR) STAT 01/29/2025 4:42 PM CDT LIPASE STAT 01/29/2025 4:42 PM CDT COMPREHENSIVE METABOLIC PANEL STAT 01/29/2025 4:42 PM CDT POCT HCG, URINE Routine 01/29/2025 3:44 PM CDT URINALYSIS AND REFLEX TO MICROSCOPIC AND CULTURE STAT 01/29/2025 3:42 PM CDT ECG 12-LEAD STAT 01/29/2025 3:36 PM CDT DIFFERENTIAL AUTO STAT 01/29/2025 3:2 9 PM CDT CBC WITH AUTO DIFFERENTIAL STAT 01/29/2025 3:29 PM CDT from Last 3 Months Results * US RUQ (01/30/2025 1:17 PM CDT) Anatomical Region Laterality Modality Abdomen N/A Ultrasound 01/30/2025 4:43 PM CDT Narrative 01/30/2025 4:44 PM CDT EXAM DESCRIPTION: US RUQ REASON FOR STUDY: RUQ abdominal pain, initial exam, Evaluate for acute cholecystitis/biliary colic Epigastric pain radiating to chest and back with nausea for 4 days. Symptoms worse with eating. TECHNIQUE: Ultrasound of the right upper quadrant of the abdomen was performed with grayscale and color doppler. COMPARISON: 01/29/2025 FINDINGS: PANCREAS: Visualized portions of the pancreas are within normal limits. Portions of the pancreatic body and tail are obscured due to bowel gas. LIVER: The liver is grossly normal in echogenicity. There is no definite sonographic evidence of focal hepatic lesion. There is documentation of hepatopetal flow in the portal vein. GALLBLADDER: The gallbladder is contracted, which limits its evaluation. There is no definite sonographic evidence of cholelithiasis. The gallbladder wall measures 0.3 cm in thickness. BILIARY: There is no intrahepatic or extrahepatic biliary ductal dilatation. Common bile duct measures 0.3 cm in diameter. RIGHT KIDNEY: Normal size. Normal echogenicity. No solid mass or cyst. No hydronephrosis. Measures 11.4 x 5.4 x 4.3 cm. OTHER: No other significant findings. IMPRESSION: Contracted gallbladder, which limits its evaluation. No definite sonographic evidence of cholelithiasis or cholecystitis. If there is continued clinical concern for cholecystitis, then further evaluation with HIDA scan is recommended. THIS IS AN ELECTRONICALLY VERIFIED FINAL REPORT 01/30/2025 4:44 PM - Electronically signed by Daisy Davidson D.O. PS: PS Report ID: [id number] Reading Location: [id number] Procedure Note Daisy Davidson DO - 01/30/2025 EXAM DESCRIPTION: US RUQ REASON FOR STUDY: RUQ abdominal pain, initial exam, Evaluate for acute cholecystitis/biliary colic Epigastric pain radiating to chest and back with nausea for 4 days. Symptoms worse with eating. TECHNIQUE: Ultrasound of the right upper quadrant of the abdomen wasperformed with grayscale and color doppler. COMPARISON: 01/29/2025 FINDINGS: PANCREAS: Visualized portions of the pancreas are withinnormal limits. Portions of the pancreatic body and tail are obscured due to bowel gas. LIVER: The liver is grossly normal in echogenicity. There is nodefinite sonographic evidence of focal hepatic lesion. There is documentation of hepatopetal flow in the portal vein. GALLBLADDER: The gallbladder is contracted, which limits its evaluation. There is no definite sonographic evidence of cholelithiasis. Thegallbladder wall measures 0.3 cm in thickness. BILIARY: There is no intrahepatic or extrahepatic biliary ductaldilatation. Common bile duct measures 0.3 cm in diameter. RIGHT KIDNEY: Normal size. Normal echogenicity. No solid mass or cyst.No hydronephrosis. Measures 11.4 x 5.4 x 4.3 cm. OTHER: No other significant findings. IMPRESSION: Contracted gallbladder, which limits its evaluation. No definitesonographic evidence of cholelithiasis or cholecystitis. If there is continuedclinical concern for cholecystitis, then further evaluation with HIDA scan is recommended. THIS IS AN ELECTRONICALLY VERIFIED FINAL REPORT 01/30/2025 4:44 PM - Electronically signed by Daisy Davidson D.O. PS: PS Report ID: [id number] Reading Location: [id number] us Gabbie Calles MD IMG US PROCEDURES Final Result * CT Abdomen Pelvis W Contrast (01/29/2025 6:59 PM CDT) Anatomical Region Laterality Modality Body N/A Computed Tomogra phy 01/29/2025 7:08 PM CDT Narrative 01/29/2025 7:17 PM CDT EXAM DESCRIPTION: CT ABDOMEN PELVIS W CONTRAST REASON FOR STUDY: Right upper quadrant pain, concern for acute cholecystitis, no ultrasound available Pt arrives complaining of epigastric pain and pressure that started 3 days ago. Its been going up my esophagus and down my arm TECHNIQUE: CT scan of the abdomen and pelvis performed with intravenous and without oral contrast using helical scanning technique with dynamic intravenous contrast injection. Reconstructed coronal and sagittal MPR images reviewed. All images stored on PACS. Automated exposure control was used as a dose optimization technique for this examination. CONTRAST TYPE/DOSE: 100mL of IOVERSOL 350 MG IODINE/ML INTRAVENOUS SYRINGE injected via intravenous COMPARISON: None. FINDINGS: LOWER CHEST: Mosaic perfusion noted in the lung bases. There is some linear atelectasis or scarring in the left base. No pleural effusion. LIVER: Liver size and contour normal. No focal hepatic lesion. The portal and hepatic veins are patent. GALLBLADDER: No gallstones or overt inflammatory change. BILE DUCTS: No biliary ductal dilation. SPLEEN: Spleen size normal. No focal lesion. PANCREAS: No pancreatic mass or inflammatory change. ADRENALS: Normal KIDNEYS/URINARY TRACT: No right renal calculus. No left renal calculus. No ureteral calculus. Tiny cyst. No hydronephrosis or hydroureter. The urinary bladder is unremarkable. GI: No evidence of bowel obstruction. The terminal ileum and the appendix are normal. The stomach and duodenum are normal. No abnormal bowel wall thickening. No pneumatosis is seen. PERITONEUM: No ascites or free air. No mesenteric mass or lymphadenopathy. RETROPERITONEUM: No retroperitoneal mass or lymphadenopathy. REPRODUCTIVE: No significant abnormalities are seen. VASCULATURE: Abdominal aorta nonaneurysmal. MUSCULOSKELETAL: Bone windows demonstrate no acute or aggressive osseous abnormality. Small area of sclerosis in the L3 vertebral body. Minimal disc space narrowing L3-4. OTHER: No other abnormality. IMPRESSION: No evidence of an acute abnormality of the abdomen and pelvis. No CT evidence of acute cholecystitis. Mosaic perfusion in the lung bases, this is nonspecific but can be seen with small airways disease. THIS IS AN ELECTRONICALLY VERIFIED FINAL REPORT 01/29/2025 7:17 PM - Electronically signed by Casey Lorenzana M.D. CH: KINGA Report ID: [id number] Reading Location: [id number] Procedure Note Casey Lorenzana Jr., MD - 01/29/2025 EXAM DESCRIPTION: CT ABDOMEN PELVIS W CONTRAST REASON FOR STUDY: Right upper quadrant pain, concern for acute cholecystitis, no ultrasound available Pt arrives complaining of epigastric pain and pressure that started 3 days ago. Its been going up my esophagus and down my arm TECHNIQUE: CT scan of the abdomen and pelvis performed with intravenousand without oral contrast using helical scanning technique with dynamic intravenous contrast injection. Reconstructed coronal and sagittal MPRimages reviewed. All images stored on PACS. Automated exposure control was usedas a dose optimization technique for this examination. CONTRAST TYPE/DOSE: 100mL of IOVERSOL 350 MG IODINE/ML INTRAVENOUSSYRINGE injected via intravenous COMPARISON: None. FINDINGS: LOWER CHEST: Mosaic perfusion noted in the lung bases. Thereis some linear atelectasis or scarring in the left base. No pleuraleffusion. LIVER: Liver size and contour normal. No focal hepatic lesion. Theportal and hepatic veins are patent. GALLBLADDER: No gallstones or overt inflammatory change. BILE DUCTS: No biliary ductal dilation. SPLEEN: Spleen size normal. No focal lesion. PANCREAS: No pancreatic mass or inflammatory change. ADRENALS: Normal KIDNEYS/URINARY TRACT: No right renal calculus. No left renal calculus.No ureteral calculus. Tiny cyst. No hydronephrosis or hydroureter. Theurinary bladder is unremarkable. GI: No evidence of bowel obstruction. The terminal ileum and theappendix are normal. The stomach and duodenum are normal. No abnormal bowel wall thickening. No pneumatosis is seen. PERITONEUM: No ascites or free air. No mesenteric mass orlymphadenopathy. RETROPERITONEUM: No retroperitoneal mass or lymphadenopathy. REPRODUCTIVE: No significant abnormalities are seen. VASCULATURE: Abdominal aorta nonaneurysmal. MUSCULOSKELETAL: Bone windows demonstrate no acute or aggressive osseous abnormality. Small area of sclerosis in the L3 vertebral body. Minimaldisc space narrowing L3-4. OTHER: No other abnormality. IMPRESSION: No evidence of an acute abnormality of the abdomen and pelvis. No CT evidence of acute cholecystitis. Mosaic perfusion in the lung bases, this is nonspecific but can be seenwith small airways disease. THIS IS AN ELECTRONICALLY VERIFIED FINAL REPORT 01/29/2025 7:17 PM - Electronically signed by Casey Lorenzana M.D. CH: KINGA Report ID: [id number] Reading Location: [id number] us Gabbie Calles MD IMG CT PROCEDURES Final Result * Troponin T high-sensitivity series (baseline, 2hr, 4hr, 6hr) (01/29/2025 4:42 PM CDT) Trop T hs <6 <=14 ng/L Comment: Interpretive Data For further hscTnT resources including the diagnostic algorithm and an aid in interpretation, copy and paste this link: [email or web address].testcatalog.org/show/hsTrop Current Interpretive Data last revised 2020. Testing performed by: [address] [address] Blood 01/29/2025 4:42 PM CDT 01/29/2025 4:44 PM CDT us Jacob Bullock DO LAB BLOOD ORDERABLES Final Result [facility] [address] [facility] Department [place] [address] * eGFR (01/29/2025 4:42 PM CDT) Pathologist [facility] eGFR >90 >=60 mL/min/1. 73 m2 Comment: Interpretive Data Reference Interval Normal >/= 90 mL/min/1.73m2 Mildly decreased* 60 - 89 mL/min/1.73m2 Mildly to moderately decreased 45 - 59 mL/min/1.73m2 Moderately to severely decreased 30 - 44 mL/min/1.73m2 Severely decreased 15 - 29 mL/min/1.73m2 Kidney Failure < 15 mL/min/1.73m2 *Relative to young adult level Estimated glomerular filtration rate is determined by the 2020 CKD-EPI equation recommended by the National Kidney Foundation (A Unifying Approach to GFR Estimation: Recommendations of the NKF-ASK Task Force on Reassessing the Inclusion of Race in Diagnosing Kidney Disease, JASN 2020). The CKD-EPI equation should not be used for patients with unstable renal function and has not been validated in children and those over 70. Current interpretive data was last reviewed 2021. Testing performed by: [address] [address] Blood 01/29/2025 4:42 PM CDT 01/29/2025 4:44 PM CDT Jacob Bullock DO LAB BLOOD ORDERABLES Final Result Performing Organization Address [facility] Co de Phone Number [address] [address] * CRP (acute phase) (01/29/2025 4:42 PM CDT) CRP 4.7 <=10.0 mg/L Comment:Testing performed by : [address] [address] Blood 01/29/2025 4:42 PM CDT 01/29/2025 4:44 PM CDT Gabbie Calles MD LAB BLOOD ORDERABLES Fin al Result Performing Organization Address [facility] de Phone Number [address] [address] * (ABNORMAL) Lipase (01/29/2025 4:42 PM CDT) Pathologist [facility] Lipase 154(H) 10 - 99 Units/L Comment:Testing performed by : [address] [address] Blood 01/29/2025 4:42 PM CDT 01/29/2025 4:44 PM CDT Jacob Bullock DO LAB BLOOD ORDERABLES Final Result Performing Organization Address [facility] Co de Phone Number [address] [address] * Comprehensive metabolic panel (01/29/2025 4:42 PM CDT) Pathologist [facility] Sodium 137 135 - 145 mmol/L Comment:Testing performed by : [address] [address] Potassium, pl 3.9 3.3 - 4.9 mmol/L DAVIS Comment:Testing performed by : [address] [address] Chloride 101 97 - 110 mmol/L [facility] Comment:Testing performed by : [address] [address] CO2 28 22 - 32 mmol/L [facility] Comment:Testing performed by : [address], [place]., [address] Anion gap 8 2 - 15 mmol/L [facility] Comment:Testing performed by : [address], [place]., [address] BUN 8 6 - 25 mg/dL [facility] Comment:Testing performed by : [address], [place]., [address] Creatinine 0.60 0.60 - 1.10 mg/dL [facility] Comment:Testing performed by : [address] [address] Glucose 88 70 - 199 mg/dL [facility] Comment: Interpretive Data Fasting glucose >/= 126 mg/dl is diagnostic for diabetes. Fasting is defined as no caloric intake for at least 8 hours. Fasting glucose between 100 mg/dl to 125 mg/dl is diagnostic of prediabetes. In a patient with classic symptoms of hyperglycemia or hyperglycemic crisis, a random glucose >/= 200 mg/dl is diagnostic for diabetes. In the absence of unequivocal hyperglycemia, results should be confirmed by repeat testing. The classification and Diagnosis of Diabetes Diabetes Care 202; 46: S19-S40. Current interpretive data was last revised 2022. Testing performed by: [address] [address] Calcium 9.5 8.5 - 10.3 mg/dL [facility] Comment:Testing performed by : [address] [address] Bilirubin, total 0.4 0.1 - 1.2 mg/dL [facility] Comment:Testing performed by : [address] [address] Protein, pl 7.9 6.5 - 8.5 g/dL DAVIS Comment:Testing performed by : [address] [address] Albumin 4.0 3.5 - 5.0 g/dL [facility]AN Comment:Testing performed by : [address] [address] Alk phos 80 40 - 130 Units/L [facility] Comment:Testing performed by : [address] [address] ALT 11 7 - 45 Units/L [facility] Comment:Testing performed by : [address] [address] AST 14 10 - 45 Units/L [facility]AN Comment:Testing performed by : [address] [address] Blood 01/29/2025 4:42 PM CDT 01/29/2025 4:44 PM CDT Jacob Bullock DO LAB BLOOD ORDERABLES Final Result Performing Organization Address City/State/[facility] Co de Phone Number [facility] [place] [address] * POCT hCG, urine (01/29/2025 3:44 PM CDT) HCG, ur, POC Negative Negative Lot Number [id number] QC Backgroud Clear Acceptable QC Control Line Acceptable Urine 01/29/2025 3:44 PM CDT Jacob Bullock DO POINT OF CARE TEST ORDERABL ES Final Result * Urinalysis reflex to microscopic and culture Urine (01/29/2025 3:42 PM CDT) Color, ur Yellow Yellow Comment:Testing performed by : [address] [address] Clarity, ur Clear Clear [facility] ZAMAN Comment:Testing performed by : [address] [address] Specific gravity, ur 1.010 1.003 - 1.030 [facility]AN Comment:Testing performed by : [address] [address] pH, urine 7.0 [facility]AN Comment: Interpretive Data U rine pH is affected by diet, medications, systemic acid-base disturbances, and renal tubular function. pH may affect urinary stone formation. For example, urine pH below 6.0 may help reduce the tendency for calcium phosphate stones and pH greater than 6.0 may reduce the tendency for uric acid stone formation. Source: [facility] Current Interpretive Data was last revised on 2017 Testing performed by: [facility], [address] [place] [address], [place]., [address] Protein, ur ql Negative Negative DAVIS Comment:Testing performed by : [facility], [address] [place] [address], [place]., [address] Glucose, ur ql Negative Negative [facility] Comment:Testing performed by : [address], [place]., [address] Ketones, ur Negative Negative [facility] Comment:Testing performed by : [address], [place]., [address] Bilirubin, ur Negative Negative [facility] Comment:Testing performed by : [address], [place]., [address] Blood, ur Negative Negative [facility] Comment:Testing performed by : [address], [place]., [address] Urobilinogen, ur <2.0 <2.0 mg/dL [facility] Comment:Testing performed by : [address], [place]., [address] Nitrite, ur Negative Negative [facility] Comment:Testing performed by : [address], [place]., [address] Leukocyte esterase, ur Negative Negative [facility] Comment:Testing performed by : [address], [place]., [address] UA reflex comment Reflex conditions for microscopic UA and culture not met. [facility]IS Comment:Testing performed by : [address], [place]., [address] Urine 01/29/2025 3:42 PM CDT 01/29/2025 3:49 PM CDT us Jacob Bullock DO LAB MICROBIOLOGY - GENERAL ORDERABLES Final Result [facility] [address] [facility] [place] [address] * ECG 12 lead (01/29/2025 3:36 PM CDT) [facility] Ventricular Rate EKG/Min 84 BPM [facility] Atrial Rate 84 BPM [facility] MO-Interval (MSEC) 180 ms [facility] QRS-Interval (MSEC) 74 ms [facility] QT-Interval (MSEC) 380 ms [facility] QTc 449 ms [facility] P [place] 58 degrees [facility] R [place] 33 degrees [facility] T [place] 39 degrees [facility] Diagnosis Normal sinus rhythm Normal ECG No previous ECGs available Confirmed by YASHIRA MCFARLAND M.D. ([id number]) on 01/29/2025 11:15:17 PM [facility] 01/29/2025 3:36 PM CDT 01/29/2025 11:15 PM CDT Jacob Bullock DO ECG ORDERABLES Final Resul t [facility] * (ABNORMAL) Differential, auto (01/29/2025 3:29 PM CDT) [facility] Neutrophil abs 4.75 1.50 - 6.50 K/cumm Comment:Testing performed by : [address] [address] Imm gran abs 0.02 0.00 - 0.10 K/cumm DAVIS Comment:Testing performed by : [address] [address] Lymphocyte abs 2.13 0.80 - 3.30 K/cumm DAV[facility] Comment:Testing performed by : [address] [address] Monocyte abs 1.10(H) 0.20 - 0.80 K/cumm DAV[facility] Comment:Testing performed by : [address] [address] Eosinophil abs 0.14 0.00 - 0.50 K/cumm DAV[facility] Comment:Testing performed by : [address] [place] [address] Basophil abs 0.05 0.00 - 0.10 K/cumm DAVIS Comment:Testing performed by : [address] [address] Neutrophil pct 58.1 % [facility] Comment: Interpretive Data Percent cell count reference ranges are not reported, since discordance with absolute values may lead to misinterpretation of CBC data. Current Interpretive Data was last revised on 2018. Testing performed by: [address] [address] Imm gran pct 0.2 % [facility] Comment: Interpretive Data Percent cell count reference ranges are not reported, since discordance with absolute values may lead to misinterpretation of CBC data. Current Interpretive Data was last revised on 2018. Testing performed by: [address] [address] Lymphocyte pct 26.0 % [facility] Comment: Interpretive Data Percent cell count reference ranges are not reported, since discordance with absolute values may lead to misinterpretation of CBC data. Current Interpretive Data was last revised on 2018. Testing performed by: [address] [address] Monocyte pct 13.4 % [facility] Comment: Interpretive Data Percent cell count reference ranges are not reported, since discordance with absolute values may lead to misinterpretation of CBC data. Current Interpretive Data was last revised on 2018. Testing performed by: [address] [address] Eosinophil pct 1.7 % [facility] Comment: Interpretive Data Percent cell count reference ranges are not reported, since discordance with absolute values may lead to misinterpretation of CBC data. Current Interpretive Data was last revised on 2018. Testing performed by: [address] [address] Basophil pct 0.6 % [facility] Comment: Interpretive Data Percent cell count reference ranges are not reported, since discordance with absolute values may lead to misinterpretation of CBC data. Current Interpretive Data was last revised on 2018. Testing performed by: [address] [address] Blood 01/29/2025 3:29 PM CDT 01/29/2025 3:38 PM CDT aJcob Bullock DO LAB BLOOD ORDERABLES Final Result [facility] [address] [facility] Department [place] [address] * CBC with auto differential (01/29/2025 3:29 PM CDT) Pathologist [facility] WBC 8.19 3.80 - 9.90 K/cumm Comment:Testing performed by : [address] [address] Hgb 14.8 11.9 - 15.5 g/dL [facility] Comment:Testing performed by : [address] [id number] Hct 44.6 35.6 - 45.5 % DAVIS Comment:Testing performed by : [address] [address] Plt 312 150 - 400 K/cumm DAVIS Comment:Testing performed by : [address] [address] MPV 10.1 9.1 - 12.3 fL DAVIS Comment:Testing performed by : [address] [address] RBC 4.77 3.90 - 5.20 M/cumm DAVIS Comment:Testing performed by : [address] [address] MCV 93.5 81.3 - 96.4 fL DAVIS Comment:Testing performed by : [address] [address] MCH 31.0 27.1 - 33.3 pg DAVIS Comment:Testing performed by : [address] [address] MCHC 33.2 32.3 - 35.7 g/dL DAVIS Comment:Testing performed by : [address], [address] RDW CV 13.0 11.1 - 14.9 % DAVIS ZAMAN Comment:Testing performed by : [facility], [address] [place] [address]., [address] RDW SD 44.7 35.7 - 48.1 fL DAVIS ZAMAN Comment:Testing performed by : [facility], [address] [place] [address]., [address] NRBC abs 0.00 0.00 - 0.01 K/cumm DAVIS ZAMAN Comment:Testing performed by : [facility], [address] [place] [address]., [id number] Blood Venous blood specimen / Unknown 01/29/2025 3:29 PM CDT 01/29/2025 3:38 PM CDT Jacob Bullock DO LAB BLOOD ORDERABLES Final Result Performing Organization Address City/State/[facility] Co de Phone Number DAVIS ZAMAN [phone] [facility] [place] [address] from Last [address] [place] [address] [address] 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
--- OUTSIDE RECORDS SUMMARY | 2025-02-03 21:12 | XMS_ITS | Data Portability ---
Author Organization [facility] Address 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 Plan of Treatment Reminders Order Date Submit Date Provider Last Modified By Organization Details Last Modified Time Details Appointments None recorded. Lab lipid panel, serum 2024 025 [facility], [address] [place] [address], [address], [place], [address], 5 08:28:11 CMP, serum or plasma 2024 025 [facility], [address] [place] [address], [address], [place], [address], 5 08:28:12 HbA1c (hemoglobi n A1c), blood 2024 025 [facility], [address] [place] [address], [address], [place], [address], 5 06:37:32 vitamin D, 25-hydroxy , total, serum 2024 025 [facility], [address] [place] [address], [address], [place], [address], 5 06:37:34 TSH, ultra-sens itive, serum 2024 025 [facility], [address], [address], [place], [address], 5 06:37:30 HIV 1 + 2, meaningful use set 2024 025 [facility], [address], [address], [place], [address], 5 06:37:36 chlamydia trachomati s + neisseria gonorrhoea e + trichomona s vaginalis rRNA panel, PETRONA+probe 2024 025 [facility], [address], [address], [place], [address], 5 06:37:28 RPR (rapid plasma reagin), serum 2024 025 [facility], [address], [address], [place], [address], 5 06:37:33 iron + total iron-edgar ng capacity (TIBC), serum 2024 025 [facility], [address], [address], [place], [address], 5 06:37:31 CBC w/ auto diff 2024 025 [facility], [address], [address], [place], [address], 5 08:28:14 iron + total iron-edgar ng capacity (TIBC), serum 2023 024 [facility], [address], [address], [place], [address], 4 10:14:09 CBC w/ auto diff 2023 024 [facility], [address], [address], [place], [address], 4 07:13:54 vitamin D, 25-hydroxy , total, serum 2022 023 [facility], [address], [address], [place], [address], 3 08:27:04 iron + total iron-edgar ng capacity (TIBC), serum 2022 023 [facility], [address], [address], [place], [address], 3 08:27:03 CBC w/ auto diff 2022 023 [facility], [address], [address], [place], [address], 3 06:18:14 HbA1c (hemoglobi n A1c), blood 2022 023 [facility], [address], [address], [place], [address], 3 07:17:45 BMP, serum or plasma 2022 023 [facility], [address], [address], [place], [address], 3 06:18:47 lipid panel, serum 2022 023 [facility], [address], [address], [place], [address], 3 06:18:46 vitamin D, 25-hydroxy , total, serum 2022 023 [facility], [address] [place], [place] [address]indigo Onur, [address], [place], [address], 3 07:17:45 iron + total iron-edgar ng capacity (TIBC), serum 2022 023 [facility], [address] [place], [place] [address]darvin Onur, [address], [place], [address], 3 07:17:44 CBC w/ auto diff 2022 023 [facility], [address] [place] [address], [address], [place], [address], 3 06:18:48 Referral weight management referral 2024 025 [facility], [address] [place] [address], [address], 5 12:42:58 Procedures None recorded. Surgeries None recorded. Imaging None recorded. Medication Orders albuterol sulfate HFA 90 mcg/actuat ion aerosol inhaler 2024 025 [id number], [facility] [place], [place], [id number], 5 11:25:26 Symbicort 160 mcg-4.5 mcg/actuat ion HFA aerosol inhaler 2024 025 [facility] #58169, [address] [place], [place], [id number], 5 11:25:27 baclofen 10 mg tablet 2024 025 [facility] #82083, [address] [place] [address], [id number], 5 11:25:27 ibuprofen 800 mg tablet 2024 025 [facility] #14668, [address] [place] [address], [id number], 5 11:25:27 ferrous sulfate 325 mg (65 mg iron) tablet 2024 025 [facility] #72539, [address] [place] [address], [id number], 5 11:25:26 ibuprofen 800 mg tablet 2022 023 [facility] #05228, [address] [place] [address], [id number], 3 12:24:24 ibuprofen 800 mg tablet 2022 023 [facility] #13773, [address] [place] [address], [id number], 3 10:52:11 Patient TargetsNo targets recorded. Patient Instructions Encounter Date Encounter Id Patient Instructions Last Modified By Organization Details Last Modified Time 07/12/2023 [id number] A healthy lifestyle: care instructions Not available 07/12/2023 10:51:58 07/21/2023 [id number] A healthy lifestyle: care instructions Not available 07/21/2023 12:24:13 10/13/2023 [id number] A healthy lifestyle: care instructions Not available 10/13/2023 11:45:15 10/03/2024 [id number] Quitting Tobacco : Care Instructions Not available 10/03/2024 11:25:10 A healthy lifestyle: care instructions Not available 10/03/2024 11:25:10 Reason for Referral Weight Management Referral f or Body mass index 30+ - obesity Referring Physician: Hanny Hernandez, Family Medicine, Encounter Date: 10/03/2024 Results Created Date Observation Date Name Description Value Unit Range Abnormal Flag Note LastModifiedBy Organization Detail LastModifiedTime 07/12/2007/12/2023 LIPID PANEL cholesterol, total 125 mg/dL 100-19 9 Not Available [facility] [address] [place], [address], 07/13/2023 06:18:46 07/12/2007/12/2023 LIPID PANEL triglyceride s 43 mg/dL 0-149 Not Available [facility] [address] [place], [address], 07/13/2023 06:18:46 07/12/2007/12/2023 LIPID PANEL HDL cholesterol 44 mg/dL 40-[address] [facility] [address] [place], [address], 07/13/2023 06:18:46 07/12/2007/12/2023 LIPID PANEL VLDL cholesterol josie 9 mg/dL 5-40 Not Available [facility] [address] [place], [address], 07/13/2023 06:18:46 07/12/2007/12/2023 LIPID PANEL LDL chol calc (nih) 76 mg/dL 0-99 Not Available [facility] [address] [place], [address], 07/13/2023 06:18:46 07/12/2007/12/2023 BASIC METAB OLIC PANEL (8) glucose 90 mg/dL 70-99 Not Available [facility] [address] [place], [address], 07/13/2023 06:18:47 07/12/2007/12/2023 BASIC METAB OLIC PANEL (8) BUN 10 mg/dL 6-24 Not Available [facility] [address] [place], [address], 07/13/2023 06:18:47 07/12/2007/12/2023 BASIC METAB OLIC PANEL (8) creatinine 0.68 mg/dL 0.76-1 .27 below low normal Not Available [facility] [address] [place], [address], 07/13/2023 06:18:47 07/12/2007/12/2023 BASIC METAB OLIC PANEL (8) BUN/creatini ne ratio 15 9-23 Not Available [facility] [address] [place], [address], 07/13/2023 06:18:47 07/12/2007/12/2023 BASIC METAB OLIC PANEL (8) sodium 137 mmol/ L 134-14 4 Not Available [facility] [address] [place], [address], 07/13/2023 06:18:47 07/12/2007/12/2023 BASIC METAB OLIC PANEL (8) potassium 4.9 mmol/ L 3.5-5. 2 Not Available [facility] [address] [place], [address], 07/13/2023 06:18:47 07/12/2007/12/2023 BASIC METAB OLIC PANEL (8) chloride 106 mmol/ L 96-106 Not Available [facility] [address] [place], [address], 07/13/2023 06:18:47 07/12/2007/12/2023 BASIC METAB OLIC PANEL (8) carbon dioxide, total 25 mmol/ L 20-29 Not Available [facility] [address] [place], [address], 07/13/2023 06:18:47 07/12/2007/12/2023 BASIC METAB OLIC PANEL (8) calcium 9.0 mg/dL 8.7-10 .2 Not Available [facility] [address] [place], [address], 07/13/2023 06:18:47 07/12/2007/12/2023 CBC WITH DIFFE RENTI AL/PL ATELE T WBC 7.7 x10e3 /uL 3.4-10 .8 Not Available [facility] [address] [place], [address], 07/13/2023 06:18:48 07/12/2007/12/2023 CBC WITH DIFFE RENTI AL/PL ATELE T RBC 4.49 x10e6 /uL 3.77-5 .28 Not Available [facility] [address] [place], [address], 07/13/2023 06:18:48 07/12/2007/12/2023 CBC WITH DIFFE RENTI AL/PL ATELE T hemoglobin 12.7 g/dL 11.1-1 5.9 Not Available [facility] [address] [place], [address], 07/13/2023 06:18:48 07/12/2007/12/2023 CBC WITH DIFFE RENTI AL/PL ATELE T hematocrit 41.0 % 34.0-4 6.6 Not Available [facility] [address] [place], [address], 07/13/2023 06:18:48 07/12/2007/12/2023 CBC WITH DIFFE RENTI AL/PL ATELE T MCV 91 fL 79-97 Not Available [facility] [address] [place], [address], 07/13/2023 06:18:48 07/12/2007/12/2023 CBC WITH DIFFE RENTI AL/PL ATELE T MCH 28.3 pg 26.6-3 3.0 Not Available [facility] [address] [place], [address], 07/13/2023 06:18:48 07/12/2007/12/2023 CBC WITH DIFFE RENTI AL/PL ATELE T MCHC 31.0 g/dL 31.5-3 5.7 below low normal Not Available [facility] [address] [place], [address], 07/13/2023 06:18:48 07/12/20 23 07/12/2023 CBC WITH DIFFE RENTI AL/PL ATELE T RDW 16.7 % 11.5-1 4.5 above high normal Not Available [facility] [address] [place], [address], 07/13/2023 06:18:48 07/12/2007/12/2023 CBC WITH DIFFE RENTI AL/PL ATELE T platelets 298 x10e3 /uL 150-45 0 Not Available [facility] [address] [place], [address], 07/13/2023 06:18:48 07/12/2007/12/2023 CBC WITH DIFFE RENTI AL/PL ATELE T neutrophils 53 % notest b. Not Available [facility] [address] [place], [address], 07/13/2023 06:18:48 07/12/20 23 07/12/2023 CBC WITH DIFFE RENTI AL/PL ATELE T lymphs 34 % notest b. Not Available [facility] [address] [place], [address], 07/13/2023 06:18:48 07/12/20 23 07/12/2023 CBC WITH DIFFE RENTI AL/PL ATELE T monocytes 10 % notest b. Not Available [facility] [address] [place], [address], 07/13/2023 06:18:48 07/12/20 23 07/12/2023 CBC WITH DIFFE RENTI AL/PL ATELE T eos 2 % notest b. Not Available [facility] [address] [place], [address], 07/13/2023 06:18:48 07/12/2007/12/2023 CBC WITH DIFFE RENTI AL/PL ATELE T basos 1 % notest b. Not Available [facility] [address] [place], [address], 07/13/2023 06:18:48 07/12/2007/12/2023 CBC WITH DIFFE RENTI AL/PL ATELE T neutrophils (absolute) 4.0 x10e3 /uL 1.4-7. 0 Not Available [facility] [address] [place], [address], 07/13/2023 06:18:48 07/12/2007/12/2023 CBC WITH DIFFE RENTI AL/PL ATELE T lymphs (absolute) 2.6 x10e3 /uL 0.7-3. 1 Not Available [facility] [address] [place], [address], 07/13/2023 06:18:48 07/12/2007/12/2023 CBC WITH DIFFE RENTI AL/PL ATELE T monocytes(ab solute) 0.8 x10e3 /uL 0.1-0. 9 Not Available [facility] [address] [place], [address], 07/13/2023 06:18:48 07/12/2007/12/2023 CBC WITH DIFFE RENTI AL/PL ATELE T eos (absolute) 0.1 x10e3 /uL 0.0-0. 4 Not Available [facility] [address] [place], [address], 07/13/2023 06:18:48 07/12/2007/12/2023 CBC WITH DIFFE RENTI AL/PL ATELE T baso (absolute) 0.1 x10e3 /uL 0.0-0. 2 Not Available [facility] [address] [place], [address], 07/13/2023 06:18:48 07/12/2007/12/2023 CBC WITH DIFFE RENTI AL/PL ATELE T immature granulocytes 0.3 % notest b. Not Available [facility] [address] [facility], [place], [address], 07/13/2023 06:18:48 07/12/2007/12/2023 CBC WITH DIFFE RENTI AL/PL ATELE T immature grans (abs) 0.0 x10e3 /uL 0.0-0. 1 Not Available [facility] [address] [place], [address], 07/13/2023 06:18:48 07/12/2007/12/2023 CBC WITH DIFFE RENTI AL/PL ATELE T NRBC 0 % 0-0 Not Available [facility] [address] [facility], [place], [address], 07/13/2023 06:18:48 07/12/2007/13/2023 IRON AND TIBC iron bind.cap.(TI BC) 333 ug/dL 250-45 0 Not Available [facility] [address] [place], [address], 07/13/2023 07:17:44 07/12/2007/13/2023 IRON AND TIBC UIBC 143 ug/dL 131-42 5 Not Available [facility] [address] [place], [address], 07/13/2023 07:17:44 07/12/2007/13/2023 IRON AND TIBC iron 190 ug/dL 27-159 above high normal Not Available [facility] [address] [place], [address], 07/13/2023 07:17:44 07/12/2007/13/2023 IRON AND TIBC iron saturation 57 % 15-55 above high normal Not Available [facility] [address] [facility], [place], [address], 07/13/2023 07:17:44 07/12/2007/13/2023 HEMOG LOBIN A1C hemoglobin A1C 5.6 % 4.8-5. 6 Predi abete s: 5.7 - 6.4 Diabe katja: >6.4 Glyce frederic contr ol for adult s with diabe katja: <7.0 Not Available [facility] [address] [facility], [place], [address], 07/13/2023 07:17:45 07/12/2007/13/2023 VITAM IN D, 25-HY [...] Medic ine). 2009. Dieta ry refer ence intnayan es for calci um and D. Rian haynes [place]: The [facility] . 2. Julio Cesar hendrix MF, Joselin almaraz [place], Abby off-F errar i ZARATE, et al. Evalu ation , treat ment, and preve ntion of vitam in D defic iency : an Endoc rine Socie ty clini josie pract ice guide line. JCEM. 2010; 96(7) :1911 -30. Not Available [facility] [address] [facility], [place], [address], 07/13/2023 07:17:45 08/09/2008/10/2023 CBC WITH DIFFE RENTI AL/PL ATELE T WBC 7.9 x10e3 /uL 3.4-10 .8 Not Available [facility] [address] [place], [address], 08/10/2023 06:18:14 08/09/20 23 08/10/2023 CBC WITH DIFFE RENTI AL/PL ATELE T RBC 3.97 x10e6 /uL 3.77-5 .28 Not Available [facility] [address] [place], [address], 08/10/2023 06:18:14 08/09/2008/10/2023 CBC WITH DIFFE RENTI AL/PL ATELE T hemoglobin 11.4 g/dL 11.1-1 5.9 Not Available [facility] [address] [place], [address], 08/10/2023 06:18:14 08/09/2008/10/2023 CBC WITH DIFFE RENTI AL/PL ATELE T hematocrit 36.1 % 34.0-4 6.6 Not Available [facility] [address] [place], [address], 08/10/2023 06:18:14 08/09/2008/10/2023 CBC WITH DIFFE RENTI AL/PL ATELE T MCV 91 fL 79-97 Not Available [facility] [address] [place], [address], 08/10/2023 06:18:14 08/09/2008/10/2023 CBC WITH DIFFE RENTI AL/PL ATELE T MCH 28.7 pg 26.6-3 3.0 Not Available [facility] [address] [place], [address], 08/10/2023 06:18:14 08/09/2008/10/2023 CBC WITH DIFFE RENTI AL/PL ATELE T MCHC 31.6 g/dL 31.5-3 5.7 Not Available [facility] [address] [facility], [place], [address], 08/10/2023 06:18:14 08/09/20 23 08/10/2023 CBC WITH DIFFE RENTI AL/PL ATELE T RDW 14.7 % 11.7-1 5.4 Not Available [facility] [address] [facility], [place], [address], 08/10/2023 06:18:14 08/09/2008/10/2023 CBC WITH DIFFE RENTI AL/PL ATELE T platelets 314 x10e3 /uL 150-45 0 Not Available [facility] [address] [facility], [place], [address], 08/10/2023 06:18:14 08/09/20 23 08/10/2023 CBC WITH DIFFE RENTI AL/PL ATELE T neutrophils 53 % notest ab. Not Available [facility] [address] [facility], [place], [address], 08/10/2023 06:18:14 08/09/20 23 08/10/2023 CBC WITH DIFFE RENTI AL/PL ATELE T lymphs 33 % notest ab. Not Available [facility] [address] [facility], [place], [address], 08/10/2023 06:18:14 08/09/20 23 08/10/2023 CBC WITH DIFFE RENTI AL/PL ATELE T monocytes 10 % notest ab. Not Available [facility] [address] [facility], [place], [address], 08/10/2023 06:18:14 08/09/20 23 08/10/2023 CBC WITH DIFFE RENTI AL/PL ATELE T eos 3 % notest ab. Not Available [facility] [address] [facility], [place], [address], 08/10/2023 06:18:14 08/09/20 23 08/10/2023 CBC WITH DIFFE RENTI AL/PL ATELE T basos 1 % notest ab. Not Available [facility] [address] [facility], [place], [address], 08/10/2023 06:18:14 08/09/20 23 08/10/2023 CBC WITH DIFFE RENTI AL/PL ATELE T neutrophils (absolute) 4.2 x10e3 /uL 1.4-7. 0 Not Available [facility] [address] [facility], [place], [address], 08/10/2023 06:18:14 08/09/20 23 08/10/2023 CBC WITH DIFFE RENTI AL/PL ATELE T lymphs (absolute) 2.6 x10e3 /uL 0.7-3. 1 Not Available [facility] [address] [facility], [place], [address], 08/10/2023 06:18:14 08/09/20 23 08/10/2023 CBC WITH DIFFE RENTI AL/PL ATELE T monocytes(ab solute) 0.8 x10e3 /uL 0.1-0. 9 Not Available [facility] [address] [place], [address], 08/10/2023 06:18:14 08/09/20 23 08/10/2023 CBC WITH DIFFE RENTI AL/PL ATELE T eos (absolute) 0.3 x10e3 /uL 0.0-0. 4 Not Available [facility] [address] [facility], [place], [address], 08/10/2023 06:18:14 08/09/20 23 08/10/2023 CBC WITH DIFFE RENTI AL/PL ATELE T baso (absolute) 0.0 x10e3 /uL 0.0-0. 2 Not Available [facility] [address] [place], [address], 08/10/2023 06:18:14 08/09/20 23 08/10/2023 CBC WITH DIFFE RENTI AL/PL ATELE T immature granulocytes 0 % notest ab. Not Available [facility] [address] [place], [address], 08/10/2023 06:18:14 08/09/20 23 08/10/2023 CBC WITH DIFFE RENTI AL/PL ATELE T immature grans (abs) 0.0 x10e3 /uL 0.0-0. 1 Not Available [facility] [address] [place], [address], 08/10/2023 06:18:14 08/09/20 23 08/10/2023 IRON AND TIBC iron bind.cap.(TI BC) 335 ug/dL 250-45 0 Not Available [facility] [address] [place], [address], 08/10/2023 08:27:03 08/09/20 23 08/10/2023 IRON AND TIBC UIBC 291 ug/dL 131-42 5 Not Available [facility] [address] [place], [address], 08/10/2023 08:27:03 08/09/20 23 08/10/2023 IRON AND TIBC iron 44 ug/dL 27-159 Not Available [facility] [address] [place], [address], 08/10/2023 08:27:03 08/09/20 23 08/10/2023 IRON AND TIBC iron saturation 13 % 15-55 below low normal Not Available [facility] [address] [facility], [place], [address], 08/10/2023 08:27:03 08/09/20 23 08/10/2023 VITAM IN [...] IOM (Inst itute of Medic ine). 2010. Itzel ry refer ence intak es for calci um and D. Rian haynes [place]: The [facility] . 2. Julio Cesar hendrix MF, Joselin almaraz [place], Abby off-F errwilbert i ZARATE, et al. Evalu ation , treat ment, and preve ntion of vitam in D defic iency : an Endoc rine Socie ty clini josie pract ice guide line. JCEM. 2010; 96(7) :1911 -30. Not Available [facility] [address] [facility], [place], [address], 08/10/2023 08:27:04 11/21/19 24 11/22/2023 CBC WITH DIFFE RENTI AL/PL ATELE T WBC 6.5 x10e3 /uL 3.4-10 .8 Not Available [facility] [address] [facility], [place], [address], 11/22/2023 07:13:54 11/21/19 24 11/22/2023 CBC WITH DIFFE RENTI AL/PL ATELE T RBC 4.26 x10e6 /uL 3.77-5 .28 Not Available [facility] [address] [facility], [place], [address], 11/22/2023 07:13:54 11/21/19 24 11/22/2023 CBC WITH DIFFE RENTI AL/PL ATELE T hemoglobin 12.8 g/dL 11.1-1 5.9 Not Available [facility] [address] [facility], [place], [address], 11/22/2023 07:13:54 11/21/19 24 11/22/2023 CBC WITH DIFFE RENTI AL/PL ATELE T hematocrit 40.1 % 34.0-4 6.6 Not Available [facility] [address] [place], [address], 11/22/2023 07:13:54 11/21/19 24 11/22/2023 CBC WITH DIFFE RENTI AL/PL ATELE T MCV 94 fL 79-97 Not Available [facility] [address] [place], [address], 11/22/2023 07:13:54 11/21/19 24 11/22/2023 CBC WITH DIFFE RENTI AL/PL ATELE T MCH 30.0 pg 26.6-3 3.0 Not Available [facility] [address] [place], [address], 11/22/2023 07:13:54 11/21/19 24 11/22/2023 CBC WITH DIFFE RENTI AL/PL ATELE T MCHC 31.9 g/dL 31.5-3 5.7 Not Available [facility] [address] [place], [address], 11/22/2023 07:13:54 11/21/19 24 11/22/2023 CBC WITH DIFFE RENTI AL/PL ATELE T RDW 13.1 % 11.7-1 5.4 Not Available [facility] [address] [place], [address], 11/22/2023 07:13:54 11/21/19 24 11/22/2023 CBC WITH DIFFE RENTI AL/PL ATELE T platelets 335 x10e3 /uL 150-45 0 Not Available [facility] [address] [facility], [place], [address], 11/22/2023 07:13:54 11/21/19 24 11/22/2023 CBC WITH DIFFE RENTI AL/PL ATELE T neutrophils 60 % notest ab. Not Available [facility] [address] [facility], [place], [address], 11/22/2023 07:13:54 11/21/19 24 11/22/2023 CBC WITH DIFFE RENTI AL/PL ATELE T lymphs 24 % notest ab. Not Available [facility] [address] [facility], [place], [address], 11/22/2023 07:13:54 11/21/19 24 11/22/2023 CBC WITH DIFFE RENTI AL/PL ATELE T monocytes 11 % notest ab. Not Available [facility] [address] [facility], [place], [address], 11/22/2023 07:13:54 11/21/19 24 11/22/2023 CBC WITH DIFFE RENTI AL/PL ATELE T eos 4 % notest ab. Not Available [facility] [address] [facility], [place], [address], 11/22/2023 07:13:54 11/21/19 24 11/22/2023 CBC WITH DIFFE RENTI AL/PL ATELE T basos 1 % notest ab. Not Available [facility] [address] [facility], [place], [address], 11/22/2023 07:13:54 11/21/19 24 11/22/2023 CBC WITH DIFFE RENTI AL/PL ATELE T neutrophils (absolute) 3.9 x10e3 /uL 1.4-7. 0 Not Available [facility] [address] [place], [address], 11/22/2023 07:13:54 11/21/19 24 11/22/2023 CBC WITH DIFFE RENTI AL/PL ATELE T lymphs (absolute) 1.6 x10e3 /uL 0.7-3. 1 Not Available [facility] [address] [facility], [place], [address], 11/22/2023 07:13:54 11/21/19 24 11/22/2023 CBC WITH DIFFE RENTI AL/PL ATELE T monocytes(ab solute) 0.7 x10e3 /uL 0.1-0. 9 Not Available [facility] [address] [facility], [place], [address], 11/22/2023 07:13:54 11/21/19 24 11/22/2023 CBC WITH DIFFE RENTI AL/PL ATELE T eos (absolute) 0.2 x10e3 /uL 0.0-0. 4 Not Available [facility] [address] [place], [address], 11/22/2023 07:13:54 11/21/19 24 11/22/2023 CBC WITH DIFFE RENTI AL/PL ATELE T baso (absolute) 0.0 x10e3 /uL 0.0-0. 2 Not Available [facility] [address] [place], [address], 11/22/2023 07:13:54 11/21/19 24 11/22/2023 CBC WITH DIFFE RENTI AL/PL ATELE T immature granulocytes 0 % notest ab. Not Available [facility] [address] [place], [address], 11/22/2023 07:13:54 11/21/19 24 11/22/2023 CBC WITH DIFFE RENTI AL/PL ATELE T immature grans (abs) 0.0 x10e3 /uL 0.0-0. 1 Not Available [facility] [address] [facility], [place], [address], 11/22/2023 07:13:54 11/21/19 24 11/22/2023 IRON AND TIBC iron bind.cap.(TI BC) 360 ug/dL 250-45 0 Not Available [facility] [address] [facility], [place], [address], 11/22/2023 10:14:09 11/21/19 24 11/22/2023 IRON AND TIBC UIBC 321 ug/dL 131-42 5 Not Available [facility] [address] [facility], [place], [address], 11/22/2023 10:14:09 11/21/19 24 11/22/2023 IRON AND TIBC iron 39 ug/dL 27-159 Not Available [facility] [address] [facility], [place], [address], 11/22/2023 10:14:09 11/21/19 24 11/22/2023 IRON AND TIBC iron saturation 11 % 15-55 below low normal Not Available [facility] [address] [place], [address], 11/22/2023 10:14:09 10/24/19 25 10/25/2024 LIPID PANEL cholesterol, total 157 mg/dL 100-19 9 Not Available [facility] [address] [place], [address], 10/25/2024 08:28:11 10/24/19 25 10/25/2024 LIPID PANEL triglyceride s 61 mg/dL 0-149 Not Available [facility] [address] [place], [address], 10/25/2024 08:28:11 10/24/19 25 10/25/2024 LIPID PANEL HDL cholesterol 48 mg/dL >39 Not Available [facility] [address] [place], [address], 10/25/2024 08:28:11 10/24/19 25 10/25/2024 LIPID PANEL VLDL cholesterol josie 12 mg/dL 5-40 Not Available [facility] [address] [place], [address], 10/25/2024 08:28:11 10/24/19 25 10/25/2024 LIPID PANEL LDL chol calc ([facility]) 97 mg/dL 0-99 Not Available [facility] [address] [place], [address], 10/25/2024 08:28:11 10/24/19 25 10/25/2024 COMP. METAB OLIC PANEL (14) glucose 101 mg/dL 70-99 above high normal Not Available [facility] [address] [place], [address], 10/25/2024 08:28:12 10/24/19 25 10/25/2024 COMP. METAB OLIC PANEL (14) BUN 7 mg/dL 6-24 Not Available [facility] [address] [place], [address], 10/25/2024 08:28:12 10/24/19 25 10/25/2024 COMP. METAB OLIC PANEL (14) creatinine 0.75 mg/dL 0.57-1 .00 Not Available [facility] [address] [place], [address], 10/25/2024 08:28:12 10/24/19 25 10/25/2024 COMP. METAB OLIC PANEL (14) eGFR 101 mL/mi n/1.7 3 >59 Not Available [facility] [address] [facility], [place], [address], 10/25/2024 08:28:12 10/24/19 25 10/25/2024 COMP. METAB OLIC PANEL (14) BUN/creatini ne ratio 9 9-23 Not Available [facility] [address] [facility], [place], [address], 10/25/2024 08:28:12 10/24/19 25 10/25/2024 COMP. METAB OLIC PANEL (14) sodium 139 mmol/ L 134-14 4 Not Available [facility] [address] [facility], [place], [address], 10/25/2024 08:28:12 10/24/19 25 10/25/2024 COMP. METAB OLIC PANEL (14) potassium 4.1 mmol/ L 3.5-5. 2 Not Available [facility] [address] [facility], [place], [address], 10/25/2024 08:28:12 10/24/19 25 10/25/2024 COMP. METAB OLIC PANEL (14) chloride 105 mmol/ L 96-106 Not Available [facility] [address] [facility], [place], [address], 10/25/2024 08:28:12 10/24/19 25 10/25/2024 COMP. METAB OLIC PANEL (14) carbon dioxide, total 24 mmol/ L 20-29 Not Available [facility] ([facility]) [address] [place], [address], 10/25/2024 08:28:12 10/24/19 25 10/25/2024 COMP. METAB OLIC PANEL (14) calcium 9.1 mg/dL 8.7-10 .2 Not Available [facility] ([facility]) [address] [place], [address], 10/25/2024 08:28:12 10/24/1910/25/2024 COMP. METAB OLIC PANEL (14) protein, total 6.0 g/dL 6.0-8. 5 Not Available [facility] [address] [place], [address], 10/25/2024 08:28:12 10/24/19 25 10/25/2024 COMP. METAB OLIC PANEL (14) albumin 3.6 g/dL 3.9-4. 9 below low normal Not Available [facility] [address] [place], [address], 10/25/2024 08:28:12 10/24/19 25 10/25/2024 COMP. METAB OLIC PANEL (14) globulin, total 2.4 g/dL 1.5-4. 5 Not Available [facility] [address] [place], [address], 10/25/2024 08:28:12 10/24/1910/25/2024 COMP. METAB OLIC PANEL (14) bilirubin, total 0.3 mg/dL 0.0-1. 2 Not Available [facility] [address] [place], [address], 10/25/2024 08:28:12 10/24/19 25 10/25/2024 COMP. METAB OLIC PANEL (14) alkaline phosphatase 69 IU/L 44-121 Not Available [facility] [address] [place], [address], 10/25/2024 08:28:12 10/24/19 25 10/25/2024 COMP. METAB OLIC PANEL (14) AST (SGOT) 16 IU/L 0-40 Not Available [facility] [address] [place], [address], 10/25/2024 08:28:12 10/24/19 25 10/25/2024 COMP. METAB OLIC PANEL (14) ALT (SGPT) 13 IU/L 0-32 Not Available [facility] [address] [facility], [place], [address], 10/25/2024 08:28:12 10/24/19 25 10/25/2024 CBC WITH DIFFE RENTI AL/PL ATELE T WBC 8.5 x10e3 /uL 3.4-10 .8 Not Available [facility] [address] [facility], [place], [address], 10/25/2024 08:28:13 10/24/19 25 10/25/2024 CBC WITH DIFFE RENTI AL/PL ATELE T RBC 4.48 x10e6 /uL 3.77-5 .28 Not Available [facility] [address] [facility], [place], [address], 10/25/2024 08:28:13 10/24/19 25 10/25/2024 CBC WITH DIFFE RENTI AL/PL ATELE T hemoglobin 13.7 g/dL 11.1-1 5.9 Not Available [facility] [address] [facility], [place], [address], 10/25/2024 08:28:13 10/24/1910/25/2024 CBC WITH DIFFE RENTI AL/PL ATELE T hematocrit 41.8 % 34.0-4 6.6 Not Available [facility] [address] [place], [address], 10/25/2024 08:28:13 10/24/19 25 10/25/2024 CBC WITH DIFFE RENTI AL/PL ATELE T MCV 93 fL 79-97 Not Available [facility] [address] [place], [address], 10/25/2024 08:28:13 10/24/19 25 10/25/2024 CBC WITH DIFFE RENTI AL/PL ATELE T MCH 30.6 pg 26.6-3 3.0 Not Available [facility] [address] [facility], [place], [address], 10/25/2024 08:28:13 10/24/19 25 10/25/2024 CBC WITH DIFFE RENTI AL/PL ATELE T MCHC 32.8 g/dL 31.5-3 5.7 Not Available [facility] [address] [facility], [place], [address], 10/25/2024 08:28:13 10/24/19 25 10/25/2024 CBC WITH DIFFE RENTI AL/PL ATELE T RDW 12.7 % 11.7-1 5.4 Not Available [facility] [address] [facility], [place], [address], 10/25/2024 08:28:13 10/24/19 25 10/25/2024 CBC WITH DIFFE RENTI AL/PL ATELE T platelets 331 x10e3 /uL 150-45 0 Not Available [facility] [address] [facility], [place], [address], 10/25/2024 08:28:13 10/24/1910/25/2024 CBC WITH DIFFE RENTI AL/PL ATELE T neutrophils 54 % notest ab. Not Available [facility] [address] [facility], [place], [address], 10/25/2024 08:28:13 10/24/19 25 10/25/2024 CBC WITH DIFFE RENTI AL/PL ATELE T lymphs 34 % notest ab. Not Available [facility] [address] [place], [address], 10/25/2024 08:28:13 10/24/19 25 10/25/2024 CBC WITH DIFFE RENTI AL/PL ATELE T monocytes 10 % notest ab. Not Available [facility] [address] [facility], [place], [address], 10/25/2024 08:28:13 10/24/1910/25/2024 CBC WITH DIFFE RENTI AL/PL ATELE T eos 1 % notest ab. Not Available [facility] [address] [facility], [place], [address], 10/25/2024 08:28:13 10/24/1910/25/2024 CBC WITH DIFFE RENTI AL/PL ATELE T basos 1 % notest ab. Not Available [facility] [address] [facility], [place], [address], 10/25/2024 08:28:13 10/24/1910/25/2024 CBC WITH DIFFE RENTI AL/PL ATELE T neutrophils (absolute) 4.6 x10e3 /uL 1.4-7. 0 Not Available [facility] [address] [facility], [place], [address], 10/25/2024 08:28:13 10/24/1910/25/2024 CBC WITH DIFFE RENTI AL/PL ATELE T lymphs (absolute) 2.9 x10e3 /uL 0.7-3. 1 Not Available [facility] [address] [facility], [place], [address], 10/25/2024 08:28:13 10/24/1910/25/2024 CBC WITH DIFFE RENTI AL/PL ATELE T monocytes(ab solute) 0.9 x10e3 /uL 0.1-0. 9 Not Available [facility] [address] [facility], [place], [address], 10/25/2024 08:28:13 10/24/19 25 10/25/2024 CBC WITH DIFFE RENTI AL/PL ATELE T eos (absolute) 0.1 x10e3 /uL 0.0-0. 4 Not Available [facility] [address] [facility], [place], [address], 10/25/2024 08:28:13 10/24/19 25 10/25/2024 CBC WITH DIFFE RENTI AL/PL ATELE T baso (absolute) 0.0 x10e3 /uL 0.0-0. 2 Not Available [facility] [address] [facility], [place], [address], 10/25/2024 08:28:13 10/24/19 25 10/25/2024 CBC WITH DIFFE RENTI AL/PL ATELE T immature granulocytes 0 % notest ab. Not Available [facility] [address] [facility], [place], [address], 10/25/2024 08:28:13 10/24/1910/25/2024 CBC WITH DIFFE RENTI AL/PL ATELE T immature grans (abs) 0.0 x10e3 /uL 0.0-0. 1 Not Available [facility] [address] [facility], [place], [address], 10/25/2024 08:28:13 10/24/19 25 10/26/2024 CT, NG, TRICH VAG BY PETRONA chlamydia by PETRONA NEGATI VE negati ve Not Available [facility] [address] [facility], [place], [address], 10/26/2024 06:37:28 10/24/19 25 10/26/2024 CT, NG, TRICH VAG BY PETRONA gonococcus by PETRONA NEGATI VE negati ve Not Available [facility] [address] [facility], [place], [address], 10/26/2024 06:37:28 10/24/19 25 10/26/2024 CT, NG, TRICH VAG BY PETRONA trich vag by PETRONA NEGATI VE negati ve Not Available [facility] [address] [facility], [place], [address], 10/26/2024 06:37:28 10/24/19 25 10/25/2024 TSH RFX ON ABNOR MAL TO FREE T4 TSH 1.670 uIU/m L 0.450- 4.500 Not Available [facility] [address] [facility], [place], [address], 10/26/2024 06:37:30 10/24/19 25 10/25/2024 IRON AND TIBC iron bind.cap.(TI BC) 339 ug/dL 250-45 0 Not Available [facility] [address] [place], [address], 10/26/2024 06:37:31 10/24/19 25 10/25/2024 IRON AND TIBC UIBC 289 ug/dL 131-42 5 Not Available [facility] [address] [place], [address], 10/26/2024 06:37:31 10/24/19 25 10/25/2024 IRON AND TIBC iron 50 ug/dL 27-159 Not Available [facility] [address] [place], [address], 10/26/2024 06:37:31 10/24/19 25 10/25/2024 IRON AND TIBC iron saturation 15 % 15-55 Not Available [facility] [address] [place], [address], 10/26/2024 06:37:31 10/24/19 25 10/25/2024 HEMOG LOBIN A1C hemoglobin A1C 6.1 % 4.8-5. 6 above high normal Predi abete s: 5.7 - 6.4 Diabe katja: >6.4 Glyce frederic contr ol for adult s with diabe katja: <7.0 Not Available [facility] [address] [facility], [place], [address], 10/26/2024 06:37:32 10/24/19 25 10/25/2024 RPR, RFX QN RPR/C ONFIR M TP RPR NON REACTI VE nonrea ctive Not Available [facility] [address] [facility], [place], [address], 10/26/2024 06:37:33 10/24/19 25 10/25/2024 VITAM IN [...] um and D. Rian haynes [place]: [facility] . 2. Julio Cesar hendrix MF, Joselin almaraz [place], Abby off-F crista i ZARATE, et al. Evalu ation , treat ment, and preve ntion of vitam in D defic iency : an Endoc rine Socie ty clini josie pract ice guide line. JCEM. 2010; 96(7) :1911 -30. Not Available [facility] [address] [facility], [place], [address], 10/26/2024 06:37:34 10/24/19 25 10/25/2024 HIV AB/P2 4 AG WITH REFLE X HIV Ab/P24 Ag screen NON REACTI VE nonrea ctive HIV-1 /HIV- 2 antib odies and HIV-1 p24 antig en were NOT detec memo. There is no labor atory evide nce of HIV infec tion. HIV Negat paige Not Available [facility] [address] [facility], [place], [address], 10/26/2024 06:37:35 07/17/2007/17/2023 MAMMO , scree declan, tomos ynthe sis, [facility]at [facility] [address] [facility] [place] [address] Mammog vlad Report Proced ure(s) : MM tomosy nthesi s screen ing BI Patien t: Prasanna Hidalgo handra Date of Servic e: : 1979 MR#: [id number] Age/Se x: 43 / F Acct:T [id number] ADM Date: 3 Result s: 2 Benign Findin gs Follow Up: 1 Year Follow -up Densit y: [address]: Hanny Hernandez Orderi ng Physic xochitl: Hanny Hernandez Access ion Number (s): [id number] cc: Hanny Hernandez Examin ation: Digita l bilate ral screen ing breast 3D tomogr aphy Access ion: [id number] Exam Date/T apolinar: 2022 10:42 AM Reason For Exam: No curren t compla ints Compar jewel: 021 Techni que: 3D tomogr aphic views [...] 1: Routin e screen ing mammog kavon walker ral . Commen ts: Electr onical ly Signed By: Yusuf James MD on 2022 2:28 PM Dictat ed By: Yusuf James M.D. Signed By: 1427 DD/DT: 1426 TD/TT: Transc riptio nist: [email or web address] [facility] ([facility]) [address] [facility], [place], [address], 11/03/2023 12:09:31 Result Notes None recorded. Problems Name Problem SNOMED Code Status Onset Date Resolution Date Notes Provider Name and Address Organization Details Recorded Time Lightheaded ness 312556925 Active 2021 Hanny Hernandez PA-C Attn: Accountin g,[address] [facility], [place], [address], [facility] 2 16:30:41 Neuropathy 767069572 Active 2021 Hanny Hernandez PA-C Attn: Accountin g,[address] [facility], [place], [address], [facility] - [facility] 2 16:32:31 Chest discomfort 665355886 Active 2021 Hanny Hernandez PA-C Attn: Accountin g,[address] [facility], [place], [address], [facility] - [facility] 2 16:35:11 Pain of bilateral knee joints 7312334032225 04 Active 2021 Hanny Hernandez PA-C Attn: Accountin g,[address] [facility], [place], [address], [facility] - [facility] 2 16:44:09 Constipatio n 85682153 Active 2021 Hanny Hernandez PA-C Attn: Accountin g,[address] [facility], [place], [address], [facility] - [facility] 2 16:47:50 Anxiety 22227976 Active 2021 Hanny Hernandez PA-C Attn: Accountin g,[address] [facility], [place], [place], [address] [place] [address] 2, [place] - [facility] 2 16:49:18 Posterior rhinorrhea 76776790 Active 2021 Hanny Hernandez PA-C Attn: Accountin g,[address] [facility], [place], [place], [address] [place] [address] 2, [place] - [facility] 2 16:59:09 Iron deficiency anemia 60332982 Active 2022 Hanny Hernandez PA-C Attn: Accountin g,[address] [facility], [place], [place], [address] [place] [address] 2, [place] - [facility] 3 12:04:09 Hyperglycem ia 71345912 Active 2022 Hanny Hernandez PA-C Attn: Accountchristiano g,[address] [facility], [place], [place], [address] [place] [address] 2, [place] - [facility] 3 12:08:13 Vitamin D deficiency 37205298 Active 2022 Hanny Hernandez PA-C Attn: Accountchristiano g,[address] [facility], [place], [place], [address] [place] [address] 2, [place] - [facility] 3 12:08:16 Loss of hair 547020124 Active 2022 Hanny Hernandez PA-C Attn: Accountchristiano g,[address] [facility], [place], [place], [address] [place] [address] 2, [place] - [facility] 3 12:08:18 Chronic rhinitis 84898087 Active 2022 Hanny Hernandez PA-C Attn: Accountin g,[address] [facility], [place], [place], [address] [place] [address] 2, [place] - [facility] 3 12:08:20 Skin lesion 26500060 Active Radha bennett [place] - [facility] 5 16:51:48 Bacterial vaginosis 238690743 Active Corey Millan MD Attn: Accountin g,[address] [facility], [place], [address], [facility] - [facility] 6 11:57:42 Screening finding 465825806 Active Nay [place], [place] [facility] 5 11:03:32 Asthma 041894979 Active [place]ay [place] [facility] 5 11:03:32 Smoker 98023908 Active [place]ay [place] [facility] 5 11:03:32 Rhinitis 46378672 Active Nay [place] [facility] 5 11:03:32 Obesity 287512740 Active Nay Jonathan null, [place] - [facility] 5 11:03:32 Numbness 93745542 Active [place]ay [place] [facility] 5 11:03:32 Joint crepitus 2008966 Active Nay [place] [facility] 5 11:03:32 Backache 907904039 Active Nay [place] [facility] 5 11:03:32 Multiple bruising 659605454 Active Radha Miranda null, [place] - [facility] 6 11:37:26 Vaginitis 01533932 Active Radha [place] [facility] 6 14:41:11 Infection by Trichomonas 81531612 Active Radha [place] [facility] 6 10:23:53 Vaginal discharge 206372876 Active Radha Miranda null, [place] - [facility] 5 16:51:48 Problem Notes None recorded. Procedures Surgical History Date Name Laterality Status Provider Name and Address Organization Details Recorded Time 5 Date of Last Pap Smear completed Rohit Gamino [place] 01/14/2016 15:49:17 Tubal Ligation completed Kaylan Blas MA [place] - [place] 08/10/2018 11:01:39 Imaging Results Imaging Date Name Status LastModified by Organiz ation Details LastModified Time 07/17/2023 MAMMO, screening, tomosynthesis, bilateral completed [email or web address] [facility] ([facility]) [address] [place], [address], 11/03/2023 12:09:31 Procedure Notes None recorded. Medical [...] Available Not Available ibuprofen 800 mg tablet TAKE 1 TABLET BY MOUTH THREE TIMES DAILY NEEDED active Not Available Not Available No t Available fluconazo le 150 mg tablet TAKE 1 [...] TABLET BY MOUTH THREE TIMES DAILY NEEDED active Not Available Not Available No t Available doxycycli ne monohydra te 100 mg capsule [...] unit) capsule TAKE 1 CAPSULE BY MOUTH 1 TIME A WEEK 2024 active Not Available Not Available Not Avai lable polyethyl flor glycol 3350 17 gram/dose oral [...] sulfate HFA 90 mcg/actua tion aerosol inhaler INHALE 2 PUFFS BY MOUTH EVERY 4 TO 6 HOURS NEEDED active Not Available Not Available No t Available fluticaso ne propionat e 50 mcg/actua tion [...] mg-potass ium clavulana te 125 mg tablet TAKE 1 TABLET BY MOUTH EVERY 12 HOURS FOR 7 DAYS 12/23 completed Not Available Not Available Not [...] Updated DateTime 3 167.64 cm 36 kg/m2 505641. 15 g 98 % 98 % 76 /min 97.3 [degF] 121 mm[Hg] 73 mm[Hg] Sobia Hudson MA [facility] 3 10:23:54 Date Recorded Body height Provider Name an d Address Organization Details Last Updated DateTime 10/13/2023 167.64 cm Cindy Sims MA [facility] 10/13 10:22:59 Date Recorded Body height Body mass index (BMI) Body weight Oxygen saturation Oxygen saturation in Arterial blood by Pulse oximetry Heart rate Respiratory rate Body temperature Systolic blood pressure Diastolic blood pressure Provider Name and Address Organization Details Last Updated DateTime 5 167.64 cm 35.8 kg/m2 266099. 51 g 98 % 98 % 74 /min 18 /min 98 [degF] 124 mm[Hg] 74 mm[Hg] Cindy Sims MA [facility] 5 10:18:08 Date Recorded Body height Body temperature Pain severity - 0-10 verbal numeric rating [Score] - Reported Body mass index (BMI) Body weight Heart rate Systolic blood pressure Diastolic blood pressure Provider Name and Address Organization Details Last Updated DateTime 5 167.64 cm 98 [degF] 3 35.9 kg/m2 507586. 3 g 102 /min 115 mm[Hg] 67 mm[Hg] Monique Marx MA [place] 5 16:44:17 Social History Question Answer Notes LastModified by Organizat ion Details LastModified Time Tobacco Smoking Status Current Every Day Smoker Isidra Samuel [place] null, [place] - [facility] 07/20/2015 09:49:22 Do You Have An Advance Directive? No Information n ot available 12/23/2021 What Is Your Level Of Caffeine Consumption? [...] For COVID-19? No Information not available 04/28/2022 What Type Of Diet Are You Following? REGULAR Information n ot available 08/10/2018 Which Illicit Or Recreational Drugs Have You Used? No Information not available 08/10/2018 Education 2 Year College Information not available 08/10/2018 What Is The Highest Grade Or Level Of School You Have Completed Or The Highest Degree You Have Received? [id number] Information not available 07/03/2023 Swimming/diving Yes Informati on not available 08/10/2018 [...] Do You Have A Medical Power Of Animal Physiology Teacher? No Information not available 12/23/2021 What Was The Date Of Your Most Recent Tobacco Screening? 12/23/2024 [email or web address] Information not available 12/23/2024 How Many Children Do You Have? 3 [...] LastModified by Organizat ion Details LastModified Time What is your level of alcohol consumption? None Information not available 08/10/2018 Are you currently employed? Yes Information not available 08/10/2018 Are you able to care for yourself? 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 Information not available 08/10/2018 What is your [...] Problems N Kidney or Bladder Problems N Lung Disease N Depression N GI Problems N Acne N Breast Problem N Eating Disorder N Anemia N Anesthesia Complications N Headaches/Migraines N Ovarian Cancer N Diabetes N Anxiety Disorder N Blood Transfusions N Arthritis N Polyps [...] SNOMED-CT Code Diagnosis ICD10 Code Diagnosis Note [id number] Dionne Hancock MD [facility] (LICENSED CLINICIAN) [address] [place] [address] 10/17/2014 14:07:20 10/17/2014 15:12:46 Vaginal discharge 710644501 [id number] Dionne Hancock MD [facility] ([facility]ENSED CLINICIAN) [address] [place] [address] 01/09/2015 16:03:39 01/09/2015 17:40:43 Vaginal discharge 225375270 Skin lesion 20983823 Bacterial vaginosis 682520421 [id number] Dionne Hancock MD [facility] (LICENSED CLINICIAN) [address] [place] [address] 07/06/2015 09:34:09 07/06/2015 13:48:34 Bacterial vaginosis 598192716 N76.0 High risk sexual behavior 782582864 Z72.51 [id number] iDonne Hancock MD [facility] (LICENSED CLINICIAN) [address] [place] [address] 07/20/2015 09:37:32 07/20/2015 10:25:52 Gynecologic examination 61249003 Z01.419 High risk sexual behavior 218712340 Z72.51 [id number] Angel Hewitt MD [facility] (Adult/Fa m Med) [address] [place] [address] 08/03/2015 09:35:39 08/03/2015 15:46:01 Screening finding 565894837 Z13.9 Asthma 170103489 J45.90 9 Smoker 54437730 F17.200 Rhinitis 46104632 J31.0 Obesity 902898331 E66.9 Numbness 34548320 R20.0 Joint crepitus 8611523 M 24.80 Backache 768180850 M54.9 [id number] Dionne Hancock MD [facility] (LICENSED CLINICIAN) [address] [place] [address] 01/15/2016 09:52:52 01/15/2016 11:53:58 High risk sexual behavior 289542138 Z72.51 Multiple bruising 455926 006 T14.8 Vaginitis 47998071 N76.0 [id number] Dionne Hancock MD [facility] (LICENSED CLINICIAN) [address] [place] [address] 01/21/2016 09:46:44 01/21/2016 10:24:50 Infection by Trichomonas 30676610 A59.9 [id number] Dionne Hancock MD [facility] (LICENSED CLINICIAN) [address] [place] [address] 02/25/2016 13:32:07 02/25/2016 16:16:18 Vaginitis 44530807 N76.0 [id number] Corey Millan MD [facility] (LICENSED CLINICIAN) [address] [place] [address] 04/21/2016 11:31:44 04/21/2016 14:05:50 Bacterial vaginosis 923269626 N76.0 [id number] Angel Hewitt MD [facility] (Adult/Fa m Med) [address] [place] [address] 08/03/2016 11:01:26 08/08/2016 10:40:50 Joint crepitus 8383321 M24.80 Knee pain 27639246 M25.5 61 [id number] Nay Castillo [facility] (Adult/Fa m Med) [address] [place] [address] 09/02/2016 10:34:04 09/02/2016 17:43:24 Osteoarthritis of knee 925306532 M17.11 Asthma 203809738 J45.90 9 Joint crepitus 5225070 M 24.830 [id number] Dionne Hancock MD [facility] (LICENSED CLINICIAN) [address] [place] [address] 10/18/2016 13:59:35 10/18/2016 16:08:11 High risk sexual behavior 151831924 Z72.51 Female pel steve inflammatory disease 838556473 N73.9 [id number] Dionne Hancock MD [facility] (LICENSED CLINICIAN) [address] [place] [address] 10/21/2016 10:09:03 10/21/2016 13:25:02 Acute pelvic inflammatory disease 295835371 N73.9 [id number] Dionne Hancock MD [facility] (LICENSED CLINICIAN) [address] [place] [address] 11/03/2016 10:25:56 11/03/2016 13:32:55 [id number] Nay Castillo [facility] (Adult/Fa m Med) [address] [place] [address] 04/27/2017 10:02:10 04/28/2017 10:18:52 Asthma 304401598 J45.909 Backache 611213361 M54.9 Joint crepitus 9906560 M 24.811 Obesity 930023825 E66.9 Numbness 09104273 R20.0 Rhinitis 92929847 J00 Smoker 36360012 F17.200 Atypical chest pain 1025 30910 R07.89 [id number] ABE[facility] (Adult/Fa m Med) [address] [place] [address] 05/23/2017 09:47:26 06/02/2017 13:33:23 Chronic back pain 324597700 M54.9 Osteoarthr itis of knee 032583234 M17.11 R>L Smoker 57729620 F17.200 Asthma 386247001 J45.90 9 Backache 237221365 M54.9 [id number] Radha Miranda [facility] (LICENSED CLINICIAN) [address] [place] [address] 05/25/2017 15:58:03 05/30/2017 16:02:21 Bacterial vaginosis 469620258 N76.0 [id number] Dionne Hancock MD [facility] (LICENSED CLINICIAN) [address] [place] [address] 08/11/2017 09:34:33 08/11/2017 14:34:20 High risk sexual behavior 252664300 Z72.51 [id number] Angel Hewitt MD [facility] (Adult/Fa m Med) [address] [place] [address] 08/24/2017 09:57:53 08/30/2017 15:29:58 Asthma 739419651 J45.909 Backache 501334121 M54.9 Rhinitis 84434828 J00 [id number] ABELINO Gamble NP [facility] [address] [place] [address] 08/10/2018 10:46:03 08/10/2018 12:09:38 Backache 724582450 M54.9 -Renew ibuprofen and baclofen Asthma [id number] J45.90 9 -Renew singulair- Renew Aerochambe r Paresthesi a of upper limb [id number] R20.2 -Obtain labs Body mass index 30+ - obesity [id number] Z68.33 -Obtain labs Near syncope [id number] R 55 -Will obtain labs-Recen t vision exam normal -Consider holter monitor if labs normal [id number] Nik Gallagher MD [address] [address] 09/27/2019 18:30:31 09/30/2019 11:54:07 Tuberculosis screening [id number] Z11.7 [id number] Radha Miranda RN- [facility] (LICENSED CLINICIAN) [address] [place] [address] 03/16/2020 10:19:07 03/16/2020 12:30:26 Gynecologic examination 74942678 Z01.419 Venereal d isease screening 334505868 Z11.3 Knee pain 65445441 M25.5 69 [id number] Dionne Hancock MD [facility] (LICENSED CLINICIAN) [address] [place] [address] 04/08/2020 15:16:14 04/08/2020 16:25:07 Venereal disease screening 896911173 Z11.3 [id number] Dionne Hancock MD [facility] (LICENSED CLINICIAN) [address] [place] [address] 08/12/2020 15:26:39 08/12/2020 17:47:52 Venereal disease screening 463548013 Z11.3 Obesity 951120816 E66.9 Chest pain 69444230 R07. 9 Photosensitivity 0966099 6 L56.8 Backache 438492485 M54.9 Arthritis 6392583 M19.90 [id number] Lolita Gu MD [facility] [address] [place] [address] 09/01/2020 15:50:13 09/02/2020 16:20:51 Photophobia 408173406 H53.149 Bilateral vitreous floaters 8264052765 15465 H43.482 [id number] Dionne Hancock MD [facility] (LICENSED CLINICIAN) [address] [place] [address] 12/08/2020 16:05:08 12/09/2020 16:50:04 Venereal disease screening 843560412 Z11.3 [id number] Dionne Hancock MD [facility] (LICENSED CLINICIAN) [address] [place] [address] 01/15/2021 14:54:13 01/18/2021 12:07:29 Nicotine dependence 32220649 F17.200 Venereal d isease screening 099282302 Z11.3 Vaginitis 00467104 N76.0 [id number] KASIA TAVERAS CK, DO [facility] (LICENSED CLINICIAN) [address] [place] [address] 06/21/2021 13:42:49 06/24/2021 14:27:26 Chest pain 90067082 R07.9 Suspect Costochond ritis. MSK pain acutely TTP over sterno-cos maged margin and along clavicle. Bilateral pectoralis major strain also possible. 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 Discussed NSIADS, avoiding aggravatin g activities , and use of either heat or ice for symptom relief. Education on stretches provided. Screening mammography 24 904761 Z12.31 [id number] Dionne Hancock MD [facility] (LICENSED CLINICIAN) [address] [place] [address] 08/17/2021 09:27:33 08/17/2021 12:58:51 Obesity 967403651 E66.9 High risk sexual behavior 977176989 Z72.51 [id number] Jona Milton MD [facility] (Adult Med) [address] [place] [address] 10/26/2021 15:45:12 10/27/2021 10:11:07 Lightheadedness 965664823 R42 several year historyeve ry day smoker Adult heal th examination 849397083 Z00.00 routine labs Chest discomfort 7619374 09 R07.89 several monthsinte rmittentcu rrently stablewill order ekg and cxrtobacco cessation Neuropathy 513038832 G62 .9 several month history of hands and feet Blurring o f visual image 778375655 H53.8 referral to opthalmolo gist Tobacco user 914429534 Z 72.0 smoking cessation Pain of bi lateral knee joints 1570768770 12236 M25.561 Constipation 17592609 K5 9.00 Anxiety 90278177 F41.9 Obesity 609872501 E66.9 Posterior rhinorrhea 758 49606 R09.82 [id number] Faizan Alvarado MD [facility] [address] [place] [address] 12/23/2021 09:38:02 12/24/2021 12:25:40 Pain of bilateral knee joints 0487409963 02215 M25.561 M25.562 Osteoarthr itis of knee 406643508 M17.11 M17.12 ?cortisone Chondromal acia of bilateral patellas 1663392455 2522730 M22.41 M22.42 Obesity 953938117 E66.9 [id number] Jona Milton MD [facility] (Peds) [address] [place] [address] 12/22/2021 15:25:00 12/24/2021 17:33:53 Iron deficiency anemia 88604223 D50.9 reviewed low iron,will start patient on daily supplement repeat iron in 1month Lightheadedness 57736323 8 R42 improved since last visitwill monitorrev iewed us Chest discomfort 9837226 09 R07.89 resolved Neuropathy 008146494 G62 .9 several month history of hands and feetreview ed low iron, will start on iron supplement reviewed elevated hgba1c, diet and exercise [id number] Jona Milton MD [facility] (Peds) [address] [place] [address] 01/28/2022 09:54:07 02/10/2022 10:36:00 Iron deficiency anemia 06077569 D50.9 reviewed normal iron, will stop iron for now, repeat iron in 1month Neuropathy 037422677 G62 .9 resolvedwi monitor [id number] Jona Milton MD [facility] (Peds) [address] [place] [address] 03/10/2022 10:23:55 03/10/2022 12:10:08 Iron deficiency anemia 82872703 D50.9 reviewed normal iron, will stop iron for now, repeat iron in 1month Neuropathy 646072585 G62 .9 resolvedwi ll monitor [id number] Faizan Alvarado MD [facility] [address] [place] [address] 04/28/2022 10:21:18 04/28/2022 12:30:02 Pain of bilateral knee joints 9899086352 85456 M25.561 M25.562 Osteoarthr itis of knee 877261123 M17.11 M17.12 ?cortisone Chondromal acia of bilateral patellas 5180284419 7417804 M22.41 M22.42 Obesity 239360897 E66.9 [id number] Jona Milton MD [facility] (Adult Med) [address] [place] [address] 05/03/2022 11:36:07 05/04/2022 07:52:10 Iron deficiency anemia 75115378 D50.9 reviewed normal iron, will stop iron for nowcontinu e iron rich foods Neuropathy 033971064 G62 .9 resolvedwi ll monitor [id number] Jake James MD [facility] [address] [place] [address] 02/28/2023 10:55:43 03/06/2023 15:16:42 Chronic rhinitis 57064166 J31.0 over-the-c ounter antihistam jorge Asymmetric al sensorineural hearing loss 803230260 H90.5 follow-up after audiogram [id number] JUAN ALBERTO JORGENSEN DO [facility] (LICENSED CLINICIAN) [address] [place] [address] 05/15/2023 09:51:28 05/22/2023 12:03:14 Screening mammography 65385427 Z12.31 Last mammogram 06/2021 WNL. No red flag s/s. Contracept ion care management 187146178 Z30.9 Pt would like control. Periods currently [...] mirena insertion scheduled for 2 weeks Smoker 87290344 F17.200 Obesity 262972039 E66.9 [id number] Jona Milton MD [facility] (Peds) [address] [place] [address] 06/07/2023 09:44:56 06/08/2023 12:05:40 Body mass index 30+ - obesity 163780585 Z68.30 Obesity 087530478 E66.9 Adult heal th examination 184021985 Z00.00 routine labs Asthma 707437742 J45.90 9 refill allbuterol and symbicort Chronic rhinitis 9316597 6 J31.0 refill flonase Screening for malignant neoplasm of colon 122678164 Z12.11 Loss of hair 621888836 L 65.9 labs orderedref erral to derm [id number] Jona Milton MD [facility] (Peds) [address] [place] [address] 06/14/2023 11:26:32 06/21/2023 15:06:21 Body mass index 30+ - obesity 665372083 Z68.30 Obesity 735393568 E66.9 Asthma 184637871 J45.90 9 refill allbuterol and symbicort Chronic rhinitis 9767108 6 J31.0 refill flonase Loss of hair 042274868 L 65.9 referral already placed for dermwill send iron and vitamin dfollow up in 1month or sooner if problems arise Iron defic iency anemia 03227281 D50.9 reviewed low ironwill restart iron supplement repeat in 1month Vitamin D deficiency 347 21286 E55.9 vit d sent to pharmacy Hyperglycemia 13397881 R 73.9 diet and exercisere peat labs in 3months [id number] Namrata Pink DO [facility] [address] [place] [address] 07/03/2023 09:14:30 07/04/2023 07:26:29 Screening for malignant neoplasm of colon 737385881 Z12.11 First colonoscop y. No FH of colon cancer.CBC and CMP in chart 06/07/23 [id number] Jona Milton MD [facility] (Peds) [address] [place] [address] 07/12/2023 09:48:19 07/19/2023 12:32:54 Body mass index 30+ - obesity 687687182 Z68.30 Obesity 948796318 E66.9 Asthma 551529803 J45.90 9 refill allbuterol and symbicort Chronic rhinitis 6985977 6 J31.0 refill flonase Loss of hair 148373715 L 65.9 referral already placed for dermwill send iron and vitamin dfollow up in 1month or sooner if problems arise Iron defic iency anemia 89361028 D50.9 reviewed low ironwill restart iron supplement repeat in 1month Vitamin D deficiency 347 29231 E55.9 vit d sent to pharmacy [facility] 14766900 R 73.9 diet and exercisere peat labs in 3months Osteoarthr itis of knee 050612397 M17.9 [id number] Jona Milton MD [facility] (Peds) [address] [place] [address] 07/21/2023 10:20:23 07/25/2023 10:29:10 Asthma 386665053 J45.909 refill allbuterol and symbicort Body mass index 30+ - obesity 313509300 Z68.30 Obesity 344859101 E66.9 Chronic rhinitis 8668002 6 J31.0 refill flonase Loss of hair 909694588 L 65.9 referral already placed for derm Iron defic iency anemia 70433712 D50.9 reviewed high irond/c supplement repeat labs in 1month Vitamin D deficiency 347 17902 E55.9 Osteoarthr itis of knee 496755466 M17.9 [id number] Jona Milton MD [facility] (Peds) [address] [place] [address] 10/13/2023 10:20:16 10/17/2023 13:26:30 Body mass index 30+ - obesity 969899751 Z68.30 Obesity 597735193 E66.9 Asthma 884991861 J45.90 9 refill allbuterol and symbicort Chronic rhinitis 7987248 6 J31.0 refill flonase Loss of hair 440137990 L 65.9 referral already placed for derm Iron defic iency anemia 53563827 D50.9 reviewed high irond/c supplement repeat labs in 1month [id number] Jona Milton MD [facility] (Adult Med) [address] [place] [address] 10/03/2024 09:59:02 10/07/2024 08:50:50 Iron deficiency anemia 36074218 D50.9 patient not taking any ironwill order labsfollow up in 1 week Body mass index 30+ - obesity 611476264 Z68.30 referral to weight management patient does not want to be on glp1s or metformin Obesity 068895888 E66.9 Smoker 34188838 F17.200 Asthma 936898602 J45.90 9 refill allbuterol and symbicort Adult heal th examination 375177327 Z00.00 routine labs Backache 024344773 M54.9 chronic back painwill order ibuprofen and baclofen which has helpedwill discuss pt at follow updiscusse d weight loss [id number] Jake James MD [facility] [address] [place] [address] 12/23/2024 16:23:43 12/24/2024 10:51:11 Acute sinusitis 00515777 J01.90 infection resolved follow back if she has further difficulti es Health Concerns Section Related Observation LastModified by Organization Detai ls LastModified Time None Recorded Concern Status LastModified by Organization Details LastModified Time None Recorded Advance Directives Directive N: Payers Encounter Date Sequence Insurance Name Policy Number Policy Alexandra Covered Member ID Alexandra Member ID Guarantor Name 07/12/2023 1 [facility] - DOS ON OR AFTER 21 (MEDICAID REPLACEMENT - HMO) Cesar Dear [id number] Cesar Alvarado Dear 07/21/2023 1 [facility] ON OR AFTER 03/25/21 (MEDICAID REPLACEMENT - HMO) Cesar Dear [id number] Cesar Alvarado Dear 10/13/2023 1 [facility] - DOS ON OR AFTER 21 (MEDICAID REPLACEMENT - HMO) Cesar Dear [id number] Cesar Alvarado Dear 10/03/2024 1 [facility] - DOS ON OR AFTER 21 (MEDICAID REPLACEMENT - HMO) Cesar Dear [id number] Cesar Alvarado Dear 12/23/2024 1 [facility] - DOS ON OR AFTER 21 (MEDICAID REPLACEMENT - HMO) Cesar Dear [id number] Cesar Alvarado Dear Notes Date Note Type Note Provider Name and Address Organization Details Recorded Time 07/12/2023 text/html KneeReported bypatient.Quality:ach ing; throbbing Severity:mild [...] visit Hanny Hernandez PA-C Attn: [address] [place], [address], [facility] 07/12/2023 13:06:33 07/21/2023 text/html KneeReported bypatient.Quality:ach ing; [...] visit Hanny Hernandez PA-C Attn: [employer] [facility], [place], [address], [facility] 07/21/2023 12:24:47 10/13/2023 text/html follow up fron l ast visitnot taking iron Hanny Hernandez PA-C Attn: [address] [facility], [place], [address], [facility] 10/13/2023 11:47:19 10/03/2024 text/html AnemiaReported bypatient.Timing:bett er [...] home Hanny Hernandez PA-C Attn: [address] [place], [address], [facility] 10/03/2024 11:25:42 12/23/2024 text/html patient complain ing of a sinus infection in her right side. She had swelling around her right eye and tenderness in her face. She went to the emergency room was treated with antibiotics and doing much better but just here to have it checked. No real complaints today. Jake James MD [address] [place], [address], [facility] 12/23/2024 16:51:18 OBGyn Episode No OBEpisode recorded.
--- OUTSIDE RECORDS SUMMARY | 2025-02-03 21:13 | XMS_ITS | Clinical Summary ---
Author Organization [facility] Office Center Address [address] [place] [address] Care Team Providers Care Hearing Aid Technician Name Role Phone Johanna Hernandez Primary Care Provider [phone] Allergies No known active allergies Medications albuterol [...] needed for nausea or vomiting 20 tablet 05/07/20 25 Active Active Problems Problem Noted Date Diagnosed Date Tobacco abuse 09/08/2020 Chest pain 09/08/2020 Obesity (BMI 35.0-39.9 without comorbidity) 08/25 Encounters Date Type Department Care Team Description 01/30/2025 12:40 PM CDT Lab [facility] Lab [address] [place] [address] 01/30/2025 7:10 AM CDT - 01/30/2025 11:59 PM CDT Hospital Encounter [facility] Ultrasound [address] [place] [address] Epigastric pain Discharge Disposition: Discharge to home or self care 01/29/2025 4:01 PM CDT - 01/29/2025 8:44 PM CDT Emergency [facility] Emergency Department [address] [place] [address] Gabbie Calles MD Epigastric pain (Primary Dx) Discharge Disposition: Discharge to home or self care from Last 3 Months Social History Tobacco Use Types Packs/Day Years [...] on file Legal Sex Female 6:50 PM CARDIAC TECH Gender Identity Female 02/03/2025 8:25 AM CDT Sexual Orientation Straight 02/03/2025 8: 25 AM CDT Obstetrics History Last Filed Vital Signs Vital [...] Date Last Done Comments Cervical Cancer Screening 1981 Depression Screening 1981 Hepatitis C Screening 1981 DTaP/Tdap/Td Vaccine (1 - Tdap) 1992 Varicella Vaccines (1 of 2 - 13+ 2-dose series) 1994 Hepatitis B Screening 1999 Regular Well Visit/Exam 18-64 1999 Pneumococcal vaccine <65 (1 of 2 - PCV) 2000 Covid-19 Vaccine ( - 2023-2 5 season) 2024 10/19/2021, 01/27/2021, 12/30/2020 Breast Cancer Screening-Mammogram 07/17/2024 07/17/2023 Influenza Vaccine (Season Ended) 2025 HPV Vaccines Aged Out No longer eligi ble based on patient's age to complete this topic Procedures Procedure Name Priority Date/Time Associated Diagnosis [...] Daisy Davidson D.O. PS: PS Report ID: [id number] Reading Location: [id number] Procedure Note Daisy Davidson, DO - 01/30/2025 EXAM DESCRIPTION: US RUQ [...] Daisy Davidson D.O. PS: PS Report ID: [id number] Reading Location: [place] [address] Gabbie Calles MD IMG US PROCEDURES Final [...] Casey Lorenzana M.D. CH: KINGA Report ID: [id number] Reading Location: [place] [address] Procedure Note Casey Lorenzana Jr., MD - [...] Electronically signed by Casey Lorenzana M.D. CH: Report ID: [id number] Reading Location: [place] [address] us Gabbie Calles MD IMG CT PROCEDURES Final Result * Troponin T high-sensitivity series (baseline, 2hr, 4hr, 6hr) (01/29/2025 4:42 PM CDT) Pathologist [facility] [place] Trop T hs <6 <=14 ng/L Comment: Interpretive Data For further hscTnT resources including the diagnostic algorithm and an aid in interpretation, copy and paste this link: [email or web address].testcatalog.org/show/[email or web address] Current Interpretive Data last revised 2020. Testing performed by: [facility], [address] [place] [address]., [address] Blood 01/29/2025 4:42 PM CDT 01/29/2025 4:44 PM CDT us Jacob Bullock DO LAB BLOOD ORDERABLES Final Result [facility] [address] [facility] Department [place] [address] * eGFR (01/29/2025 4:42 PM CDT) Pathologist [facility] [place] eGFR >90 >=60 mL/min/1. 73 m2 Comment: [...] was last reviewed 2021. Testing performed by: [address] [address] Blood 01/29/2025 4:42 PM CDT 01/29/2025 4:44 PM CDT us Jacob Bullock DO LAB BLOOD ORDERABLES Final Result Performing Organization Address City/[facility]/ZIP Co de Phone Number [id number] [place] [address] * CRP (acute phase) (01/29/2025 4:42 PM CDT) CRP 4.7 <=10.0 mg/L Comment:Testing performed by : [address] [address] Blood 01/29/2025 4:42 PM CDT 01/29/2025 4:44 PM CDT Gabbie Calles MD LAB BLOOD ORDERABLES Fin al Result Performing Organization Address City/[facility]/ZIP Co de Phone Number [address] [place] [address] * (ABNORMAL) Lipase (01/29/2025 4:42 PM CDT) Lipase 154(H) 10 - 99 Units/L Comment:Testing performed by : [address] [address] Blood 01/29/2025 4:42 PM CDT 01/29/2025 4:44 PM CDT Jacob Bullock DO LAB BLOOD ORDERABLES Final Result DAVIS ZAMAN [address] [facility] Department [place] [address] * Comprehensive metabolic panel (01/29/2025 4:42 PM CDT) Sodium 137 135 - 145 mmol/L Comment:Testing performed by : [address] [address] Potassium, pl 3.9 3.3 - 4.9 mmol/L DAVIS Comment:Testing performed by : [address] [address] Chloride 101 97 - 110 mmol/L DAVIS Comment:Testing performed by : [address] [address] CO2 28 22 - 32 mmol/L DAVIS Comment:Testing performed by : [address] [address] Anion gap 8 2 - 15 mmol/L DAVIS Comment:Testing performed by : [address] [address] BUN 8 6 - 25 mg/dL DAVIS Comment:Testing performed by : [address] [address] Creatinine 0.60 0.60 - 1.10 mg/dL DAVIS Comment:Testing performed by : [address] [address] Glucose 88 70 - 199 mg/dL DAVIS Comment: Interpretive Data Fasting glucose >/= 126 [...] was last revised 2022. Testing performed by: [address] [address] Calcium 9.5 8.5 - 10.3 mg/dL DAVIS Comment:Testing performed by : [address] [address] Bilirubin, total 0.4 0.1 - 1.2 mg/dL DAVIS Comment:Testing performed by : [address] [address] Protein, pl 7.9 6.5 - 8.5 g/dL DAVIS Comment:Testing performed by : [address] [address] Albumin 4.0 3.5 - 5.0 g/dL DAVIS Comment:Testing performed by : [address] [address] Alk phos 80 40 - 130 Units/L DAVIS Comment:Testing performed by : [address] [address] ALT 11 7 - 45 Units/L DAVIS Comment:Testing performed by : [address] [address] AST 14 10 - 45 Units/L DAVIS Comment:Testing performed by : [address] [address] Blood 01/29/2025 4:42 PM CDT 01/29/2025 4:44 PM CDT Jacob Bullock DO LAB BLOOD ORDERABLES Final Result DAVIS [address] [facility] Department [place] [address] * POCT hCG, urine (01/29/2025 3:44 PM CDT) HCG, ur, POC Negative Negative Lot Number [id number] QC Backgroud Clear Acceptable QC Control Line Acceptable Urine 01/29/2025 3:44 PM CDT Jacob Banuelos Ara DO POINT OF CARE TEST ORDERABL ES Final Result * Urinalysis reflex to microscopic and culture Urine (01/29/2025 3:42 PM CDT) Color, ur Yellow Yellow Comment:Testing performed by : [address] [address] Clarity, ur Clear Clear DAVIS Comment:Testing performed by : [address] [address] Specific gravity, ur 1.010 1.003 - 1.030 DAVIS Comment:Testing performed by : [address] [address] pH, urine 7.0 DAVIS Comment: Interpretive Data U rine pH is affected by diet, medications, systemic acid-base disturbances, and renal tubular function. pH may affect urinary stone formation. For example, urine pH below 6.0 may help reduce the tendency for calcium phosphate stones and pH greater than 6.0 may reduce the tendency for uric acid stone formation. Source: [facility] Current Interpretive Data was last revised on 2017 Testing performed by: [address] [address] Protein, ur ql Negative Negative DAVIS Comment:Testing performed by : [address] [address] Glucose, ur ql Negative Negative DAVIS Comment:Testing performed by : [address] [address] Ketones, ur Negative Negative DAVIS Comment:Testing performed by : [address] [address] Bilirubin, ur Negative Negative DAVIS Comment:Testing performed by : [address] [address] Blood, ur Negative Negative DAVIS Comment:Testing performed by : [address] [address] Urobilinogen, ur <2.0 <2.0 mg/dL DAVIS Comment:Testing performed by : [address] [address] Nitrite, ur Negative Negative DAVIS Comment:Testing performed by : [facility], [address] [place] [address]., [address] Leukocyte esterase, ur Negative Negative DAVIS Comment:Testing performed by : [facility], [address] [place] [address]., [address] UA reflex comment Reflex conditions for microscopic UA and culture not met. DAVIS Comment:Testing performed by : [address] [address] Urine 01/29/2025 3:42 PM CDT 01/29/2025 3:49 PM CDT Jacob Bullock DO LAB MICROBIOLOGY - GENERAL ORDERABLES Final Result DAVIS [address] [facility] Department [place] [address] * ECG 12 lead (01/29/2025 3:36 PM CDT) Ventricular Rate EKG/Min 84 BPM [facility] Atrial Rate 84 BPM [facility] NC-Interval (MSEC) 180 ms [facility] QRS-Interval (MSEC) 74 ms [facility] QT-Interval (MSEC) 380 ms [facility] QTc 449 ms [facility] P [place] 58 degrees [facility] R [place] 33 degrees [facility] T [place] 39 degrees [facility] Diagnosis Normal sinus rhythm Normal ECG No previous ECGs available Confirmed by YASHIRA MCFARLAND M.D. ([id number]) on 01/29/2025 11:15:17 PM [facility] 01/29/2025 3:36 PM CDT 01/29/2025 11:15 PM CDT Jacob Bullock DO ECG ORDERABLES Final Resul t [facility] * (ABNORMAL) Differential, auto (01/29/2025 3:29 PM CDT) Neutrophil abs 4.75 1.50 - 6.50 K/cumm Comment:Testing performed by : [address], [place]., [address] Imm gran abs 0.02 0.00 - 0.10 K/cumm DAVIS Comment:Testing performed by : [address], [place]., [address] Lymphocyte abs 2.13 0.80 - 3.30 K/cumm [facility] Comment:Testing performed by : [address], [place]., [address] Monocyte abs 1.10(H) 0.20 - 0.80 K/cumm [facility] Comment:Testing performed by : [address], [place]., [address] Eosinophil abs 0.14 0.00 - 0.50 K/cumm [facility] Comment:Testing performed by : [address] [address] Basophil abs 0.05 0.00 - 0.10 K/cumm [facility] Comment:Testing performed by : [address] [address] Neutrophil pct 58.1 % [facility] Comment: Interpretive Data Percent cell count reference ranges are not reported, since discordance with absolute values may lead to misinterpretation of CBC data. Current Interpretive Data was last revised on 2018. Testing performed by: [address] [address] Imm gran pct 0.2 % [facility] Comment: Interpretive Data Percent cell count reference ranges are not reported, since discordance with absolute values may lead to misinterpretation of CBC data. Current Interpretive Data was last revised on 2018. Testing performed by: [address] [address] Lymphocyte pct 26.0 % [facility] Comment: Interpretive Data Percent cell count reference ranges are not reported, since discordance with absolute values may lead to misinterpretation of CBC data. Current Interpretive Data was last revised on 2018. Testing performed by: [address] [address] Monocyte pct 13.4 % [facility] Comment: Interpretive Data Percent cell count reference ranges are not reported, since discordance with absolute values may lead to misinterpretation of CBC data. Current Interpretive Data was last revised on 2018. Testing performed by: [address] [address] Eosinophil pct 1.7 % DAVIS Comment: Interpretive Data Percent cell count reference ranges are not reported, since discordance with absolute values may lead to misinterpretation of CBC data. Current Interpretive Data was last revised on 2018. Testing performed by: [address] [address] Basophil pct 0.6 % DAVIS Comment: Interpretive Data Percent cell count reference ranges are not reported, since discordance with absolute values may lead to misinterpretation of CBC data. Current Interpretive Data was last revised on 2018. Testing performed by: [address] [address] Blood 01/29/2025 3:29 PM CDT 01/29/2025 3:38 PM CDT us Jacob Bullock DO LAB BLOOD ORDERABLES Final Result [facility] [address] [facility] Department [place] [address] * CBC with auto differential (01/29/2025 3:29 PM CDT) WBC 8.19 3.80 - 9.90 K/cumm Comment:Testing performed by : [address] [address] Hgb 14.8 11.9 - 15.5 g/dL DAVIS ZAMAN Comment:Testing performed by : [address] [address] Hct 44.6 35.6 - 45.5 % DAVIS Comment:Testing performed by : [address] [address] Plt 312 150 - 400 K/cumm DAVIS Comment:Testing performed by : [address] [address] MPV 10.1 9.1 - 12.3 fL DAVIS ZAMAN Comment:Testing performed by : [facility], [address] [place] [address]., [address] RBC 4.77 3.90 - 5.20 M/cumm DAVIS ZAMAN Comment:Testing performed by : [facility], [address] [place] [address]., [address] MCV 93.5 81.3 - 96.4 fL DAVIS ZAMAN Comment:Testing performed by : [address] [address] MCH 31.0 27.1 - 33.3 pg DAVIS ZAMAN Comment:Testing performed by : [address] [address] MCHC 33.2 32.3 - 35.7 g/dL DAVIS ZAMAN Comment:Testing performed by : [address] [address] RDW CV 13.0 11.1 - 14.9 % DAVIS Comment:Testing performed by : [address] [address] RDW SD 44.7 35.7 - 48.1 fL DAVIS Comment:Testing performed by : [address] [address] NRBC abs 0.00 0.00 - 0.01 K/cumm DAVIS Comment:Testing performed by : [address] [address] Blood Venous blood specimen / Unknown 01/29/2025 3:29 PM CDT 01/29/2025 3:38 PM CDT us Jacob Bullock DO LAB BLOOD ORDERABLES Final Result [facility] [address] [facility] Department of Laboratories [place], [place] [id number] from Last 3 Months Insurance [facility] [address] [place] [address] [place] [address] Member Subscriber Plan / Payer (Ef fective 2024-Present) Name:Cesar Hidalgo Relation to Subscriber:Self Name:Avafahad Cesar Munoz Payer ID:[id number] (NAIC) Group ID:Not on file Type:MEDICAID [id number] OTHER Address: ATTN: CLAIMS DEPT [address] [facility] [place] [phone] [place] [address] Care Teams Hearing Aid Technician Relationship Specialty Start Date End Date Johanna Hernandez PA PCP - General Metal Washing Machine Operator 05/19/23
--- OUTSIDE RECORDS SUMMARY | 2025-02-03 21:13 | XMS_ITS | Clinical Summary ---
Author Organization [facility] Address [address] [place] [address] Care Team Providers Care Print Graphic Designer Name Role Phone Unavailable Primary Care Provider [...] 2021 COVID-19 Vaccine (2023-2 5 season) 2024 HPV Vaccines Aged Out No longer eligi ble based on patient's age to complete this topic Meningococcal B Vaccine Aged Out No l onger eligible based on patient's age to complete this topic Meningococcal Vaccine Aged Out No carolina conor eligible based on patient's age to complete this topic Pneumococcal Vaccine: Pediat rics (0 to 5 Years) and At-Risk Patients (6 to 49 Years) Aged Out No longer eligible b ased on patient's age to complete this topic RSV Immunizations Under 20 Months Aged Out No longer eligible based on patient's age to complete this topic
--- NOTE | 2025-02-03 21:18 | ECG_ITS ---
Test Date: 2025-02-03 21:40:58 Measurements Intervals [place] Rate: 85 P: 62 PA: 195 QRS: 20 QRSD: 81 T: 49 QT: 353 QTc: 420 Interpretive Statements SINUS RHYTHM POSSIBLE LEFT ATRIAL ENLARGEMENT [-0.1mV P-WAVE IN V1/V2] Compared to ECG 05/28/2024 09:58:00 No significant changes Electronically Signed On 02-04-2025 14:56:13 CDT by Yvette Sanchez M.D.
[2025-02-03 21:40] LABS: Basophils Percent Auto 0.4 % (0.2-1.2); Eosinophils Absolute Auto 0.2 K/mm3 (0-0.3); Eosinophils Percent Auto 1.8 % (0-4.4); Hematocrit 44.3 % (37.0-47.0); Hemoglobin 14.6 g/dL (12.0-15.0); Immature Granulocyte Absolute 0.02 K/mm3 (0.00-0.031); Immature Granulocyte Percent A 0.2 % (0-0.5); Lymphocytes Absolute Auto 1.85 K/mm3 (0.9-3.2); Lymphocytes Percent Auto 21.6 % (18.3-44.2); Mean Corpuscular Hemoglobin 30.9 pg (26-34); Mean Corpuscular Volume 93.7 fl (80-100); Monocytes Absolute Auto 0.8 K/mm3 (0.1-0.6); Monocytes Percent Auto 9.7 % (2.6-8.5); Neutrophils Absolute Auto 5.7 K/mm3 (1.3-6.7); Neutrophils Percent Auto 66.3 % (45.5-73.1); Platelet Count Result 308 k/mm3 (150-375); Red Blood Count 4.73 M/mm3 (4.2-5.4); Red Cell Distribution Width 12.7 % (11.5-14.5); White Blood Count 8.6 K/mm3 (4.5-10.0)
[2025-02-03 21:48] LABS: Alanine Aminotransferase 18 U/L (6-35); Albumin Level 4.5 g/dL (3.5-5.1); Alkaline Phosphatase 80 U/L (38-126); Anion Gap 10 mmol/L (4-12); Aspartate Amino Transferase 26 U/L (14-36); Bilirubin,Total 0.5 mg/dL (0.2-1.3); Blood Urea Nitrogen 10 mg/dL (7-17); Calcium 9.4 mg/dL (8.4-10.2); Carbon Dioxide 24 mmol/L (22-30); Chloride 102 mmol/L (98-107); Estimated Glomerular Filt Rate > 60; Glucose 108 mg/dL (65-110); Lipase 947 U/L (23-300); Potassium 3.9 mmol/L (3.4-5.0); Sodium 136 mmol/L (137-145)
--- OUTSIDE RECORDS SUMMARY | 2025-02-03 21:51 | XMS_ITS | Clinical Summary ---
Author Organization [facility] Address [address] [place] [address] Care Team Providers Care Hot Roller Name Role Phone Johanna Hernandez Primary Care Provider [phone] Allergies No known active allergies Medications albuterol [...] Team Description 01/30/2025 12:40 PM CDT Lab [facility] Lab [address] [place] [address] 01/30/2025 7:10 AM CDT - 01/30/2025 11:59 PM CDT Hospital Encounter [facility] Ultrasound [address] [place] [address] Epigastric pain Discharge Disposition: Discharge to home or self care 01/29/2025 4:01 PM CDT - 01/29/2025 8:44 PM CDT Emergency [facility] Emergency Department [address] [place] [address] Gabbie Calles MD Epigastric pain (Primary Dx) [...] on file 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 PS: PS Report ID: [id number] Reading Location: [id number] Procedure Note Daisy Davidson, DO - 01/30/2025 [...] Daisy Davidson D.O. PS: PS Report ID: [id number] Reading Location: [place] [address] Gabbie Calles MD IMG US PROCEDURES Final [...] Casey Lorenzana M.D. CH: KINGA Report ID: [id number] Reading Location: [place] [address] Procedure Note Casey Lorenzana Jr., MD - [...] by Casey Lorenzana M.D. CH: Report ID: [id number] Reading Location: [place] [address] us Gabbie Calles MD IMG CT PROCEDURES Final Result * Troponin T high-sensitivity series (baseline, 2hr, 4hr, 6hr) (01/29/2025 4:42 PM CDT) Pathologist [facility] Trop T hs <6 <=14 ng/L Comment: Interpretive Data For further hscTnT resources including the diagnostic algorithm and an aid in interpretation, copy and paste this link: https://nrl.testcatalog.org/show/hsTrop Current Interpretive Data last revised 2020. Testing performed by: [facility], [address] [place] [address]., [id number] Blood 01/29/2025 4:42 PM CDT 01/29/2025 4:44 PM CDT us Jacob Bullock DO LAB BLOOD ORDERABLES Final Result LIZZET[facility] [address] [facility] Department [place] [address] * eGFR (01/29/2025 4:42 PM CDT) Pathologist [facility] eGFR >90 >=60 mL/min/1. 73 m2 Comment: [...] was last reviewed 2021. Testing performed by: [address] [address] Blood 01/29/2025 4:42 PM CDT 01/29/2025 4:44 PM CDT us Jacob Bullock DO LAB BLOOD ORDERABLES Final Result Performing Organization Address City/[facility]/ZIP Co de Phone Number [id number] [employer] [place] [place] [address] * CRP (acute phase) (01/29/2025 4:42 PM CDT) CRP 4.7 <=10.0 mg/L Comment:Testing performed by : [address] [address] Blood 01/29/2025 4:42 PM CDT 01/29/2025 4:44 PM CDT Gabbie Calles MD LAB BLOOD ORDERABLES Fin al Result Performing Organization Address City/[facility]/ZIP Co de Phone Number [address] [place] [address] * (ABNORMAL) Lipase (01/29/2025 4:42 PM CDT) Lipase 154(H) 10 - 99 Units/L Comment:Testing performed by : [address] [address] Blood 01/29/2025 4:42 PM CDT 01/29/2025 4:44 PM CDT Jacob Bullock DO LAB BLOOD ORDERABLES Final Result DAVIS ZAMAN [address] [facility] Department [place] [address] * Comprehensive metabolic panel (01/29/2025 4:42 PM CDT) Sodium 137 135 - 145 mmol/L Comment:Testing performed by : [address] [address] Potassium, pl 3.9 3.3 - 4.9 mmol/L DAVIS Comment:Testing performed by : [address] [address] Chloride 101 97 - 110 mmol/L DAVIS Comment:Testing performed by : [address] [address] CO2 28 22 - 32 mmol/L DAVIS Comment:Testing performed by : [address] [address] Anion gap 8 2 - 15 mmol/L DAVIS Comment:Testing performed by : [address] [address] BUN 8 6 - 25 mg/dL DAVIS Comment:Testing performed by : [address] [address] Creatinine 0.60 0.60 - 1.10 mg/dL DAVIS Comment:Testing performed by : [address] [address] Glucose 88 70 - 199 mg/dL DAVIS [...] was last revised 2022. Testing performed by: [address] [address] Calcium 9.5 8.5 - 10.3 mg/dL DAVIS Comment:Testing performed by : [address] [address] Bilirubin, total 0.4 0.1 - 1.2 mg/dL DAVIS Comment:Testing performed by : [address] [address] Protein, pl 7.9 6.5 - 8.5 g/dL DAVIS Comment:Testing performed by : [address] [address] Albumin 4.0 3.5 - 5.0 g/dL DAVIS Comment:Testing performed by : [address] [address] Alk phos 80 40 - 130 Units/L DAVIS Comment:Testing performed by : [address] [address] ALT 11 7 - 45 Units/L DAVIS Comment:Testing performed by : [address] [address] AST 14 10 - 45 Units/L DAVIS Comment:Testing performed by : [address] [address] Blood 01/29/2025 4:42 PM CDT 01/29/2025 4:44 PM CDT Jacob Bullock DO LAB BLOOD ORDERABLES Final Result DAVIS [address] [facility] Department [place] [address] * POCT hCG, urine (01/29/2025 3:44 PM CDT) HCG, ur, POC Negative Negative Lot Number [id number] QC Backgroud Clear Acceptable QC Control Line Acceptable Urine 01/29/2025 3:44 PM CDT Jacob Banuelos Ara DO POINT OF CARE TEST ORDERABL ES Final Result * Urinalysis reflex to microscopic and culture Urine (01/29/2025 3:42 PM CDT) Color, ur Yellow Yellow Comment:Testing performed by : [address] [address] Clarity, ur Clear Clear DAVIS Comment:Testing performed by : [address] [address] Specific gravity, ur 1.010 1.003 - 1.030 DAVIS Comment:Testing performed by : [address] [address] pH, urine 7.0 DAVIS Comment: Interpretive Data U rine pH is affected by diet, medications, systemic acid-base disturbances, and renal tubular function. pH may affect urinary stone formation. For example, urine pH below 6.0 may help reduce the tendency for calcium phosphate stones and pH greater than 6.0 may reduce the tendency for uric acid stone formation. Source: [facility] [employer] Current Interpretive Data was last revised on 2017 Testing performed by: [address] [address] Protein, ur ql Negative Negative DAVIS Comment:Testing performed by : [address] [address] Glucose, ur ql Negative Negative DAVIS Comment:Testing performed by : [address] [address] Ketones, ur Negative Negative DAVIS Comment:Testing performed by : [address] [address] Bilirubin, ur Negative Negative DAVIS Comment:Testing performed by : [address] [address] Blood, ur Negative Negative DAVIS Comment:Testing performed by : [address] [address] Urobilinogen, ur <2.0 <2.0 mg/dL DAVIS Comment:Testing performed by : [address] [address] Nitrite, ur Negative Negative DAVIS Comment:Testing performed by : [facility], [address] [place] [address]., [address] Leukocyte esterase, ur Negative Negative DAVIS Comment:Testing performed by : [facility], [address] [place] [address]., [address] UA reflex comment Reflex conditions for microscopic UA and culture not met. DAVIS Comment:Testing performed by : [address] [address] Urine 01/29/2025 3:42 PM CDT 01/29/2025 3:49 PM CDT Jacob Bullock DO LAB MICROBIOLOGY - GENERAL ORDERABLES Final Result DAVIS [address] [facility] Department [place] [address] * ECG 12 lead (01/29/2025 3:36 PM CDT) Ventricular Rate EKG/Min 84 BPM [facility] Atrial Rate 84 BPM [facility] MS-Interval (MSEC) 180 ms [facility] QRS-Interval (MSEC) 74 ms [facility] QT-Interval (MSEC) 380 ms [facility] QTc 449 ms [facility] P Corrigan 58 degrees [facility] R Corrigan 33 degrees [facility] T Corrigan 39 degrees [facility] Diagnosis Normal sinus rhythm Normal ECG No previous ECGs available Confirmed by YASHIRA MCFARLAND M.D. ([id number]) on 01/29/2025 11:15:17 PM [facility] 01/29/2025 3:36 PM CDT 01/29/2025 11:15 PM CDT Jacob Bullock DO ECG ORDERABLES Final Resul t [facility] * (ABNORMAL) Differential, auto (01/29/2025 3:29 PM CDT) Neutrophil abs 4.75 1.50 - 6.50 K/cumm Comment:Testing performed by : [address], [place]., [address] Imm gran abs 0.02 0.00 - 0.10 K/cumm DAVIS Comment:Testing performed by : [address], [place]., [address] Lymphocyte abs 2.13 0.80 - 3.30 K/cumm [facility] Comment:Testing performed by : [address], [place]., [address] Monocyte abs 1.10(H) 0.20 - 0.80 K/cumm [facility] Comment:Testing performed by : [address], [place]., [address] Eosinophil abs 0.14 0.00 - 0.50 K/cumm [facility] Comment:Testing performed by : [address] [address] Basophil abs 0.05 0.00 - 0.10 K/cumm [facility] Comment:Testing performed by : [address] [address] Neutrophil pct 58.1 % [facility] Comment: Interpretive Data Percent cell count reference ranges are not reported, since discordance with absolute values may lead to misinterpretation of CBC data. Current Interpretive Data was last revised on 2018. Testing performed by: [address] [address] Imm gran pct 0.2 % [facility] Comment: Interpretive Data Percent cell count reference ranges are not reported, since discordance with absolute values may lead to misinterpretation of CBC data. Current Interpretive Data was last revised on 2018. Testing performed by: [address] [address] Lymphocyte pct 26.0 % [facility] Comment: Interpretive Data Percent cell count reference ranges are not reported, since discordance with absolute values may lead to misinterpretation of CBC data. Current Interpretive Data was last revised on 2018. Testing performed by: [address] [address] Monocyte pct 13.4 % [facility] Comment: Interpretive Data Percent cell count reference ranges are not reported, since discordance with absolute values may lead to misinterpretation of CBC data. Current Interpretive Data was last revised on 2018. Testing performed by: [address] [address] Eosinophil pct 1.7 % DAVIS Comment: Interpretive Data Percent cell count reference ranges are not reported, since discordance with absolute values may lead to misinterpretation of CBC data. Current Interpretive Data was last revised on 2018. Testing performed by: [address] [address] Basophil pct 0.6 % DAVIS Comment: Interpretive Data Percent cell count reference ranges are not reported, since discordance with absolute values may lead to misinterpretation of CBC data. Current Interpretive Data was last revised on 2018. Testing performed by: [address] [address] Blood 01/29/2025 3:29 PM CDT 01/29/2025 3:38 PM CDT us Jacob Bullock DO LAB BLOOD ORDERABLES Final Result [facility] [address] [facility] Department [place] [address] * CBC with auto differential (01/29/2025 3:29 PM CDT) WBC 8.19 3.80 - 9.90 K/cumm Comment:Testing performed by : [address] [address] Hgb 14.8 11.9 - 15.5 g/dL DAVIS ZAMAN Comment:Testing performed by : [address] [address] Hct 44.6 35.6 - 45.5 % DAVIS Comment:Testing performed by : [address] [address] Plt 312 150 - 400 K/cumm DAVIS Comment:Testing performed by : [address] [address] MPV 10.1 9.1 - 12.3 fL DAVIS ZAMAN Comment:Testing performed by : [facility], [address] [place] [address]., [address] RBC 4.77 3.90 - 5.20 M/cumm DAVIS ZAMAN Comment:Testing performed by : [facility], [address] [place] [address]., [address] MCV 93.5 81.3 - 96.4 fL DAVIS ZAMAN Comment:Testing performed by : [address] [address] MCH 31.0 27.1 - 33.3 pg DAVIS ZAMAN Comment:Testing performed by : [address] [address] MCHC 33.2 32.3 - 35.7 g/dL DAVIS ZAMAN Comment:Testing performed by : [address] [address] RDW CV 13.0 11.1 - 14.9 % DAVIS Comment:Testing performed by : [address] [address] RDW SD 44.7 35.7 - 48.1 fL DAVIS Comment:Testing performed by : [address] [address] NRBC abs 0.00 0.00 - 0.01 K/cumm DAVIS Comment:Testing performed by : [address] [address] Blood Venous blood specimen / Unknown 01/29/2025 3:29 PM CDT 01/29/2025 3:38 PM CDT us Jacob Bullock DO LAB BLOOD ORDERABLES Final Result [facility] [address] [facility] Department of Laboratories [place], [place] [id number] from Last 3 Months Insurance [facility] [place] [place] [address] [place] [address] Member Subscriber Plan / Payer (Ef fective 2024-Present) Name:Cesar Hidalgo Relation to Subscriber:Self Name:Avafahad Cesar Munoz Payer ID:[id number] (NAIC) Group ID:Not on file Type:MEDICAID [id number] OTHER Address: ATTN: CLAIMS DEPT [address] [facility] [place] [id number] [place] [address] Care Teams Hot Roller Relationship Specialty Start Date End Date Johanna Hernandez PA PCP - General Patient Transporter 05/19/23
--- OUTSIDE RECORDS SUMMARY | 2025-02-03 21:51 | XMS_ITS | Clinical Summary ---
Author Organization [facility] Address [address] [place] [address] Care Team Providers Care Air Compressor Operator Name Role Phone Unavailable Primary Care Provider [...]
--- OUTSIDE RECORDS SUMMARY | 2025-02-03 21:51 | XMS_ITS | Referral Summary ---
Author Organization [facility] Address [address] [place] [address] Care Team Providers Care Permanent Waver Name Role Phone Johanna Hernandez Primary Care Provider [phone] Encounters Date Type Department Care Team Description 01/30/2025 7:10 AM CDT - 01/30/2025 11:59 PM CDT Hospital Encounter [facility] Ultrasound [address] [place] [address] Epigastric pain Discharge Disposition: Discharge to home or self care 01/30/2025 12:40 PM CDT Lab [facility] Lab [address] [place] [address] 01/29/2025 4:01 PM CDT - 01/29/2025 8:44 PM CDT Emergency [facility] Emergency Department [address] [place] [id number] Gabbie Calles MD Epigastric pain (Primary Dx) [...] on file 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 PS: PS Report ID: [id number] Reading Location: [id number] Procedure Note Daisy Davidson DO - 01/30/2025 [...] Daisy Davidson D.O. PS: PS Report ID: [id number] Reading Location: [id number] us Gabbie Calles MD IMG US PROCEDURES [...] Casey Lorenzana M.D. CH: KINGA Report ID: [id number] Reading Location: [id number] Procedure Note Casey Lorenzana Jr., MD - [...] Casey Lorenzana M.D. CH: KINGA Report ID: [id number] Reading Location: [id number] us Gabbie Calles MD IMG CT PROCEDURES Final Result * Troponin T high-sensitivity series (baseline, 2hr, 4hr, 6hr) (01/29/2025 4:42 PM CDT) Trop T hs <6 <=14 ng/L Comment: Interpretive Data For further hscTnT resources including the diagnostic algorithm and an aid in interpretation, copy and paste this link: https://nrl.testcatalog.org/show/hsTrop Current Interpretive Data last revised 2020. Testing performed by: [address] [address] Blood 01/29/2025 4:42 PM CDT 01/29/2025 4:44 PM CDT us Jacob Bullock DO LAB BLOOD ORDERABLES Final Result DAVIS [address] [facility] [place] [address] * eGFR (01/29/2025 4:42 PM CDT) Pathologist [facility] eGFR >90 >=60 mL/min/1. 73 m2 Comment: [...] was last reviewed 2021. Testing performed by: [address] [address] Blood 01/29/2025 4:42 PM CDT 01/29/2025 4:44 PM CDT Jacob Bullock DO LAB BLOOD ORDERABLES Final Result Performing Organization Address [facility] Co de Phone Number [address] [address] * CRP (acute phase) (01/29/2025 4:42 PM CDT) CRP 4.7 <=10.0 mg/L Comment:Testing performed by : [address] [address] Blood 01/29/2025 4:42 PM CDT 01/29/2025 4:44 PM CDT Gabbie Calles MD LAB BLOOD ORDERABLES Fin al Result Performing Organization Address [facility] de Phone Number [address] [address] * (ABNORMAL) Lipase (01/29/2025 4:42 PM CDT) Pathologist [facility] Lipase 154(H) 10 - 99 Units/L Comment:Testing performed by : [address] [address] Blood 01/29/2025 4:42 PM CDT 01/29/2025 4:44 PM CDT Jacob Bullock DO LAB BLOOD ORDERABLES Final Result Performing Organization Address [facility] Co de Phone Number [address] [address] * Comprehensive metabolic panel (01/29/2025 4:42 PM CDT) Pathologist [facility] Sodium 137 135 - 145 mmol/L Comment:Testing performed by : [address] [address] Potassium, pl 3.9 3.3 - 4.9 mmol/L DAVIS Comment:Testing performed by : [address] [address] Chloride 101 97 - 110 mmol/L [facility] Comment:Testing performed by : [address] [address] CO2 28 22 - 32 mmol/L [facility] Comment:Testing performed by : [address], [place]., [address] Anion gap 8 2 - 15 mmol/L [facility] Comment:Testing performed by : [address], [place]., [address] BUN 8 6 - 25 mg/dL [facility] Comment:Testing performed by : [address], [place]., [address] Creatinine 0.60 0.60 - 1.10 mg/dL [facility] Comment:Testing performed by : [address] [address] Glucose 88 70 - 199 mg/dL [facility] Comment: Interpretive Data Fasting glucose >/= 126 [...] was last revised 2022. Testing performed by: [address] [address] Calcium 9.5 8.5 - 10.3 mg/dL [facility] Comment:Testing performed by : [address] [address] Bilirubin, total 0.4 0.1 - 1.2 mg/dL [facility] Comment:Testing performed by : [address] [address] Protein, pl 7.9 6.5 - 8.5 g/dL DAVIS Comment:Testing performed by : [address] [address] Albumin 4.0 3.5 - 5.0 g/dL DAVIS ZAMAN Comment:Testing performed by : [address] [address] Alk phos 80 40 - 130 Units/L DAVIS ZAMAN Comment:Testing performed by : [address] [address] ALT 11 7 - 45 Units/L DAVIS ZAMAN Comment:Testing performed by : [address] [address] AST 14 10 - 45 Units/L DAVIS ZAMAN Comment:Testing performed by : [address] [address] Blood 01/29/2025 4:42 PM CDT 01/29/2025 4:44 PM CDT Jacob Bullock DO LAB BLOOD ORDERABLES Final Result Performing Organization Address City/State/[facility] Co de Phone Number DAVIS [facility] [place] [address] * POCT hCG, urine (01/29/2025 3:44 PM CDT) HCG, ur, POC Negative Negative Lot Number [id number] QC Backgroud Clear Acceptable QC Control Line Acceptable Urine 01/29/2025 3:44 PM CDT Jacob Bullock DO POINT OF CARE TEST ORDERABL ES Final Result * Urinalysis reflex to microscopic and culture Urine (01/29/2025 3:42 PM CDT) Color, ur Yellow Yellow Comment:Testing performed by : [address] [address] Clarity, ur Clear Clear DAVIS ZAMAN Comment:Testing performed by : [address] [address] Specific gravity, ur 1.010 1.003 - 1.030 DAVIS ZAMAN Comment:Testing performed by : [address] [address] pH, urine 7.0 DAVIS ZAMAN Comment: Interpretive Data U rine pH is affected by diet, medications, systemic acid-base disturbances, and renal tubular function. pH may affect urinary stone formation. For example, urine pH below 6.0 may help reduce the tendency for calcium phosphate stones and pH greater than 6.0 may reduce the tendency for uric acid stone formation. Source: [facility] Editorialist Current Interpretive Data was last revised on 2017 Testing performed by: [facility], [address] [place] [address], [place]., [address] Protein, ur ql Negative Negative DAVIS Comment:Testing performed by : [facility], [address] [place] [address], [place]., [address] Glucose, ur ql Negative Negative DAVIS Comment:Testing performed by : [address], [place]., [address] Ketones, ur Negative Negative DAVIS Comment:Testing performed by : [address], [place]., [address] Bilirubin, ur Negative Negative DAVIS Comment:Testing performed by : [address], [place]., [address] Blood, ur Negative Negative DAVIS Comment:Testing performed by : [address], [place]., [address] Urobilinogen, ur <2.0 <2.0 mg/dL DAVIS Comment:Testing performed by : [address], [place]., [address] Nitrite, ur Negative Negative DAVIS Comment:Testing performed by : [address], [place]., [address] Leukocyte esterase, ur Negative Negative DAVIS Comment:Testing performed by : [address], [place]., [address] UA reflex comment Reflex conditions for microscopic UA and culture not met. DAVIS Comment:Testing performed by : [address], [place]., [address] Urine 01/29/2025 3:42 PM CDT 01/29/2025 3:49 PM CDT us Jacob Bullock DO LAB MICROBIOLOGY - GENERAL ORDERABLES Final Result DAVIS ZAMAN [address] [facility] [place] [address] * ECG 12 lead (01/29/2025 3:36 PM CDT) [facility] Ventricular Rate EKG/Min 84 BPM [facility] Atrial Rate 84 BPM [facility] AL-Interval (MSEC) 180 ms [facility] QRS-Interval (MSEC) 74 ms [facility] QT-Interval (MSEC) 380 ms [facility] QTc 449 ms [facility] P [place] 58 degrees [facility] R [place] 33 degrees [facility] T [place] 39 degrees [facility] Diagnosis Normal sinus rhythm Normal ECG No previous ECGs available Confirmed by YASHIRA MCFARLAND M.D. ([id number]) on 01/29/2025 11:15:17 PM [facility] 01/29/2025 3:36 PM CDT 01/29/2025 11:15 PM CDT Jacob Bullock DO ECG ORDERABLES Final Resul t [facility] * (ABNORMAL) Differential, auto (01/29/2025 3:29 PM CDT) [facility] Neutrophil abs 4.75 1.50 - 6.50 K/cumm Comment:Testing performed by : [address] [address] Imm gran abs 0.02 0.00 - 0.10 K/cumm DAVIS Comment:Testing performed by : [address] [address] Lymphocyte abs 2.13 0.80 - 3.30 K/cumm DAVIS Comment:Testing performed by : [address] [address] Monocyte abs 1.10(H) 0.20 - 0.80 K/cumm DAVIS Comment:Testing performed by : [address] [address] Eosinophil abs 0.14 0.00 - 0.50 K/cumm DAVIS Comment:Testing performed by : [address] [place] [address] Basophil abs 0.05 0.00 - 0.10 K/cumm DAVIS Comment:Testing performed by : [address] [address] Neutrophil pct 58.1 % [facility] Comment: Interpretive Data Percent cell count reference ranges are not reported, since discordance with absolute values may lead to misinterpretation of CBC data. Current Interpretive Data was last revised on 2018. Testing performed by: [address] [address] Imm gran pct 0.2 % [facility] Comment: Interpretive Data Percent cell count reference ranges are not reported, since discordance with absolute values may lead to misinterpretation of CBC data. Current Interpretive Data was last revised on 2018. Testing performed by: [address] [address] Lymphocyte pct 26.0 % [facility] Comment: Interpretive Data Percent cell count reference ranges are not reported, since discordance with absolute values may lead to misinterpretation of CBC data. Current Interpretive Data was last revised on 2018. Testing performed by: [address] [address] Monocyte pct 13.4 % [facility] Comment: Interpretive Data Percent cell count reference ranges are not reported, since discordance with absolute values may lead to misinterpretation of CBC data. Current Interpretive Data was last revised on 2018. Testing performed by: [address] [address] Eosinophil pct 1.7 % [facility] Comment: Interpretive Data Percent cell count reference ranges are not reported, since discordance with absolute values may lead to misinterpretation of CBC data. Current Interpretive Data was last revised on 2018. Testing performed by: [address] [address] Basophil pct 0.6 % [facility] Comment: Interpretive Data Percent cell count reference ranges are not reported, since discordance with absolute values may lead to misinterpretation of CBC data. Current Interpretive Data was last revised on 2018. Testing performed by: [address] [address] Blood 01/29/2025 3:29 PM CDT 01/29/2025 3:38 PM CDT Jacob Bullock DO LAB BLOOD ORDERABLES Final Result [facility] [address] [facility] Department [place] [address] * CBC with auto differential (01/29/2025 3:29 PM CDT) Pathologist [facility] WBC 8.19 3.80 - 9.90 K/cumm Comment:Testing performed by : [address] [address] Hgb 14.8 11.9 - 15.5 g/dL DAVIS Comment:Testing performed by : [address] [address] Hct 44.6 35.6 - 45.5 % DAVIS Comment:Testing performed by : [address] [address] Plt 312 150 - 400 K/cumm DAVIS Comment:Testing performed by : [address] [address] MPV 10.1 9.1 - 12.3 fL DAVIS Comment:Testing performed by : [address] [address] RBC 4.77 3.90 - 5.20 M/cumm DAVIS Comment:Testing performed by : [address] [address] MCV 93.5 81.3 - 96.4 fL DAVIS Comment:Testing performed by : [address] [address] MCH 31.0 27.1 - 33.3 pg DAVIS Comment:Testing performed by : [address] [address] MCHC 33.2 32.3 - 35.7 g/dL DAVIS Comment:Testing performed by : [address], [address] RDW CV 13.0 11.1 - 14.9 % DAVIS ZAMAN Comment:Testing performed by : [facility], [address] [place] [address]., [address] RDW SD 44.7 35.7 - 48.1 fL DAVIS ZAMAN Comment:Testing performed by : [facility], [address] [address]., [address] NRBC abs 0.00 0.00 - 0.01 K/cumm DAVIS ZAMAN Comment:Testing performed by : [facility], [address] [place] [address]., [address] Blood Venous blood specimen / Unknown 01/29/2025 3:29 PM CDT 01/29/2025 3:38 PM CDT Jacob Bullock DO LAB BLOOD ORDERABLES Final Result Performing Organization Address City/State/[facility] Co de Phone Number DAVIS ZAMAN [address] [facility] [place] [address] from Last [address] [place] [address] Care Teams Permanent Waver Relationship Specialty Start Date End Date Johanna Hernandez PA PCP - General Anesthesiologist Assistant 05/19/23
[2025-02-03 21:54] LABS: Prothrombin Time 13.5 Seconds (11.1-14.7)
[2025-02-03 21:55] LABS: Partial Thromboplastin Time 26.1 Seconds (22.3-36.8)
[2025-02-03 22:00] LABS: Troponin I < 0.012 ng/mL (0.000-0.034)
[2025-02-03] MEDS: SODIUM CHLORIDE 0.9% IV 1,000 ML 999 ML IV CONT (22:50)
[2025-02-03] MEDS: PANTOPRAZOLE SODIUM IV 40 MG VIAL IV PUSH (22:50)
[2025-02-03] MEDS: HYDROmorphone HCL INJ (*CRX) 2 MG/ML VIAL 0.5 MG IV PUSH ×2 (22:51→23:43)
[2025-02-03] MEDS: MAG HYDROX/AL HYDROX/SIMETH 30 ML UDC PO (22:51)
[2025-02-03] MEDS: DICYCLOMINE HCL INJ 20 MG/2 ML VIAL IM (22:51)
[2025-02-03] MEDS: KETOROLAC 15 MG/ML VIAL (*BKC) IV PUSH (23:43)
[2025-02-04] VITALS (10 sets, daily range): BP systolic 107–126; BP diastolic 74–89; PULSE 72–95; RESP 15–21; TEMP 36.5; O2SAT 92–100
--- NOTE | 2025-02-04 00:18 | ED.GENADULT ---
HPI - General Adult General Chief complaint: Abdominal Pain Stated complaint: abd pain, Time Seen by Provider: 02/03/25 21:32 History of Present Illness HPI narrative: This is a 44-year-old female presenting with 8 days of abdominal pain. Patient has been experiencing abdominal pain and bloating that is worse in the epigastric area but spreads diffusely throughout her abdomen. She has seen an outside hospital 5 days ago and had a CT right upper quadrant ultrasound which were both negative. Since then she has been treating her pain with Gas-X, magnesium citrate, Pepcid and Zofran which has not particularly helped. She denies fevers chills nausea vomiting or diarrhea. Last bowel movement was 2 days ago. Related Data Home Medications ?Medication ?Instructions ?Recorded ?Confirmed ?Last Taken ?Type albuterol sulfate 90 mcg/actuation 1 inh inhalation Q4H 02/07/24 08/28/24 Unknown History aerosol inhaler baclofen 10 mg tablet 10 mg PO DAILY 02/07/24 08/28/24 Unknown History Allergies Allergy/AdvReac Type Severity Reaction Status Date / Time No Known Allergies Allergy Verified 02/03/25 21:10 [facility] Past Medical History Medical History Diabetes denies HTN (hypertension) denies Arthritis Asthma Surgical History Surgical History H/O: hysterectomy H/O tubal ligation Social History Social History Smoking packs per day: 1 Smoking cigarettes per day: 20.0 Years smoked: 23 Smoking pack-years: 23.00 Smoking status: Current every day smoker Tobacco type: cigarettes Living arrangements: with family Gender identity (if verbalized by the patient): Female Spiritual care concerns: No Exam Narrative: APPEARANCE: No apparent distress. Head: atraumatic. EYES: EOMI, NOSE: Atraumatic NECK: Trachea midline RESPIRATORY: No increased rate of breathing clear to auscultation CARDIOVASCULAR: RRR, ABDOMINAL: Tenderness palpation the epigastric area, rest abdomen is soft nontender no guarding rebound no CVA tenderness MUSCULOSKELETAl: No obvious deformities NEURO: Alert. Moving 4/4 extremities SKIN:: Warm, dry. Normal color PSYCHIATRIC: Normal affect Course Vital Signs Vital signs: Vital Signs Temperature 97.7 F 02/03/25 21:19 Pulse Rate 97 02/03/25 21:19 Respiratory Rate 20 02/03/25 21:19 Blood Pressure 138/86 02/03/25 21:19 Pulse Oximetry 97 02/03/25 21:19 Temperature 97.7 F 02/03/25 21:19 Pulse Rate 97 02/03/25 21:19 Respiratory Rate 20 02/03/25 21:19 Blood Pressure 138/86 02/03/25 21:19 Pulse Oximetry 97 02/03/25 21:19 Medical Decision Making MDM Narrative Medical decision making narrative: -Course: 44-year-old female presenting with epigastric abdominal pain and bloating. CT showed some inflammation of the head of the pancreas. Lipase is elevated at 947. I reviewed her recent right upper quadrant ultrasound which did not show evidence gallstones. Patient is not a drinker. Unclear etiology. Discussed admission versus discharge the patient does not want to be admitted to the hospital. She would like to trial a course of outpatient management with antiemetics and pain control. Patient does not have biliary disease. She is tolerating p.o.. Vital signs are stable and she has no laboratory abnormalities. She has no other systemic complaints. I discussed the risk of outpatient management and told her to have a very low bar to come back to the hospital if she continues to have pain fevers or any new or worsening symptoms. Patient has verbalized her understanding. -DDX includes but is not limited to: Pancreatitis, gastroenteritis, constipation, gallbladder disease, appendicitis -Co-morbidities complicating care: Obesity -Hx from independent resources: Review of the patient's MyChart with right upper quadrant ultrasound and CT abdomen pelvis from outside hospital. -Independent interpretation of studies: White count 8.6. Kidney function at baseline. Lipase 947. CT abdomen pelvis showed inflammation head of the pancreas. Chest x-ray without acute cardiopulmonary Findings. Independent EKG interpretation: Rhythm [sinus], Rate [85], Herman -[normal], [place] -[normal], QRS [narrow], QTC [normal], T waves -[negative for concerning inversions], ST Segments - [Negative for concerning elevations] Final interpretations: [Normal Sinus Rhythm] -Shared decision making / Disposition: Vital Signs Vital Signs: Vital Signs Temperature 97.7 F 02/03/25 21:19 Pulse Rate 97 05/12/25 21:19 Respiratory Rate 20 02/03/25 21:19 Blood Pressure 138/86 02/03/25 21:19 Pulse Oximetry 97 02/03/25 21:19 Temperature 97.7 F 02/03/25 21:19 Pulse Rate 97 02/03/25 21:19 Respiratory Rate 20 02/03/25 21:19 Blood Pressure 138/86 02/03/25 21:19 Pulse Oximetry 97 02/03/25 21:19 Lab Data 02/03/25 21:31 02/03/25 21:31 Labs: Lab Results 02/03/25 Range/Units 21:31 WBC 8.6 (4.5-10.0) K/mm3 RBC 4.73 (4.2-5.4) M/mm3 Hgb 14.6 (12.0-15.0) g/dL Hct 44.3 (37.0-47.0) % MCV 93.7 (80-100) fl MCH 30.9 (26-34) pg MCHC 33.0 (32-36) g/dl RDW 12.7 (11.5-14.5) % Plt Count 308 (150-375) k/mm3 MPV 10.0 (7.4-10.4) fl Immature Gran % (Auto) 0.2 (0-0.5) % Neut % (Auto) 66.3 (45.5-73.1) % Lymph % (Auto) 21.6 (18.3-44.2) % Montgomery % (Auto) 9.7 H (2.6-8.5) % Eos % (Auto) 1.8 (0-4.4) % Baso % (Auto) 0.4 (0.2-1.2) % Lymph # (Auto) 1.85 (0.9-3.2) K/mm3 [place] # (Auto) 0.8 H (0.1-0.6) K/mm3 Eos # (Auto) 0.2 (0-0.3) K/mm3 Baso # (Auto) 0.0 (0.0-0.1) K/mm3 Abs Immat Gran (auto) 0.02 (0.00-0.031) K/mm3 Absolute Neuts (auto) 5.7 (1.3-6.7) K/mm3 Absolute Nucleated RBC 0.000 (0.0-0.012) K/mm3 Nucleated RBC % 0.0 (0.0-0.2) % PT 13.5 (11.1-14.7) Seconds INR 1.0 APTT 26.1 (22.3-36.8) Seconds Sodium 136 L (137-145) mmol/L Potassium 3.9 (3.4-5.0) mmol/L Chloride 102 (98-107) mmol/L Carbon Dioxide 24 (22-30) mmol/L Anion Gap 10 (4-12) mmol/L BUN 10 (7-17) mg/dL Creatinine 0.64 L (0.7-1.0) mg/dL Estim Creat Clear Calc Not Reportable Estimated GFR > 60 (59 - ) Glucose 108 (65-110) mg/dL Calcium 9.4 (8.4-10.2) mg/dL Total Bilirubin 0.5 (0.2-1.3) mg/dL AST 26 (14-36) U/L ALT 18 (6-35) U/L Alkaline Phosphatase 80 (38-126) U/L Troponin I < 0.012 (0.000-0.034) ng/mL Total Protein 9.0 H (6.3-8.2) g/dL Albumin 4.5 (3.5-5.1) g/dL Lipase 947 H (23-300) U/L Discharge Plan Discharge Clinical Impression: Pancreatitis Patient Disposition: Home Condition: Stable Instructions: Antibiotic Form, Pancreatitis (ED) Additional Instructions: You were seen in the hospital for pancreatitis. Please use Tylenol for pain. Use oxycodone for breakthrough pain. Use Zofran for nausea. Please eat a clear diet until your pain starts to improve and then add broths and other bland foods. If you are experiencing severe pain or any worsening her condition please do not hesitate to return to the hospital. Otherwise please follow-up with the GI physician in your primary care physician listed below. Patient Language: Hebrew Prescriptions: New ibuprofen 800 mg tablet 800 mg PO TID PRN (Reason: pain) 7 Days Qty: 21 0RF acetaminophen 500 mg tablet 1,000 mg PO TID PRN (Reason: sebastián) 7 Days Qty: 42 0RF ondansetron 4 mg tablet,disintegrating 4 mg PO Q8H PRN (Reason: nausea and vomiting) Qty: 30 0RF oxycodone 5 mg tablet 5 mg PO Q4H PRN (Reason: pain) Qty: 20 0RF No Action baclofen 10 mg tablet 10 mg PO DAILY albuterol sulfate 90 mcg/actuation HFA aerosol inhaler 1 inh inhalation Q4H estradiol [Estrace] 0.01 % (0.1 mg/gram) cream 1 g vaginal 3XW Qty: 42.5 0RF amoxicillin-pot clavulanate 875-125 mg tablet 1 tablet PO Q12H 7 Days Qty: 14 0RF Follow-up/Referrals: Edwin Doe MD [Physician] - 3 Days (Pancreatitis ) UNKNOWN,DOCTOR [Primary Care Provider] -
== END 2025-02-04 02:20 | disposition home or self-care (01) ==
PROVIDERS: Emergency Provider Emergency Medicine
DX: K85.90 Acute pancreatitis without necrosis or infection, unspecified (principal); J45.909 Unspecified asthma, uncomplicated; M19.90 Unspecified osteoarthritis, unspecified site; E66.9 Obesity, unspecified; Z90.710 Acquired absence of both cervix and uterus
CPT/HCPCS: 36415; 71045; 74177; 80053; 83690; 84484; 85025; 85610; 85730; 93005; 96361; 96372; 96374; 96375; 96376; 99284; A9270; J0500; J1171; J1885; J2470; J7030; Q9967

== ENCOUNTER 2025-03-11 09:01 | Outpatient (CLI) | payer OTHER, SELFPAY ==
--- OUTSIDE RECORDS SUMMARY | 2025-03-11 09:39 | XMS_ITS | Clinical Summary ---
Author Organization [facility] Office Center Address [address] [place] [address] Care Team Providers Care Sap Gatherer Name Role Phone Johanna Hernandez Primary Care Provider [phone] Allergies No known active allergies Medications albuterol [...] Team Description 01/30/2025 12:40 PM CDT Lab [facility] Lab [address] [place] [id number] 01/30/2025 7:10 AM CDT - 01/30/2025 11:59 PM CDT Hospital Encounter [facility] Ultrasound [address] [place] [address] Epigastric pain Discharge Disposition: Discharge to home or self care 01/29/2025 4:01 PM CDT - 01/29/2025 8:44 PM CDT Emergency [facility] Emergency Department [address] [place] [id number] Gabbie Calles MD Epigastric pain (Primary Dx) [...] on file 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 PS: PS Report ID: [id number] Reading Location: [id number] Procedure Note Daisy Davidson, DO - 01/30/2025 [...] Daisy Davidson D.O. PS: PS Report ID: [id number] Reading Location: [place] [address] Gabbie Calles MD IMG US PROCEDURES Final [...] Casey Lorenzana M.D. CH: KINGA Report ID: [id number] Reading Location: [place] [address] Procedure Note Casey Lorenzana Jr., MD - [...] by Casey Lorenzana M.D. CH: Report ID: [id number] Reading Location: [place] [address] us Gabbie Calles MD IMG CT PROCEDURES Final Result * Troponin T high-sensitivity series (baseline, 2hr, 4hr, 6hr) (01/29/2025 4:42 PM CDT) Pathologist [facility] Trop T hs <6 <=14 ng/L Comment: Interpretive Data For further hscTnT resources including the diagnostic algorithm and an aid in interpretation, copy and paste this link: https://nrl.testcatalog.org/show/hsTrop Current Interpretive Data last revised 2020. Testing performed by: [facility], [address] [place] [address]., [address] Blood 01/29/2025 4:42 PM CDT 01/29/2025 4:44 PM CDT us Jacob Bullock DO LAB BLOOD ORDERABLES Final Result [id number] [facility] Department [place] [address] * eGFR (01/29/2025 4:42 PM CDT) Pathologist [facility] eGFR >90 >=60 mL/min/1. 73 m2 Comment: [...] was last reviewed 2021. Testing performed by: [address] [address] Blood 01/29/2025 4:42 PM CDT 01/29/2025 4:44 PM CDT us Jacob Bullock DO LAB BLOOD ORDERABLES Final Result Performing Organization Address City/[facility]/ZIP Co de Phone Number [id number] [employer] [place] [address] * CRP (acute phase) (01/29/2025 4:42 PM CDT) CRP 4.7 <=10.0 mg/L Comment:Testing performed by : [address] [address] Blood 01/29/2025 4:42 PM CDT 01/29/2025 4:44 PM CDT Gabbie Calles MD LAB BLOOD ORDERABLES Fin al Result Performing Organization Address City/[facility]/ZIP Co de Phone Number [address] [place] [address] * (ABNORMAL) Lipase (01/29/2025 4:42 PM CDT) Lipase 154(H) 10 - 99 Units/L Comment:Testing performed by : [address] [address] Blood 01/29/2025 4:42 PM CDT 01/29/2025 4:44 PM CDT Jacob Bullock DO LAB BLOOD ORDERABLES Final Result DAVIS ZAMAN [address] [facility] Department [place] [address] * Comprehensive metabolic panel (01/29/2025 4:42 PM CDT) Sodium 137 135 - 145 mmol/L Comment:Testing performed by : [address] [address] Potassium, pl 3.9 3.3 - 4.9 mmol/L DAVIS Comment:Testing performed by : [address] [address] Chloride 101 97 - 110 mmol/L DAVIS Comment:Testing performed by : [address] [address] CO2 28 22 - 32 mmol/L DAVIS Comment:Testing performed by : [address] [address] Anion gap 8 2 - 15 mmol/L DAVIS Comment:Testing performed by : [address] [address] BUN 8 6 - 25 mg/dL DAVIS Comment:Testing performed by : [address] [address] Creatinine 0.60 0.60 - 1.10 mg/dL DAVIS Comment:Testing performed by : [address] [address] Glucose 88 70 - 199 mg/dL DAVIS [...] was last revised 2022. Testing performed by: [address] [address] Calcium 9.5 8.5 - 10.3 mg/dL DAVIS Comment:Testing performed by : [address] [address] Bilirubin, total 0.4 0.1 - 1.2 mg/dL DAVIS Comment:Testing performed by : [address] [address] Protein, pl 7.9 6.5 - 8.5 g/dL DAVIS Comment:Testing performed by : [address] [address] Albumin 4.0 3.5 - 5.0 g/dL DAVIS Comment:Testing performed by : [address] [address] Alk phos 80 40 - 130 Units/L DAVIS Comment:Testing performed by : [address] [address] ALT 11 7 - 45 Units/L DAVIS Comment:Testing performed by : [address] [address] AST 14 10 - 45 Units/L DAVIS Comment:Testing performed by : [address] [address] Blood 01/29/2025 4:42 PM CDT 01/29/2025 4:44 PM CDT Jacob Bullock DO LAB BLOOD ORDERABLES Final Result DAVIS [address] [facility] Department [place] [address] * POCT hCG, urine (01/29/2025 3:44 PM CDT) HCG, ur, POC Negative Negative Lot Number [id number] QC Backgroud Clear Acceptable QC Control Line Acceptable Urine 01/29/2025 3:44 PM CDT Jacob Banuelos Ara DO POINT OF CARE TEST ORDERABL ES Final Result * Urinalysis reflex to microscopic and culture Urine (01/29/2025 3:42 PM CDT) Color, ur Yellow Yellow Comment:Testing performed by : [address] [address] Clarity, ur Clear Clear DAVIS Comment:Testing performed by : [address] [address] Specific gravity, ur 1.010 1.003 - 1.030 DAVIS Comment:Testing performed by : [address] [address] pH, urine 7.0 DAVIS Comment: Interpretive Data U rine pH is affected by diet, medications, systemic acid-base disturbances, and renal tubular function. pH may affect urinary stone formation. For example, urine pH below 6.0 may help reduce the tendency for calcium phosphate stones and pH greater than 6.0 may reduce the tendency for uric acid stone formation. Source: [facility] [employer] Current Interpretive Data was last revised on 2017 Testing performed by: [address] [address] Protein, ur ql Negative Negative DAVIS Comment:Testing performed by : [address] [address] Glucose, ur ql Negative Negative DAVIS Comment:Testing performed by : [address] [address] Ketones, ur Negative Negative DAVIS Comment:Testing performed by : [address] [address] Bilirubin, ur Negative Negative DAVIS Comment:Testing performed by : [address] [address] Blood, ur Negative Negative DAVIS Comment:Testing performed by : [address] [address] Urobilinogen, ur <2.0 <2.0 mg/dL DAVIS Comment:Testing performed by : [address] [address] Nitrite, ur Negative Negative DAVIS Comment:Testing performed by : [facility], [address] [place] [address]., [address] Leukocyte esterase, ur Negative Negative DAVIS Comment:Testing performed by : [facility], [address] [place] [address]., [address] UA reflex comment Reflex conditions for microscopic UA and culture not met. DAVIS Comment:Testing performed by : [address] [address] Urine 01/29/2025 3:42 PM CDT 01/29/2025 3:49 PM CDT Jacob Bullock DO LAB MICROBIOLOGY - GENERAL ORDERABLES Final Result DAVIS [address] [facility] Department [place] [address] * ECG 12 lead (01/29/2025 3:36 PM CDT) Ventricular Rate EKG/Min 84 BPM [facility] Atrial Rate 84 BPM [facility] AL-Interval (MSEC) 180 ms [facility] QRS-Interval (MSEC) 74 ms [facility] QT-Interval (MSEC) 380 ms [facility] QTc 449 ms [facility] P [place] 58 degrees [facility] R [place] 33 degrees [facility] T [place] 39 degrees [facility] Diagnosis Normal sinus rhythm Normal ECG No previous ECGs available Confirmed by YASHIRA MCFARLAND M.D. ([id number]) on 01/29/2025 11:15:17 PM [facility] 01/29/2025 3:36 PM CDT 01/29/2025 11:15 PM CDT Jacob Bullock DO ECG ORDERABLES Final Resul t [facility] * (ABNORMAL) Differential, auto (01/29/2025 3:29 PM CDT) Neutrophil abs 4.75 1.50 - 6.50 K/cumm Comment:Testing performed by : [address], [place]., [address] Imm gran abs 0.02 0.00 - 0.10 K/cumm DAVIS Comment:Testing performed by : [address], [place]., [address] Lymphocyte abs 2.13 0.80 - 3.30 K/cumm [facility] Comment:Testing performed by : [address], [place]., [address] Monocyte abs 1.10(H) 0.20 - 0.80 K/cumm [facility] Comment:Testing performed by : [address], [place]., [address] Eosinophil abs 0.14 0.00 - 0.50 K/cumm [facility] Comment:Testing performed by : [address] [address] Basophil abs 0.05 0.00 - 0.10 K/cumm [facility] Comment:Testing performed by : [address] [address] Neutrophil pct 58.1 % [facility] Comment: Interpretive Data Percent cell count reference ranges are not reported, since discordance with absolute values may lead to misinterpretation of CBC data. Current Interpretive Data was last revised on 2018. Testing performed by: [address] [address] Imm gran pct 0.2 % [facility] Comment: Interpretive Data Percent cell count reference ranges are not reported, since discordance with absolute values may lead to misinterpretation of CBC data. Current Interpretive Data was last revised on 2018. Testing performed by: [address] [address] Lymphocyte pct 26.0 % [facility] Comment: Interpretive Data Percent cell count reference ranges are not reported, since discordance with absolute values may lead to misinterpretation of CBC data. Current Interpretive Data was last revised on 2018. Testing performed by: [address] [address] Monocyte pct 13.4 % [facility] Comment: Interpretive Data Percent cell count reference ranges are not reported, since discordance with absolute values may lead to misinterpretation of CBC data. Current Interpretive Data was last revised on 2018. Testing performed by: [address] [address] Eosinophil pct 1.7 % DAVIS Comment: Interpretive Data Percent cell count reference ranges are not reported, since discordance with absolute values may lead to misinterpretation of CBC data. Current Interpretive Data was last revised on 2018. Testing performed by: [address] [address] Basophil pct 0.6 % DAVIS Comment: Interpretive Data Percent cell count reference ranges are not reported, since discordance with absolute values may lead to misinterpretation of CBC data. Current Interpretive Data was last revised on 2018. Testing performed by: [address] [address] Blood 01/29/2025 3:29 PM CDT 01/29/2025 3:38 PM CDT us Jacob Bullock DO LAB BLOOD ORDERABLES Final Result [facility] [address] [facility] Department [place] [address] * CBC with auto differential (01/29/2025 3:29 PM CDT) WBC 8.19 3.80 - 9.90 K/cumm Comment:Testing performed by : [address] [address] Hgb 14.8 11.9 - 15.5 g/dL DAVIS ZAMAN Comment:Testing performed by : [address] [address] Hct 44.6 35.6 - 45.5 % DAVIS Comment:Testing performed by : [address] [address] Plt 312 150 - 400 K/cumm DAVIS Comment:Testing performed by : [address] [address] MPV 10.1 9.1 - 12.3 fL DAVIS ZAMAN Comment:Testing performed by : [facility], [address] [place] [address]., [address] RBC 4.77 3.90 - 5.20 M/cumm DAVIS ZAMAN Comment:Testing performed by : [facility], [address] [place] [address]., [address] MCV 93.5 81.3 - 96.4 fL DAVIS ZAMAN Comment:Testing performed by : [address] [address] MCH 31.0 27.1 - 33.3 pg DAVIS ZAMAN Comment:Testing performed by : [address] [address] MCHC 33.2 32.3 - 35.7 g/dL DAVIS ZAMAN Comment:Testing performed by : [address] [address] RDW CV 13.0 11.1 - 14.9 % DAVIS Comment:Testing performed by : [address] [address] RDW SD 44.7 35.7 - 48.1 fL DAVIS Comment:Testing performed by : [address] [address] NRBC abs 0.00 0.00 - 0.01 K/cumm DAVIS Comment:Testing performed by : [address] [address] Blood Venous blood specimen / Unknown 01/29/2025 3:29 PM CDT 01/29/2025 3:38 PM CDT us Jacob Bullock DO LAB BLOOD ORDERABLES Final Result [facility] [address] [facility] Department of Laboratories [place], [place] [id number] from Last 3 Months Insurance [facility] [place] [address] [place] [address] [place] [address] Member Subscriber Plan / Payer (Ef fective 2024-Present) Name:Cesar Hidalgo Relation to Subscriber:Self Name:Avafahad Cesar Munoz Payer ID:[id number] (NAIC) Group ID:Not on file Type:MEDICAID RISK OTHER Address: ATTN: CLAIMS DEPT [address] [facility] [place] [id number] [place] [address] Care Teams Sap Gatherer Relationship Specialty Start Date End Date Johanna Hernandez PA PCP - General Diet Therapist 05/19/23
--- OUTSIDE RECORDS SUMMARY | 2025-03-11 09:39 | XMS_ITS | Referral Summary ---
Author Organization [facility] Address [address] [place] [address] Care Team Providers Care Spiral Gear Generator Name Role Phone Johanna Hernandez Primary Care Provider [phone] Encounters Date Type Department Care Team Description 01/30/2025 7:10 AM CDT - 01/30/2025 11:59 PM CDT Hospital Encounter [facility] Ul[facility]ound [address] [place] [address] Epigastric pain Discharge Disposition: Discharge to home or self care 01/30/2025 12:40 PM CDT Lab [facility] [address] [place] [id number] 01/29/2025 4:01 PM CDT - 01/29/2025 8:44 PM CDT Emergency [facility] Emergency Department [address] [place] [id number] Gabbie Calles MD Epigastric pain (Primary Dx) [...] on file 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 PS: PS Report ID: [id number] Reading Location: [id number] Procedure Note Daisy Davidson DO - 01/30/2025 [...] Daisy Davidson D.O. PS: PS Report ID: [id number] Reading Location: [id number] us Gabbie Calles MD IMG US PROCEDURES [...] Casey Lorenzana M.D. CH: KINGA Report ID: [id number] Reading Location: [id number] Procedure Note Casey Lorenzana Jr., MD - [...] Casey Lorenzana M.D. CH: KINGA Report ID: [id number] Reading Location: [id number] us Gabbie Calles MD IMG CT PROCEDURES Final Result * Troponin T high-sensitivity series (baseline, 2hr, 4hr, 6hr) (01/29/2025 4:42 PM CDT) Trop T hs <6 <=14 ng/L Comment: Interpretive Data For further hscTnT resources including the diagnostic algorithm and an aid in interpretation, copy and paste this link: https://nrl.testcatalog.org/show/hsTrop Current Interpretive Data last revised 2020. Testing performed by: [address] [address] Blood 01/29/2025 4:42 PM CDT 01/29/2025 4:44 PM CDT us Jacob Bullock DO LAB BLOOD ORDERABLES Final Result DAVIS [address] [facility] Department [place] [address] * eGFR (01/29/2025 4:42 PM CDT) Pathologist [facility] Emergency Department eGFR >90 >=60 mL/min/1. 73 [...] was last reviewed 2021. Testing performed by: [address] [address] Blood 01/29/2025 4:42 PM CDT 01/29/2025 4:44 PM CDT Jacob Bullock DO LAB BLOOD ORDERABLES Final Result Performing Organization Address [facility] Co de Phone Number [address] [address] * CRP (acute phase) (01/29/2025 4:42 PM CDT) CRP 4.7 <=10.0 mg/L Comment:Testing performed by : [address] [address] Blood 01/29/2025 4:42 PM CDT 01/29/2025 4:44 PM CDT Gabbie Calles MD LAB BLOOD ORDERABLES Fin al Result Performing Organization Address [facility] de Phone Number [address] [address] * (ABNORMAL) Lipase (01/29/2025 4:42 PM CDT) Pathologist [facility] Emergency Department Lipase 154(H) 10 - 99 Units/L Comment:Testing performed by : [address] [address] Blood 01/29/2025 4:42 PM CDT 01/29/2025 4:44 PM CDT Jacob Bullock DO LAB BLOOD ORDERABLES Final Result Performing Organization Address [facility] Co de Phone Number [address] [address] * Comprehensive metabolic panel (01/29/2025 4:42 PM CDT) Pathologist [facility] Department Sodium 137 135 - 145 mmol/L Comment:Testing performed by : [address] [address] Potassium, pl 3.9 3.3 - 4.9 mmol/L DAVIS Comment:Testing performed by : [address] [address] Chloride 101 97 - 110 mmol/L [facility] Comment:Testing performed by : [address] [address] CO2 28 22 - 32 mmol/L [facility] Comment:Testing performed by : [address], [place]., [address] Anion gap 8 2 - 15 mmol/L [facility] Comment:Testing performed by : [address], [place]., [address] BUN 8 6 - 25 mg/dL [facility] Comment:Testing performed by : [address], [place]., [address] Creatinine 0.60 0.60 - 1.10 mg/dL [facility] Comment:Testing performed by : [address] [address] Glucose 88 70 - 199 mg/dL [facility] Comment: Interpretive Data Fasting glucose >/= 126 [...] was last revised 2022. Testing performed by: [address] [address] Calcium 9.5 8.5 - 10.3 mg/dL [facility] Comment:Testing performed by : [address] [address] Bilirubin, total 0.4 0.1 - 1.2 mg/dL [facility] Comment:Testing performed by : [address] [address] Protein, pl 7.9 6.5 - 8.5 g/dL DAVIS Comment:Testing performed by : [address] [address] Albumin 4.0 3.5 - 5.0 g/dL [facility] ZAMAN Comment:Testing performed by : [address] [address] Alk phos 80 40 - 130 Units/L [facility] ZAMAN Comment:Testing performed by : [address] [address] ALT 11 7 - 45 Units/L [facility] ZAMAN Comment:Testing performed by : [address] [address] AST 14 10 - 45 Units/L [facility] ZAMAN Comment:Testing performed by : [address] [address] Blood 01/29/2025 4:42 PM CDT 01/29/2025 4:44 PM CDT Jacob Bullock DO LAB BLOOD ORDERABLES Final Result Performing Organization Address City/State/[facility] Co de Phone Number [facility] [place] [address] * POCT hCG, urine (01/29/2025 3:44 PM CDT) HCG, ur, POC Negative Negative Lot Number [id number] QC Backgroud Clear Acceptable QC Control Line Acceptable Urine 01/29/2025 3:4 4 PM CDT Jacob Bullock DO POINT OF CARE TEST ORDERABL ES Final Result * Urinalysis reflex to microscopic and culture Urine (01/29/2025 3:42 PM CDT) Color, ur Yellow Yellow Comment:Testing performed by : [address] [address] Clarity, ur Clear Clear DAVIS ZAMAN Comment:Testing performed by : [address] [address] Specific gravity, ur 1.010 1.003 - 1.030 [facility] ZAMAN Comment:Testing performed by : [address] [address] pH, urine 7.0 DAVIS ZAMAN Comment: Interpretive Data U rine pH is affected by diet, medications, systemic acid-base disturbances, and renal tubular function. pH may affect urinary stone formation. For example, urine pH below 6.0 may help reduce the tendency for calcium phosphate stones and pH greater than 6.0 may reduce the tendency for uric acid stone formation. Source: [facility] Current Interpretive Data was last revised on 2017 Testing performed by: [facility], [address] [place] [address], [place]., [address] Protein, ur ql Negative Negative DAVIS Comment:Testing performed by : [facility], [address] [place] [address], [place]., [address] Glucose, ur ql Negative Negative DAVIS Comment:Testing performed by : [address], [place]., [address] Ketones, ur Negative Negative DAVIS Comment:Testing performed by : [address], [place]., [address] Bilirubin, ur Negative Negative DAVIS Comment:Testing performed by : [address], [place]., [address] Blood, ur Negative Negative DAVIS Comment:Testing performed by : [address], [place]., [address] Urobilinogen, ur <2.0 <2.0 mg/dL DAVIS Comment:Testing performed by : [address], [place]., [address] Nitrite, ur Negative Negative DAVIS Comment:Testing performed by : [address], [place]., [address] Leukocyte esterase, ur Negative Negative DAVIS Comment:Testing performed by : [address], [place]., [address] UA reflex comment Reflex conditions for microscopic UA and culture not met. DAVIS Comment:Testing performed by : [address], [place]., [address] Urine 01/29/2025 3:42 PM CDT 01/29/2025 3:49 PM CDT us Jacob Bullock DO LAB MICROBIOLOGY - GENERAL ORDERABLES Final Result DAVIS ZAMAN [address] Department [place] [address] * ECG 12 lead (01/29/2025 3:36 PM CDT) Pathologist [facility] Ventricular Rate EKG/Min 84 BPM [facility] Atrial Rate 84 BPM [facility] FL-Interval (MSEC) 180 ms [facility] QRS-Interval (MSEC) 74 ms [facility] QT-Interval (MSEC) 380 ms [facility] QTc 449 ms [facility] P [place] 58 degrees [facility] R [place] 33 degrees [facility] T [place] 39 degrees [facility] Diagnosis Normal sinus rhythm Normal ECG No previous ECGs available Confirmed by YASHIRA MCFARLAND M.D. ([id number]) on 01/29/2025 11:15:17 PM [facility] 01/29/2025 3:36 PM CDT 01/29/2025 11:15 PM CDT Jacob Bullock DO ECG ORDERABLES Final Resul t [facility] * (ABNORMAL) Differential, auto (01/29/2025 3:29 PM CDT) Pathologist [facility] Neutrophil abs 4.75 1.50 - 6.50 K/cumm Comment:Testing performed by : [address] [address] Imm gran abs 0.02 0.00 - 0.10 K/cumm DAVIS Comment:Testing performed by : [address] [address] Lymphocyte abs 2.13 0.80 - 3.30 K/cumm DAVIS Comment:Testing performed by : [address] [address] Monocyte abs 1.10(H) 0.20 - 0.80 K/cumm DAVIS Comment:Testing performed by : [address] [address] Eosinophil abs 0.14 0.00 - 0.50 K/cumm DAVIS Comment:Testing performed by : [address] [place] [address] Basophil abs 0.05 0.00 - 0.10 K/cumm DAVIS Comment:Testing performed by : [address] [address] Neutrophil pct 58.1 % [facility] Comment: Interpretive Data Percent cell count reference ranges are not reported, since discordance with absolute values may lead to misinterpretation of CBC data. Current Interpretive Data was last revised on 2018. Testing performed by: [address] [address] Imm gran pct 0.2 % [facility] Comment: Interpretive Data Percent cell count reference ranges are not reported, since discordance with absolute values may lead to misinterpretation of CBC data. Current Interpretive Data was last revised on 2018. Testing performed by: [address] [address] Lymphocyte pct 26.0 % [facility] Comment: Interpretive Data Percent cell count reference ranges are not reported, since discordance with absolute values may lead to misinterpretation of CBC data. Current Interpretive Data was last revised on 2018. Testing performed by: [address] [address] Monocyte pct 13.4 % [facility] Comment: Interpretive Data Percent cell count reference ranges are not reported, since discordance with absolute values may lead to misinterpretation of CBC data. Current Interpretive Data was last revised on 2018. Testing performed by: [address] [address] Eosinophil pct 1.7 % [facility] Comment: Interpretive Data Percent cell count reference ranges are not reported, since discordance with absolute values may lead to misinterpretation of CBC data. Current Interpretive Data was last revised on 2018. Testing performed by: [address] [address] Basophil pct 0.6 % [facility] Comment: Interpretive Data Percent cell count reference ranges are not reported, since discordance with absolute values may lead to misinterpretation of CBC data. Current Interpretive Data was last revised on 2018. Testing performed by: [address] [address] Blood 01/29/2025 3:29 PM CDT 01/29/2025 3:38 PM CDT Jacob Bullock DO LAB BLOOD ORDERABLES Final Result [facility] [address] [facility] Department [place] [address] * CBC with auto differential (01/29/2025 3:29 PM CDT) Pathologist [facility] WBC 8.19 3.80 - 9.90 K/cumm Comment:Testing performed by : [address] [address] Hgb 14.8 11.9 - 15.5 g/dL DAVIS Comment:Testing performed by : [address] [address] Hct 44.6 35.6 - 45.5 % DAVIS Comment:Testing performed by : [address] [address] Plt 312 150 - 400 K/cumm DAVIS Comment:Testing performed by : [address] [address] MPV 10.1 9.1 - 12.3 fL DAVIS Comment:Testing performed by : [address] [address] RBC 4.77 3.90 - 5.20 M/cumm DAVIS Comment:Testing performed by : [address] [address] MCV 93.5 81.3 - 96.4 fL DAVIS Comment:Testing performed by : [address] [address] MCH 31.0 27.1 - 33.3 pg DAVIS ZAMAN Comment:Testing performed by : [address] [address] MCHC 33.2 32.3 - 35.7 g/dL DAVIS Comment:Testing performed by : [address] [address] RDW CV 13.0 11.1 - 14.9 % [facility] ZAMAN Comment:Testing performed by : [facility], [address] [place] [address]., [address] RDW SD 44.7 35.7 - 48.1 fL [facility]IS ZAMAN Comment:Testing performed by : [facility], [address] [place] [address]., [address] NRBC abs 0.00 0.00 - 0.01 K/cumm DAVIS ZAMAN Comment:Testing performed by : [facility], [address] [place] [address]., [address] Blood Venous blood specimen / Unknown 01/29/2025 3:29 PM CDT 01/29/2025 3:38 PM CDT Jacob Bullock DO LAB BLOOD ORDERABLES Final Result Performing Organization Address City/State/[facility] Co de Phone Number DAVIS ZAMAN [address] [facility] [place] [address] from Last [address] [place] [address] Care Teams Spiral Gear Generator Relationship Specialty Start Date End Date Johanna Hernandez PA PCP - General Clinical Trials Assistant 05/19/23
[2025-03-11 10:12] LABS: Hematocrit 43.6 % (37.0-47.0); Hemoglobin 13.8 g/dL (12.0-15.0); Mean Corpuscular HGB Conc 31.7 g/dl (32-36); Mean Corpuscular Hemoglobin 30.3 pg (26-34); Mean Corpuscular Volume 95.6 fl (80-100); Mean Platelet Volume 9.8 fl (7.4-10.4); Platelet Count Result 280 k/mm3 (150-375); Red Blood Count 4.56 M/mm3 (4.2-5.4); Red Cell Distribution Width 13.4 % (11.5-14.5); White Blood Count 6.9 K/mm3 (4.5-10.0)
[2025-03-11 10:32] LABS: Alanine Aminotransferase 19 U/L (6-35); Alkaline Phosphatase 61 U/L (38-126); Anion Gap 6 mmol/L (4-12); Aspartate Amino Transferase 26 U/L (14-36); Bilirubin,Total 0.5 mg/dL (0.2-1.3); Blood Urea Nitrogen 7 mg/dL (7-17); Calcium 9.3 mg/dL (8.4-10.2); Carbon Dioxide 26 mmol/L (22-30); Chloride 107 mmol/L (98-107); Estimated Glomerular Filt Rate > 60; Glucose 97 mg/dL (65-110); Lipase 99 U/L (23-300); Potassium 4.4 mmol/L (3.4-5.0); Sodium 139 mmol/L (137-145); Total Protein 7.3 g/dL (6.3-8.2)
== END 2025-03-11 09:02 | disposition home or self-care (01) ==
PROVIDERS: Visit Provider Nurse Practitioner Family
DX: K85.90 Acute pancreatitis without necrosis or infection, unspecified (principal)
CPT/HCPCS: 36415; 80053; 83690; 85027

== ENCOUNTER 2025-04-02 09:04 | Outpatient (CLI) | payer OTHER, SELFPAY ==
--- NOTE | ~2025-04-02 | MM_ITS ---
EXAMINATION: MM screening son BI w ha HISTORY: Screening TECHNIQUE: Craniocaudal and mediolateral oblique 3-D tomosynthesis images were obtained and synthetic 2-D images were generated. CAD analysis was submitted and interpreted. COMPARISON: 02/14/2024 BREAST PARENCHYMAL COMPOSITION: Not dense: There are scattered areas of fibroglandular density. FINDINGS: There is no evidence of suspicious mass, calcification, or architectural distortion to sugg est malignancy in either breast. There has been no suspicious interval change. IMPRESSION: 1. No mammographic evidence of malignancy. 2. Recommend routine screening mammography in one year. BI-RADS Category 1: Negative Reviewed, dictated and finalized at location A.
--- OUTSIDE RECORDS SUMMARY | 2025-04-02 09:16 | XMS_ITS | Data Portability ---
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 Plan of Treatment Reminders Order Date Submit Date Provider Last Modified By Organization Details Last Modified Time Details Appointments None recorded. Lab lipid panel, serum 2024 025 [facility], [address] [place] [address], [address], [place], [address], 5 08:28:11 CMP, serum or plasma 2024 025 [facility], [address] [place] [address], [address], [place], [address], 5 08:28:12 HbA1c (hemoglobi n A1c), blood 2024 025 [facility], [address] [place] [address], [address], [place], [address], 5 06:37:32 vitamin D, 25-hydroxy , total, serum 2024 025 [facility], [address] [place], [place] [address] [address], [address], [place], [address], 5 06:37:34 TSH, ultra-sens itive, serum 2024 025 [facility], [address], [address], [place], [address], 5 06:37:30 HIV 1 + 2, meaningful use set 2024 025 [facility], [address], [address], [place], [address], 5 06:37:36 chlamydia trachomati s + neisseria gonorrhoea e + trichomona s vaginalis rRNA panel, PETRONA+probe 2024 025 [facility], [address], [address], [place], [address], 5 06:37:28 RPR (rapid plasma reagin), serum 2024 025 [facility], [address], [address], [place], [address], 5 06:37:33 iron + total iron-edgar ng capacity (TIBC), serum 2024 025 [facility], [address], [address], [place], [address], 5 06:37:31 CBC w/ auto diff 2024 025 [facility], [address], [address], [place], [address], 5 08:28:14 iron + total iron-edgar ng capacity (TIBC), serum 2023 024 [facility], [address], [address], [place], [address], 4 10:14:09 CBC w/ auto diff 2023 024 [facility], [address], [address], [place], [address], 4 07:13:54 vitamin D, 25-hydroxy , total, serum 2022 023 [facility], [address] [address], [place], [address], 3 08:27:04 iron + total iron-edgar ng capacity (TIBC), serum 2022 023 [facility], [address] [address], [address], [place], [address], 3 08:27:03 CBC w/ auto diff 2022 023 [facility], [address] [place], [place] [address], [address], [place], [address], 3 06:18:14 Referral general surgeon referral 2024 025 [facility], [address], [address], [place], [address], 5 13:00:47 gastroente rologist referral 2024 025 [facility], [address], [address], [place], [address], 5 12:45:30 weight management referral 2024 025 [facility]erral [facility], [facility], [place], [address], 5 12:42:58 Procedures None recorded. Surgeries None recorded. Imaging None recorded. Medication Orders albuterol sulfate HFA 90 mcg/actuat ion aerosol inhaler 2024 025 [id number], [address] [place] [address], [id number], 5 11:25:26 Symbicort 160 mcg-4.5 mcg/actuat ion HFA aerosol inhaler 2024 025 [facility] #53088, [address] [place] [address], [id number], 5 11:25:27 baclofen 10 mg tablet 2024 025 [facility] #50514, [address] [place] [address], [id number], 5 11:25:27 ibuprofen 800 mg tablet 2024 025 [facility] #07158, [address] [place] [address], [id number], 5 11:25:27 ferrous sulfate 325 mg (65 mg iron) tablet 2024 025 [facility] #46645, [address] [place] [address], [id number], 5 11:25:26 ibuprofen 800 mg tablet 2022 023 [facility] #02719, [address] [place] [address], [id number], 12:24:24 Patient TargetsNo targets recorded. Patient Instructions Encounter Date Encounter Id Patient Instructions Last Modified By Organization Details Last Modified Time 07/21/2023 [id number] A healthy lifestyle: care instructions Not available 07/21/2023 12:24:13 10/13/2023 [id number] A healthy lifestyle: care instructions Not available 10/13/2023 11:45:15 10/03/2024 [id number] Quitting Tobacco : Care Instructions Not available 10/03/2024 11:25:10 A healthy lifestyle: care instructions Not available 10/03/2024 11:25:10 02/07/2025 [id number] A healthy lifestyle: care instructions Not available 02/07/2025 11:24:16 Quitting Tobacco : Care Instructions Not available 02/07/2025 11:24:16 Reason for Referral Weight Management Referral f or Body mass index 30+ - obesity Referring Physician: Johanna Hernandez [facility], Encounter Date: 10/03/2024 General Surgeon Referral for Cholecystitis Referring Physician: Johanna Hernandez [facility] Sameera, Encounter Date: 02/07/2025 Manager Of Corporate Communications Referral for Cholecystitis Referring Physician: Johanna Hernandez [facility] Sameera, Encounter Date: 02/07/2025 Results Created Date Observation Date Name Description Value Unit Range Abnormal Flag Note LastModifiedBy Organization Detail LastModifiedTime 07/12/2007/12/2023 LIPID PANEL cholesterol, total 125 mg/dL 100-19 9 Not Available [facility] Department [address] [place], [address], 07/13/2023 06:18:46 07/12/20 23 07/12/2023 LIPID PANEL triglyceride s 43 mg/dL 0-149 Not Available [facility] Department [address] [place], [address], 07/13/2023 06:18:46 07/12/20 23 07/12/2023 LIPID PANEL HDL cholesterol 44 mg/dL 40-999 Not Available [facility] Department [address] [place], [address], 07/13/2023 06:18:46 07/12/20 23 07/12/2023 LIPID PANEL VLDL cholesterol josie 9 mg/dL 5-40 Not Available [facility] Department [address] [place], [address], 07/13/2023 06:18:46 07/12/2007/12/2023 LIPID PANEL LDL chol calc (nih) 76 mg/dL 0-99 Not Available [facility] Department [address] [place], [address], 07/13/2023 06:18:46 07/12/2007/12/2023 BASIC METAB OLIC PANEL (8) glucose 90 mg/dL 70-99 Not Available [facility] Department [address] [place], [address], 07/13/2023 06:18:47 07/12/2007/12/2023 BASIC METAB OLIC PANEL (8) BUN 10 mg/dL 6-24 Not Available [facility] Department [address] [place], [address], 07/13/2023 06:18:47 07/12/2007/12/2023 BASIC METAB OLIC PANEL (8) creatinine 0.68 mg/dL 0.76-1 .27 below low normal Not Available [facility] Department [address] [place], [address], 07/13/2023 06:18:47 07/12/2007/12/2023 BASIC METAB OLIC PANEL (8) BUN/creatini ne ratio 15 9-23 Not Available [facility] Department [address] [place], [address], 07/13/2023 06:18:47 07/12/2007/12/2023 BASIC METAB OLIC PANEL (8) sodium 137 mmol/ L 134-14 4 Not Available [facility] Department [address] [place], [address], 07/13/2023 06:18:47 07/12/2007/12/2023 BASIC METAB OLIC PANEL (8) potassium 4.9 mmol/ L 3.5-5. 2 Not Available [facility] Department [address] [place], [address], 07/13/2023 06:18:47 07/12/2007/12/2023 BASIC METAB OLIC PANEL (8) chloride 106 mmol/ L 96-106 Not Available [facility] Department [address] [place], [address], 07/13/2023 06:18:47 07/12/2007/12/2023 BASIC METAB OLIC PANEL (8) carbon dioxide, total 25 mmol/ L 20-29 Not Available [facility] Department [address] [place], [address], 07/13/2023 06:18:47 07/12/2007/12/2023 BASIC METAB OLIC PANEL (8) calcium 9.0 mg/dL 8.7-10 .2 Not Available [facility] Department [address] [place], [address], 07/13/2023 06:18:47 07/12/2007/12/2023 CBC WITH DIFFE RENTI AL/PL ATELE T WBC 7.7 x10e3 /uL 3.4-10 .8 Not Available [facility] Department [address] [place], [address], 07/13/2023 06:18:48 07/12/2007/12/2023 CBC WITH DIFFE RENTI AL/PL ATELE T RBC 4.49 x10e6 /uL 3.77-5 .28 Not Available [facility] Department [address] [place], [address], 07/13/2023 06:18:48 07/12/2007/12/2023 CBC WITH DIFFE RENTI AL/PL ATELE T hemoglobin 12.7 g/dL 11.1-1 5.9 Not Available [facility] Department [address] [place], [address], 07/13/2023 06:18:48 07/12/2007/12/2023 CBC WITH DIFFE RENTI AL/PL ATELE T hematocrit 41.0 % 34.0-4 6.6 Not Available [facility] Department [address] [place], [address], 07/13/2023 06:18:48 07/12/2007/12/2023 CBC WITH DIFFE RENTI AL/PL ATELE T MCV 91 fL 79-97 Not Available [facility] Department [address] [place], [address], 07/13/2023 06:18:48 07/12/2007/12/2023 CBC WITH DIFFE RENTI AL/PL ATELE T MCH 28.3 pg 26.6-3 3.0 Not Available [facility] Department [address] [place], [address], 07/13/2023 06:18:48 07/12/2007/12/2023 CBC WITH DIFFE RENTI AL/PL ATELE T MCHC 31.0 g/dL 31.5-3 5.7 below low normal Not Available [facility] Department [address] [place], [address], 07/13/2023 06:18:48 07/12/2007/12/2023 CBC WITH DIFFE RENTI AL/PL ATELE T RDW 16.7 % 11.5-1 4.5 above high normal Not Available [facility] Department [address] [place], [address], 07/13/2023 06:18:48 07/12/2007/12/2023 CBC WITH DIFFE RENTI AL/PL ATELE T platelets 298 x10e3 /uL 150-45 0 Not Available [facility] Department [address] [place], [address], 07/13/2023 06:18:48 07/12/2007/12/2023 CBC WITH DIFFE RENTI AL/PL ATELE T neutrophils 53 % notest b. Not Available [facility] Department [address] [place], [address], 07/13/2023 06:18:48 07/12/2007/12/2023 CBC WITH DIFFE RENTI AL/PL ATELE T lymphs 34 % notest b. Not Available [facility] Department [address] [place], [address], 07/13/2023 06:18:48 07/12/2007/12/2023 CBC WITH DIFFE RENTI AL/PL ATELE T monocytes 10 % notest b. Not Available [facility] Department [address] [place], [address], 07/13/2023 06:18:48 07/12/2007/12/2023 CBC WITH DIFFE RENTI AL/PL ATELE T eos 2 % notest b. Not Available [facility] Department [address] [place], [address], 07/13/2023 06:18:48 07/12/2007/12/2023 CBC WITH DIFFE RENTI AL/PL ATELE T basos 1 % notest b. Not Available [facility] Department [address] [place], [address], 07/13/2023 06:18:48 07/12/2007/12/2023 CBC WITH DIFFE RENTI AL/PL ATELE T neutrophils (absolute) 4.0 x10e3 /uL 1.4-7. 0 Not Available [facility] Department [address] [place], [address], 07/13/2023 06:18:48 07/12/2007/12/2023 CBC WITH DIFFE RENTI AL/PL ATELE T lymphs (absolute) 2.6 x10e3 /uL 0.7-3. 1 Not Available [facility] Department [address] [place], [address], 07/13/2023 06:18:48 07/12/20 23 07/12/2023 CBC WITH DIFFE RENTI AL/PL ATELE T monocytes(ab solute) 0.8 x10e3 /uL 0.1-0. 9 Not Available [facility] Department [address] [place], [address], 07/13/2023 06:18:48 07/12/2007/12/2023 CBC WITH DIFFE RENTI AL/PL ATELE T eos (absolute) 0.1 x10e3 /uL 0.0-0. 4 Not Available [facility] Department [address] [place], [address], 07/13/2023 06:18:48 07/12/2007/12/2023 CBC WITH DIFFE RENTI AL/PL ATELE T baso (absolute) 0.1 x10e3 /uL 0.0-0. 2 Not Available [facility] Department [address] [place], [address], 07/13/2023 06:18:48 07/12/2007/12/2023 CBC WITH DIFFE RENTI AL/PL ATELE T immature granulocytes 0.3 % notest b. Not Available [facility] Department [address] [place], [address], 07/13/2023 06:18:48 07/12/2007/12/2023 CBC WITH DIFFE RENTI AL/PL ATELE T immature grans (abs) 0.0 x10e3 /uL 0.0-0. 1 Not Available [facility] Department [address] [place], [address], 07/13/2023 06:18:48 07/12/2007/12/2023 CBC WITH DIFFE RENTI AL/PL ATELE T NRBC 0 % 0-0 Not Available [facility] Department [address] [place], [address], 07/13/2023 06:18:48 07/12/2007/13/2023 IRON AND TIBC iron bind.cap.(TI BC) 333 ug/dL 250-45 0 Not Available [facility] ([facility]) [address] [place], [address], 07/13/2023 07:17:44 07/12/2007/13/2023 IRON AND TIBC UIBC 143 ug/dL 131-42 5 Not Available [facility] ([facility]) [address] [place], [address], 07/13/2023 07:17:44 07/12/2007/13/2023 IRON AND TIBC iron 190 ug/dL 27-159 above high normal Not Available [facility] ([facility]) [address] [place], [address], 07/13/2023 07:17:44 07/12/2007/13/2023 IRON AND TIBC iron saturation 57 % 15-55 above high normal Not Available [facility] ([facility]) [address] [place], [address], 07/13/2023 07:17:44 07/12/2007/13/2023 HEMOG LOBIN A1C hemoglobin A1C 5.6 % 4.8-5. 6 Predi abete s: 5.7 - 6.4 Diabe katja: >6.4 Glyce frederic contr ol for adult s with diabe katja: <7.0 Not Available [facility] ([facility]) [address] [place], [address], 07/13/2023 07:17:45 07/12/2007/13/2023 VITAM IN D, 25-HY [...] um and D. Rian haynes [place]: The [facility] . 2. Julio Cesar hendrix MF, Joselin almaraz [place], Abby off-F errwilbert i ZARATE, et al. Evalu ation , treat ment, and preve ntion of vitam in D defic iency : an Endoc rine Socie ty clini josie pract ice guide line. JCEM. 2010; 96(7) :1911 -30. Not Available [facility] ([facility]) [address] [place], [address], 07/13/2023 07:17:45 08/09/2008/10/2023 CBC WITH DIFFE RENTI AL/PL ATELE T WBC 7.9 x10e3 /uL 3.4-10 .8 Not Available [facility] ([facility]) [address] [place], [address], 08/10/2023 06:18:14 08/09/20 23 08/10/2023 CBC WITH DIFFE RENTI AL/PL ATELE T RBC 3.97 x10e6 /uL 3.77-5 .28 Not Available [facility] ([facility]) [address] [place], [address], 08/10/2023 06:18:14 08/09/20 23 08/10/2023 CBC WITH DIFFE RENTI AL/PL ATELE T hemoglobin 11.4 g/dL 11.1-1 5.9 Not Available [facility] ([facility]) [address] [place], [address], 08/10/2023 06:18:14 08/09/20 23 08/10/2023 CBC WITH DIFFE RENTI AL/PL ATELE T hematocrit 36.1 % 34.0-4 6.6 Not Available [facility] ([facility]) [address] [place], [address], 08/10/2023 06:18:14 08/09/20 23 08/10/2023 CBC WITH DIFFE RENTI AL/PL ATELE T MCV 91 fL 79-97 Not Available [facility] ([facility]) [address] [facility], [place], [address], 08/10/2023 06:18:14 08/09/2008/10/2023 CBC WITH DIFFE RENTI AL/PL ATELE T MCH 28.7 pg 26.6-3 3.0 Not Available [facility] ([facility]) [address] [place], [address], 08/10/2023 06:18:14 08/09/2008/10/2023 CBC WITH DIFFE RENTI AL/PL ATELE T MCHC 31.6 g/dL 31.5-3 5.7 Not Available [facility] ([facility]) [address] [place], [address], 08/10/2023 06:18:14 08/09/2008/10/2023 CBC WITH DIFFE RENTI AL/PL ATELE T RDW 14.7 % 11.7-1 5.4 Not Available [facility] ([facility]) [address] [place], [address], 08/10/2023 06:18:14 08/09/2008/10/2023 CBC WITH DIFFE RENTI AL/PL ATELE T platelets 314 x10e3 /uL 150-45 0 Not Available [facility] ([facility]) [address] [place], [address], 08/10/2023 06:18:14 08/09/20 23 08/10/2023 CBC WITH DIFFE RENTI AL/PL ATELE T neutrophils 53 % notest ab. Not Available [facility] ([facility]) [address] [facility], [place], [address], 08/10/2023 06:18:14 08/09/20 23 08/10/2023 CBC WITH DIFFE RENTI AL/PL ATELE T lymphs 33 % notest ab. Not Available [facility] ([facility]) [address] [facility], [place], [address], 08/10/2023 06:18:14 08/09/20 23 08/10/2023 CBC WITH DIFFE RENTI AL/PL ATELE T monocytes 10 % notest ab. Not Available [facility] ([facility]) [address] [facility], [place], [address], 08/10/2023 06:18:14 08/09/20 23 08/10/2023 CBC WITH DIFFE RENTI AL/PL ATELE T eos 3 % notest ab. Not Available [facility] ([facility]) [address] [facility], [place], [address], 08/10/2023 06:18:14 08/09/20 23 08/10/2023 CBC WITH DIFFE RENTI AL/PL ATELE T basos 1 % notest ab. Not Available [facility] ([facility]) [address] [facility], [place], [address], 08/10/2023 06:18:14 08/09/20 23 08/10/2023 CBC WITH DIFFE RENTI AL/PL ATELE T neutrophils (absolute) 4.2 x10e3 /uL 1.4-7. 0 Not Available [facility] ([facility]) [address] [facility], [place], [address], 08/10/2023 06:18:14 08/09/20 23 08/10/2023 CBC WITH DIFFE RENTI AL/PL ATELE T lymphs (absolute) 2.6 x10e3 /uL 0.7-3. 1 Not Available [facility] ([facility]) [address] [facility], [place], [address], 08/10/2023 06:18:14 08/09/20 23 08/10/2023 CBC WITH DIFFE RENTI AL/PL ATELE T monocytes(ab solute) 0.8 x10e3 /uL 0.1-0. 9 Not Available [facility] ([facility]) [address] [facility], [place], [address], 08/10/2023 06:18:14 08/09/20 23 08/10/2023 CBC WITH DIFFE RENTI AL/PL ATELE T eos (absolute) 0.3 x10e3 /uL 0.0-0. 4 Not Available [facility] ([facility]) [address] [facility], [place], [address], 08/10/2023 06:18:14 08/09/20 23 08/10/2023 CBC WITH DIFFE RENTI AL/PL ATELE T baso (absolute) 0.0 x10e3 /uL 0.0-0. 2 Not Available [facility] ([facility]) [address] [facility], [place], [address], 08/10/2023 06:18:14 08/09/20 23 08/10/2023 CBC WITH DIFFE RENTI AL/PL ATELE T immature granulocytes 0 % notest ab. Not Available [facility] ([facility]) [address] [place], [address], 08/10/2023 06:18:14 08/09/20 23 08/10/2023 CBC WITH DIFFE RENTI AL/PL ATELE T immature grans (abs) 0.0 x10e3 /uL 0.0-0. 1 Not Available [facility] ([facility]) [address] [facility], [place], [address], 08/10/2023 06:18:14 08/09/20 23 08/10/2023 IRON AND TIBC iron bind.cap.(TI BC) 335 ug/dL 250-45 0 Not Available [facility] ([facility]) [address] [facility], [place], [address], 08/10/2023 08:27:03 08/09/20 23 08/10/2023 IRON AND TIBC UIBC 291 ug/dL 131-42 5 Not Available [facility] ([facility]) [address] [facility], [place], [address], 08/10/2023 08:27:03 08/09/20 23 08/10/2023 IRON AND TIBC iron 44 ug/dL 27-159 Not Available [facility] ([facility]) [address] [facility], [place], [address], 08/10/2023 08:27:03 08/09/20 23 08/10/2023 IRON AND TIBC iron saturation 13 % 15-55 below low normal Not Available [facility] ([facility]) [address] [facility], [place], [address], 08/10/2023 08:27:03 08/09/2008/10/2023 VITAM IN D, 25-HY DROXY vitamin D, [...] and D. Rian haynes [place]: The [facility] Press . 2. Julio Cesar hendrix MF, Bingogo ey [place], Abby off-F errar i ZARATE, et al. Evalu ation , treat ment, and preve ntion of vitam in D defic iency : an Endoc rine Socie ty clini josie pract ice guide line. JCEM. 2010; 96(7) :1911 -30. Not Available [facility] ([facility]) [address] [facility], [place], [address], 08/10/2023 08:27:04 11/21/19 24 11/22/2023 CBC WITH DIFFE RENTI AL/PL ATELE T WBC 6.5 x10e3 /uL 3.4-10 .8 Not Available [facility] ([facility]) [address] [facility], [place], [address], 11/22/2023 07:13:54 11/21/19 24 11/22/2023 CBC WITH DIFFE RENTI AL/PL ATELE T RBC 4.26 x10e6 /uL 3.77-5 .28 Not Available [facility] ([facility]) [address] [facility], [place], [address], 11/22/2023 07:13:54 11/21/19 24 11/22/2023 CBC WITH DIFFE RENTI AL/PL ATELE T hemoglobin 12.8 g/dL 11.1-1 5.9 Not Available [facility] ([facility]) [address] [facility], [place], [address], 11/22/2023 07:13:54 11/21/19 24 11/22/2023 CBC WITH DIFFE RENTI AL/PL ATELE T hematocrit 40.1 % 34.0-4 6.6 Not Available [facility] ([facility]) [address] [place], [address], 11/22/2023 07:13:54 11/21/19 24 11/22/2023 CBC WITH DIFFE RENTI AL/PL ATELE T MCV 94 fL 79-97 Not Available [facility] ([facility]) [address] [facility], [place], [address], 11/22/2023 07:13:54 11/21/19 24 11/22/2023 CBC WITH DIFFE RENTI AL/PL ATELE T MCH 30.0 pg 26.6-3 3.0 Not Available [facility] ([facility]) [address] [facility], [place], [address], 11/22/2023 07:13:54 11/21/19 24 11/22/2023 CBC WITH DIFFE RENTI AL/PL ATELE T MCHC 31.9 g/dL 31.5-3 5.7 Not Available [facility] ([facility]) [address] [facility], [place], [address], 11/22/2023 07:13:54 11/21/19 24 11/22/2023 CBC WITH DIFFE RENTI AL/PL ATELE T RDW 13.1 % 11.7-1 5.4 Not Available [facility] ([facility]) [address] [facility], [place], [address], 11/22/2023 07:13:54 11/21/19 24 11/22/2023 CBC WITH DIFFE RENTI AL/PL ATELE T platelets 335 x10e3 /uL 150-45 0 Not Available [facility] ([facility]) [address] [facility], [place], [address], 11/22/2023 07:13:54 11/21/19 24 11/22/2023 CBC WITH DIFFE RENTI AL/PL ATELE T neutrophils 60 % notest ab. Not Available [facility] ([facility]) [address] [facility], [place], [address], 11/22/2023 07:13:54 11/21/19 24 11/22/2023 CBC WITH DIFFE RENTI AL/PL ATELE T lymphs 24 % notest ab. Not Available [facility] ([facility]) [address] [place], [address], 11/22/2023 07:13:54 11/21/19 24 11/22/2023 CBC WITH DIFFE RENTI AL/PL ATELE T monocytes 11 % notest ab. Not Available [facility] ([facility]) [address] [facility], [place], [address], 11/22/2023 07:13:54 11/21/19 24 11/22/2023 CBC WITH DIFFE RENTI AL/PL ATELE T eos 4 % notest ab. Not Available [facility] ([facility]) [address] [facility], [place], [address], 11/22/2023 07:13:54 11/21/19 24 11/22/2023 CBC WITH DIFFE RENTI AL/PL ATELE T basos 1 % notest ab. Not Available [facility] ([facility]) [address] [facility], [place], [address], 11/22/2023 07:13:54 11/21/19 24 11/22/2023 CBC WITH DIFFE RENTI AL/PL ATELE T neutrophils (absolute) 3.9 x10e3 /uL 1.4-7. 0 Not Available [facility] ([facility]) [address] [facility], [place], [address], 11/22/2023 07:13:54 11/21/19 24 11/22/2023 CBC WITH DIFFE RENTI AL/PL ATELE T lymphs (absolute) 1.6 x10e3 /uL 0.7-3. 1 Not Available [facility] ([facility]) [address] [facility], [place], [address], 11/22/2023 07:13:54 11/21/19 24 11/22/2023 CBC WITH DIFFE RENTI AL/PL ATELE T monocytes(ab solute) 0.7 x10e3 /uL 0.1-0. 9 Not Available [facility] ([facility]) [address] [place], [address], 11/22/2023 07:13:54 11/21/19 11/22/2023 CBC WITH DIFFE RENTI AL/PL ATELE T eos (absolute) 0.2 x10e3 /uL 0.0-0. 4 Not Available [facility] ([facility]) [address] [place], [address], 11/22/2023 07:13:54 11/21/19 24 11/22/2023 CBC WITH DIFFE RENTI AL/PL ATELE T baso (absolute) 0.0 x10e3 /uL 0.0-0. 2 Not Available [facility] ([facility]) [address] [facility], [place], [address], 11/22/2023 07:13:54 11/21/19 24 11/22/2023 CBC WITH DIFFE RENTI AL/PL ATELE T immature granulocytes 0 % notest ab. Not Available [facility] ([facility]) [address] [facility], [place], [address], 11/22/2023 07:13:54 11/21/19 24 11/22/2023 CBC WITH DIFFE RENTI AL/PL ATELE T immature grans (abs) 0.0 x10e3 /uL 0.0-0. 1 Not Available [facility] ([facility]) [address] [place], [address], 11/22/2023 07:13:54 11/21/19 24 11/22/2023 IRON AND TIBC iron bind.cap.(TI BC) 360 ug/dL 250-45 0 Not Available [facility] ([facility]) [address] [place], [address], 11/22/2023 10:14:09 11/21/19 24 11/22/2023 IRON AND TIBC UIBC 321 ug/dL 131-42 5 Not Available [facility] ([facility]) [address] [place], [address], 11/22/2023 10:14:09 11/21/19 24 11/22/2023 IRON AND TIBC iron 39 ug/dL 27-159 Not Available [facility] ([facility]) [address] [facility] [place], [address], 11/22/2023 10:14:09 11/21/19 24 11/22/2023 IRON AND TIBC iron saturation 11 % 15-55 below low normal Not Available [facility] ([facility]) [address] [facility], [place], [address], 11/22/2023 10:14:09 10/24/19 25 10/25/2024 LIPID PANEL cholesterol, total 157 mg/dL 100-19 9 Not Available [facility] ([facility]) [address] [facility], [place], [address], 10/25/2024 08:28:11 10/24/19 25 10/25/2024 LIPID PANEL triglyceride s 61 mg/dL 0-149 Not Available [facility] ([facility]) [address] [facility], [place], [address], 10/25/2024 08:28:11 10/24/19 25 10/25/2024 LIPID PANEL HDL cholesterol 48 mg/dL >39 Not Available [facility] ([facility]) [address] [facility], [place], [address], 10/25/2024 08:28:11 10/24/19 25 10/25/2024 LIPID PANEL VLDL cholesterol josie 12 mg/dL 5-40 Not Available [facility] ([facility]) [address] [place], [address], 10/25/2024 08:28:11 10/24/19 25 10/25/2024 LIPID PANEL LDL chol calc ([facility]) 97 mg/dL 0-99 Not Available [facility] ([facility]) [address] [place], [address], 10/25/2024 08:28:11 10/24/19 25 10/25/2024 COMP. METAB OLIC PANEL (14) glucose 101 mg/dL 70-99 above high normal Not Available [facility] ([facility]) [address] [facility] [place], [address], 10/25/2024 08:28:12 10/24/19 25 10/25/2024 COMP. METAB OLIC PANEL (14) BUN 7 mg/dL 6-24 Not Available [facility] ([facility]) [address] [facility] [place], [address], 10/25/2024 08:28:12 10/24/19 25 10/25/2024 COMP. METAB OLIC PANEL (14) creatinine 0.75 mg/dL 0.57-1 .00 Not Available [facility] ([facility]) [address] [facility] [place], [address], 10/25/2024 08:28:12 10/24/19 25 10/25/2024 COMP. METAB OLIC PANEL (14) eGFR 101 mL/mi n/1.7 3 >59 Not Available [facility] ([facility]) [address] [facility] [place], [address], 10/25/2024 08:28:12 10/24/19 25 10/25/2024 COMP. METAB OLIC PANEL (14) BUN/creatini ne ratio 9 9-23 Not Available [facility] ([facility]) [address] [place], [address], 10/25/2024 08:28:12 10/24/19 25 10/25/2024 COMP. METAB OLIC PANEL (14) sodium 139 mmol/ L 134-14 4 Not Available [facility] ([facility]) [address] [facility] [place], [address], 10/25/2024 08:28:12 10/24/19 25 10/25/2024 COMP. METAB OLIC PANEL (14) potassium 4.1 mmol/ L 3.5-5. 2 Not Available [facility] ([facility]) [address] [place], [address], 10/25/2024 08:28:12 10/24/19 25 10/25/2024 COMP. METAB OLIC PANEL (14) chloride 105 mmol/ L 96-106 Not Available [facility] ([facility]) [address] [place], [address], 10/25/2024 08:28:12 10/24/19 25 10/25/2024 COMP. METAB OLIC PANEL (14) carbon dioxide, total 24 mmol/ L 20-29 Not Available [facility] ([facility]) [address] [place], [address], 10/25/2024 08:28:12 10/24/19 25 10/25/2024 COMP. METAB OLIC PANEL (14) calcium 9.1 mg/dL 8.7-10 .2 Not Available [facility] ([facility]) [address] [place], [address], 10/25/2024 08:28:12 10/24/19 25 10/25/2024 COMP. METAB OLIC PANEL (14) protein, total 6.0 g/dL 6.0-8. 5 Not Available [facility] ([facility]) [address] [place], [address], 10/25/2024 08:28:12 10/24/19 25 10/25/2024 COMP. METAB OLIC PANEL (14) albumin 3.6 g/dL 3.9-4. 9 below low normal Not Available [facility] ([facility]) [address] [place], [address], 10/25/2024 08:28:12 10/24/19 25 10/25/2024 COMP. METAB OLIC PANEL (14) globulin, total 2.4 g/dL 1.5-4. 5 Not Available [facility] ([facility]) [address] [place], [address], 10/25/2024 08:28:12 10/24/19 25 10/25/2024 COMP. METAB OLIC PANEL (14) bilirubin, total 0.3 mg/dL 0.0-1. 2 Not Available [facility] ([facility]) [address] [place], [address], 10/25/2024 08:28:12 10/24/19 25 10/25/2024 COMP. METAB OLIC PANEL (14) alkaline phosphatase 69 IU/L 44-121 Not Available [facility] ([facility]) [address] [place], [address], 10/25/2024 08:28:12 10/24/19 25 10/25/2024 COMP. METAB OLIC PANEL (14) AST (SGOT) 16 IU/L 0-40 Not Available [facility] ([facility]) [address] [facility], [place], [address], 10/25/2024 08:28:12 10/24/19 25 10/25/2024 COMP. METAB OLIC PANEL (14) ALT (SGPT) 13 IU/L 0-32 Not Available [facility] ([facility]) [address] [facility] [place], [address], 10/25/2024 08:28:12 10/24/19 25 10/25/2024 CBC WITH DIFFE RENTI AL/PL ATELE T WBC 8.5 x10e3 /uL 3.4-10 .8 Not Available [facility] ([facility]) [address] [facility] [place], [address], 10/25/2024 08:28:13 10/24/19 25 10/25/2024 CBC WITH DIFFE RENTI AL/PL ATELE T RBC 4.48 x10e6 /uL 3.77-5 .28 Not Available [facility] ([facility]) [address] [facility] [place], [address], 10/25/2024 08:28:13 10/24/1910/25/2024 CBC WITH DIFFE RENTI AL/PL ATELE T hemoglobin 13.7 g/dL 11.1-1 5.9 Not Available [facility] ([facility]) [address] [facility], [place], [address], 10/25/2024 08:28:13 10/24/1910/25/2024 CBC WITH DIFFE RENTI AL/PL ATELE T hematocrit 41.8 % 34.0-4 6.6 Not Available [facility] ([facility]) [address] [place], [address], 10/25/2024 08:28:13 10/24/1910/25/2024 CBC WITH DIFFE RENTI AL/PL ATELE T MCV 93 fL 79-97 Not Available [facility] ([facility]) [address] [place], [address], 10/25/2024 08:28:13 10/24/19 25 10/25/2024 CBC WITH DIFFE RENTI AL/PL ATELE T MCH 30.6 pg 26.6-3 3.0 Not Available [facility] ([facility]) [address] [place], [address], 10/25/2024 08:28:13 10/24/1910/25/2024 CBC WITH DIFFE RENTI AL/PL ATELE T MCHC 32.8 g/dL 31.5-3 5.7 Not Available [facility] ([facility]) [address] [place], [address], 10/25/2024 08:28:13 10/24/19 25 10/25/2024 CBC WITH DIFFE RENTI AL/PL ATELE T RDW 12.7 % 11.7-1 5.4 Not Available [facility] ([facility]) [address] [place], [address], 10/25/2024 08:28:13 10/24/19 25 10/25/2024 CBC WITH DIFFE RENTI AL/PL ATELE T platelets 331 x10e3 /uL 150-45 0 Not Available [facility] ([facility]) [address] [facility], [place], [address], 10/25/2024 08:28:13 10/24/19 25 10/25/2024 CBC WITH DIFFE RENTI AL/PL ATELE T neutrophils 54 % notest ab. Not Available [facility] ([facility]) [address] [facility], [place], [address], 10/25/2024 08:28:13 10/24/19 25 10/25/2024 CBC WITH DIFFE RENTI AL/PL ATELE T lymphs 34 % notest ab. Not Available [facility] ([facility]) [address] [facility], [place], [address], 10/25/2024 08:28:13 10/24/19 25 10/25/2024 CBC WITH DIFFE RENTI AL/PL ATELE T monocytes 10 % notest ab. Not Available [facility] ([facility]) [address] [facility], [place], [address], 10/25/2024 08:28:13 10/24/19 25 10/25/2024 CBC WITH DIFFE RENTI AL/PL ATELE T eos 1 % notest ab. Not Available [facility] ([facility]) [address] [facility], [place], [address], 10/25/2024 08:28:13 10/24/19 25 10/25/2024 CBC WITH DIFFE RENTI AL/PL ATELE T basos 1 % notest ab. Not Available [facility] ([facility]) [address] [facility], [place], [address], 10/25/2024 08:28:13 10/24/19 25 10/25/2024 CBC WITH DIFFE RENTI AL/PL ATELE T neutrophils (absolute) 4.6 x10e3 /uL 1.4-7. 0 Not Available [facility] ([facility]) [address] [facility], [place], [address], 10/25/2024 08:28:13 10/24/19 25 10/25/2024 CBC WITH DIFFE RENTI AL/PL ATELE T lymphs (absolute) 2.9 x10e3 /uL 0.7-3. 1 Not Available [facility] ([facility]) [address] [facility], [place], [address], 10/25/2024 08:28:13 10/24/19 25 10/25/2024 CBC WITH DIFFE RENTI AL/PL ATELE T monocytes(ab solute) 0.9 x10e3 /uL 0.1-0. 9 Not Available [facility] ([facility]) [address] [facility], [place], [address], 10/25/2024 08:28:13 10/24/19 25 10/25/2024 CBC WITH DIFFE RENTI AL/PL ATELE T eos (absolute) 0.1 x10e3 /uL 0.0-0. 4 Not Available [facility] ([facility]) [address] [facility], [place], [address], 10/25/2024 08:28:13 10/24/19 25 10/25/2024 CBC WITH DIFFE RENTI AL/PL ATELE T baso (absolute) 0.0 x10e3 /uL 0.0-0. 2 Not Available [facility] ([facility]) [address] [place], [address], 10/25/2024 08:28:13 10/24/19 25 10/25/2024 CBC WITH DIFFE RENTI AL/PL ATELE T immature granulocytes 0 % notest ab. Not Available [facility] ([facility]) [address] [place], [address], 10/25/2024 08:28:13 10/24/19 25 10/25/2024 CBC WITH DIFFE RENTI AL/PL ATELE T immature grans (abs) 0.0 x10e3 /uL 0.0-0. 1 Not Available [facility] ([facility]) [address] [facility], [place], [address], 10/25/2024 08:28:13 10/24/19 25 10/26/2024 CT, NG, TRICH VAG BY PETRONA chlamydia by PETRONA NEGATI VE negati ve Not Available [facility] ([facility]) [address] [facility], [place], [address], 10/26/2024 06:37:28 10/24/19 25 10/26/2024 CT, NG, TRICH VAG BY PETRONA gonococcus by PETRONA NEGATI VE negati ve Not Available [facility] ([facility]) [address] [facility], [place], [address], 10/26/2024 06:37:28 10/24/1910/26/2024 CT, NG, TRICH VAG BY PETRONA trich vag by PETRONA NEGATI VE negati ve Not Available [facility] ([facility]) [address] [facility], [place], [address], 10/26/2024 06:37:28 10/24/19 25 10/25/2024 TSH RFX ON ABNOR MAL TO FREE T4 TSH 1.670 uIU/m L 0.450- 4.500 Not Available [facility] ([facility]) [address] [facility], [place], [address], 10/26/2024 06:37:30 10/24/19 25 10/25/2024 IRON AND TIBC iron bind.cap.(TI BC) 339 ug/dL 250-45 0 Not Available [facility] ([facility]) [address] [place], [address], 10/26/2024 06:37:31 10/24/19 25 10/25/2024 IRON AND TIBC UIBC 289 ug/dL 131-42 5 Not Available [facility] ([facility]) [address] [place], [address], 10/26/2024 06:37:31 10/24/1910/25/2024 IRON AND TIBC iron 50 ug/dL 27-159 Not Available [facility] ([facility]) [address] [place], [address], 10/26/2024 06:37:31 10/24/1910/25/2024 IRON AND TIBC iron saturation 15 % 15-55 Not Available [facility] ([facility]) [address] [place], [address], 10/26/2024 06:37:31 10/24/1910/25/2024 HEMOG LOBIN A1C hemoglobin A1C 6.1 % 4.8-5. 6 above high normal Predi abete s: 5.7 - 6.4 Diabe katja: >6.4 Glyce frederic contr ol for adult s with diabe katja: <7.0 Not Available [facility] ([facility]) [address] [place], [address], 10/26/2024 06:37:32 10/24/19 25 10/25/2024 RPR, RFX QN RPR/C ONFIR M TP RPR NON REACTI VE nonrea ctive Not Available [facility] ([facility]) [address] [place], [address], 10/26/2024 06:37:33 10/24/1910/25/2024 VITAM IN D, 25-HY DROXY vitamin D, [...] um and D. Rian haynes [place]: [facility] Press . 2. Julio Cesar hendrix MF, Joselin almaraz [place], Abby off-F errar i ZARATE, et al. Evalu ation , treat ment, and preve ntion of vitam in D defic iency : an Endoc rine Socie ty clini josie pract ice guide line. JCEM. 2010; 96(7) :1911 -30. Not Available [facility] ([facility]) [address] [facility], [place], [address], 10/26/2024 06:37:34 10/24/19 25 10/25/2024 HIV AB/P2 4 AG WITH REFLE X HIV Ab/P24 Ag screen NON REACTI VE nonrea ctive HIV-1 /HIV- 2 antib odies and HIV-1 p24 antig en were NOT detec memo. There is no labor atory evide nce of HIV infec tion. HIV Negat paige Not Available [facility] ([facility]) [address] [facility], [place], [address], 10/26/2024 06:37:35 07/17/20 23 07/17/2023 MAMMO , scree declan, tomos ynthe sis, bilat [facility] [address] [facility] [place] [address] Mammog vlad Report Proced ure(s) : MM tomosy nthesi s screen ing BI Patien t: Prasanna Hidalgo handra Date of Servic e: : 1979 MR#: [id number] Age/Se x: 43 / F Acct:T [id number] ADM Date:1 3 Result s: 2 Benign Findin gs Follow Up: 1 Year Follow -up Densit y: [address]: Johanna Hernandez Orderi ng Physic xochitl: HernandezJohanna simmons Access ion Number (s): [id number] cc: Hernandez Johanna Examin ation: Digita l bilate ral screen ing breast 3D tomogr aphy Access ion: [id number] Exam Date/T apolinar: 2022 10:42 AM Reason [...] BI IMPRES MARY: ===== 1. Benign mammog kavno. Assess ment: ACR BI-RAD S Catego ry 2 - Benign . Recomm endati on: 1: Routin e screen ing mammog kavon bilate ral . Commen ts: Electr onical ly Signed By: Yusuf James MD on 2022 2:28 PM Dictat ed By: Yusuf James M.D. Signed By: 1427 DD/DT: 1426 TD/TT: Transc riptio nist: [email or web address] [facility] ([facility] [address] [place], [address], 11/03/2023 12:09:31 Result Notes None recorded. Problems Name Problem SNOMED Code Status Onset Date Resolution Date Notes Provider Name and Address Organization Details Recorded Time Lightheaded ness 724077898 Active 2021 Johanna Hernandez PA-C Attn: Blanca alcazar,[address] [facility], [place], [address], [facility] 2 16:30:41 Neuropathy 518503897 Active 2021 Johanna Hernandez PA-C Attn: Accountin g,[address] [facility], [place], [address], [place] - [facility] 2 16:32:31 Chest discomfort 020422295 Active 2021 Johanna Hernandez PA-C Attn: Accountin g,[address], [place], [address], [place] [facility] 2 16:35:11 Pain of bilateral knee joints 4482422644799 04 Active 2021 Johanna Hernandez PA-C Attn: Accountin g,[address] [facility] [address], [place], [address], [place] [facility] 2 16:44:09 Constipatio n 09485579 Active 2021 Johanna Hernandez PA-C Attn: Accountin g,[address] [facility], [place], [place], [address] [place] [address] 2, [place] [facility] 2 16:47:50 Anxiety 53658550 Active 2021 Johanna Hernandez PA-C Attn: Accountin g,[address] [facility], [place], [address], [place] [facility] 2 16:49:18 Posterior rhinorrhea 89463203 Active 2021 Johanna Hernandez PA-C Attn: Accountin g,[address] [facility], [place], [address], [place] [facility] 2 16:59:09 Iron deficiency anemia 28504547 Active 2022 Johanna Hernandez PA-C Attn: Accountin g,[address] [facility], [place], [address], [place] [facility] 3 12:04:09 Hyperglycem ia 41452782 Active 2022 Johanna Hernandez PA-C Attn: Accountin g,[address] [facility], [place], [address], [place] [facility] 3 12:08:13 Vitamin D deficiency 19941139 Active 2022 Johanna Hernandez PA-C Attn: Accountchristiano alcazar,[address] [facility], [place], [address], [place] [facility] 3 12:08:16 Loss of hair 220732083 Active 2022 Johanna Hernandez PA-C Attn: Accountchristiano g,[address] [facility], [place], [address], [place] [facility] 3 12:08:18 Chronic rhinitis 92695237 Active 2022 Johanna Hernandez PA-C Attn: Accountchristiano g,[address] [facility], [place], [address], [place] [facility] 3 12:08:20 Skin lesion 51813683 Active Radha Miranda null, [place] [facility] 5 16:51:48 Bacterial vaginosis 708456358 Active Corey Millan MD Attn: Accountchristiano alcazar,[address] [facility], [place], [address], [place] [facility] 6 11:57:42 Screening finding 459598968 Active Nay [place] [facility] 5 11:03:32 Asthma 620245207 Active [place]ay [place] [facility] 5 11:03:32 Smoker 56487818 Active [place]ay [place] [facility] 5 11:03:32 Rhinitis 69200607 Active [place] [facility] 5 11:03:32 Obesity 558689074 Active [place] [facility] 5 11:03:32 Numbness 03298543 Active [place]ay [place] [facility] 5 11:03:32 Joint crepitus 9773182 Active [place] [facility] 5 11:03:32 Backache 337310905 Active Nay [place] [facility] 5 11:03:32 Multiple bruising 718468947 Active Radha bennett, [facility] 6 11:37:26 Vaginitis 16299396 Active Radha bennett, [facility] 6 14:41:11 Infection by Trichomonas 59299952 Active Radha bennett, [facility] 6 10:23:53 Vaginal discharge 593308287 Active Radha bennett, [facility] 5 16:51:48 Problem Notes None recorded. Procedures Surgical History Date Name Laterality Status Provider Name and Address Organization Details Recorded Time 5 Date of Last Pap Smear completed Rohit Gamino MA [facility] 01/14/2016 15:49:17 Tubal Ligation completed Kaylan Blas MA [facility] 08/10/2018 11:01:39 Imaging Results None recorded. Procedure Notes None recorded. Medical Equipment None [...] TABLET BY MOUTH THREE TIMES DAILY FOR 7 DAYS NEEDED FOR PAIN active Not Available Not Available No t [...] active Not Available Not Available Not Available acetamino phen 500 mg tablet active Not Available Not Available No t Available prednisol one acetate 1 % eye [...] completed Not Available Not Available Not Available oxycodone 5 mg tablet TAKE 1 TABLET BY MOUTH EVERY 4 HOURS NEEDED FOR PAIN active Not Available Not Available No t Available azithromy james 500 mg tablet Take [...] Heart rate Respiratory rate Body temperature Systolic And Diastolic Provider Name and Address Organization Details Last Updated DateTime 5 167.64 cm 35.8 kg/m2 658547. 51 g 98 % 98 % 74 /min 18 /min 98 [degF] 124/74 mm[Hg] Cindy Sims [place] [facility] 5 10:18:08 Date Recorded Body height Provider Name an d Address Organization Details Last Updated DateTime 10/13/2023 167.64 cm Cindy Sims MA [facility] 10/13 10:22:59 Date Recorded Body height Body temperature Body mass index (BMI) Body weight Heart rate Systolic And Diastolic Provider Name and Address Organization Details Last Updated DateTime 167.64 cm 98 [degF] 35.9 kg/m2 266279. 3 g 102 /min 115/67 mm[Hg] Monique Marx MA [facility] 5 16:44:17 Date Recorded Body height Provider Name an d Address Organization Details Last Updated DateTime 02/07/2025 167.64 cm Cindy Sims MA [facility] 02/07 09:40:44 Social History Question Answer Notes LastModified by Organizat ion Details LastModified Time Tobacco Smoking Status Current Every Day Smoker Isidra Samuel MA null, [facility] 07/20/2015 09:49:22 Do You Have An Advance [...] Or The Highest Degree You Have Received? [id number] Information not available 07/03/2023 Swimming/diving Yes Informati [...] Do You Have A Medical Power Of Powersaw Supervisor? No Information not available 12/23/2021 What Was [...] Lung Disease N Depression N Acne N Breast Problem N Eating [...] 0 Living 3 Ectopics 0 Total 5 Immunizations Vaccine Type Date Status Note Provider Nam e and Address Organization Details Recorded Time COVID-19, mRNA, LNP-S, PF, 30 mcg/0.3 mL dose 12/30/2020 completed Not Available [facility] 09:30:53 COVID-19, mRNA, LNP-S, PF, 30 mcg/0.3 mL dose 01/27/2021 completed Not Available [facility] 09:30:53 COVID-19, mRNA, LNP-S, PF, 30 mcg/0.3 mL dose 10/19/2021 completed Not Available [facility] 09:30:53 COVID-19, mRNA, LNP-S, PF, madisyn-sucrose, 30 mcg/0.3 mL 07/02/2023 completed Not Available [facility] 2024 09:30:53 Influenza, MDCK, quadrivalent, PF 07/02/2023 completed Not Available [facility] 09:30:53 Influenza, MDCK, trivalent, PF 06/19/2024 completed Not Available [facility] 2024 09:30:53 COVID-19, mRNA, LNP-S, PF, madisyn-sucrose, 30 mcg/0.3 mL 06/19/2024 completed Not Available [facility] 2024 09:30:53 Past Encounters Encounter ID Performer Location Encounter Start Date Encounter Closed Date Diagnosis/Indication Diagnosis SNOMED-CT Code Diagnosis ICD10 Code Diagnosis Note [id number] Dionne Hancock MD [facility] (R[facility]BET OPERATOR) [address] [place] [place] [address] 10/17/2014 14:07:20 10/17/2014 15:12:46 Vaginal discharge 217688437 [id number] Dionne Hancock MD [facility] (RABBET OPERATOR) [address] [place] [address] 01/09/2015 16:03:39 01/09/2015 17:40:43 Vaginal discharge 950015048 Skin lesion 13080566 Bacterial vaginosis 376637144 [id number] Dionne Hancock MD [facility] (RABBET OPERATOR) [address] [place] [address] 07/06/2015 09:34:09 07/06/2015 13:48:34 Bacterial vaginosis 273291025 N76.0 High risk sexual behavior 774998245 Z72.51 [id number] Dionne Hancock MD [facility] (R[employer]BET OPERATOR) [address] [place] [address] 07/20/2015 09:37:32 07/20/2015 10:25:52 Gynecologic examination 78067973 Z01.419 High risk sexual behavior 214040713 Z72.51 [id number] Angel Hewitt MD [facility] (Adult/Fa m Med) [address] [place] [address] 08/03/2015 09:35:39 08/03/2015 15:46:01 Screening finding 646774818 Z13.9 Asthma 830864930 J45.90 9 Smoker 96944299 F17.200 Rhinitis 24023913 J31.0 Obesity 773316820 E66.9 Numbness 23192053 R20.0 Joint crepitus 9219516 M 24.80 Backache 777287069 M54.9 [id number] Dionne Hancock MD [facility] (RABBET OPERATOR) [address] [place] [address] 01/15/2016 09:52:52 01/15/2016 11:53:58 High risk sexual behavior 036564530 Z72.51 Multiple bruising 517032 006 T14.8 Vaginitis 51288422 N76.0 [id number] Dionne Hancock MD [facility] (R[employer]BET OPERATOR) [address] [place] [address] 01/21/2016 09:46:44 01/21/2016 10:24:50 Infection by Trichomonas 52392776 A59.9 [id number] Dionne Hancock MD [facility] (R[facility]BET OPERATOR) [address] [place] [address] 02/25/2016 13:32:07 02/25/2016 16:16:18 Vaginitis 49427085 N76.0 [id number] Corey Millan MD [facility] (R[employer]BET OPERATOR) [address] [place] [address] 04/21/2016 11:31:44 04/21/2016 14:05:50 Bacterial vaginosis 354059084 N76.0 [id number] Angel Hewitt MD [facility] (Adult/Fa m Med) [address] [place] [address] 08/03/2016 11:01:26 08/08/2016 10:40:50 Joint crepitus 4327427 M24.80 Knee pain 31346397 M25.5 61 [id number] Nay Castillo [facility] (Adult/Fa m Med) [address] [place] [address] 09/02/2016 10:34:04 09/02/2016 17:43:24 Osteoarthritis of knee 518689160 M17.11 Asthma 296993358 J45.90 9 Joint crepitus 0838177 M 24.824 [id number] Dionne Hancock MD [facility] (RABBET OPERATOR) [address] [place] [address] 10/18/2016 13:59:35 10/18/2016 16:08:11 High risk sexual behavior 191816142 Z72.51 Female pel steve inflammatory disease 906961999 N73.9 [id number] Dionne Hancock MD [facility] (R[employer]BET OPERATOR) [address] [place] [address] 10/21/2016 10:09:03 10/21/2016 13:25:02 Acute pelvic inflammatory disease 347910278 N73.9 [id number] Dionne Hancock MD [facility] (R[employer]BET OPERATOR) [address] [place] [address] 11/03/2016 10:25:56 11/03/2016 13:32:55 [id number] Nay Castillo [facility] (Adult/Fa m Med) [address] [place] [address] 04/27/2017 10:02:10 04/28/2017 10:18:52 Asthma 499065675 J45.909 Backache 767274804 M54.9 Joint crepitus 9174427 M 24.811 Obesity 909158509 E66.9 Numbness 33102979 R20.0 Rhinitis 42003928 J00 Smoker 16201001 F17.200 Atypical chest pain 1025 01333 R07.89 [id number] Nay Castillo [facility] (Adult/Fa m Med) [address] [place] [address] 05/23/2017 09:47:26 06/02/2017 13:33:23 Chronic back pain 459039046 M54.9 Osteoarthr itis of knee 159702825 M17.11 R>L Smoker 60079823 F17.200 Asthma 362989141 J45.90 9 Backache 236368333 M54.9 [id number] Radha Miranda RN-[facility] (RABBET OPERATOR) [address] [place] [address] 05/25/2017 15:58:03 05/30/2017 16:02:21 Bacterial vaginosis 347468383 N76.0 [id number] Dionne Hancock MD [facility] (RABBET OPERATOR) [address] [place] [address] 08/11/2017 09:34:33 08/11/2017 14:34:20 High risk sexual behavior 357503453 Z72.51 [id number] Angel Hewitt MD [facility] (Adult/Fa m Med) [address] [place] [address] 08/24/2017 09:57:53 08/30/2017 15:29:58 Asthma 072189292 J45.909 Backache 224582884 M54.9 Rhinitis 89263593 J00 [id number] ABELINO Gamble NP [facility] [address] [place] [address] 08/10/2018 10:46:03 08/10/2018 12:09:38 Backache 018132985 M54.9 -Renew ibuprofen and baclofen Asthma 554600205 J45.90 9 -Renew singulair- Renew Aerochambe r Paresthesi a of upper limb 65759726 R20.2 -Obtain labs Body mass index 30+ - obesity 180327537 Z68.33 -Obtain labs Near syncope 350303552 R 55 -Will obtain labs-Recen t vision exam normal -Consider holter monitor if labs normal [id number] Nik Gallagher MD [address] [address] 09/27/2019 18:30:31 09/30/2019 11:54:07 Tuberculosis screening 057631740 Z11.7 [id number] Radha Miranda RN- [facility] (RABBET OPERATOR) [address] [place] [address] 03/16/2020 10:19:07 03/16/2020 12:30:26 Gynecologic examination 28375991 Z01.419 Venereal d isease screening 807230172 Z11.3 Knee pain 60119152 M25.5 69 [id number] MD Dariana Calvert [facility] (RABBET OPERATOR) [address] [place] [address] 04/08/2020 15:16:14 04/08/2020 16:25:07 Venereal disease screening 261580782 Z11.3 [id number] Dionne Hancock MD [facility] (RABBET OPERATOR) [address] [place] [address] 08/12/2020 15:26:39 08/12/2020 17:47:52 Venereal disease screening 616413039 Z11.3 Obesity 397045559 E66.9 Chest pain 10051573 R07. 9 Photosensitivity 2913075 6 L56.8 Backache 947531350 M54.9 Arthritis 2857168 M19.90 [id number] Lolita Gu MD [facility] [address] [address] 09/01/2020 15:50:13 09/02/2020 16:20:51 Photophobia 210371471 H53.149 Bilateral vitreous floaters 2359578206 29061 H43.990 [id number] MD Dariana Calvert [facility] (RABBET OPERATOR) [address] [place] [address] 12/08/2020 16:05:08 12/09/2020 16:50:04 Venereal disease screening 125913875 Z11.3 [id number] MD Dariana Calvert [facility] (RABBET OPERATOR) [address] [place] [address] 01/15/2021 14:54:13 01/18/2021 12:07:29 Nicotine dependence 14407828 F17.200 Venereal d isease screening 834892084 Z11.3 Vaginitis 96991829 N76.0 [id number] KASIA JENKINS, [facility] (RABBET OPERATOR) [address] [place] [address] 06/21/2021 13:42:49 06/24/2021 14:27:26 Chest pain 36587472 R07.9 Suspect Costochond ritis. MSK pain acutely TTP over sterno-cos maged margin and along clavicle. Bilateral pectoralis major strain also possible. 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 Discussed NSIADS, avoiding aggravatin g activities , and use of either heat or ice for symptom relief. Education on stretches provided. Screening mammography 24 456155 Z12.31 [id number] Dionne Hancock MD [facility] (RABBET OPERATOR) [address] [place] [address] 08/17/2021 09:27:33 08/17/2021 12:58:51 Obesity 305876946 E66.9 High risk sexual behavior 412550864 Z72.51 [id number] Jona Milton MD [facility] (Adult Med) [address] [place] [address] 10/26/2021 15:45:12 10/27/2021 10:11:07 Lightheadedness 111131294 R42 several year historyeve ry day smoker Adult heal th examination 129423245 Z00.00 routine labs Chest discomfort 1462882 09 R07.89 several monthsinte rmittentcu rrently stablewill order ekg and cxrtobacco cessation Neuropathy 897977948 G62 .9 several month history of hands and feet Blurring o f visual image 582794138 H53.8 referral to opthalmolo gist Tobacco user 541882104 Z 72.0 smoking cessation Pain of bi lateral knee joints 3187722981 23578 M25.561 Constipation 58703367 K5 9.00 Anxiety 77433069 F41.9 Obesity 782498053 E66.9 Posterior rhinorrhea 758 25782 R09.82 [id number] Faizan Alvarado MD [facility] [address] [place] [address] 12/23/2021 09:38:02 12/24/2021 12:25:40 Pain of bilateral knee joints 3352264471 75506 M25.561 M25.562 Osteoarthr itis of knee 130683425 M17.11 M17.12 ?cortisone Chondromal acia of bilateral patellas 4637018614 9751119 M22.41 M22.42 Obesity 500821214 E66.9 [id number] Jona Milton MD [facility] (Peds) [address] [place] [address] 12/22/2021 15:25:00 12/24/2021 17:33:53 Iron deficiency anemia 45752565 D50.9 reviewed low iron,will start patient on daily supplement repeat iron in 1month Lightheadedness 60555310 8 R42 improved since last visitwill monitorrev iewed us Chest discomfort 9822845 09 R07.89 resolved Neuropathy 641096286 G62 .9 several month history of hands and feetreview ed low iron, will start on iron supplement reviewed elevated hgba1c, diet and exercise [id number] Jona Milton MD [facility] (Peds) [address] [place] [address] 01/28/2022 09:54:07 02/10/2022 10:36:00 Iron deficiency anemia 26128950 D50.9 reviewed normal iron, will stop iron for now, repeat iron in 1month Neuropathy 788321550 G62 .9 resolvedwi ll monitor [id number] Jona Milton MD [facility] (Peds) [address] [place] [address] 03/10/2022 10:23:55 03/10/2022 12:10:08 Iron deficiency anemia 50596564 D50.9 reviewed normal iron, will stop iron for now, repeat iron in 1month Neuropathy 356829168 G62 .9 resolvedwi ll monitor [id number] Faizan Alvarado MD [facility] [address] [place] [address] 04/28/2022 10:21:18 04/28/2022 12:30:02 Pain of bilateral knee joints 7035214334 08935 M25.561 M25.562 Osteoarthr itis of knee 889966757 M17.11 M17.12 ?cortisone Chondromal acia of bilateral patellas 6775665949 0358294 M22.41 M22.42 Obesity 777173403 E66.9 [id number] Jona Milton MD [facility] (Adult Med) [address] [place] [address] 05/03/2022 11:36:07 05/04/2022 07:52:10 Iron deficiency anemia 13072607 D50.9 reviewed normal iron, will stop iron for nowcontinu e iron rich foods Neuropathy 957194950 G62 .9 [facility] monitor [id number] Jake James MD [facility] [address] [address] 02/28/2023 10:55:43 03/06/2023 15:16:42 Chronic rhinitis 24948162 J31.0 over-the-c ounter antihistam jorge Asymmetric al sensorineural hearing loss 520753720 H90.5 follow-up after audiogram [id number] JUAN ALBERTO JORGENSEN DO [facility] (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 No red flag s/s. Contracept ion care management 707987538 Z30.9 Pt would like control. Periods currently [...] [facility] Follow up for mirena insertion scheduled for 2 weeks Smoker 19475950 F17.200 Obesity 321484057 E66.9 [id number] Jona Milton MD [facility] (Peds) [address] [place] [address] 06/07/2023 09:44:56 06/08/2023 12:05:40 Body mass index 30+ - obesity 974741519 Z68.30 Obesity 200004977 E66.9 Adult heal th examination 259351750 Z00.00 routine labs Asthma 831427691 J45.90 9 refill allbuterol and symbicort Chronic rhinitis 7952273 6 J31.0 refill flonase Screening for malignant neoplasm of colon 480107754 Z12.11 Loss of hair 642266472 L 65.9 labs orderedref erral to derm [id number] Jona Milton MD [facility] (Peds) [address] [place] [address] 06/14/2023 11:26:32 06/21/2023 15:06:21 Body mass index 30+ - obesity 968769861 Z68.30 Obesity 163132290 E66.9 Asthma 909541201 J45.90 9 refill allbuterol and symbicort Chronic rhinitis 5044929 6 J31.0 refill flonase Loss of hair 044112229 L 65.9 referral already placed for dermwill send iron and vitamin dfollow up in 1month or sooner if problems arise Iron defic iency anemia 97509197 D50.9 reviewed low ironwill restart iron supplement repeat in 1month Vitamin D deficiency 347 58575 E55.9 vit d sent to pharmacy Hyperglycemia 17367534 R 73.9 diet and exercisere peat labs in 3months [id number] Namrata Pink DO [facility] [address] [place] [address] 07/03/2023 09:14:30 07/04/2023 07:26:29 Screening for malignant neoplasm of colon 990125212 Z12.11 First colonoscop y. No FH of colon cancer.CBC and CMP in chart 06/07/23 [id number] Jona Milton MD [facility] (Peds) [address] [place] [address] 07/12/2023 09:48:19 07/19/2023 12:32:54 Body mass index 30+ - obesity 547488284 Z68.30 Obesity 504580873 E66.9 Asthma 761648414 J45.90 9 refill allbuterol and symbicort Chronic rhinitis 3647893 6 J31.0 refill flonase Loss of hair 254110058 L 65.9 referral already placed for dermwill send iron and vitamin dfollow up in 1month or sooner if problems arise Iron defic iency anemia 07074611 D50.9 reviewed low ironwill restart iron supplement repeat in 1month Vitamin D deficiency 347 03479 E55.9 vit d sent to pharmacy Hyperglycemia 70339705 R 73.9 diet and exercisere peat labs in 3months Osteoarthr itis of knee 297613965 M17.9 [id number] Jona iMlton MD [facility] (Peds) [address] [place] [address] 07/21/2023 10:20:23 07/25/2023 10:29:10 Asthma 145703188 J45.909 refill allbuterol and symbicort Body mass index 30+ - obesity 867227097 Z68.30 Obesity 033354033 E66.9 Chronic rhinitis 8687938 6 J31.0 refill flonase Loss of hair 003403440 L 65.9 referral already placed for derm Iron defic iency anemia 98523418 D50.9 reviewed high irond/c supplement repeat labs in 1month Vitamin D deficiency 347 76552 E55.9 Osteoarthr itis of knee 494991870 M17.9 [id number] Jona Milton MD [facility] (Peds) [address] [place] [address] 10/13/2023 10:20:16 10/17/2023 13:26:30 Body mass index 30+ - obesity 616349175 Z68.30 Obesity 062042659 E66.9 Asthma 138984657 J45.90 9 refill allbuterol and symbicort Chronic rhinitis 2913017 6 J31.0 refill flonase Loss of hair 690989669 L 65.9 referral already placed for derm Iron defic iency anemia 04998298 D50.9 reviewed high irond/c supplement repeat labs in 1month [id number] Jona Milton MD [facility] (Adult Med) [address] [place] [address] 10/03/2024 09:59:02 10/07/2024 08:50:50 Iron deficiency anemia 75133559 D50.9 patient not taking any ironwill order labsfollow up in 1 week Body mass index 30+ - obesity 840754809 Z68.30 referral to weight management patient does not want to be on glp1s or metformin Obesity 847227771 E66.9 Smoker 81235255 F17.200 Asthma 476214591 J45.90 9 refill allbuterol and symbicort Adult heal th examination 007420096 Z00.00 routine labs Backache 441488630 M54.9 chronic back painwill order ibuprofen and baclofen which has helpedwill discuss pt at follow nicolette d weight loss [id number] Jake James MD [facility] [address] [place] [address] 12/23/2024 16:23:43 12/24/2024 10:51:11 Acute sinusitis 11690692 J01.90 infection resolved follow back if she has further difficulti es [id number] Jona Milton MD [facility] (Adult Med) [address] [place] [address] 02/07/2025 09:30:10 02/10/2025 09:24:51 Smoker 06294027 F17.200 Body mass index 30+ - obesity 035377316 Z68.35 Obese class II 245749497 1 22886 E66.812 Cholecystitis 93073415 K 81.9 recent er visit at [facility] on 01/31/25 ultrasound :Redde bre lopez r, which limits its evaluation . No definite sonographi c evidence of cholelithi asis or cholecysti tis. If there is continued clinical concern for cholecysti tis, then further evaluation with HIDA scan is recommende d. referral to GI and surgeryret elza to see me in office after seeing specialist s Health Concerns Section Related Observation LastModified by Organization Detai ls LastModified Time None Recorded Concern Status LastModified by Organization Details LastModified Time None Recorded Advance Directives Directive N: Payers Insurance Date Sequence Insurance Name Policy Number Policy Alexandra Covered Member ID Alexandra Member ID Guarantor Name 02/07/2025 1 [facility] ON OR AFTER 03/25/21 (MEDICAID REPLACEMENT - HMO) Cesar Dear [id number] Cesar Alvarado Dear 10/03/2024 1 [facility] PRIOR TO 03/25/2021 (MEDICAID REPLACEMENT - HMO) Cesar Dear [id number] Cesar Alvarado Dear Notes Date Note Type Note Provider Name and Address Organization Details Recorded Time 07/21/2023 text/html KneeReported bypatient.Quality:ach ing; throbbing Severity:mild Timing:gradual Context:overuse Alleviating Factors:rest; elevation; NSAIDs Associated Symptoms:no weakness; no numbness; no tingling; no redness; no warmth; no ecchymosis; no catching/locking; no buckling; no grinding; no instability; no radiation down leg; no drainage; no fever; no chills; no weight loss; no change in bowel/bladder habits;swelling;poppi ng/clicking follow up fron last visit Johanna Hernandez PA-C Attn: [address] [place], [address], [facility] 07/21/2023 12:24:47 10/13/2023 text/html follow up fron l ast visitnot taking iron Johanna Hernandez PA-C Attn: [address] [place], [address], [facility] 10/13/2023 11:47:19 10/03/2024 text/html AnemiaReported bypatient.Timing:bett er [...] the bathroom/shower; good lighting in the home Johanna Hernandez PA-C Attn: [address] [place], [address], [facility] 10/03/2024 11:25:42 12/23/2024 text/html patient complain ing of a sinus infection in her right side. She had swelling around her right eye and tenderness in her face. She went to the emergency room was treated with antibiotics and doing much better but just here to have it checked. No real complaints today. Jake James MD [address] [place], [address], [facility] 12/23/2024 16:51:18 02/07/2025 text/html Abdominal PainReported bypatient.Location:[facility] Quality:bloating;cram ping;fullness Severity:mild Duration:intermittent Onset/Timing:gradual Associated Symptoms:heartburnNot es:recent er visitdiagnosed with gallstones Johanna Hernandez PA-C Attn: [address] [place], [address], [facility] 02/07/2025 11:24:43 OBGyn Episode No OBEpisode recorded.
--- OUTSIDE RECORDS SUMMARY | 2025-04-02 09:16 | XMS_ITS | Referral Summary ---
Author Organization [facility] [place] Address [address] [place] [address] Care Team Providers Care [employer] Redevelopment Specialist Name Role Phone Johanna Hernandez Primary Care Provider [phone] Encounters Date Type Department Care Team Description 01/30/2025 7:10 AM CDT - 01/30/2025 11:59 PM CDT Hospital Encounter [facility] Ultrasound [address] [place] [id number] Epigastric pain Discharge Disposition: Discharge to home or self care 01/30/2025 12:40 PM CDT Lab [facility] Lab [address] [place] [id number] 01/29/2025 4:01 PM CDT - 01/29/2025 8:44 PM CDT Emergency [facility] Emergency Department [address] [place] [address] Gabbie Calles MD Epigastric pain (Primary Dx) [...] on file 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 PS: PS Report ID: [id number] Reading Location: [id number] Procedure Note Daisy Davidson DO - 01/30/2025 [...] Daisy Davidson D.O. PS: PS Report ID: [id number] Reading Location: [id number] us Gbabie Calles MD IMG US PROCEDURES Final Result [...] Casey Lorenzana M.D. CH: KINGA Report ID: [id number] Reading Location: [id number] Procedure Note Casey Lorenzana Jr., MD - [...] Casey Lorenzana M.D. CH: KINGA Report ID: [id number] Reading Location: [id number] us Gabbie Calles MD IMG CT PROCEDURES Final Result * Troponin T high-sensitivity series (baseline, 2hr, 4hr, 6hr) (01/29/2025 4:42 PM CDT) Trop T hs <6 <=14 ng/L Comment: Interpretive Data For further hscTnT resources including the diagnostic algorithm and an aid in interpretation, copy and paste this link: https://nrl.testcatalog.org/show/hsTrop Current Interpretive Data last revised 2020. Testing performed by: [address] [address] Blood 01/29/2025 4:42 PM CDT 01/29/2025 4:44 PM CDT us Jacob Bullock DO LAB BLOOD ORDERABLES Final Result DAVIS [address] [facility] Department [place] [address] * eGFR (01/29/2025 4:42 PM CDT) Pathologist [...] was last reviewed 2021. Testing performed by: [address] [address] Blood 01/29/2025 4:42 PM CDT 01/29/2025 4:44 PM CDT Jacob Bullock DO LAB BLOOD ORDERABLES Final Result Performing Organization Address [facility] Co de Phone Number [address] [address] * CRP (acute phase) (01/29/2025 4:42 PM CDT) CRP 4.7 <=10.0 mg/L Comment:Testing performed by : [address] [address] Blood 01/29/2025 4:42 PM CDT 01/29/2025 4:44 PM CDT Gabbie Calles MD LAB BLOOD ORDERABLES Fin al Result Performing Organization Address [facility] de Phone Number [address] [address] * (ABNORMAL) Lipase (01/29/2025 4:42 PM CDT) Pathologist [facility] Lipase 154(H) 10 - 99 Units/L Comment:Testing performed by : [address] [address] Blood 01/29/2025 4:42 PM CDT 01/29/2025 4:44 PM CDT Jacob Bullock DO LAB BLOOD ORDERABLES Final Result Performing Organization Address [facility] Co de Phone Number [address] [address] * Comprehensive metabolic panel (01/29/2025 4:42 PM CDT) Pathologist [facility] Sodium 137 135 - 145 mmol/L Comment:Testing performed by : [address] [address] Potassium, pl 3.9 3.3 - 4.9 mmol/L DAVIS Comment:Testing performed by : [address] [address] Chloride 101 97 - 110 mmol/L [facility] Comment:Testing performed by : [address] [address] CO2 28 22 - 32 mmol/L [facility] Comment:Testing performed by : [address], [place]., [address] Anion gap 8 2 - 15 mmol/L [facility] Comment:Testing performed by : [address], [place]., [address] BUN 8 6 - 25 mg/dL [facility] Comment:Testing performed by : [address], [place]., [address] Creatinine 0.60 0.60 - 1.10 mg/dL [facility] Comment:Testing performed by : [address] [address] Glucose 88 70 - 199 mg/dL [facility] Comment: Interpretive Data Fasting glucose >/= 126 [...] was last revised 2022. Testing performed by: [address] [address] Calcium 9.5 8.5 - 10.3 mg/dL [facility] Comment:Testing performed by : [address] [address] Bilirubin, total 0.4 0.1 - 1.2 mg/dL [facility] Comment:Testing performed by : [address] [address] Protein, pl 7.9 6.5 - 8.5 g/dL DAVIS Comment:Testing performed by : [address] [address] Albumin 4.0 3.5 - 5.0 g/dL [facility] ZAMAN Comment:Testing performed by : [address] [address] Alk phos 80 40 - 130 Units/L [facility] ZAMAN Comment:Testing performed by : [address] [address] ALT 11 7 - 45 Units/L [facility] ZAMAN Comment:Testing performed by : [address] [address] AST 14 10 - 45 Units/L [facility] ZAMAN Comment:Testing performed by : [address] [address] Blood 01/29/2025 4:42 PM CDT 01/29/2025 4:44 PM CDT Jacob Bullock DO LAB BLOOD ORDERABLES Final Result Performing Organization Address City/State/[facility] Co de Phone Number [facility] [place] [address] * POCT hCG, urine (01/29/2025 3:44 PM CDT) HCG, ur, POC Negative Negative Lot Number [id number] QC Backgroud Clear Acceptable QC Control Line Acceptable Urine 01/29/2025 3:4 4 PM CDT Jacob Bullock DO POINT OF CARE TEST ORDERABL ES Final Result * Urinalysis reflex to microscopic and culture Urine (01/29/2025 3:42 PM CDT) Color, ur Yellow Yellow Comment:Testing performed by : [address] [address] Clarity, ur Clear Clear [facility] ZAMAN Comment:Testing performed by : [address] [address] Specific gravity, ur 1.010 1.003 - 1.030 [facility] ZAMAN Comment:Testing performed by : [address] [address] pH, urine 7.0 [facility] ZAMAN Comment: Interpretive Data U rine pH is affected by diet, medications, systemic acid-base disturbances, and renal tubular function. pH may affect urinary stone formation. For example, urine pH below 6.0 may help reduce the tendency for calcium phosphate stones and pH greater than 6.0 may reduce the tendency for uric acid stone formation. Source: [facility] [employer] Current Interpretive Data was last revised on 2017 Testing performed by: [facility], [address] [place] [address], [place]., [address] Protein, ur ql Negative Negative DAVIS Comment:Testing performed by : [facility], [address] [place] [address], [place]., [address] Glucose, ur ql Negative Negative DAVIS Comment:Testing performed by : [address], [place]., [address] Ketones, ur Negative Negative DAVIS Comment:Testing performed by : [address], [place]., [address] Bilirubin, ur Negative Negative DAVIS Comment:Testing performed by : [address], [place]., [address] Blood, ur Negative Negative DAVSI Comment:Testing performed by : [address], [place]., [address] Urobilinogen, ur <2.0 <2.0 mg/dL DAVIS Comment:Testing performed by : [address], [place]., [address] Nitrite, ur Negative Negative DAVIS Comment:Testing performed by : [address], [place]., [address] Leukocyte esterase, ur Negative Negative DAVIS Comment:Testing performed by : [address], [place]., [address] UA reflex comment Reflex conditions for microscopic UA and culture not met. DAVIS Comment:Testing performed by : [address], [place]., [address] Urine 01/29/2025 3:42 PM CDT 01/29/2025 3:49 PM CDT us Jacob Bullock DO LAB MICROBIOLOGY - GENERAL ORDERABLES Final Result DAVIS ZAMAN [address] Department [place] [address] * ECG 12 lead (01/29/2025 3:36 PM CDT) Pathologist [facility] Ventricular Rate EKG/Min 84 BPM [facility] Atrial Rate 84 BPM [facility] HI-Interval (MSEC) 180 ms [facility] QRS-Interval (MSEC) 74 ms [facility] QT-Interval (MSEC) 380 ms [facility] QTc 449 ms [facility] P [place] 58 degrees [facility] R [place] 33 degrees [facility] T [place] 39 degrees [facility] Diagnosis Normal sinus rhythm Normal ECG No previous ECGs available Confirmed by YASHIRA MCFARLAND M.D. ([id number]) on 01/29/2025 11:15:17 PM [facility] 01/29/2025 3:36 PM CDT 01/29/2025 11:15 PM CDT Jacob Bullock DO ECG ORDERABLES Final Resul t [facility] * (ABNORMAL) Differential, auto (01/29/2025 3:29 PM CDT) Pathologist [facility] Neutrophil abs 4.75 1.50 - 6.50 K/cumm Comment:Testing performed by : [address] [address] Imm gran abs 0.02 0.00 - 0.10 K/cumm DAVIS Comment:Testing performed by : [address] [address] Lymphocyte abs 2.13 0.80 - 3.30 K/cumm DAVIS Comment:Testing performed by : [address] [address] Monocyte abs 1.10(H) 0.20 - 0.80 K/cumm DAVIS Comment:Testing performed by : [address] [address] Eosinophil abs 0.14 0.00 - 0.50 K/cumm DAVIS Comment:Testing performed by : [address] [place] [address] Basophil abs 0.05 0.00 - 0.10 K/cumm DAVIS Comment:Testing performed by : [address] [address] Neutrophil pct 58.1 % [facility] Comment: Interpretive Data Percent cell count reference ranges are not reported, since discordance with absolute values may lead to misinterpretation of CBC data. Current Interpretive Data was last revised on 2018. Testing performed by: [address] [address] Imm gran pct 0.2 % [facility] Comment: Interpretive Data Percent cell count reference ranges are not reported, since discordance with absolute values may lead to misinterpretation of CBC data. Current Interpretive Data was last revised on 2018. Testing performed by: [address] [address] Lymphocyte pct 26.0 % [facility] Comment: Interpretive Data Percent cell count reference ranges are not reported, since discordance with absolute values may lead to misinterpretation of CBC data. Current Interpretive Data was last revised on 2018. Testing performed by: [address] [address] Monocyte pct 13.4 % [facility] Comment: Interpretive Data Percent cell count reference ranges are not reported, since discordance with absolute values may lead to misinterpretation of CBC data. Current Interpretive Data was last revised on 2018. Testing performed by: [address] [address] Eosinophil pct 1.7 % [facility] Comment: Interpretive Data Percent cell count reference ranges are not reported, since discordance with absolute values may lead to misinterpretation of CBC data. Current Interpretive Data was last revised on 2018. Testing performed by: [address] [address] Basophil pct 0.6 % [facility] Comment: Interpretive Data Percent cell count reference ranges are not reported, since discordance with absolute values may lead to misinterpretation of CBC data. Current Interpretive Data was last revised on 2018. Testing performed by: [address] [address] Blood 01/29/2025 3:29 PM CDT 01/29/2025 3:38 PM CDT Jacob Bullock DO LAB BLOOD ORDERABLES Final Result [facility] [address] [facility] Department [place] [address] * CBC with auto differential (01/29/2025 3:29 PM CDT) Pathologist [facility] WBC 8.19 3.80 - 9.90 K/cumm Comment:Testing performed by : [address] [address] Hgb 14.8 11.9 - 15.5 g/dL DAVIS Comment:Testing performed by : [address] [address] Hct 44.6 35.6 - 45.5 % DAVIS Comment:Testing performed by : [address] [address] Plt 312 150 - 400 K/cumm DAVIS Comment:Testing performed by : [address] [address] MPV 10.1 9.1 - 12.3 fL [facility]IS Comment:Testing performed by : [address] [address] RBC 4.77 3.90 - 5.20 M/cumm DAVIS Comment:Testing performed by : [address] [address] MCV 93.5 81.3 - 96.4 fL DAVIS Comment:Testing performed by : [address] [address] MCH 31.0 27.1 - 33.3 pg [facility] ZAMAN Comment:Testing performed by : [address] [address] MCHC 33.2 32.3 - 35.7 g/dL DAVIS Comment:Testing performed by : [address] [address] RDW CV 13.0 11.1 - 14.9 % [facility] ZAMAN Comment:Testing performed by : [facility], [address] [place] [address]., [address] RDW SD 44.7 35.7 - 48.1 fL [facility] ZAMAN Comment:Testing performed by : [facility], [address] [place] [address]., [address] NRBC abs 0.00 0.00 - 0.01 K/cumm [facility] ZAMAN Comment:Testing performed by : [facility], [address] [place] [address]., [address] Blood Venous blood specimen / Unknown 01/29/2025 3:29 PM CDT 01/29/2025 3:38 PM CDT Jacob Bullock DO LAB BLOOD ORDERABLES Final Result Performing Organization Address City/State/[facility] Co de Phone Number DAVIS ZAMAN [address] [facility] [place] [address] from Last [address] [place] [address] [place] [address] Care Teams [employer] Redevelopment Specialist Relationship Specialty Start Date End Date Johanna Hernandez PA PCP - General Credit Reporter 05/19/23
--- OUTSIDE RECORDS SUMMARY | 2025-04-02 09:17 | XMS_ITS | Clinical Summary ---
Author Organization [facility] Address [address] [place] [address] Care Team Providers Care Data Integrity Consultant Name Role Phone Unavailable Primary Care Provider [...]
--- OUTSIDE RECORDS SUMMARY | 2025-04-02 09:17 | XMS_ITS | Clinical Summary ---
Author Organization [facility] Address [address] [place] [address] Care Team Providers Care Director Physical Name Role Phone Johanna Hernandez Primary Care [...] Team Description 01/30/2025 12:40 PM CDT Lab [facility] Lab [address] [place] [address] 01/30/2025 7:10 AM CDT - 01/30/2025 11:59 PM CDT Hospital Encounter [facility] Ultrasound [address] [place] [address] Epigastric pain Discharge Disposition: Discharge to home or self care 01/29/2025 4:01 PM CDT - 01/29/2025 8:44 PM CDT Emergency [facility] Emergency Department [address] [place] [address] Gabbie Calles MD Epigastric pain (Primary Dx) [...] on file 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 PS: PS Report ID: [id number] Reading Location: [id number] Procedure Note Daisy Davidson, DO - 01/30/2025 [...] Daisy Davidson D.O. PS: PS Report ID: [id number] Reading Location: [place] [address] Gabbie Calles MD IMG US PROCEDURES Final [...] Casey Lorenzana M.D. CH: KINGA Report ID: [id number] Reading Location: [place] [address] Procedure Note Casey Lorenzana Jr., MD - [...] by Casey Lorenzana M.D. CH: Report ID: [id number] Reading Location: [place] [address] us Gabbie Calles MD IMG CT PROCEDURES Final Result * Troponin T high-sensitivity series (baseline, 2hr, 4hr, 6hr) (01/29/2025 4:42 PM CDT) Pathologist [facility] Trop T hs <6 <=14 ng/L Comment: Interpretive Data For further hscTnT resources including the diagnostic algorithm and an aid in interpretation, copy and paste this link: https://nrl.testcatalog.org/show/hsTrop Current Interpretive Data last revised 2020. Testing performed by: [facility], [address] [place] [address]., [id number] Blood 01/29/2025 4:42 PM CDT 01/29/2025 4:44 PM CDT us Jacob Bullock DO LAB BLOOD ORDERABLES Final Result [facility] [address] [facility] Department [place] [address] * eGFR (01/29/2025 4:42 PM CDT) Pathologist [facility] eGFR >90 >=60 mL/min/1. 73 m2 Comment: [...] was last reviewed 2021. Testing performed by: [address] [address] Blood 01/29/2025 4:42 PM CDT 01/29/2025 4:44 PM CDT us Jacob Bullock DO LAB BLOOD ORDERABLES Final Result Performing Organization Address City/[facility]/ZIP Co de Phone Number [id number] [employer] [place] [address] * CRP (acute phase) (01/29/2025 4:42 PM CDT) CRP 4.7 <=10.0 mg/L Comment:Testing performed by : [address] [address] Blood 01/29/2025 4:42 PM CDT 01/29/2025 4:44 PM CDT Gabbie Calles MD LAB BLOOD ORDERABLES Fin al Result Performing Organization Address City/[facility]/ZIP Co de Phone Number [address] [place] [place] [address] * (ABNORMAL) Lipase (01/29/2025 4:42 PM CDT) Lipase 154(H) 10 - 99 Units/L Comment:Testing performed by : [address] [address] Blood 01/29/2025 4:42 PM CDT 01/29/2025 4:44 PM CDT Jacob Bullock DO LAB BLOOD ORDERABLES Final Result DAVIS ZAMAN [address] [facility] Department [place] [address] * Comprehensive metabolic panel (01/29/2025 4:42 PM CDT) Sodium 137 135 - 145 mmol/L Comment:Testing performed by : [address] [address] Potassium, pl 3.9 3.3 - 4.9 mmol/L DAVIS Comment:Testing performed by : [address] [address] Chloride 101 97 - 110 mmol/L DAVIS Comment:Testing performed by : [address] [address] CO2 28 22 - 32 mmol/L DAVIS Comment:Testing performed by : [address] [address] Anion gap 8 2 - 15 mmol/L DAVIS Comment:Testing performed by : [address] [address] BUN 8 6 - 25 mg/dL DAVIS Comment:Testing performed by : [address] [address] Creatinine 0.60 0.60 - 1.10 mg/dL DAVIS Comment:Testing performed by : [address] [address] Glucose 88 70 - 199 mg/dL DAVIS [...] was last revised 2022. Testing performed by: [address] [address] Calcium 9.5 8.5 - 10.3 mg/dL DAVIS Comment:Testing performed by : [address] [address] Bilirubin, total 0.4 0.1 - 1.2 mg/dL DAVIS Comment:Testing performed by : [address] [address] Protein, pl 7.9 6.5 - 8.5 g/dL DAVIS Comment:Testing performed by : [address] [address] Albumin 4.0 3.5 - 5.0 g/dL DAVIS Comment:Testing performed by : [address] [address] Alk phos 80 40 - 130 Units/L DAVIS Comment:Testing performed by : [address] [address] ALT 11 7 - 45 Units/L DAVIS Comment:Testing performed by : [address] [address] AST 14 10 - 45 Units/L DAVIS Comment:Testing performed by : [address] [address] Blood 01/29/2025 4:42 PM CDT 01/29/2025 4:44 PM CDT Jacob Bullock DO LAB BLOOD ORDERABLES Final Result DAVIS [address] [facility] Department [place] [address] * POCT hCG, urine (01/29/2025 3:44 PM CDT) HCG, ur, POC Negative Negative Lot Number [id number] QC Backgroud Clear Acceptable QC Control Line Acceptable Urine 01/29/2025 3:44 PM CDT Jacob Banuelos Ara DO POINT OF CARE TEST ORDERABL ES Final Result * Urinalysis reflex to microscopic and culture Urine (01/29/2025 3:42 PM CDT) Color, ur Yellow Yellow Comment:Testing performed by : [address] [address] Clarity, ur Clear Clear DAVIS Comment:Testing performed by : [address] [address] Specific gravity, ur 1.010 1.003 - 1.030 DAVIS Comment:Testing performed by : [address] [address] pH, urine 7.0 DAVIS Comment: Interpretive Data U rine pH is affected by diet, medications, systemic acid-base disturbances, and renal tubular function. pH may affect urinary stone formation. For example, urine pH below 6.0 may help reduce the tendency for calcium phosphate stones and pH greater than 6.0 may reduce the tendency for uric acid stone formation. Source: [facility] [employer] Current Interpretive Data was last revised on 2017 Testing performed by: [address] [address] Protein, ur ql Negative Negative DAVIS Comment:Testing performed by : [address] [address] Glucose, ur ql Negative Negative DAVIS Comment:Testing performed by : [address] [address] Ketones, ur Negative Negative DAVIS Comment:Testing performed by : [address] [address] Bilirubin, ur Negative Negative DAVIS Comment:Testing performed by : [address] [address] Blood, ur Negative Negative DAVIS Comment:Testing performed by : [address] [address] Urobilinogen, ur <2.0 <2.0 mg/dL DAVIS Comment:Testing performed by : [address] [address] Nitrite, ur Negative Negative DAVIS Comment:Testing performed by : [facility], [address] [place] [address]., [address] Leukocyte esterase, ur Negative Negative DAVIS Comment:Testing performed by : [facility], [address] [place] [address]., [address] UA reflex comment Reflex conditions for microscopic UA and culture not met. DAVIS Comment:Testing performed by : [address] [address] Urine 01/29/2025 3:42 PM CDT 01/29/2025 3:49 PM CDT Jacob Bullock DO LAB MICROBIOLOGY - GENERAL ORDERABLES Final Result DAVIS [address] [facility] Department [place] [address] * ECG 12 lead (01/29/2025 3:36 PM CDT) Ventricular Rate EKG/Min 84 BPM [facility] Atrial Rate 84 BPM [facility] GA-Interval (MSEC) 180 ms [facility] QRS-Interval (MSEC) 74 ms [facility] QT-Interval (MSEC) 380 ms [facility] QTc 449 ms [facility] P Ambler 58 degrees [facility] R Ambler 33 degrees [facility] T Ambler 39 degrees [facility] Diagnosis Normal sinus rhythm Normal ECG No previous ECGs available Confirmed by YASHIRA MCFARLAND M.D. ([id number]) on 01/29/2025 11:15:17 PM [facility] 01/29/2025 3:36 PM CDT 01/29/2025 11:15 PM CDT Jacob Bullock DO ECG ORDERABLES Final Resul t [facility] * (ABNORMAL) Differential, auto (01/29/2025 3:29 PM CDT) Neutrophil abs 4.75 1.50 - 6.50 K/cumm Comment:Testing performed by : [address], [place]., [address] Imm gran abs 0.02 0.00 - 0.10 K/cumm DAVIS Comment:Testing performed by : [address], [place]., [address] Lymphocyte abs 2.13 0.80 - 3.30 K/cumm [facility] Comment:Testing performed by : [address], [place]., [address] Monocyte abs 1.10(H) 0.20 - 0.80 K/cumm [facility] Comment:Testing performed by : [address], [place]., [address] Eosinophil abs 0.14 0.00 - 0.50 K/cumm [facility] Comment:Testing performed by : [address] [address] Basophil abs 0.05 0.00 - 0.10 K/cumm [facility] Comment:Testing performed by : [address] [address] Neutrophil pct 58.1 % [facility] Comment: Interpretive Data Percent cell count reference ranges are not reported, since discordance with absolute values may lead to misinterpretation of CBC data. Current Interpretive Data was last revised on 2018. Testing performed by: [address] [address] Imm gran pct 0.2 % [facility] Comment: Interpretive Data Percent cell count reference ranges are not reported, since discordance with absolute values may lead to misinterpretation of CBC data. Current Interpretive Data was last revised on 2018. Testing performed by: [address] [address] Lymphocyte pct 26.0 % [facility] Comment: Interpretive Data Percent cell count reference ranges are not reported, since discordance with absolute values may lead to misinterpretation of CBC data. Current Interpretive Data was last revised on 2018. Testing performed by: [address] [address] Monocyte pct 13.4 % [facility] Comment: Interpretive Data Percent cell count reference ranges are not reported, since discordance with absolute values may lead to misinterpretation of CBC data. Current Interpretive Data was last revised on 2018. Testing performed by: [address] [address] Eosinophil pct 1.7 % DAVIS Comment: Interpretive Data Percent cell count reference ranges are not reported, since discordance with absolute values may lead to misinterpretation of CBC data. Current Interpretive Data was last revised on 2018. Testing performed by: [address] [address] Basophil pct 0.6 % DAVIS Comment: Interpretive Data Percent cell count reference ranges are not reported, since discordance with absolute values may lead to misinterpretation of CBC data. Current Interpretive Data was last revised on 2018. Testing performed by: [address] [address] Blood 01/29/2025 3:29 PM CDT 01/29/2025 3:38 PM CDT us Jacob Bullock DO LAB BLOOD ORDERABLES Final Result [facility] [address] [facility] Department [place] [address] * CBC with auto differential (01/29/2025 3:29 PM CDT) WBC 8.19 3.80 - 9.90 K/cumm Comment:Testing performed by : [address] [address] Hgb 14.8 11.9 - 15.5 g/dL DAVIS ZAMAN Comment:Testing performed by : [address] [address] Hct 44.6 35.6 - 45.5 % DAVIS Comment:Testing performed by : [address] [address] Plt 312 150 - 400 K/cumm DAVIS Comment:Testing performed by : [address] [address] MPV 10.1 9.1 - 12.3 fL DAVIS ZAMAN Comment:Testing performed by : [facility], [address] [place] [address]., [address] RBC 4.77 3.90 - 5.20 M/cumm DAVIS ZAMAN Comment:Testing performed by : [facility], [address] [place] [address]., [address] MCV 93.5 81.3 - 96.4 fL DAVIS ZAMAN Comment:Testing performed by : [address] [address] MCH 31.0 27.1 - 33.3 pg DAVIS ZAMAN Comment:Testing performed by : [address] [address] MCHC 33.2 32.3 - 35.7 g/dL DAVIS ZAMAN Comment:Testing performed by : [address] [address] RDW CV 13.0 11.1 - 14.9 % DAVIS Comment:Testing performed by : [address] [address] RDW SD 44.7 35.7 - 48.1 fL DAVIS Comment:Testing performed by : [address] [address] NRBC abs 0.00 0.00 - 0.01 K/cumm DAVIS Comment:Testing performed by : [address] [address] Blood Venous blood specimen / Unknown 01/29/2025 3:29 PM CDT 01/29/2025 3:38 PM CDT us Jacob Bullock DO LAB BLOOD ORDERABLES Final Result [facility] [address] [facility] Department of Laboratories [place], [place] [id number] from Last 3 Months Insurance [facility] [address] [address] [address] [place] [address] Member Subscriber Plan / Payer (Ef fective 2024-Present) Name:Cesar Hidalgo Relation to Subscriber:Self Name:Avafahad Cesar Munoz Payer ID:[id number] (NAIC) Group ID:Not on file Type:MEDICAID [id number] OTHER Address: ATTN: CLAIMS DEPT [address] [facility] [place] [id number] [place] [address] Care Teams Director Physical Relationship Specialty Start Date End Date Johanna Hernandez PA PCP - General Plastic Bubble Packer 05/19/23
== END 2025-04-02 09:05 | disposition home or self-care (01) ==
PROVIDERS: PCP Obstetrics & Gynecology; Visit Provider Obstetrics & Gynecology
DX: Z12.31 Encounter for screening mammogram for malignant neoplasm of breast (principal)
CPT/HCPCS: 77063; 77067

== ENCOUNTER 2025-04-07 00:36 | Day surgery (SDC) | payer OTHER, SELFPAY ==
[2025-04-01 10:50] VITALS: BMI 37.0
--- OUTSIDE RECORDS SUMMARY | 2025-04-07 00:48 | XMS_ITS | Clinical Summary ---
Author Organization [facility] Address [address] [place] [address] Care Team Providers Care Sap Basis Consultant Name Role Phone Unavailable Primary Care [...]
--- OUTSIDE RECORDS SUMMARY | 2025-04-07 00:48 | XMS_ITS | Data Portability ---
Author Organization [facility] Address [address] [place] [address] Care Team Providers Care Senior Office Support Assistant Sosa Name Role Phone JOHANNA HERNANDEZ Primary Care Provider [phone] Assessment No assessment recorded. Plan of Treatment Reminders Order Date Submit Date Provider Last Modified By Organization Details Last Modified Time Details Appointments None recorded. Lab lipid panel, serum 2024 025 [facility], [address] [place] [address], [address], [place], [address], 5 08:28:11 CMP, serum or plasma 2024 025 [facility], [address] [place] [address], [address], [place], [address], 5 08:28:12 HbA1c (hemoglobi n A1c), blood 2024 025 [facility], [address] [place] [address], [address], [place], [address], 5 06:37:32 vitamin D, 25-hydroxy , total, serum 2024 025 [facility], [address] [place], [place] [address], [address], [place], [address], 5 06:37:34 TSH, ultra-sens itive, serum 2024 025 [facility], [address], [address], [place], [address], 5 06:37:30 HIV 1 + 2, meaningful use set 2024 025 [facility], [address], [address], [place], [address], 5 06:37:36 chlamydia trachomati s + neisseria gonorrhoea e + trichomona s vaginalis rRNA panel, PETRONA+probe 2024 025 [facility], [address], [address], [place], [address], 5 06:37:28 RPR (rapid plasma reagin), serum 2024 025 [facility], [address], [address], [place], [address], 5 06:37:33 iron + total iron-edgar ng capacity (TIBC), serum 2024 025 [facility], [address], [address], [place], [address], 5 06:37:31 CBC w/ auto diff 2024 025 [facility], [address], [address], [place], [address], 5 08:28:14 iron + total iron-edgar ng capacity (TIBC), serum 2023 024 [facility], [address], [address], [place], [address], 4 10:14:09 CBC w/ auto diff 2023 024 [facility], [address], [address], [place], [address], 4 07:13:54 vitamin D, 25-hydroxy , total, serum 2022 023 [facility], [address] [facility] [address], [place], [address], 3 08:27:04 iron + total iron-edgar ng capacity (TIBC), serum 2022 023 [facility], [address] [facility] [address], [address], [place], [address], 3 08:27:03 CBC w/ auto diff 2022 023 [facility], [address] [place], [place] [address], [address], [place], [address], 3 06:18:14 Referral general surgeon referral 2024 025 [facility] - General Surgery, [address], [address], [place], [address], 5 13:00:47 gastroente rologist referral 2024 025 [facility] Gastroenterol [facility]gy, [address], [address], [place], [address], 5 12:45:30 weight management referral 2024 025 [facility] Streamline Referral Program, [facility], [place], [address], 5 12:42:58 Procedures None recorded. Surgeries None recorded. Imaging None recorded. Medication Orders albuterol sulfate HFA 90 mcg/actuat ion aerosol inhaler 2024 025 [facility][id number], [address] [place] [address], [id number], 5 11:25:26 Symbicort 160 mcg-4.5 mcg/actuat ion HFA aerosol inhaler 2024 025 [facility] #47949, [address] [place] [address], [id number], 5 11:25:27 baclofen 10 mg tablet 2024 025 [facility] #50954, [address] [place] [address], [id number], 5 11:25:27 ibuprofen 800 mg tablet 2024 025 [facility] #48025, [address] [place] [address], [id number], 5 11:25:27 ferrous sulfate 325 mg (65 mg iron) tablet 2024 025 [facility] #84769, [address] [place] [address], [id number], 5 11:25:26 ibuprofen 800 mg tablet 2022 023 [facility] #56577, [address] [place] [address], [id number], 12:24:24 Patient TargetsNo targets recorded. Patient Instructions Encounter Date Encounter Id Patient Instructions Last Modified By Organization Details Last Modified Time 07/21/2023 [id number] A healthy lifestyle: care instructions Not available 07/21/2023 12:24:13 10/13/2023 [id number] A healthy lifestyle: care instructions Not available 10/13/2023 11:45:15 10/03/2024 [id number] Quitting Tobacco : Care Instructions Not available 10/03/2024 11:25:10 A healthy lifestyle: care instructions Not available 10/03/2024 11:25:10 02/07/2025 [id number] A healthy lifestyle: care instructions Not available 02/07/2025 11:24:16 Quitting Tobacco : Care Instructions Not available 02/07/2025 11:24:16 Reason for Referral Weight Management Referral f or Body mass index 30+ - obesity Referring Physician: Johanna Hernandez [facility], Encounter Date: 10/03/2024 General Surgeon Referral for Cholecystitis Referring Physician: Johanna Hernandez [facility] Sameera, Encounter Date: 02/07/2025 Cd Reactor Operator Head Referral for Cholecystitis Referring Physician: Johanna Hernandez [facility] Sameera, Encounter Date: 02/07/2025 Results Created Date Observation Date Name Description Value Unit Range Abnormal Flag Note LastModifiedBy Organization Detail LastModifiedTime 07/12/2007/12/2023 LIPID PANEL cholesterol, total 125 mg/dL 100-19 9 Not Available [facility] Department [address] [place], [address], 07/13/2023 06:18:46 07/12/20 23 07/12/2023 LIPID PANEL triglyceride s 43 mg/dL 0-[address] [facility] Department [address] [place], [address], 07/13/2023 06:18:46 07/12/20 23 07/12/2023 LIPID PANEL HDL cholesterol 44 mg/dL 40-999 Not Available [facility] Department [address] [place], [address], 07/13/2023 06:18:46 07/12/20 23 07/12/2023 LIPID PANEL VLDL cholesterol josie 9 mg/dL 5-[address] [facility] Department [address] [place], [address], 07/13/2023 06:18:46 07/12/2007/12/2023 LIPID PANEL LDL chol calc (nih) 76 mg/dL 0-99 Not Available [facility] Department [address] [place], [address], 07/13/2023 06:18:46 07/12/2007/12/2023 BASIC METAB OLIC PANEL (8) glucose 90 mg/dL 70-99 Not Available [facility] Department [address] [place], [address], 07/13/2023 06:18:47 07/12/2007/12/2023 BASIC METAB OLIC PANEL (8) BUN 10 mg/dL 6-24 Not Available [facility] Department [address] [place], [address], 07/13/2023 06:18:47 07/12/2007/12/2023 BASIC METAB OLIC PANEL (8) creatinine 0.68 mg/dL 0.76-1 .27 below low normal Not Available [facility] Department [address] [place], [address], 07/13/2023 06:18:47 07/12/2007/12/2023 BASIC METAB OLIC PANEL (8) BUN/creatini ne ratio 15 9-[address] [facility] Department [address] [place], [address], 07/13/2023 06:18:47 07/12/2007/12/2023 BASIC METAB OLIC PANEL (8) sodium 137 mmol/ L 134-14 4 Not Available [facility] Department [address] [place], [address], 07/13/2023 06:18:47 07/12/2007/12/2023 BASIC METAB OLIC PANEL (8) potassium 4.9 mmol/ L 3.5-5. 2 Not Available [facility] Department [address] [place], [address], 07/13/2023 06:18:47 07/12/2007/12/2023 BASIC METAB OLIC PANEL (8) chloride 106 mmol/ L 96-106 Not Available [facility] Department [address] [place], [address], 07/13/2023 06:18:47 07/12/2007/12/2023 BASIC METAB OLIC PANEL (8) carbon dioxide, total 25 mmol/ L 20-29 Not Available [facility] Department [address] [place], [address], 07/13/2023 06:18:47 07/12/2007/12/2023 BASIC METAB OLIC PANEL (8) calcium 9.0 mg/dL 8.7-10 .2 Not Available [facility] Department [address] [place], [address], 07/13/2023 06:18:47 07/12/2007/12/2023 CBC WITH DIFFE RENTI AL/PL ATELE T WBC 7.7 x10e3 /uL 3.4-10 .8 Not Available [facility] Department [address] [place], [address], 07/13/2023 06:18:48 07/12/2007/12/2023 CBC WITH DIFFE RENTI AL/PL ATELE T RBC 4.49 x10e6 /uL 3.77-5 .28 Not Available [facility] Department [address] [place], [address], 07/13/2023 06:18:48 07/12/2007/12/2023 CBC WITH DIFFE RENTI AL/PL ATELE T hemoglobin 12.7 g/dL 11.1-1 5.9 Not Available [facility] Department [address] [place], [address], 07/13/2023 06:18:48 07/12/2007/12/2023 CBC WITH DIFFE RENTI AL/PL ATELE T hematocrit 41.0 % 34.0-4 6.6 Not Available [facility] Department [address] [place], [address], 07/13/2023 06:18:48 07/12/2007/12/2023 CBC WITH DIFFE RENTI AL/PL ATELE T MCV 91 fL 79-97 Not Available [facility] Department [address] [place], [address], 07/13/2023 06:18:48 07/12/2007/12/2023 CBC WITH DIFFE RENTI AL/PL ATELE T MCH 28.3 pg 26.6-3 3.0 Not Available [facility] Department [address] [place], [address], 07/13/2023 06:18:48 07/12/2007/12/2023 CBC WITH DIFFE RENTI AL/PL ATELE T MCHC 31.0 g/dL 31.5-3 5.7 below low normal Not Available [facility] Department [address] [place], [address], 07/13/2023 06:18:48 07/12/2007/12/2023 CBC WITH DIFFE RENTI AL/PL ATELE T RDW 16.7 % 11.5-1 4.5 above high normal Not Available [facility] Department [address] [place], [address], 07/13/2023 06:18:48 07/12/2007/12/2023 CBC WITH DIFFE RENTI AL/PL ATELE T platelets 298 x10e3 /uL 150-45 0 Not Available [facility] Department [address] [place], [address], 07/13/2023 06:18:48 07/12/2007/12/2023 CBC WITH DIFFE RENTI AL/PL ATELE T neutrophils 53 % notest b. Not Available [facility] Department [address] [place], [address], 07/13/2023 06:18:48 07/12/2007/12/2023 CBC WITH DIFFE RENTI AL/PL ATELE T lymphs 34 % notest b. Not Available [facility] Department [address] [place], [address], 07/13/2023 06:18:48 07/12/2007/12/2023 CBC WITH DIFFE RENTI AL/PL ATELE T monocytes 10 % notest b. Not Available [facility] Department [address] [place], [address], 07/13/2023 06:18:48 07/12/2007/12/2023 CBC WITH DIFFE RENTI AL/PL ATELE T eos 2 % notest b. Not Available [facility] Department [address] [place], [address], 07/13/2023 06:18:48 07/12/2007/12/2023 CBC WITH DIFFE RENTI AL/PL ATELE T basos 1 % notest b. Not Available [facility] Department [address] [place], [address], 07/13/2023 06:18:48 07/12/2007/12/2023 CBC WITH DIFFE RENTI AL/PL ATELE T neutrophils (absolute) 4.0 x10e3 /uL 1.4-7. 0 Not Available [facility] Department [address] [place], [address], 07/13/2023 06:18:48 07/12/2007/12/2023 CBC WITH DIFFE RENTI AL/PL ATELE T lymphs (absolute) 2.6 x10e3 /uL 0.7-3. 1 Not Available [facility] Department [address] [place], [address], 07/13/2023 06:18:48 07/12/20 23 07/12/2023 CBC WITH DIFFE RENTI AL/PL ATELE T monocytes(ab solute) 0.8 x10e3 /uL 0.1-0. 9 Not Available [facility] Department [address] [place], [address], 07/13/2023 06:18:48 07/12/2007/12/2023 CBC WITH DIFFE RENTI AL/PL ATELE T eos (absolute) 0.1 x10e3 /uL 0.0-0. 4 Not Available [facility] Department [address] [place], [address], 07/13/2023 06:18:48 07/12/2007/12/2023 CBC WITH DIFFE RENTI AL/PL ATELE T baso (absolute) 0.1 x10e3 /uL 0.0-0. 2 Not Available [facility] Department [address] [place], [address], 07/13/2023 06:18:48 07/12/2007/12/2023 CBC WITH DIFFE RENTI AL/PL ATELE T immature granulocytes 0.3 % notest b. Not Available [facility] Department [address] [place], [address], 07/13/2023 06:18:48 07/12/2007/12/2023 CBC WITH DIFFE RENTI AL/PL ATELE T immature grans (abs) 0.0 x10e3 /uL 0.0-0. 1 Not Available [facility] Department [address] [place], [address], 07/13/2023 06:18:48 07/12/2007/12/2023 CBC WITH DIFFE RENTI AL/PL ATELE T NRBC 0 % 0-0 Not Available [facility] Department [address] [place], [address], 07/13/2023 06:18:48 07/12/2007/13/2023 IRON AND TIBC iron bind.cap.(TI BC) 333 ug/dL 250-45 0 Not Available [facility] ([facility]) [address] [place], [address], 07/13/2023 07:17:44 07/12/2007/13/2023 IRON AND TIBC UIBC 143 ug/dL 131-42 5 Not Available [facility] ([facility]) [address] [place], [address], 07/13/2023 07:17:44 07/12/2007/13/2023 IRON AND TIBC iron 190 ug/dL 27-159 above high normal Not Available [facility] ([facility]) [address] [place], [address], 07/13/2023 07:17:44 07/12/2007/13/2023 IRON AND TIBC iron saturation 57 % 15-55 above high normal Not Available [facility] ([facility]) [address] [place], [address], 07/13/2023 07:17:44 07/12/2007/13/2023 HEMOG LOBIN A1C hemoglobin A1C 5.6 % 4.8-5. 6 Predi abete s: 5.7 - 6.4 Diabe katja: >6.4 Glyce frederic contr ol for adult s with diabe katja: <7.0 Not Available [facility] ([facility]) [address] [place], [address], 07/13/2023 07:17:45 07/12/2007/13/2023 VITAM IN D, 25-HY [...] um and D. Rian haynes [place]: The [facility] . 2. Julio Cesar hendrix MF, Joselin almaraz [place], Abby off-F errwilbert i ZARATE, et al. Evalu ation , treat ment, and preve ntion of vitam in D defic iency : an Endoc rine Socie ty clini josie pract ice guide line. JCEM. 2010; 96(7) :1911 -30. Not Available [facility] ([facility]) [address] [place], [address], 07/13/2023 07:17:45 08/09/2008/10/2023 CBC WITH DIFFE RENTI AL/PL ATELE T WBC 7.9 x10e3 /uL 3.4-10 .8 Not Available [facility] ([facility]) [address] [place], [address], 08/10/2023 06:18:14 08/09/20 23 08/10/2023 CBC WITH DIFFE RENTI AL/PL ATELE T RBC 3.97 x10e6 /uL 3.77-5 .28 Not Available [facility] ([facility]) [address] [place], [address], 08/10/2023 06:18:14 08/09/20 23 08/10/2023 CBC WITH DIFFE RENTI AL/PL ATELE T hemoglobin 11.4 g/dL 11.1-1 5.9 Not Available [facility] ([facility]) [address] [place], [address], 08/10/2023 06:18:14 08/09/20 23 08/10/2023 CBC WITH DIFFE RENTI AL/PL ATELE T hematocrit 36.1 % 34.0-4 6.6 Not Available [facility] ([facility]) [address] [place], [address], 08/10/2023 06:18:14 08/09/20 23 08/10/2023 CBC WITH DIFFE RENTI AL/PL ATELE T MCV 91 fL 79-97 Not Available [facility] ([facility]) [address] [facility], [place], [address], 08/10/2023 06:18:14 08/09/2008/10/2023 CBC WITH DIFFE RENTI AL/PL ATELE T MCH 28.7 pg 26.6-3 3.0 Not Available [facility] ([facility]) [address] [place], [address], 08/10/2023 06:18:14 08/09/2008/10/2023 CBC WITH DIFFE RENTI AL/PL ATELE T MCHC 31.6 g/dL 31.5-3 5.7 Not Available [facility] ([facility]) [address] [place], [address], 08/10/2023 06:18:14 08/09/2008/10/2023 CBC WITH DIFFE RENTI AL/PL ATELE T RDW 14.7 % 11.7-1 5.4 Not Available [facility] ([facility]) [address] [place], [address], 08/10/2023 06:18:14 08/09/2008/10/2023 CBC WITH DIFFE RENTI AL/PL ATELE T platelets 314 x10e3 /uL 150-45 0 Not Available [facility] ([facility]) [address] [place], [address], 08/10/2023 06:18:14 08/09/20 23 08/10/2023 CBC WITH DIFFE RENTI AL/PL ATELE T neutrophils 53 % notest ab. Not Available [facility] ([facility]) [address] [facility], [place], [address], 08/10/2023 06:18:14 08/09/20 23 08/10/2023 CBC WITH DIFFE RENTI AL/PL ATELE T lymphs 33 % notest ab. Not Available [facility] ([facility]) [address] [facility], [place], [address], 08/10/2023 06:18:14 08/09/20 23 08/10/2023 CBC WITH DIFFE RENTI AL/PL ATELE T monocytes 10 % notest ab. Not Available [facility] ([facility]) [address] [facility], [place], [address], 08/10/2023 06:18:14 08/09/20 23 08/10/2023 CBC WITH DIFFE RENTI AL/PL ATELE T eos 3 % notest ab. Not Available [facility] ([facility]) [address] [facility], [place], [address], 08/10/2023 06:18:14 08/09/20 23 08/10/2023 CBC WITH DIFFE RENTI AL/PL ATELE T basos 1 % notest ab. Not Available [facility] ([facility]) [address] [facility], [place], [address], 08/10/2023 06:18:14 08/09/20 23 08/10/2023 CBC WITH DIFFE RENTI AL/PL ATELE T neutrophils (absolute) 4.2 x10e3 /uL 1.4-7. 0 Not Available [facility] ([facility]) [address] [facility], [place], [address], 08/10/2023 06:18:14 08/09/20 23 08/10/2023 CBC WITH DIFFE RENTI AL/PL ATELE T lymphs (absolute) 2.6 x10e3 /uL 0.7-3. 1 Not Available [facility] ([facility]) [address] [facility], [place], [address], 08/10/2023 06:18:14 08/09/20 23 08/10/2023 CBC WITH DIFFE RENTI AL/PL ATELE T monocytes(ab solute) 0.8 x10e3 /uL 0.1-0. 9 Not Available [facility] ([facility]) [address] [facility], [place], [address], 08/10/2023 06:18:14 08/09/20 23 08/10/2023 CBC WITH DIFFE RENTI AL/PL ATELE T eos (absolute) 0.3 x10e3 /uL 0.0-0. 4 Not Available [facility] ([facility]) [address] [facility], [place], [address], 08/10/2023 06:18:14 08/09/20 23 08/10/2023 CBC WITH DIFFE RENTI AL/PL ATELE T baso (absolute) 0.0 x10e3 /uL 0.0-0. 2 Not Available [facility] ([facility]) [address] [facility], [place], [address], 08/10/2023 06:18:14 08/09/20 23 08/10/2023 CBC WITH DIFFE RENTI AL/PL ATELE T immature granulocytes 0 % notest ab. Not Available [facility] ([facility]) [address] [place], [address], 08/10/2023 06:18:14 08/09/20 23 08/10/2023 CBC WITH DIFFE RENTI AL/PL ATELE T immature grans (abs) 0.0 x10e3 /uL 0.0-0. 1 Not Available [facility] ([facility]) [address] [facility], [place], [address], 08/10/2023 06:18:14 08/09/20 23 08/10/2023 IRON AND TIBC iron bind.cap.(TI BC) 335 ug/dL 250-45 0 Not Available [facility] ([facility]) [address] [facility], [place], [address], 08/10/2023 08:27:03 08/09/20 23 08/10/2023 IRON AND TIBC UIBC 291 ug/dL 131-42 5 Not Available [facility] ([facility]) [address] [facility], [place], [address], 08/10/2023 08:27:03 08/09/20 23 08/10/2023 IRON AND TIBC iron 44 ug/dL 27-159 Not Available [facility] ([facility]) [address] [facility], [place], [address], 08/10/2023 08:27:03 08/09/20 23 08/10/2023 IRON AND TIBC iron saturation 13 % 15-55 below low normal Not Available [facility] ([facility]) [address] [facility], [place], [address], 08/10/2023 08:27:03 08/09/2008/10/2023 VITAM IN D, 25-HY [...] and D. Rian haynes [place]: The [facility] Press . 2. Julio Cesar hendrix MF, [place] ey [place], Abby off-F errar i ZARATE, et al. Evalu ation , treat ment, and preve ntion of vitam in D defic iency : an Endoc rine Socie ty clini josie pract ice guide line. JCEM. 2010; 96(7) :1911 -30. Not Available [facility] ([facility]) [address] [facility], [place], [address], 08/10/2023 08:27:04 11/21/19 24 11/22/2023 CBC WITH DIFFE RENTI AL/PL ATELE T WBC 6.5 x10e3 /uL 3.4-10 .8 Not Available [facility] ([facility]) [address] [facility], [place], [address], 11/22/2023 07:13:54 11/21/19 24 11/22/2023 CBC WITH DIFFE RENTI AL/PL ATELE T RBC 4.26 x10e6 /uL 3.77-5 .28 Not Available [facility] ([facility]) [address] [facility], [place], [address], 11/22/2023 07:13:54 11/21/19 24 11/22/2023 CBC WITH DIFFE RENTI AL/PL ATELE T hemoglobin 12.8 g/dL 11.1-1 5.9 Not Available [facility] ([facility]) [address] [facility], [place], [address], 11/22/2023 07:13:54 11/21/19 24 11/22/2023 CBC WITH DIFFE RENTI AL/PL ATELE T hematocrit 40.1 % 34.0-4 6.6 Not Available [facility] ([facility]) [address] [place], [address], 11/22/2023 07:13:54 11/21/19 24 11/22/2023 CBC WITH DIFFE RENTI AL/PL ATELE T MCV 94 fL 79-97 Not Available [facility] ([facility]) [address] [facility], [place], [address], 11/22/2023 07:13:54 11/21/19 24 11/22/2023 CBC WITH DIFFE RENTI AL/PL ATELE T MCH 30.0 pg 26.6-3 3.0 Not Available [facility] ([facility]) [address] [facility], [place], [address], 11/22/2023 07:13:54 11/21/19 24 11/22/2023 CBC WITH DIFFE RENTI AL/PL ATELE T MCHC 31.9 g/dL 31.5-3 5.7 Not Available [facility] ([facility]) [address] [facility], [place], [address], 11/22/2023 07:13:54 11/21/19 24 11/22/2023 CBC WITH DIFFE RENTI AL/PL ATELE T RDW 13.1 % 11.7-1 5.4 Not Available [facility] ([facility]) [address] [facility], [place], [address], 11/22/2023 07:13:54 11/21/19 24 11/22/2023 CBC WITH DIFFE RENTI AL/PL ATELE T platelets 335 x10e3 /uL 150-45 0 Not Available [facility] ([facility]) [address] [facility], [place], [address], 11/22/2023 07:13:54 11/21/19 24 11/22/2023 CBC WITH DIFFE RENTI AL/PL ATELE T neutrophils 60 % notest ab. Not Available [facility] ([facility]) [address] [facility], [place], [address], 11/22/2023 07:13:54 11/21/19 24 11/22/2023 CBC WITH DIFFE RENTI AL/PL ATELE T lymphs 24 % notest ab. Not Available [facility] ([facility]) [address] [place], [address], 11/22/2023 07:13:54 11/21/19 24 11/22/2023 CBC WITH DIFFE RENTI AL/PL ATELE T monocytes 11 % notest ab. Not Available [facility] ([facility]) [address] [facility], [place], [address], 11/22/2023 07:13:54 11/21/19 24 11/22/2023 CBC WITH DIFFE RENTI AL/PL ATELE T eos 4 % notest ab. Not Available [facility] ([facility]) [address] [facility], [place], [address], 11/22/2023 07:13:54 11/21/19 24 11/22/2023 CBC WITH DIFFE RENTI AL/PL ATELE T basos 1 % notest ab. Not Available [facility] ([facility]) [address] [facility], [place], [address], 11/22/2023 07:13:54 11/21/19 24 11/22/2023 CBC WITH DIFFE RENTI AL/PL ATELE T neutrophils (absolute) 3.9 x10e3 /uL 1.4-7. 0 Not Available [facility] ([facility]) [address] [facility], [place], [address], 11/22/2023 07:13:54 11/21/19 24 11/22/2023 CBC WITH DIFFE RENTI AL/PL ATELE T lymphs (absolute) 1.6 x10e3 /uL 0.7-3. 1 Not Available [facility] ([facility]) [address] [facility], [place], [address], 11/22/2023 07:13:54 11/21/19 24 11/22/2023 CBC WITH DIFFE RENTI AL/PL ATELE T monocytes(ab solute) 0.7 x10e3 /uL 0.1-0. 9 Not Available [facility] ([facility]) [address] [place], [address], 11/22/2023 07:13:54 11/21/19 11/22/2023 CBC WITH DIFFE RENTI AL/PL ATELE T eos (absolute) 0.2 x10e3 /uL 0.0-0. 4 Not Available [facility] ([facility]) [address] [place], [address], 11/22/2023 07:13:54 11/21/19 24 11/22/2023 CBC WITH DIFFE RENTI AL/PL ATELE T baso (absolute) 0.0 x10e3 /uL 0.0-0. 2 Not Available [facility] ([facility]) [address] [facility], [place], [address], 11/22/2023 07:13:54 11/21/19 24 11/22/2023 CBC WITH DIFFE RENTI AL/PL ATELE T immature granulocytes 0 % notest ab. Not Available [facility] ([facility]) [address] [facility], [place], [address], 11/22/2023 07:13:54 11/21/19 24 11/22/2023 CBC WITH DIFFE RENTI AL/PL ATELE T immature grans (abs) 0.0 x10e3 /uL 0.0-0. 1 Not Available [facility] ([facility]) [address] [place], [address], 11/22/2023 07:13:54 11/21/19 24 11/22/2023 IRON AND TIBC iron bind.cap.(TI BC) 360 ug/dL 250-45 0 Not Available [facility] ([facility]) [address] [place], [address], 11/22/2023 10:14:09 11/21/19 24 11/22/2023 IRON AND TIBC UIBC 321 ug/dL 131-42 5 Not Available [facility] ([facility]) [address] [place], [address], 11/22/2023 10:14:09 11/21/19 24 11/22/2023 IRON AND TIBC iron 39 ug/dL 27-159 Not Available [facility] ([facility]) [address] [facility] [place], [address], 11/22/2023 10:14:09 11/21/19 24 11/22/2023 IRON AND TIBC iron saturation 11 % 15-55 below low normal Not Available [facility] ([facility]) [address] [facility], [place], [address], 11/22/2023 10:14:09 10/24/19 25 10/25/2024 LIPID PANEL cholesterol, total 157 mg/dL 100-19 9 Not Available [facility] ([facility]) [address] [facility], [place], [address], 10/25/2024 08:28:11 10/24/19 25 10/25/2024 LIPID PANEL triglyceride s 61 mg/dL 0-149 Not Available [facility] ([facility]) [address] [facility], [place], [address], 10/25/2024 08:28:11 10/24/19 25 10/25/2024 LIPID PANEL HDL cholesterol 48 mg/dL >39 Not Available [facility] ([facility]) [address] [facility], [place], [address], 10/25/2024 08:28:11 10/24/19 25 10/25/2024 LIPID PANEL VLDL cholesterol josie 12 mg/dL 5-40 Not Available [facility] ([facility]) [address] [place], [address], 10/25/2024 08:28:11 10/24/19 25 10/25/2024 LIPID PANEL LDL chol calc ([facility]) 97 mg/dL 0-99 Not Available [facility] ([facility]) [address] [place], [address], 10/25/2024 08:28:11 10/24/19 25 10/25/2024 COMP. METAB OLIC PANEL (14) glucose 101 mg/dL 70-99 above high normal Not Available [facility] ([facility]) [address] [place], [address], 10/25/2024 08:28:12 10/24/19 25 10/25/2024 COMP. METAB OLIC PANEL (14) BUN 7 mg/dL 6-24 Not Available [facility] ([facility]) [address] [place], [address], 10/25/2024 08:28:12 10/24/19 25 10/25/2024 COMP. METAB OLIC PANEL (14) creatinine 0.75 mg/dL 0.57-1 .00 Not Available [facility] ([facility]) [address] [place], [address], 10/25/2024 08:28:12 10/24/19 25 10/25/2024 COMP. METAB OLIC PANEL (14) eGFR 101 mL/mi n/1.7 3 >59 Not Available [facility] ([facility]) [address] [place], [address], 10/25/2024 08:28:12 10/24/19 25 10/25/2024 COMP. METAB OLIC PANEL (14) BUN/creatini ne ratio 9 9-23 Not Available [facility] ([facility]) [address] [place], [address], 10/25/2024 08:28:12 10/24/19 25 10/25/2024 COMP. METAB OLIC PANEL (14) sodium 139 mmol/ L 134-14 4 Not Available [facility] ([facility]) [address] [facility] [place], [address], 10/25/2024 08:28:12 10/24/19 25 10/25/2024 COMP. METAB OLIC PANEL (14) potassium 4.1 mmol/ L 3.5-5. 2 Not Available [facility] ([facility]) [address] [place], [address], 10/25/2024 08:28:12 10/24/19 25 10/25/2024 COMP. METAB OLIC PANEL (14) chloride 105 mmol/ L 96-106 Not Available [facility] ([facility]) [address] [place], [address], 10/25/2024 08:28:12 10/24/19 25 10/25/2024 COMP. METAB OLIC PANEL (14) carbon dioxide, total 24 mmol/ L 20-29 Not Available [facility] ([facility]) [address] [place], [address], 10/25/2024 08:28:12 10/24/19 25 10/25/2024 COMP. METAB OLIC PANEL (14) calcium 9.1 mg/dL 8.7-10 .2 Not Available [facility] ([facility]) [address] [place], [address], 10/25/2024 08:28:12 10/24/19 25 10/25/2024 COMP. METAB OLIC PANEL (14) protein, total 6.0 g/dL 6.0-8. 5 Not Available [facility] ([facility]) [address] [place], [address], 10/25/2024 08:28:12 10/24/19 25 10/25/2024 COMP. METAB OLIC PANEL (14) albumin 3.6 g/dL 3.9-4. 9 below low normal Not Available [facility] ([facility]) [address] [place], [address], 10/25/2024 08:28:12 10/24/19 25 10/25/2024 COMP. METAB OLIC PANEL (14) globulin, total 2.4 g/dL 1.5-4. 5 Not Available [facility] ([facility]) [address] [place], [address], 10/25/2024 08:28:12 10/24/19 25 10/25/2024 COMP. METAB OLIC PANEL (14) bilirubin, total 0.3 mg/dL 0.0-1. 2 Not Available [facility] ([facility]) [address] [place], [address], 10/25/2024 08:28:12 10/24/19 25 10/25/2024 COMP. METAB OLIC PANEL (14) alkaline phosphatase 69 IU/L 44-121 Not Available [facility] ([facility]) [address] [place], [address], 10/25/2024 08:28:12 10/24/19 25 10/25/2024 COMP. METAB OLIC PANEL (14) AST (SGOT) 16 IU/L 0-40 Not Available [facility] ([facility]) [address] [facility], [place], [address], 10/25/2024 08:28:12 10/24/19 25 10/25/2024 COMP. METAB OLIC PANEL (14) ALT (SGPT) 13 IU/L 0-32 Not Available [facility] ([facility]) [address] [place], [address], 10/25/2024 08:28:12 10/24/19 25 10/25/2024 CBC WITH DIFFE RENTI AL/PL ATELE T WBC 8.5 x10e3 /uL 3.4-10 .8 Not Available [facility] ([facility]) [address] [place], [address], 10/25/2024 08:28:13 10/24/19 25 10/25/2024 CBC WITH DIFFE RENTI AL/PL ATELE T RBC 4.48 x10e6 /uL 3.77-5 .28 Not Available [facility] ([facility]) [address] [facility] [place], [address], 10/25/2024 08:28:13 10/24/1910/25/2024 CBC WITH DIFFE RENTI AL/PL ATELE T hemoglobin 13.7 g/dL 11.1-1 5.9 Not Available [facility] ([facility]) [address] [facility], [place], [address], 10/25/2024 08:28:13 10/24/1910/25/2024 CBC WITH DIFFE RENTI AL/PL ATELE T hematocrit 41.8 % 34.0-4 6.6 Not Available [facility] ([facility]) [address] [place], [address], 10/25/2024 08:28:13 10/24/1910/25/2024 CBC WITH DIFFE RENTI AL/PL ATELE T MCV 93 fL 79-97 Not Available [facility] ([facility]) [address] [place], [address], 10/25/2024 08:28:13 10/24/19 25 10/25/2024 CBC WITH DIFFE RENTI AL/PL ATELE T MCH 30.6 pg 26.6-3 3.0 Not Available [facility] ([facility]) [address] [place], [address], 10/25/2024 08:28:13 10/24/1910/25/2024 CBC WITH DIFFE RENTI AL/PL ATELE T MCHC 32.8 g/dL 31.5-3 5.7 Not Available [facility] ([facility]) [address] [place], [address], 10/25/2024 08:28:13 10/24/19 25 10/25/2024 CBC WITH DIFFE RENTI AL/PL ATELE T RDW 12.7 % 11.7-1 5.4 Not Available [facility] ([facility]) [address] [place], [address], 10/25/2024 08:28:13 10/24/19 25 10/25/2024 CBC WITH DIFFE RENTI AL/PL ATELE T platelets 331 x10e3 /uL 150-45 0 Not Available [facility] ([facility]) [address] [facility], [place], [address], 10/25/2024 08:28:13 10/24/19 25 10/25/2024 CBC WITH DIFFE RENTI AL/PL ATELE T neutrophils 54 % notest ab. Not Available [facility] ([facility]) [address] [facility], [place], [address], 10/25/2024 08:28:13 10/24/19 25 10/25/2024 CBC WITH DIFFE RENTI AL/PL ATELE T lymphs 34 % notest ab. Not Available [facility] ([facility]) [address] [facility], [place], [address], 10/25/2024 08:28:13 10/24/19 25 10/25/2024 CBC WITH DIFFE RENTI AL/PL ATELE T monocytes 10 % notest ab. Not Available [facility] ([facility]) [address] [facility], [place], [address], 10/25/2024 08:28:13 10/24/19 25 10/25/2024 CBC WITH DIFFE RENTI AL/PL ATELE T eos 1 % notest ab. Not Available [facility] ([facility]) [address] [facility], [place], [address], 10/25/2024 08:28:13 10/24/19 25 10/25/2024 CBC WITH DIFFE RENTI AL/PL ATELE T basos 1 % notest ab. Not Available [facility] ([facility]) [address] [facility] [facility], [place], [address], 10/25/2024 08:28:13 10/24/19 25 10/25/2024 CBC WITH DIFFE RENTI AL/PL ATELE T neutrophils (absolute) 4.6 x10e3 /uL 1.4-7. 0 Not Available [facility] ([facility]) [address] [facility], [place], [address], 10/25/2024 08:28:13 10/24/19 25 10/25/2024 CBC WITH DIFFE RENTI AL/PL ATELE T lymphs (absolute) 2.9 x10e3 /uL 0.7-3. 1 Not Available [facility] ([facility]) [address] [facility], [place], [address], 10/25/2024 08:28:13 10/24/19 25 10/25/2024 CBC WITH DIFFE RENTI AL/PL ATELE T monocytes(ab solute) 0.9 x10e3 /uL 0.1-0. 9 Not Available [facility] ([facility]) [address] [facility], [place], [address], 10/25/2024 08:28:13 10/24/19 25 10/25/2024 CBC WITH DIFFE RENTI AL/PL ATELE T eos (absolute) 0.1 x10e3 /uL 0.0-0. 4 Not Available [facility] ([facility]) [address] [facility], [place], [address], 10/25/2024 08:28:13 10/24/19 25 10/25/2024 CBC WITH DIFFE RENTI AL/PL ATELE T baso (absolute) 0.0 x10e3 /uL 0.0-0. 2 Not Available [facility] ([facility]) [address] [place], [address], 10/25/2024 08:28:13 10/24/19 25 10/25/2024 CBC WITH DIFFE RENTI AL/PL ATELE T immature granulocytes 0 % notest ab. Not Available [facility] ([facility]) [address] [place], [address], 10/25/2024 08:28:13 10/24/19 25 10/25/2024 CBC WITH DIFFE RENTI AL/PL ATELE T immature grans (abs) 0.0 x10e3 /uL 0.0-0. 1 Not Available [facility] ([facility]) [address] [facility], [place], [address], 10/25/2024 08:28:13 10/24/19 25 10/26/2024 CT, NG, TRICH VAG BY PETRONA chlamydia by PETRONA NEGATI VE negati ve Not Available [facility] ([facility]) [address] [facility], [place], [address], 10/26/2024 06:37:28 10/24/19 25 10/26/2024 CT, NG, TRICH VAG BY PETRONA gonococcus by PETRONA NEGATI VE negati ve Not Available [facility] ([facility]) [address] [facility], [place], [address], 10/26/2024 06:37:28 10/24/1910/26/2024 CT, NG, TRICH VAG BY PETRONA trich vag by PETRONA NEGATI VE negati ve Not Available [facility] ([facility]) [address] [facility], [place], [address], 10/26/2024 06:37:28 10/24/19 25 10/25/2024 TSH RFX ON ABNOR MAL TO FREE T4 TSH 1.670 uIU/m L 0.450- 4.500 Not Available [facility] ([facility]) [address] [facility], [place], [address], 10/26/2024 06:37:30 10/24/19 25 10/25/2024 IRON AND TIBC iron bind.cap.(TI BC) 339 ug/dL 250-45 0 Not Available [facility] ([facility]) [address] [place], [address], 10/26/2024 06:37:31 10/24/19 25 10/25/2024 IRON AND TIBC UIBC 289 ug/dL 131-42 5 Not Available [facility] ([facility]) [address] [place], [address], 10/26/2024 06:37:31 10/24/1910/25/2024 IRON AND TIBC iron 50 ug/dL 27-159 Not Available [facility] ([facility]) [address] [place], [address], 10/26/2024 06:37:31 10/24/1910/25/2024 IRON AND TIBC iron saturation 15 % 15-55 Not Available [facility] ([facility]) [address] [place], [address], 10/26/2024 06:37:31 10/24/1910/25/2024 HEMOG LOBIN A1C hemoglobin A1C 6.1 % 4.8-5. 6 above high normal Predi abete s: 5.7 - 6.4 Diabe katja: >6.4 Glyce frederic contr ol for adult s with diabe katja: <7.0 Not Available [facility] ([facility]) [address] [place], [address], 10/26/2024 06:37:32 10/24/19 25 10/25/2024 RPR, RFX QN RPR/C ONFIR M TP RPR NON REACTI VE nonrea ctive Not Available [facility] ([facility]) [address] [place], [address], 10/26/2024 06:37:33 10/24/1910/25/2024 VITAM IN D, 25-HY [...] um and D. Rian haynes [place]: [facility] . 2. Julio Cesar hendrix MF, Joselin almaraz [place], Abby off-F errar i ZARATE, et al. Evalu ation , treat ment, and preve ntion of vitam in D defic iency : an Endoc rine Socie ty clini josie pract ice guide line. JCEM. 2010; 96(7) :1911 -30. Not Available [facility] ([facility]) [address] [facility], [place], [address], 10/26/2024 06:37:34 10/24/19 25 10/25/2024 HIV AB/P2 4 AG WITH REFLE X HIV Ab/P24 Ag screen NON REACTI VE nonrea ctive HIV-1 /HIV- 2 antib odies and HIV-1 p24 antig en were NOT detec memo. There is no labor atory evide nce of HIV infec tion. HIV Negat paige Not Available [facility] ([facility]) [address] [facility] [facility], [place], [address], 10/26/2024 06:37:35 07/17/20 23 07/17/2023 MAMMO , scree declan, tomos ynthe sis, bilat [facility] [address] [facility] [place] [place] [address] Mammog vlad Report Proced ure(s) : MM tomosy nthesi s screen ing BI Patien t: Prasanna Hidalgo handra Date of Servic e: : 1979 MR#: [id number] Age/Se x: 43 / F Acct:T [id number] ADM Date:1 3 Result s: 2 Benign Findin gs Follow Up: 1 Year Follow -up Densit y: [address]: Johanna Hernandez Orderi ng Physic xochitl: HernandezJohanna simmons Access ion Number (s): [id number] cc: Hernandez Johanna Examin ation: Digita l bilate ral screen ing breast 3D tomogr aphy Access ion: [id number] Exam Date/T apolinar: 2022 10:42 AM Reason [...] 1427 DD/DT: 1426 TD/TT: Transc riptio nist: [email or web address] [facility] ([facility]) [address] [place], [address], 11/03/2023 12:09:31 Result Notes None recorded. Problems Name Problem SNOMED Code Status Onset Date Resolution Date Notes Provider Name and Address Organization Details Recorded Time Lightheaded ness 872174345 Active 2021 Johanna Hernandez PA-C Attn: Blanca alcazar,[address] [facility], [place], [address], [facility] 2 16:30:41 Neuropathy 664180226 Active 2021 Johanna Hernandez PA-C Attn: Accountin g,[address] [facility], [place], [address], [place] [facility] 2 16:32:31 Chest discomfort 604567208 Active 2021 Johanna Hernandez PA-C Attn: Accountin g,[address], [place], [address], [place] [facility] 2 16:35:11 Pain of bilateral knee joints 4730944044312 04 Active 2021 Johanna Hernandez PA-C Attn: Accountin g,[address], [place], [address], [place] [facility] 2 16:44:09 Constipatio n 83299928 Active 2021 Johanna Hernandez PA-C Attn: Accountin g,[address] [facility], [place], [place], [address] [place] [address] 2, [place] [facility] 2 16:47:50 Anxiety 70500227 Active 2021 Johanna Hernandez PA-C Attn: Accountin g,[address] [facility], [place], [address], [place] [facility] 2 16:49:18 Posterior rhinorrhea 05804751 Active 2021 Johanna Hernandez PA-C Attn: Accountin g,[address] [facility], [place], [address], [place] [facility] 2 16:59:09 Iron deficiency anemia 21984958 Active 2022 Johanna Hernandez PA-C Attn: Accountin g,[address] [facility], [place], [address], [place] [facility] 3 12:04:09 Hyperglycem ia 63030009 Active 2022 Johanna Hernandez PA-C Attn: Accountin g,[address] [facility], [place], [address], [place] [facility] 3 12:08:13 Vitamin D deficiency 14694826 Active 2022 Johanna Hernandez PA-C Attn: Accountchristiano alcazar,[address] [facility], [place], [address], [place] [facility] 3 12:08:16 Loss of hair 302034073 Active 2022 Johanna Hernandez PA-C Attn: Accountchristiano g,[address] [facility], [place], [address], [place] [facility] 3 12:08:18 Chronic rhinitis 30380509 Active 2022 Johanna Hernandez PA-C Attn: Accountchristiano g,[address] [facility], [place], [address], [place] [facility] 3 12:08:20 Skin lesion 44840729 Active Radha Miranda null[place] [facility] 5 16:51:48 Bacterial vaginosis 521376326 Active Corey Millan MD Attn: Accountchristiano alcazar,[address] [facility], [place], [address], [place] [facility] 6 11:57:42 Screening finding 529998647 Active Nay [place] [facility] 5 11:03:32 Asthma 665914279 Active [place] [facility] [place] 11:03:32 Smoker 85653446 Active [place] [facility] 5 11:03:32 Rhinitis 39646065 Active [place]ay [place] [facility] 5 11:03:32 Obesity 271268685 Active [place] [facility] 5 11:03:32 Numbness 11925274 Active [place]ay [place] [facility] 5 11:03:32 Joint crepitus 7765387 Active [place]ay [place] [facility] 5 11:03:32 Backache 168312753 Active Nay [place] [facility] 5 11:03:32 Multiple bruising 136794451 Active Radha bennett, [facility] 6 11:37:26 Vaginitis 36818070 Active Radha bennett, [facility] 6 14:41:11 Infection by Trichomonas 90130770 Active Radha bennett, [facility] 6 10:23:53 Vaginal discharge 378898227 Active Radha bennett, [facility] 5 16:51:48 Problem Notes None recorded. Procedures Surgical History Date Name Laterality Status Provider Name and Address Organization Details Recorded Time 5 Date of Last Pap Smear completed Rohit Gamino MA [facility] 01/14/2016 15:49:17 Tubal Ligation completed Kaylan Blas MA [facility] 08/10/2018 11:01:39 Imaging Results None recorded. Procedure [...] Updated DateTime 5 167.64 cm 35.8 kg/m2 399346. 51 g 98 % 98 % 74 /min 18 /min 98 [degF] 124/74 mm[Hg] Cindy Sims [place] [facility] 5 10:18:08 Date Recorded Body height Provider Name an d Address Organization Details Last Updated DateTime 10/13/2023 167.64 cm Cindy Sims MA [facility] 10/13 10:22:59 Date Recorded Body height Body temperature Body mass index (BMI) Body weight Heart rate Systolic And Diastolic Provider Name and Address Organization Details Last Updated DateTime 167.64 cm 98 [degF] 35.9 kg/m2 220507. 3 g 102 /min 115/67 mm[Hg] Monique Marx MA [facility] 5 16:44:17 Date Recorded Body height Provider Name an d Address Organization Details Last Updated DateTime 02/07/2025 167.64 cm Cindy Sims MA [facility] 02/07 09:40:44 Social History Question Answer Notes LastModified by Organizat ion Details LastModified Time Tobacco Smoking Status Current Every Day Smoker Isidra Samuel MA null, [facility] 07/20/2015 09:49:22 Do You Have An [...] Or The Highest Degree You Have Received? 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 Information not available 12/23/2021 What Was [...] Problems N Other N Breast Cancer N Kidney or Bladder Problems N Thyroid Problems N Lung Disease N Depression N GI Problems N Acne N Eating Disorder N Breast Problem N Anemia N Anesthesia Complications N Headaches/Migraines N Anxiety Disorder N Ovarian Cancer N Diabetes N Blood Transfusions N Arthritis N Infertility N Polyps N Acid Reflux (GERD) N Cancer N [...] mcg/0.3 mL dose 01/27/2021 completed Not Available [facility] 09:30:53 COVID-19, mRNA, LNP-S, PF, 30 mcg/0.3 mL dose 10/19/2021 completed Not Available [facility] 09:30:53 COVID-19, mRNA, LNP-S, PF, madisyn-sucrose, 30 mcg/0.3 mL 07/02/2023 completed Not Available [facility] 2024 09:30:53 Influenza, MDCK, quadrivalent, PF 07/02/2023 completed Not Available [facility] 09:30:53 Influenza, MDCK, trivalent, PF 06/19/2024 completed Not Available [facility] 2024 09:30:53 COVID-19, mRNA, LNP-S, PF, madisyn-sucrose, 30 mcg/0.3 mL 06/19/2024 completed Not Available [facility] 2024 09:30:53 Past Encounters Encounter ID Performer Location Encounter Start Date Encounter Closed Date Diagnosis/Indication Diagnosis SNOMED-CT Code Diagnosis ICD10 Code Diagnosis Note [id number] Dionne Hancock MD [facility] ([employer]) [address] [place] [address] 10/17/2014 14:07:20 10/17/2014 15:12:46 Vaginal discharge 594192836 [id number] Dionne Hancock MD [facility] ([employer]) [address] [place] [address] 01/09/2015 16:03:39 01/09/2015 17:40:43 Vaginal discharge 677601165 Skin lesion 64713086 Bacterial vaginosis 262166094 [id number] Dionne Hancock MD [facility] ([employer]) [address] [place] [address] 07/06/2015 09:34:09 07/06/2015 13:48:34 Bacterial vaginosis 779105659 N76.0 High risk sexual behavior 829536010 Z72.51 [id number] Dionne Hancock MD [facility] ([facility]) [address] [place] [address] 07/20/2015 09:37:32 07/20/2015 10:25:52 Gynecologic examination 39892223 Z01.419 High risk sexual behavior 363527960 Z72.51 [id number] Angel Hewitt MD [facility] (Adult/Fa m Med) [address] [place] [address] 08/03/2015 09:35:39 08/03/2015 15:46:01 Screening finding 729183443 Z13.9 Asthma 554633582 J45.90 9 Smoker 97297409 F17.200 Rhinitis 50825928 J31.0 Obesity 330047915 E66.9 Numbness 89184203 R20.0 Joint crepitus 8986844 M 24.80 Backache 758366723 M54.9 [id number] Dionne Hancock MD [facility] ([facility]) [address] [place] [address] 01/15/2016 09:52:52 01/15/2016 11:53:58 High risk sexual behavior 443735763 Z72.51 Multiple bruising 731969 006 T14.8 Vaginitis 63951939 N76.0 [id number] Dionne Hancock MD [facility] ([facility]) [address] [place] [address] 01/21/2016 09:46:44 01/21/2016 10:24:50 Infection by Trichomonas 80287664 A59.9 [id number] Dionne Hancock MD [facility] ([facility]) [address] [place] [address] 02/25/2016 13:32:07 02/25/2016 16:16:18 Vaginitis 32567689 N76.0 [id number] Corey Millan MD [facility] ([facility]) [address] [place] [address] 04/21/2016 11:31:44 04/21/2016 14:05:50 Bacterial vaginosis 677791571 N76.0 [id number] Angel Hewitt MD [facility] (Adult/Fa m Med) [address] [place] [address] 08/03/2016 11:01:26 08/08/2016 10:40:50 Joint crepitus 0593208 M24.80 Knee pain 30840936 M25.5 61 [id number] Nay Castillo [facility] (Adult/Fa m Med) [address] [place] [address] 09/02/2016 10:34:04 09/02/2016 17:43:24 Osteoarthritis of knee 561996102 M17.11 Asthma 457844276 J45.90 9 Joint crepitus 9977484 M 24.775 [id number] Dionne Hancock MD [facility] ([employer]) [address] [place] [address] 10/18/2016 13:59:35 10/18/2016 16:08:11 High risk sexual behavior 474030342 Z72.51 Female pel steve inflammatory disease 575310272 N73.9 [id number] Dionne Hancock MD [facility] ([employer]) [address] [place] [address] 10/21/2016 10:09:03 10/21/2016 13:25:02 Acute pelvic inflammatory disease 615738246 N73.9 [id number] Dionne Hancock MD [facility] ([employer]) [address] [place] [address] 11/03/2016 10:25:56 11/03/2016 13:32:55 [id number] Nay Castillo [facility] (Adult/Fa m Med) [address] [place] [address] 04/27/2017 10:02:10 04/28/2017 10:18:52 Asthma 911596473 J45.909 Backache 669383910 M54.9 Joint crepitus 8000224 M 24.811 Obesity 048587190 E66.9 Numbness 06756550 R20.0 Rhinitis 12798682 J00 Smoker 82477856 F17.200 Atypical chest pain 1025 [address] R07.89 [id number] Nay Castillo [facility] (Adult/Fa m Med) [address] [place] [address] 05/23/2017 09:47:26 06/02/2017 13:33:23 Chronic back pain 898476829 M54.9 Osteoarthr itis of knee 595331586 M17.11 R>L Smoker 61359821 F17.200 Asthma 214452447 J45.90 9 Backache 365444573 M54.9 [id number] Radha Miranda RN-[facility] ([employer]) [address] [place] [address] 05/25/2017 15:58:03 05/30/2017 16:02:21 Bacterial vaginosis [id number] N76.0 [id number] Dionne Hancock MD [facility] ([employer]) [address] [place] [address] 08/11/2017 09:34:33 08/11/2017 14:34:20 High risk sexual behavior [id number] Z72.51 [id number] Angel Hewitt MD [facility] (Adult/Fa m Med) [address] [place] [address] 08/24/2017 09:57:53 08/30/2017 15:29:58 Asthma [id number] J45.909 Backache [id number] M54.9 Rhinitis 22495156 J00 [id number] ABELINO Gamble NP [facility] [address] [place] [address] 08/10/2018 10:46:03 08/10/2018 12:09:38 Backache 246231497 M54.9 -Renew ibuprofen and baclofen Asthma 490670124 J45.90 9 -Renew singulair- Renew Aerochambe r Paresthesi a of upper limb [id number] R20.2 -Obtain labs Body mass index 30+ - obesity 253601647 Z68.33 -Obtain labs Near syncope 456892394 R 55 -Will obtain labs-Recen t vision exam normal -Consider holter monitor if labs normal [id number] Nik Gallagher MD [address] [address] 09/27/2019 18:30:31 09/30/2019 11:54:07 Tuberculosis screening 016602717 Z11.7 [id number] Radha Miranda RN- [facility] ([employer]) [address] [place] [address] 03/16/2020 10:19:07 03/16/2020 12:30:26 Gynecologic examination 06299917 Z01.419 Venereal d isease screening 781356141 Z11.3 Knee pain 68629081 M25.5 69 [id number] MD Dariana Calvert [facility] ([employer]) [address] [place] [address] 04/08/2020 15:16:14 04/08/2020 16:25:07 Venereal disease screening 311823639 Z11.3 [id number] Dionne Hancock MD [facility] ([employer]) [address] [place] [address] 08/12/2020 15:26:39 08/12/2020 17:47:52 Venereal disease screening 918136427 Z11.3 Obesity 147008905 E66.9 Chest pain 81383441 R07. 9 Photosensitivity 4080004 6 L56.8 Backache 220040670 M54.9 Arthritis 1311820 M19.90 [id number] Lolita Gu MD [facility] [address] [address] 09/01/2020 15:50:13 09/02/2020 16:20:51 Photophobia 617963088 H53.149 Bilateral vitreous floaters 8872235894 95716 H43.543 [id number] MD Dariana Calvert [facility] ([employer]) [address] [place] [address] 12/08/2020 16:05:08 12/09/2020 16:50:04 Venereal disease screening 086836739 Z11.3 [id number] MD Dariana Calvert [facility] ([employer]) [address] [place] [address] 01/15/2021 14:54:13 01/18/2021 12:07:29 Nicotine dependence 86460393 F17.200 Venereal d isease screening 812390304 Z11.3 Vaginitis 95667337 N76.0 [id number] KASIA JENKINS, [facility] ([employer]) [address] [place] [address] 06/21/2021 13:42:49 06/24/2021 14:27:26 Chest pain 02122359 R07.9 Suspect Costochond ritis. MSK pain acutely TTP over sterno-cos maged margin and along clavicle. Bilateral pectoralis major strain also possible. 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 Discussed NSIADS, avoiding aggravatin g activities , and use of either heat or ice for symptom relief. Education on stretches provided. Screening mammography 24 741770 Z12.31 [id number] Dionne Hancock MD [facility] ([employer]) [address] [place] [address] 08/17/2021 09:27:33 08/17/2021 12:58:51 Obesity 321454218 E66.9 High risk sexual behavior 933999971 Z72.51 [id number] Jona Milton MD [facility] (Adult Med) [address] [place] [address] 10/26/2021 15:45:12 10/27/2021 10:11:07 Lightheadedness 855614773 R42 several year historyeve ry day smoker Adult heal th examination 684069160 Z00.00 routine labs Chest discomfort 4438952 09 R07.89 several monthsinte rmittentcu rrently stablewill order ekg and cxrtobacco cessation Neuropathy 815129086 G62 .9 several month history of hands and feet Blurring o f visual image 574553019 H53.8 referral to opthalmolo gist Tobacco user 083714596 Z 72.0 smoking cessation Pain of bi lateral knee joints 1054056750 48276 M25.561 Constipation 59271810 K5 9.00 Anxiety 71367018 F41.9 Obesity 701911925 E66.9 Posterior rhinorrhea 758 36528 R09.82 [id number] Faizan Alvarado MD [facility] [address] [place] [address] 12/23/2021 09:38:02 12/24/2021 12:25:40 Pain of bilateral knee joints 5041341148 36261 M25.561 M25.562 Osteoarthr itis of knee 725975454 M17.11 M17.12 ?cortisone Chondromal acia of bilateral patellas 2985600741 5208820 M22.41 M22.42 Obesity 467120831 E66.9 [id number] Jona Milton MD [facility] (Peds) [address] [place] [address] 12/22/2021 15:25:00 12/24/2021 17:33:53 Iron deficiency anemia 78545066 D50.9 reviewed low iron,will start patient on daily supplement repeat iron in 1month Lightheadedness 06276568 8 R42 improved since last visitwill monitorrev iewed us Chest discomfort 1985788 09 R07.89 resolved Neuropathy 072993907 G62 .9 several month history of hands and feetreview ed low iron, will start on iron supplement reviewed elevated hgba1c, diet and exercise [id number] Jona Milton MD [facility] (Peds) [address] [place] [address] 01/28/2022 09:54:07 02/10/2022 10:36:00 Iron deficiency anemia 62640792 D50.9 reviewed normal iron, will stop iron for now, repeat iron in 1month Neuropathy 920785858 G62 .9 resolvedwi ll monitor [id number] Jona Milton MD [facility] (Peds) [address] [place] [address] 03/10/2022 10:23:55 03/10/2022 12:10:08 Iron deficiency anemia 98332332 D50.9 reviewed normal iron, will stop iron for now, repeat iron in 1month Neuropathy 205908110 G62 .9 resolvedwi ll monitor [id number] Faizan Alvarado MD [facility] ts [address] [place] [address] 04/28/2022 10:21:18 04/28/2022 12:30:02 Pain of bilateral knee joints 7433386712 12267 M25.561 M25.562 Osteoarthr itis of knee 810989577 M17.11 M17.12 ?cortisone Chondromal acia of bilateral patellas 6913516626 7147225 M22.41 M22.42 Obesity 389099439 E66.9 [id number] Jona Milton MD [facility] (Adult Med) [address] [place] [address] 05/03/2022 11:36:07 05/04/2022 07:52:10 Iron deficiency anemia 80379824 D50.9 reviewed normal iron, will stop iron for nowcontinu e iron rich foods Neuropathy 520968953 G62 .9 [facility] monitor [id number] Jake James MD [facility] [address] [address] 02/28/2023 10:55:43 03/06/2023 15:16:42 Chronic rhinitis 39896358 J31.0 over-the-c ounter antihistam jorge Asymmetric al sensorineural hearing loss 137817373 H90.5 follow-up after audiogram [id number] JUAN ALBERTO JORGENSEN DO [facility] ([employer]) [address] [place] [address] 05/15/2023 09:51:28 05/22/2023 12:03:14 Screening mammography 05128605 Z12.31 Last mammogram 06/2021 WNL. No red flag s/s. Contracept ion care management 662979463 Z30.9 Pt would like control. Periods currently [...] [facility] Follow up for mirena insertion scheduled for 2 weeks Smoker 54246388 F17.200 Obesity 824783765 E66.9 [id number] Jona Milton MD [facility] (Peds) [address] [place] [address] 06/07/2023 09:44:56 06/08/2023 12:05:40 Body mass index 30+ - obesity 244221561 Z68.30 Obesity 520207797 E66.9 Adult heal th examination 332983032 Z00.00 routine labs Asthma 205689659 J45.90 9 refill allbuterol and symbicort Chronic rhinitis 5229223 6 J31.0 refill flonase Screening for malignant neoplasm of colon 209391964 Z12.11 Loss of hair 501426929 L 65.9 labs orderedref erral to derm [id number] Jona Milton MD [facility] (Peds) [address] [place] [address] 06/14/2023 11:26:32 06/21/2023 15:06:21 Body mass index 30+ - obesity 045876987 Z68.30 Obesity 017977701 E66.9 Asthma 978167210 J45.90 9 refill allbuterol and symbicort Chronic rhinitis 4343732 6 J31.0 refill flonase Loss of hair 873530358 L 65.9 referral already placed for dermwill send iron and vitamin dfollow up in 1month or sooner if problems arise Iron defic iency anemia 98729887 D50.9 reviewed low ironwill restart iron supplement repeat in 1month Vitamin D deficiency 347 23259 E55.9 vit d sent to pharmacy Hyperglycemia 63340852 R 73.9 diet and exercisere peat labs in 3months [id number] Namrata Pink DO [facility] ts [address] [place] [address] 07/03/2023 09:14:30 07/04/2023 07:26:29 Screening for malignant neoplasm of colon 607000925 Z12.11 First colonoscop y. No FH of colon cancer.CBC and CMP in chart 06/07/23 [id number] Jona Milton MD [facility] (Peds) [address] [place] [address] 07/12/2023 09:48:19 07/19/2023 12:32:54 Body mass index 30+ - obesity 201851505 Z68.30 Obesity 491930687 E66.9 Asthma 184113607 J45.90 9 refill allbuterol and symbicort Chronic rhinitis 9517405 6 J31.0 refill flonase Loss of hair 153578587 L 65.9 referral already placed for dermwill send iron and vitamin dfollow up in 1month or sooner if problems arise Iron defic iency anemia 73383580 D50.9 reviewed low ironwill restart iron supplement repeat in 1month Vitamin D deficiency 347 57174 E55.9 vit d sent to pharmacy Hyperglycemia 20420293 R 73.9 diet and exercisere peat labs in 3months Osteoarthr itis of knee 048816917 M17.9 [id number] Jona Milton MD [facility] (Peds) [address] [place] [address] 07/21/2023 10:20:23 07/25/2023 10:29:10 Asthma 348855090 J45.909 refill allbuterol and symbicort Body mass index 30+ - obesity 919457576 Z68.30 Obesity 625254306 E66.9 Chronic rhinitis 9353675 6 J31.0 refill flonase Loss of hair 128864121 L 65.9 referral already placed for derm Iron defic iency anemia 40088596 D50.9 reviewed high irond/c supplement repeat labs in 1month Vitamin D deficiency 347 55035 E55.9 Osteoarthr itis of knee 646692528 M17.9 [id number] Jona Milton MD [facility] (Peds) [address] [place] [address] 10/13/2023 10:20:16 10/17/2023 13:26:30 Body mass index 30+ - obesity 276017868 Z68.30 Obesity 141827985 E66.9 Asthma 473128482 J45.90 9 refill allbuterol and symbicort Chronic rhinitis 4886911 6 J31.0 refill flonase Loss of hair 175515563 L 65.9 referral already placed for derm Iron defic iency anemia 36907941 D50.9 reviewed high irond/c supplement repeat labs in 1month [id number] Jona Milton MD [facility] (Adult Med) [address] [place] [address] 10/03/2024 09:59:02 10/07/2024 08:50:50 Iron deficiency anemia 31141294 D50.9 patient not taking any ironwill order labsfollow up in 1 week Body mass index 30+ - obesity 849521771 Z68.30 referral to weight management patient does not want to be on glp1s or metformin Obesity 652268333 E66.9 Smoker 83715455 F17.200 Asthma 094713780 J45.90 9 refill allbuterol and symbicort Adult heal th examination 597798889 Z00.00 routine labs Backache 735519334 M54.9 chronic back painwill order ibuprofen and baclofen which has helpedwill discuss pt at follow nicolette d weight loss [id number] Jake James MD [facility] [address] [place] [address] 12/23/2024 16:23:43 12/24/2024 10:51:11 Acute sinusitis 05634621 J01.90 infection resolved follow back if she has further difficulti es [id number] Jona Milton MD [facility] (Adult Med) [address] [place] [address] 02/07/2025 09:30:10 02/10/2025 09:24:51 Smoker 62838545 F17.200 Body mass index 30+ - obesity 426265397 Z68.35 Obese class II 050006517 1 25368 E66.812 Cholecystitis 69033142 K 81.9 recent er visit at [facility] on 01/31/25 ultrasound :Redde bre lopez [...] Alexandra Member ID Guarantor Name 02/07/2025 1 [facility] ON OR AFTER 03/25/21 (MEDICAID REPLACEMENT - HMO) Cesar Dear [id number] Cesar Alvarado Dear 10/03/2024 1 [facility] PRIOR TO 03/25/2021 (MEDICAID REPLACEMENT - HMO) Cesar Dear [id number] Cesar Alvarado Dear Notes Date Note Type [...] visit Johanna Hernandez PA-C Attn: [address] [place], [address], [facility] 07/21/2023 12:24:47 10/13/2023 text/html follow up fron l ast visitnot taking iron Johanna Hernandez PA-C Attn: [address] [place], [address], [facility] 10/13/2023 11:47:19 10/03/2024 text/html AnemiaReported bypatient.Timing:bett [...] home Johanna Hernandez PA-C Attn: [address] [place], [address], [facility] 10/03/2024 11:25:42 12/23/2024 text/html patient complain ing of a sinus infection in her right side. She had swelling around her right eye and tenderness in her face. She went to the emergency room was treated with antibiotics and doing much better but just here to have it checked. No real complaints today. Jake James MD [address] [place], [address], [facility] 12/23/2024 16:51:18 02/07/2025 text/html Abdominal PainReported bypatient.Location:[facility] Quality:bloating;cram ping;fullness Severity:mild Duration:intermittent Onset/Timing:gradual Associated Symptoms:heartburnNot es:recent er visitdiagnosed with gallstones Johanna Hernandez PA-C Attn: [address] [place], [address], [facility] 02/07/2025 11:24:43 OBGyn Episode No OBEpisode recorded.
--- OUTSIDE RECORDS SUMMARY | 2025-04-07 00:48 | XMS_ITS | Referral Summary ---
Author Organization [facility] at the [facility] Address [address] [place] [address] Care Team Providers [employer] Supervisor Name Role Phone Johanna Hernandez Primary Care Provider [phone] Encounters Date Type Department Care Team Description 01/30/2025 7:10 AM CDT - 01/30/2025 11:59 PM CDT Hospital Encounter [facility] Ultrasound [address] [place] [id number] Epigastric pain Discharge Disposition: Discharge to home or self care 01/30/2025 12:40 PM CDT Lab [facility] Lab [address] [place] [address] 01/29/2025 4:01 PM CDT - 01/29/2025 8:44 PM CDT Emergency [facility] Emergency Department [address] [place] [id number] Gabbie Calles MD Epigastric pain (Primary Dx) [...] on file 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 PS: PS Report ID: [id number] Reading Location: [id number] Procedure Note Daisy Davidson DO - 01/30/2025 [...] Daisy Davidson D.O. PS: PS Report ID: [id number] Reading Location: [id number] us Gabbie Calles MD IMG US PROCEDURES [...] Casey Lorenzana M.D. CH: KINGA Report ID: [id number] Reading Location: [id number] Procedure Note Casey Lorenzana Jr., MD - [...] Casey Lorenzana M.D. CH: KINGA Report ID: [id number] Reading Location: [id number] us Gabbie Calles MD IMG CT PROCEDURES Final Result * Troponin T high-sensitivity series (baseline, 2hr, 4hr, 6hr) (01/29/2025 4:42 PM CDT) Trop T hs <6 <=14 ng/L Comment: Interpretive Data For further hscTnT resources including the diagnostic algorithm and an aid in interpretation, copy and paste this link: https://nrl.testcatalog.org/show/hsTrop Current Interpretive Data last revised 2020. Testing performed by: [address] [address] Blood 01/29/2025 4:42 PM CDT 01/29/2025 4:44 PM CDT us Jacob Bullock DO LAB BLOOD ORDERABLES Final Result [facility] [address] [facility] Department [place] [address] * eGFR (01/29/2025 4:42 PM CDT) Pathologist [...] was last reviewed 2021. Testing performed by: [address] [address] Blood 01/29/2025 4:42 PM CDT 01/29/2025 4:44 PM CDT Jacob Bullock DO LAB BLOOD ORDERABLES Final Result Performing Organization Address [facility] Co de Phone Number [address] [address] * CRP (acute phase) (01/29/2025 4:42 PM CDT) CRP 4.7 <=10.0 mg/L Comment:Testing performed by : [address] [address] Blood 01/29/2025 4:42 PM CDT 01/29/2025 4:44 PM CDT Gabbie Calles MD LAB BLOOD ORDERABLES Fin al Result Performing Organization Address [facility] de Phone Number [address] [address] * (ABNORMAL) Lipase (01/29/2025 4:42 PM CDT) Pathologist [facility] Lipase 154(H) 10 - 99 Units/L Comment:Testing performed by : [address] [address] Blood 01/29/2025 4:42 PM CDT 01/29/2025 4:44 PM CDT Jacob Bullock DO LAB BLOOD ORDERABLES Final Result Performing Organization Address [facility] Co de Phone Number [address] [address] * Comprehensive metabolic panel (01/29/2025 4:42 PM CDT) Pathologist [facility] Sodium 137 135 - 145 mmol/L Comment:Testing performed by : [address] [address] Potassium, pl 3.9 3.3 - 4.9 mmol/L DAVIS Comment:Testing performed by : [address] [address] Chloride 101 97 - 110 mmol/L [facility] Comment:Testing performed by : [address] [address] CO2 28 22 - 32 mmol/L [facility] Comment:Testing performed by : [address], [place]., [address] Anion gap 8 2 - 15 mmol/L [facility] Comment:Testing performed by : [address], [place]., [address] BUN 8 6 - 25 mg/dL [facility] Comment:Testing performed by : [address], [place]., [address] Creatinine 0.60 0.60 - 1.10 mg/dL [facility] Comment:Testing performed by : [address] [address] Glucose 88 70 - 199 mg/dL [facility] [...] was last revised 2022. Testing performed by: [address] [address] Calcium 9.5 8.5 - 10.3 mg/dL [facility] Comment:Testing performed by : [address] [address] Bilirubin, total 0.4 0.1 - 1.2 mg/dL [facility] Comment:Testing performed by : [address] [address] Protein, pl 7.9 6.5 - 8.5 g/dL [facility] Comment:Testing performed by : [address] [address] Albumin 4.0 3.5 - 5.0 g/dL [facility] Comment:Testing performed by : [address] [address] Alk phos 80 40 - 130 Units/L [facility] Comment:Testing performed by : [address] [address] ALT 11 7 - 45 Units/L [facility] Comment:Testing performed by : [address] [address] AST 14 10 - 45 Units/L [facility] Comment:Testing performed by : [address] [address] Blood 01/29/2025 4:42 PM CDT 01/29/2025 4:44 PM CDT Jacob Bullock DO LAB BLOOD ORDERABLES Final Result Performing Organization Address City/State/[facility] Co de Phone Number [facility] [place] [address] * POCT hCG, urine (01/29/2025 3:44 PM CDT) HCG, ur, POC Negative Negative Lot Number [id number] QC Backgroud Clear Acceptable QC Control Line Acceptable Urine 01/29/2025 3:4 4 PM CDT Jacob Bullock DO POINT OF CARE TEST ORDERABL ES Final Result * Urinalysis reflex to microscopic and culture Urine (01/29/2025 3:42 PM CDT) Color, ur Yellow Yellow Comment:Testing performed by : [address] [address] Clarity, ur Clear Clear [facility] Comment:Testing performed by : [address] [address] Specific gravity, ur 1.010 1.003 - 1.030 [facility] Comment:Testing performed by : [address] [address] pH, urine 7.0 [facility] Comment: Interpretive Data U rine pH is affected by diet, medications, systemic acid-base disturbances, and renal tubular function. pH may affect urinary stone formation. For example, urine pH below 6.0 may help reduce the tendency for calcium phosphate stones and pH greater than 6.0 may reduce the tendency for uric acid stone formation. Source: [facility] [employer] Current Interpretive Data was last revised on 2017 Testing performed by: [facility], [address] [place] [address], [place]., [address] Protein, ur ql Negative Negative [facility] Comment:Testing performed by : [facility], [address] [place] [address], [place]., [address] Glucose, ur ql Negative Negative [facility] Comment:Testing performed by : [address], [place]., [address] Ketones, ur Negative Negative [facility] Comment:Testing performed by : [address], [place]., [address] Bilirubin, ur Negative Negative [facility] Comment:Testing performed by : [address], [place]., [address] Blood, ur Negative Negative [facility] Comment:Testing performed by : [address], [place]., [address] Urobilinogen, ur <2.0 <2.0 mg/dL [facility] Comment:Testing performed by : [address], [place]., [address] Nitrite, ur Negative Negative [facility] Comment:Testing performed by : [address], [place]., [address] Leukocyte esterase, ur Negative Negative [facility] Comment:Testing performed by : [address], [place]., [address] UA reflex comment Reflex conditions for microscopic UA and culture not met. [facility] Comment:Testing performed by : [address], [place]., [address] Urine 01/29/2025 3:42 PM CDT 01/29/2025 3:49 PM CDT us Jacob Bullock DO LAB MICROBIOLOGY - GENERAL ORDERABLES Final Result [facility] ZAM[facility] [address] Department [place] [address] * ECG 12 lead (01/29/2025 3:36 PM CDT) Pathologist [facility] Ventricular Rate EKG/Min 84 BPM [facility] Atrial Rate 84 BPM [facility] GA-Interval (MSEC) 180 ms [facility] QRS-Interval (MSEC) 74 ms [facility] QT-Interval (MSEC) 380 ms [facility] QTc 449 ms [facility] P [place] 58 degrees [facility] R [place] 33 degrees [facility] T [place] 39 degrees [facility] Diagnosis Normal sinus rhythm Normal ECG No previous ECGs available Confirmed by YASHIRA MCFARLAND M.D. ([id number]) on 01/29/2025 11:15:17 PM [facility] 01/29/2025 3:36 PM CDT 01/29/2025 11:15 PM CDT Jacob Bullock DO ECG ORDERABLES Final Resul t [facility] * (ABNORMAL) Differential, auto (01/29/2025 3:29 PM CDT) Pathologist [facility] Neutrophil abs 4.75 1.50 - 6.50 K/cumm Comment:Testing performed by : [address] [address] Imm gran abs 0.02 0.00 - 0.10 K/cumm DAVIS Comment:Testing performed by : [address] [address] Lymphocyte abs 2.13 0.80 - 3.30 K/cumm [facility] Comment:Testing performed by : [address] [address] Monocyte abs 1.10(H) 0.20 - 0.80 K/cumm [facility] Comment:Testing performed by : [address] [address] Eosinophil abs 0.14 0.00 - 0.50 K/cumm [facility] Comment:Testing performed by : [address] [place] [address] Basophil abs 0.05 0.00 - 0.10 K/cumm [facility] Comment:Testing performed by : [address] [address] Neutrophil pct 58.1 % [facility] Comment: Interpretive Data Percent cell count reference ranges are not reported, since discordance with absolute values may lead to misinterpretation of CBC data. Current Interpretive Data was last revised on 2018. Testing performed by: [address] [address] Imm gran pct 0.2 % [facility] Comment: Interpretive Data Percent cell count reference ranges are not reported, since discordance with absolute values may lead to misinterpretation of CBC data. Current Interpretive Data was last revised on 2018. Testing performed by: [address] [address] Lymphocyte pct 26.0 % [facility] Comment: Interpretive Data Percent cell count reference ranges are not reported, since discordance with absolute values may lead to misinterpretation of CBC data. Current Interpretive Data was last revised on 2018. Testing performed by: [address] [address] Monocyte pct 13.4 % [facility] Comment: Interpretive Data Percent cell count reference ranges are not reported, since discordance with absolute values may lead to misinterpretation of CBC data. Current Interpretive Data was last revised on 2018. Testing performed by: [address] [address] Eosinophil pct 1.7 % [facility]I Comment: Interpretive Data Percent cell count reference ranges are not reported, since discordance with absolute values may lead to misinterpretation of CBC data. Current Interpretive Data was last revised on 2018. Testing performed by: [address] [address] Basophil pct 0.6 % [facility] Comment: Interpretive Data Percent cell count reference ranges are not reported, since discordance with absolute values may lead to misinterpretation of CBC data. Current Interpretive Data was last revised on 2018. Testing performed by: [address] [address] Blood 01/29/2025 3:29 PM CDT 01/29/2025 3:38 PM CDT Jacob Bullock DO LAB BLOOD ORDERABLES Final Result [facility] [address] [facility] Department [place] [address] * CBC with auto differential (01/29/2025 3:29 PM CDT) Pathologist [facility] WBC 8.19 3.80 - 9.90 K/cumm Comment:Testing performed by : [address] [address] Hgb 14.8 11.9 - 15.5 g/dL [facility] Comment:Testing performed by : [address] [address] Hct 44.6 35.6 - 45.5 % [facility] Comment:Testing performed by : [address] [address] Plt 312 150 - 400 K/cumm DAV[facility] Comment:Testing performed by : [address] [address] MPV 10.1 9.1 - 12.3 fL [facility] Comment:Testing performed by : [address] [address] RBC 4.77 3.90 - 5.20 M/cumm [facility] Comment:Testing performed by : [address] [address] MCV 93.5 81.3 - 96.4 fL [facility] Comment:Testing performed by : [address] [address] MCH 31.0 27.1 - 33.3 pg [facility] ZAMAN Comment:Testing performed by : [address] [address] MCHC 33.2 32.3 - 35.7 g/dL [facility] Comment:Testing performed by : [address] [address] RDW CV 13.0 11.1 - 14.9 % [facility] Comment:Testing performed by : [facility], [address] [place] [address]., [address] RDW SD 44.7 35.7 - 48.1 fL [facility] Comment:Testing performed by : [facility], [address] [place] [address]., [address] NRBC abs 0.00 0.00 - 0.01 K/cumm [facility] ZAMAN Comment:Testing performed by : [facility], [address] [place] [address]., [address] Blood Venous blood specimen / Unknown 01/29/2025 3:29 PM CDT 01/29/2025 3:38 PM CDT Jacob Bullock DO LAB BLOOD ORDERABLES Final Result Performing Organization Address City/State/[facility] Co de Phone Number [facility] Z[facility] [address] [facility] Department [place] [address] from Last [address] [place] [address] [address] Care Teams [employer] Supervisor Relationship Specialty Start Date End Date Johanna Hernandez PA PCP - General Is/It Project Manager 05/19/23
--- OUTSIDE RECORDS SUMMARY | 2025-04-07 00:48 | XMS_ITS | Clinical Summary ---
Author Organization [facility] at [facility] Address [address] [place] [address] Care Team Providers Care Health And Social Care Teacher Name Role Phone Johanna Hernandez Primary Care Provider [phone] Allergies No known active allergies Medications albuterol [...] Team Description 01/30/2025 12:40 PM CDT Lab [facility] Lab [address] [place] [address] 01/30/2025 7:10 AM CDT - 01/30/2025 11:59 PM CDT Hospital Encounter [facility] Ultrasound [address] [place] [address] Epigastric pain Discharge Disposition: Discharge to home or self care 01/29/2025 4:01 PM CDT - 01/29/2025 8:44 PM CDT Emergency [facility] Emergency Department [address] [place] [address] Gabbie Calles MD Epigastric pain (Primary Dx) [...] on file 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 PS: PS Report ID: [id number] Reading Location: [id number] Procedure Note Daisy Davidson, DO - 01/30/2025 [...] Daisy Davidson D.O. PS: PS Report ID: [id number] Reading Location: [place] [address] Gabbie Calles MD IMG US PROCEDURES Final [...] Casey Lorenzana M.D. CH: KINGA Report ID: [id number] Reading Location: [place] [address] Procedure Note Casey Lorenzana Jr., MD - [...] by Casey Lorenzana M.D. CH: Report ID: [id number] Reading Location: [place] [address] us Gabbie Calles MD IMG CT PROCEDURES Final Result * Troponin T high-sensitivity series (baseline, 2hr, 4hr, 6hr) (01/29/2025 4:42 PM CDT) Pathologist [facility] Trop T hs <6 <=14 ng/L Comment: Interpretive Data For further hscTnT resources including the diagnostic algorithm and an aid in interpretation, copy and paste this link: https://nrl.testcatalog.org/show/hsTrop Current Interpretive Data last revised 2020. Testing performed by: [facility], [address] [place] [address]., [address] Blood 01/29/2025 4:42 PM CDT 01/29/2025 4:44 PM CDT us Jacob Bullock DO LAB BLOOD ORDERABLES Final Result [facility] [address] [facility] Department [place] [address] * eGFR (01/29/2025 4:42 PM [...] was last reviewed 2021. Testing performed by: [address] [address] Blood 01/29/2025 4:42 PM CDT 01/29/2025 4:44 PM CDT us Jacob Bullock DO LAB BLOOD ORDERABLES Final Result Performing Organization Address City/[facility]/ZIP Co de Phone Number [id number] [employer] [place] [address] * CRP (acute phase) (01/29/2025 4:42 PM CDT) CRP 4.7 <=10.0 mg/L Comment:Testing performed by : [address] [address] Blood 01/29/2025 4:42 PM CDT 01/29/2025 4:44 PM CDT Gabbie Calles MD LAB BLOOD ORDERABLES Fin al Result Performing Organization Address City/[facility]/ZIP Co de Phone Number [address] [place] [address] * (ABNORMAL) Lipase (01/29/2025 4:42 PM CDT) Lipase 154(H) 10 - 99 Units/L Comment:Testing performed by : [address] [address] Blood 01/29/2025 4:42 PM CDT 01/29/2025 4:44 PM CDT Jacob Bullock DO LAB BLOOD ORDERABLES Final Result DAVIS ZAMAN [address] [facility] Department [place] [address] * Comprehensive metabolic panel (01/29/2025 4:42 PM CDT) Sodium 137 135 - 145 mmol/L Comment:Testing performed by : [address] [address] Potassium, pl 3.9 3.3 - 4.9 mmol/L DAVIS Comment:Testing performed by : [address] [address] Chloride 101 97 - 110 mmol/L DAVIS Comment:Testing performed by : [address] [address] CO2 28 22 - 32 mmol/L DAVIS Comment:Testing performed by : [address] [address] Anion gap 8 2 - 15 mmol/L DAVIS Comment:Testing performed by : [address] [address] BUN 8 6 - 25 mg/dL DAVIS Comment:Testing performed by : [address] [address] Creatinine 0.60 0.60 - 1.10 mg/dL DAVIS Comment:Testing performed by : [address] [address] Glucose 88 70 - 199 mg/dL DAVIS [...] was last revised 2022. Testing performed by: [address] [address] Calcium 9.5 8.5 - 10.3 mg/dL DAVIS Comment:Testing performed by : [address] [address] Bilirubin, total 0.4 0.1 - 1.2 mg/dL DAVIS Comment:Testing performed by : [address] [address] Protein, pl 7.9 6.5 - 8.5 g/dL DAVIS Comment:Testing performed by : [address] [address] Albumin 4.0 3.5 - 5.0 g/dL DAVIS Comment:Testing performed by : [address] [address] Alk phos 80 40 - 130 Units/L DAVIS Comment:Testing performed by : [address] [address] ALT 11 7 - 45 Units/L DAVIS Comment:Testing performed by : [address] [address] AST 14 10 - 45 Units/L DAVIS Comment:Testing performed by : [address] [address] Blood 01/29/2025 4:42 PM CDT 01/29/2025 4:44 PM CDT Jacob Bullock DO LAB BLOOD ORDERABLES Final Result DAVIS [address] [facility] Department [place] [address] * POCT hCG, urine (01/29/2025 3:44 PM CDT) HCG, ur, POC Negative Negative Lot Number [id number] QC Backgroud Clear Acceptable QC Control Line Acceptable Urine 01/29/2025 3:44 PM CDT Jacob Banuelos Ara DO POINT OF CARE TEST ORDERABL ES Final Result * Urinalysis reflex to microscopic and culture Urine (01/29/2025 3:42 PM CDT) Color, ur Yellow Yellow Comment:Testing performed by : [address] [address] Clarity, ur Clear Clear DAVIS Comment:Testing performed by : [address] [address] Specific gravity, ur 1.010 1.003 - 1.030 DAVIS Comment:Testing performed by : [address] [address] pH, urine 7.0 DAVIS Comment: Interpretive Data U rine pH is affected by diet, medications, systemic acid-base disturbances, and renal tubular function. pH may affect urinary stone formation. For example, urine pH below 6.0 may help reduce the tendency for calcium phosphate stones and pH greater than 6.0 may reduce the tendency for uric acid stone formation. Source: [facility] [employer] Current Interpretive Data was last revised on 2017 Testing performed by: [address] [address] Protein, ur ql Negative Negative DAVIS Comment:Testing performed by : [address] [address] Glucose, ur ql Negative Negative DAVIS Comment:Testing performed by : [address] [address] Ketones, ur Negative Negative DAVIS Comment:Testing performed by : [address] [address] Bilirubin, ur Negative Negative DAVIS Comment:Testing performed by : [address] [address] Blood, ur Negative Negative DAVIS Comment:Testing performed by : [address] [address] Urobilinogen, ur <2.0 <2.0 mg/dL DAVIS Comment:Testing performed by : [address] [address] Nitrite, ur Negative Negative DAVIS Comment:Testing performed by : [facility], [address] [place] [address]., [address] Leukocyte esterase, ur Negative Negative DAVIS Comment:Testing performed by : [facility], [address] [place] [address]., [address] UA reflex comment Reflex conditions for microscopic UA and culture not met. DAVIS Comment:Testing performed by : [address] [address] Urine 01/29/2025 3:42 PM CDT 01/29/2025 3:49 PM CDT Jacob Bullock DO LAB MICROBIOLOGY - GENERAL ORDERABLES Final Result DAVIS [address] [facility] Department [place] [address] * ECG 12 lead (01/29/2025 3:36 PM CDT) Ventricular Rate EKG/Min 84 BPM [facility] Atrial Rate 84 BPM [facility] FL-Interval (MSEC) 180 ms [facility] QRS-Interval (MSEC) 74 ms [facility] QT-Interval (MSEC) 380 ms [facility] QTc 449 ms [facility] P [place] 58 degrees [facility] R [place] 33 degrees [facility] T [place] 39 degrees [facility] Diagnosis Normal sinus rhythm Normal ECG No previous ECGs available Confirmed by YASHIRA MCFARLAND M.D. ([id number]) on 01/29/2025 11:15:17 PM [facility] 01/29/2025 3:36 PM CDT 01/29/2025 11:15 PM CDT Jacob Bullock DO ECG ORDERABLES Final Resul t [facility] * (ABNORMAL) Differential, auto (01/29/2025 3:29 PM CDT) Neutrophil abs 4.75 1.50 - 6.50 K/cumm Comment:Testing performed by : [address], [place]., [address] Imm gran abs 0.02 0.00 - 0.10 K/cumm DAVIS Comment:Testing performed by : [address], [place]., [address] Lymphocyte abs 2.13 0.80 - 3.30 K/cumm [facility] Comment:Testing performed by : [address], [place]., [address] Monocyte abs 1.10(H) 0.20 - 0.80 K/cumm [facility] Comment:Testing performed by : [address], [place]., [address] Eosinophil abs 0.14 0.00 - 0.50 K/cumm [facility] Comment:Testing performed by : [address] [address] Basophil abs 0.05 0.00 - 0.10 K/cumm [facility] Comment:Testing performed by : [address] [address] Neutrophil pct 58.1 % [facility] Comment: Interpretive Data Percent cell count reference ranges are not reported, since discordance with absolute values may lead to misinterpretation of CBC data. Current Interpretive Data was last revised on 2018. Testing performed by: [address] [address] Imm gran pct 0.2 % [facility] Comment: Interpretive Data Percent cell count reference ranges are not reported, since discordance with absolute values may lead to misinterpretation of CBC data. Current Interpretive Data was last revised on 2018. Testing performed by: [address] [address] Lymphocyte pct 26.0 % [facility] Comment: Interpretive Data Percent cell count reference ranges are not reported, since discordance with absolute values may lead to misinterpretation of CBC data. Current Interpretive Data was last revised on 2018. Testing performed by: [address] [address] Monocyte pct 13.4 % [facility] Comment: Interpretive Data Percent cell count reference ranges are not reported, since discordance with absolute values may lead to misinterpretation of CBC data. Current Interpretive Data was last revised on 2018. Testing performed by: [address] [address] Eosinophil pct 1.7 % DAVIS Comment: Interpretive Data Percent cell count reference ranges are not reported, since discordance with absolute values may lead to misinterpretation of CBC data. Current Interpretive Data was last revised on 2018. Testing performed by: [address] [address] Basophil pct 0.6 % DVAIS Comment: Interpretive Data Percent cell count reference ranges are not reported, since discordance with absolute values may lead to misinterpretation of CBC data. Current Interpretive Data was last revised on 2018. Testing performed by: [address] [address] Blood 01/29/2025 3:29 PM CDT 01/29/2025 3:38 PM CDT us Jacob Bullock DO LAB BLOOD ORDERABLES Final Result [facility] [address] [facility] Department [place] [address] * CBC with auto differential (01/29/2025 3:29 PM CDT) WBC 8.19 3.80 - 9.90 K/cumm Comment:Testing performed by : [address] [address] Hgb 14.8 11.9 - 15.5 g/dL DAVIS ZAMAN Comment:Testing performed by : [address] [address] Hct 44.6 35.6 - 45.5 % DAVIS Comment:Testing performed by : [address] [address] Plt 312 150 - 400 K/cumm DAVIS Comment:Testing performed by : [address] [address] MPV 10.1 9.1 - 12.3 fL DAVIS ZAMAN Comment:Testing performed by : [facility], [address] [place] [address]., [address] RBC 4.77 3.90 - 5.20 M/cumm DAVIS ZAMAN Comment:Testing performed by : [facility], [address] [place] [address]., [address] MCV 93.5 81.3 - 96.4 fL DAVIS ZAMAN Comment:Testing performed by : [address] [address] MCH 31.0 27.1 - 33.3 pg DAVIS ZAMAN Comment:Testing performed by : [address] [address] MCHC 33.2 32.3 - 35.7 g/dL DAVIS ZAMAN Comment:Testing performed by : [address] [address] RDW CV 13.0 11.1 - 14.9 % DAVIS Comment:Testing performed by : [address] [address] RDW SD 44.7 35.7 - 48.1 fL DAVIS Comment:Testing performed by : [address] [address] NRBC abs 0.00 0.00 - 0.01 K/cumm DAVIS Comment:Testing performed by : [address] [address] Blood Venous blood specimen / Unknown 01/29/2025 3:29 PM CDT 01/29/2025 3:38 PM CDT us Jacob Bullock DO LAB BLOOD ORDERABLES Final Result [facility] [address] [facility] Department of Laboratories [place], [place] [id number] from Last 3 Months Insurance [facility] [address] [place] [address] [place] [address] Member Subscriber Plan / Payer (Ef fective 2024-Present) Name:Cesar Hidalgo Relation to Subscriber:Self Name:Avafahad Cesar Munoz Payer ID:[id number] (NAIC) Group ID:Not on file Type:MEDICAID RISK OTHER Address: ATTN: CLAIMS DEPT [address] [facility] [place] [id number] [place] [address] Care Teams Health And Social Care Teacher Relationship Specialty Start Date End Date Johanna Hernandez PA PCP - General Matrix Repairer 05/19/23
--- NOTE | 2025-04-07 08:31 | WPDANESEPPF ---
Anes - Initial Pre Proc Eval Procedure: Operation Date: 04/07/25 14:00 Proposed Procedures p Esophagogastroduodenoscopy - Edwin Doe MD Date/Time: 04/07/25 08:31 Surgeon: Edwin Doe MD Pre Op Diagnosis: Gastritis, unspecified, without bleeding Patient Data Age: 44 Gender: F Height: 1.63 m Weight: 98 kg Allergies Allergy/AdvReac Type Severity Reaction Status Date / Time No Known Allergies Allergy Verified 04/07/25 12:46 Home Medications ?Medication ?Instructions ?Recorded ?Confirmed ?Type albuterol sulfate 90 mcg/actuation 1 inh inhalation Q4H 02/07/24 04/01/25 History aerosol inhaler baclofen 10 mg tablet 10 mg PO DAILY 02/07/24 04/01/25 History ibuprofen 800 mg tablet 800 mg PO TID PRN pain 7 days #21 02/04/25 04/01/25 Rx tabs amoxicillin 500 mg capsule 1,000 mg (2 x 500 mg) PO Q12H 14 04/14/25 Rx days #56 caps clarithromycin 500 mg tablet 500 mg PO Q12H 14 days #28 tabs 04/14/25 Rx omeprazole 20 mg capsule,delayed 20 mg PO BID 14 days #28 caps 04/14/25 Rx release Patient hx anesthesia problems: none Family hx anesthesia problems: none Results Review: All pre-operative results and documents have been reviewed as part of the pre-operative evaluation. [facility] Past Medical History Medical History (Updated 04/14/25 @ 16:06 by Marcie France APRN) Abnormal CT scan, stomach RUQ pain Esophagitis Gastritis Diabetes denies HTN (hypertension) denies Arthritis Asthma Surgical History Surgical History H/O: hysterectomy H/O tubal ligation Social History Social History Smoking packs per day: 1 Smoking cigarettes per day: 20.0 Years smoked: 23 Smoking pack-years: 23.00 Smoking status: Current every day smoker Tobacco type: cigarettes Alcohol intake: never Substance use: never Substance use type: does not use Living arrangements: with family Gender identity (if verbalized by the patient): Female Spiritual care concerns: No Anes - Eval Final PreProcedure Day of Procedure 04/07/25 08:31 Patient weight: obese Heart: regular rate and rhythm Lungs: clear to auscultation Airway: Mallampati scale class II Neurological: alert and oriented Last oral intake: >/= 8 hours ASA classification: III Emergent: no Anesthetic plan: proceed Anesthesia type and monitoring: general GIVS and standard monitoring Results Review: All pre-operative results and documents have been reviewed as part of the pre-operative evaluation. Informed Consent: The patient's anesthetic plan and its attendant risks and benefits were discussed with the patient/family/POA. Questions were solicited and answers provided to the satisfaction of the patient/family/POA.
[2025-04-07 12:47] VITALS: BP 115/72; PULSE 78; RESP 18; TEMP 36.3; O2SAT 98
[2025-04-07] MEDS: LACTATED RINGERS 1,000 ML 150 ML IV CONT (13:00)
--- NOTE | 2025-04-07 14:00 | PM.HPGS ---
History of Present Illness History of Present Illness Consent: Risks, benefits, and alternatives have been discussed and questions answered. Patient agrees to proceed with procedure. Chief complaint: Gastritis, unspecified, without bleeding Narrative: Cesar Hidalgo is a 44 year old female here for egd, about 2 months ago had episode of abdominal pain, noted mild pancreatitis and ct with possible gastritis, no more pain since. Review of Systems Review of Systems: All systems reviewed & are unremarkable except as noted in HPI and below PMFSH Past Medical History Medical History (Updated 04/07/25 @ 14:01 by Edwin Doe MD) Abnormal CT scan, stomach RUQ pain Esophagitis Gastritis Diabetes denies HTN (hypertension) denies Arthritis Asthma Surgical History Surgical History H/O: hysterectomy H/O tubal ligation Social History Social History Smoking packs per day: 1 Smoking cigarettes per day: 20.0 Years smoked: 23 Smoking pack-years: 23.00 Smoking status: Current every day smoker Tobacco type: cigarettes Alcohol intake: never Substance use: never Substance use type: does not use Living arrangements: with family Gender identity (if verbalized by the patient): Female Spiritual care concerns: No Meds Home Medications and Allergies Home Medications ?Medication ?Instructions ?Recorded ?Confirmed ?Type albuterol sulfate 90 mcg/actuation 1 inh inhalation Q4H 02/07/24 04/01/25 History aerosol inhaler baclofen 10 mg tablet 10 mg PO DAILY 02/07/24 04/01/25 History ibuprofen 800 mg tablet 800 mg PO TID PRN pain 7 days #21 02/04/25 04/01/25 Rx tabs Allergies Allergy/AdvReac Type Severity Reaction Status Date / Time No Known Allergies Allergy Verified 04/07/25 12:46 Vital Signs Vital Signs - 24 hr 04/07/25 12:47 Temperature 97.3 F L Pulse Rate 78 Respiratory Rate 18 Blood Pressure 115/72 Pulse Oximetry 98 Oxygen Delivery Room Air Exam Const: General: comfortable and no acute distress HENMT: Face/Nose/Sinus: Normal nares present Eyes: General: appearance normal, both eyes and all related structures Neck: Neck: no JVD Resp: Auscultation: clear to auscultation bilaterally Cardio: Rate: regular rate Rhythm: regular rhythm GI: Inspection: non-distended GI Palp: Yes Soft to palpation Skin: General skin exam: normal color Neuro: Speech: normal speech Extrem: General: normal to inspection Psych: Mental Status: mental status grossly normal Assessment and Plan Assessment and plan (1) Abnormal CT scan, stomach: Code(s): R93.3 - Abnormal findings on diagnostic imaging of other parts of digestive tract Status: Acute Assessment and Plan: egd with bx
--- NOTE | 2025-04-07 14:10 | S_PTH ---
PATIENT: Cesar Hidalgo LOC: [facility]#:[id number] AGE/SX: 44/F ROOM: RE04/07/[address]: Edwin Doe MD : 1980 BED: DIS: 04/07/2025 SPEC #: [id number] RECD: 04/08/25 08:15 STATUS: MICHELLE REAlex #: [id number] JUAN: 04/07/25 14:[address]: Edwin Doe DEPT: [facility] Surgical RECD BY: Alessandra Jalloh Tissues: A - Gastric Biopsy Procedures: Hematoxylin and Eosin Stain Gross and Microscopic Level 4
[2025-04-07 14:15] VITALS: BP 110/62; PULSE 89; RESP 20; O2SAT 99
[2025-04-07 14:25] VITALS: BP 111/72; PULSE 79; RESP 25; O2SAT 100
[2025-04-07 14:35] VITALS: BP 119/73; PULSE 80; RESP 22; O2SAT 99
== END 2025-04-07 14:46 | disposition home or self-care (01) ==
PROVIDERS: Referring Provider Nurse Practitioner Family; Visit Provider Internal Medicine Gastroenterology
PROC: 0DJ08ZZ Inspection of Upper Intestinal Tract, Via Natural or Artificial Opening Endoscopic (ICD-10-PCS; CPT 43239; principal; 2025-04-07 14:00)
DX: R93.3 Abnormal findings on diagnostic imaging of other parts of digestive tract (principal); K29.50 Unspecified chronic gastritis without bleeding; B96.81 Helicobacter pylori [H. pylori] as the cause of diseases classified elsewhere; E11.9 Type 2 diabetes mellitus without complications; I10 Essential (primary) hypertension; J45.909 Unspecified asthma, uncomplicated; M19.90 Unspecified osteoarthritis, unspecified site; F17.210 Nicotine dependence, cigarettes, uncomplicated; Z79.51 Long term (current) use of inhaled steroids; Z79.1 Long term (current) use of non-steroidal anti-inflammatories (NSAID)
CPT/HCPCS: 43239; 88305; J2003; J2704; J7120

== ENCOUNTER 2025-06-10 16:30 | Outpatient (CLI) | payer OTHER, SELFPAY ==
--- OUTSIDE RECORDS SUMMARY | 2025-06-10 16:56 | XMS_ITS | Clinical Summary ---
Author Organization [facility] Address [address] [place] [address] Care Team Providers Care Console Assembler Name Role Phone Unavailable Primary Care Provider [...] of 3 - 19+ 3-dose series) 2000 HPV Vaccines (1 - 3-dose SCD M series) 2008 Cervical Cancer Screening Pa p with HPV Testing (Age 30 to 64) Every 5 Years 2011 Cervical Cancer Screening with HPV 2011 Mammogram Screening 2021 COVID-19 Vaccine (2023-2 5 season) 2025 Meningococcal B Vaccine Aged Out No l [...]
--- OUTSIDE RECORDS SUMMARY | 2025-06-10 16:56 | XMS_ITS | Clinical Summary ---
Author Organization [facility] at 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 Gender Identity Female 02/03/2025 8:25 AM CDT Sexual Orientation Straight 02/03/2025 8: 25 AM CDT Obstetrics History Last Filed Vital Signs Vital Sign Reading Time Taken Comments Blood Pressure 122/86 01/29/2025 8:41 PM CDT Pulse 85 01/29/2025 8:41 PM CDT Temperature 36.9 C (98.5 F) 01/29/2025 8:41 PM CDT Respiratory Rate 16 01/29/2025 8:41 PM CDT Oxygen Saturation 99% 01/29/2025 8: 41 PM CDT Inhaled Oxygen Concentration - - [...] <65 (1 of 2 - PCV) 2000 HPV Vaccines (1 - 3-dose SCDM series) 2008 Breast Cancer Screening-Mammogram 07/17/2024 023 Covid-19 Vaccine ( season) 2025 10/19/2021, 01/27/2021, 12/30/2020 Influenza Vaccine (#1) 2025 Insurance Care Teams Embroidery Operator Relationship Specialty Start Date End Date Johanna Hernandez PA PCP - General Water Pollution Specialist 05/19/23
== END 2025-06-10 16:31 | disposition home or self-care (01) ==
LOC: ANHLAB 16:31
PROVIDERS: Visit Provider Nurse Practitioner Family
DX: A04.8 Other specified bacterial intestinal infections (principal)
CPT/HCPCS: 87338